=== PATIENT | female | born 1960 | race Caucasian/White ===

== ENCOUNTER → 2017-05-15 | Outpatient (CLI) | payer OTHER ==
--- NOTE | 2017-05-15 11:12 | US ---
EXAMINATION TYPE: US venous doppler duplex LE LT DATE OF EXAM: 05/15/2017 9:55 AM COMPARISON: NONE CLINICAL HISTORY: R22.42 swelling left lower ext. Swelling within calf per patient, all source intelligence technician did no t notice swelling, no h/o dvt SIDE PERFORMED: Left TECHNIQUE: The lower extremity deep venous system is examined utilizing real time linear array sonog obdulio with graded compression, doppler sonography and color-flow sonography. VESSELS IMAGED: External Iliac Vein (EIV) Common Femoral Vein Deep Femoral Vein Greater Saphenous Vein * Femoral Vein Popliteal Vein Small Saphenous Vein * Proximal Calf Veins (* superficial vessels) Left Leg: Appears negative for DVT tech impression to office at 9:55 IMPRESSION: 1. No deep venous thrombosis by ultrasound findings.
== END ==
LOC: RADUSWWP 09:35
PROVIDERS: ATTEND Family Medicine
DX: R22.42 Localized swelling, mass and lump, left lower limb (principal)

== ENCOUNTER 2017-06-25 06:54 | Inpatient (IN) | payer OTHER ==
[2017-06-25] MEDS ORDERED: methylPREDNISolone SOD SUCCI 125 MG/2 ML VIAL IV STA (07:21)
[2017-06-25] MEDS ORDERED: IPRATROPIUM-ALBUTEROL 3 ML NEB INHALATION STA (07:21)
--- NOTE | 2017-06-25 07:24 | ED ---
General Adult HPI - General Chief complaint: Shortness of Breath Stated complaint: SOB Time Seen by Provider: 06/25/17 07:18 Source: patient, family, RN notes reviewed Mode of arrival: ambulatory Limitations: no limitations - History of Present Illness Initial comments: Patient is a pleasant 57-year-old female presenting to the emergency department with shortness of breath. Symptoms started a couple of days ago. Patient does have cough with clear sputum. No fevers. No chest pain. Patient has a history of similar symptoms previously associated with COPD. - Related Data Home Medications Medication Instructions Recorded Confirmed Albuterol Sulfate [Proair Hfa] 2 puff INHALATION RT-Q6H PRN 08/20/15 06/25/17 Aspirin 81 mg PO HS 08/20/15 06/25/17 Atorvastatin [Lipitor] 10 mg PO HS 08/20/15 06/25/17 Hydrochlorothiazide [Hydrodiuril] 25 mg PO HS 08/20/15 06/25/17 Ibuprofen [Motrin] 800 mg PO Q8HR PRN 08/20/15 06/25/17 Ramipril 20 mg PO HS 08/20/15 06/25/17 traMADol HCl [Ultram] 50 mg PO Q4H PRN 08/20/15 06/25/17 Ascorbic Acid [Vitamin C] 1,000 mg PO HS 11/11/15 06/25/17 Multivitamins, Thera [Multivitamin 1 tab PO HS 11/11/15 06/25/17 (formulary)] Calcium Carbonate/Vitamin D3 1 tab PO HS 06/25/17 06/25/17 [Calcium 500-Vit D3 200 Tablet] Allergies Allergy/AdvReac Type Severity Reaction Status Date / Time adhesive tape Allergy Rash/Hives Verified 06/25/17 08:10 Sulfa (Sulfonamide Allergy Swelling Verified 06/25/17 08:10 Antibiotics) codeine AdvReac Nausea & Verified 06/25/17 08:10 Vomiting Review of Systems ROS Statement: Those systems with pertinent positive or pertinent negative responses have been documented in the HPI. ROS Other: All systems not noted in ROS Statement are negative. Constitutional: Denies: fever, chills Eyes: Denies: eye pain ENT: Denies: ear pain, throat pain Respiratory: Reports: cough, dyspnea Cardiovascular: Denies: chest pain Endocrine: Reports: fatigue Gastrointestinal: Denies: abdominal pain Genitourinary: Denies: dysuria Musculoskeletal: Denies: back pain Skin: Denies: rash Neurological: Denies: weakness Past Medical History Past Medical History: Asthma, Cancer, COPD, Hyperlipidemia, Hypertension Additional Past Medical History / Comment(s): cervical cancer, Severe kyphoscoliosis of the thoracic spine and she has not had any surgical intervention History of Any Multi-Drug Resistant Organisms: None Reported Past Surgical History: Hysterectomy, Tonsillectomy Additional Past Surgical History / Comment(s): Benign skin tumor, hemangioma, off side head, exploratory laparotomy Past Anesthesia/Blood Transfusion Reactions: Postoperative Nausea & Vomiting ( PONV) Past Psychological History: No Psychological Hx Reported Smoking Status: Current every day smoker Past Alcohol Use History: None Reported Past Drug Use History: None Reported - Past Family History Mother Family Medical History: Diabetes Mellitus Father Family Medical History: Myocardial Infarction (MO) General Exam Limitations: no limitations General appearance: alert Head exam: Present: atraumatic Eye exam: Present: normal appearance, PERRL ENT exam: Present: normal oropharynx Neck exam: Present: normal inspection Respiratory exam: Present: wheezes, decreased breath sounds Cardiovascular Exam: Present: regular rate, normal rhythm GI/Abdominal exam: Present: soft. Absent: tenderness Extremities exam: Present: normal inspection. Absent: pedal edema, calf tenderness Neurological exam: Present: alert Psychiatric exam: Present: normal affect, normal mood Skin exam: Present: normal color Course Vital Signs 06/25/17 06/25/17 06/25/17 06:57 07:35 07:42 Temperature 98.4 F Pulse Rate 105 H 86 Respiratory 22 Rate Blood Pressure 142/98 O2 Sat by Pulse 88 L 94 L Oximetry 06/25/17 07:52 Temperature Pulse Rate 88 Respiratory Rate Blood Pressure O2 Sat by Pulse Oximetry EKG Findings - EKG Comments: EKG Findings:: Normal sinus rhythm 96. Normal intervals. Normal axis. Normal QRS. No acute ST change. Medical Decision Making - Medical Decision Making Patient reexamined and is somewhat improved following breathing treatment. Lung sounds with increased air exchange however continued wheezing. Patient does not yet feel quite comfortable with discharge home. Patient updated on results and plan. Case discussed in detail with Dr. mehta, who will admit for Dr. hernandez. - Lab Data Result diagrams: 06/25/17 07:36 06/25/17 07:36 Lab Results 06/25/17 06/25/17 06/25/17 Range/Units 07:36 07:36 07:36 WBC 8.0 (3.8-10.6) k/uL RBC 4.42 (3.80-5.40) m/uL Hgb 14.0 (11.4-16.0) gm/dL Hct 42.6 (34.0-46.0) % MCV 96.3 (80.0-100.0) fL MCH 31.7 (25.0-35.0) pg MCHC 33.0 (31.0-37.0) g/dL RDW 12.2 (11.5-15.5) % Plt Count 198 (150-450) k/uL Neutrophils % 73 % Lymphocytes % 15 % Monocytes % 4 % Eosinophils % 6 % Basophils % 1 % Neutrophils # 5.8 (1.3-7.7) k/uL Lymphocytes # 1.2 (1.0-4.8) k/uL Monocytes # 0.3 (0-1.0) k/uL Eosinophils # 0.5 (0-0.7) k/uL Basophils # 0.1 (0-0.2) k/uL PT (9.0-12.0) sec INR (<1.2) APTT (22.0-30.0) sec Sodium 142 (137-145) mmol/L Potassium 4.2 (3.5-5.1) mmol/L Chloride 101 (98-107) mmol/L Carbon Dioxide 30 (22-30) mmol/L Anion Gap 11 mmol/L BUN 11 (7-17) mg/dL Creatinine 0.61 (0.52-1.04) mg/dL Est GFR (MDRD) Af Amer >60 (>60 ml/min/1.73 sqM) Est GFR (MDRD) Non-Af >60 (>60 ml/min/1.73 sqM) Glucose 130 H (74-99) mg/dL Calcium 9.7 (8.4-10.2) mg/dL Total Bilirubin 0.8 (0.2-1.3) mg/dL AST 33 (14-36) U/L ALT 44 (9-52) U/L Alkaline Phosphatase 103 (38-126) U/L Total Creatine Kinase 133 (30-135) U/L CK-MB (CK-2) 4.1 H* (0.0-2.4) ng/mL CK-MB (CK-2) Rel Index 3.1 Troponin I <0.012 (0.000-0.034) ng/mL Total Protein 7.9 (6.3-8.2) g/dL Albumin 5.0 (3.5-5.0) g/dL 06/25/17 Range/Units 07:36 WBC (3.8-10.6) k/uL RBC (3.80-5.40) m/uL Hgb (11.4-16.0) gm/dL Hct (34.0-46.0) % MCV (80.0-100.0) fL MCH (25.0-35.0) pg MCHC (31.0-37.0) g/dL RDW (11.5-15.5) % Plt Count (150-450) k/uL Neutrophils % % Lymphocytes % % Monocytes % % Eosinophils % % Basophils % % Neutrophils # (1.3-7.7) k/uL Lymphocytes # (1.0-4.8) k/uL Monocytes # (0-1.0) k/uL Eosinophils # (0-0.7) k/uL Basophils # (0-0.2) k/uL PT 10.6 (9.0-12.0) sec INR 1.0 (<1.2) APTT 23.8 (22.0-30.0) sec Sodium (137-145) mmol/L Potassium (3.5-5.1) mmol/L Chloride (98-107) mmol/L Carbon Dioxide (22-30) mmol/L Anion Gap mmol/L BUN (7-17) mg/dL Creatinine (0.52-1.04) mg/dL Est GFR (MDRD) Af Amer (>60 ml/min/1.73 sqM) Est GFR (MDRD) Non-Af (>60 ml/min/1.73 sqM) Glucose (74-99) mg/dL Calcium (8.4-10.2) mg/dL Total Bilirubin (0.2-1.3) mg/dL AST (14-36) U/L ALT (9-52) U/L Alkaline Phosphatase (38-126) U/L Total Creatine Kinase (30-135) U/L CK-MB (CK-2) (0.0-2.4) ng/mL CK-MB (CK-2) Rel Index Troponin I (0.000-0.034) ng/mL Total Protein (6.3-8.2) g/dL Albumin (3.5-5.0) g/dL - Radiology Data Radiology results: image reviewed (Chest x-ray shows no acute process. Chronic chest wall deformity/severe scoliosis.) Disposition Clinical Impression: Acute exacerbation of chronic obstructive airways disease Disposition: ADMITTED IP TO THIS HOSP Referrals: Fermin Hernandez MD [Primary Care Provider] - 1-2 days Decision Time: 08:43
[2017-06-25 07:48] LABS: Basophils # (A) 0.1 k/uL (0-0.2); Basophils % (A) 1 %; CH 31.9; CHCM 33.3; Eosinophils # (A) 0.5 k/uL (0-0.7); Eosinophils % (A) 6 %; HCT 42.6 % (34.0-46.0); HDW 2.27; Luc % (Auto) 1; Lymphocytes # (A) 1.2 k/uL (1.0-4.8); Lymphocytes % (A) 15 %; MCH 31.7 pg (25.0-35.0); MCV 96.3 fL (80.0-100.0); Mean Platelet Volume 8.9; Monocytes # (A) 0.3 k/uL (0-1.0); Monocytes % (A) 4 %; Neutrophils # (A) 5.8 k/uL (1.3-7.7); Neutrophils % (A) 73 %; RBC 4.42 m/uL (3.80-5.40); RDW 12.2 % (11.5-15.5); WBC (Perox) 7.81
[2017-06-25 07:53] LABS: Partial Thromboplastin Time 23.8 sec (22.0-30.0)
[2017-06-25 07:57] LABS: ALT 44 U/L (9-52); AST 33 U/L (14-36); Alkaline Phosphatase 103 U/L (38-126); Anion Gap 11 mmol/L; Blood Urea Nitrogen 11 mg/dL (7-17); Calcium 9.7 mg/dL (8.4-10.2); Carbon Dioxide 30 mmol/L (22-30); Chloride 101 mmol/L (98-107); Glucose 130 mg/dL (74-99); Non-African American GFR(MDRD) >60 (>60 ml/min/1.73 sqM); Potassium 4.2 mmol/L (3.5-5.1); Sodium 142 mmol/L (137-145); Total Bilirubin 0.8 mg/dL (0.2-1.3); Total Protein 7.9 g/dL (6.3-8.2)
[2017-06-25 08:00] LABS: Prothrombin Time 10.6 sec (9.0-12.0)
[2017-06-25 08:08] LABS: Creatine Kinase 133 U/L (30-135)
[2017-06-25 08:20] LABS: Troponin I <0.012 ng/mL (0.000-0.034)
[2017-06-25 08:23] LABS: Creatine Kinase MB 4.1 ng/mL (0.0-2.4)
--- NOTE | 2017-06-25 08:26 | XR ---
EXAMINATION TYPE: XR chest 2V DATE OF EXAM: 06/25/2017 COMPARISON: 11/11/2015 HISTORY: COPD and asthma. Shortness of breath. TECHNIQUE: Frontal and lateral views of the chest are obtained. FINDINGS: Chronic chest wall deformity, severe scoliosis, and mediastinal rotation unchanged from th e prior. No new focal consolidation, pleural effusion or pneumothorax. Redemonstration of multilevel compression deformities and diffuse osseous demineralization. Flattening of the diaphragms on the lat eral image is compatible with the known history of underlying COPD. IMPRESSION: No acute cardiopulmonary process, unchanged in comparison to the prior exam.
[2017-06-25] MEDS ORDERED: IPRATROPIUM-ALBUTEROL 3 ML NEB INHALATION PRN (08:44)
[2017-06-25] MEDS ORDERED: traMADol 50 MG TAB PO PRN (10:30)
[2017-06-25] MEDS ORDERED: IPRATROPIUM-ALBUTEROL 3 ML NEB INHALATION SCH (12:00)
[2017-06-25] MEDS ORDERED: methylPREDNISolone SOD SUCCI 125 MG/2 ML VIAL IV SCH (12:00)
[2017-06-25 12:43] LABS: Glucose,Whole Blood 135 mg/dL (75-99)
[2017-06-25] MEDS: INSULIN LISPRO (humaLOG) 300 UNIT/3 ML VIAL SQ SCH ×3 (12:47→20:54)
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
[2017-06-25] MEDS: methylPREDNISolone SOD SUCCI 40 MG/ML 1 ML VIAL IV SCH ×2 (16:26→23:48)
[2017-06-25] MEDS: IPRATROPIUM-ALBUTEROL 3 ML NEB INHALATION SCH ×2 (17:15→19:56)
[2017-06-25] MEDS: BUDESONIDE 1 MG/2 ML NEBU INHALATION SCH ×2 (17:15→20:04)
[2017-06-25 18:16] LABS: Glucose,Whole Blood 166 mg/dL (75-99)
[2017-06-25] MEDS ORDERED: NICOTINE POLACRILEX 2 MG GUM BUCCAL PRN (19:02)
[2017-06-25] MEDS: NICOTINE 21MG/24HR PATCH TRANSDERM SCH (20:47)
[2017-06-25 20:48] LABS: Glucose,Whole Blood 146 mg/dL (75-99)
[2017-06-25] MEDS: CIPROFLOXACIN HCL 500 MG TAB PO SCH (20:48)
[2017-06-25] MEDS ORDERED: HYDROCHLOROTHIAZIDE 25 MG TAB PO SCH (21:00)
[2017-06-25] MEDS ORDERED: CALCIUM CARB-VIT D 500MG-200UN 1 EACH TAB PO SCH (21:00)
[2017-06-25] MEDS ORDERED: LISINOPRIL 20 MG TAB PO SCH (21:00)
[2017-06-25] MEDS ORDERED: ASPIRIN 81 MG PO SCH (21:00)
[2017-06-25] MEDS ORDERED: MULTIVITAMINS, THERA 1 EACH TAB PO SCH (21:00)
[2017-06-25] MEDS ORDERED: ATORVASTATIN 10 MG TAB PO SCH (21:00)
--- NOTE | 2017-06-25 21:39 | HP ---
HISTORY AND PHYSICAL DATE OF ADMISSION: 06/25/17. PRESENTING COMPLAINT: Short of breath and wheezing. HISTORY OF PRESENTING COMPLAINT: Pleasant 57 -year-old patient of Dr. Hernandez. Chronic stable medical conditions include hyperlipidemia, hypertension, osteoarthritis, and kyphoscoliosis. The patient is long-standing smoker. The patient presents with worsening short of breath, cough, thick yellow sputum. He denies any obvious fevers. Appetite is maintained. Did feel a bit better after getting nebulized bronchodilators, admitted for the same. Denies any obvious fever. REVIEW OF SYSTEMS: Constitutional tired. HEENT: None. RESPIRATORY: As above. Cardiovascular: None. Gastrointestinal: None. Genitourinary none. Musculoskeletal arthritic pain especially in the hands and knees. Dermatological, hematologic, lymphatics none. Psychiatry none. Neurological none. PAST HISTORY: COPD, hyperlipidemia, hypertension, osteoarthritis, kyphoscoliosis, cervical cancer with hysterectomy, arthritis of the hands and knees. PAST SURGICAL HISTORY: Hysterectomy, tonsillectomy, hemangioma removed from the side of the head, exploratory laparotomy with right salpingectomy, lymph node removed from the groin and hysterectomy for cervical cancer. SOCIAL HISTORY: The patient lives with a brother. Smoked a pack a day for 45 years. Alcohol occasionally. Denies use of any recreational drugs. FAMILY HISTORY: Mother of cerebral aneurysm at age of 29. HOME MEDICATIONS: Ultram 50 mg p.o. q.4 p.r.n. Motrin 800 mg q.8h p.r.n., calcium with vitamin D 1 tablet p.o. q.h.s., ProAir 2 puffs q.6h p.r.n. multivitamin 1 tab p.o. q.h.s., hydrochlorothiazide 25 mg q.h.s., Lipitor 10 mg p.o. q.h.s., aspirin 81 mg p.o. q.h.s. vitamin C 1000 mg p.o. q.h.s. ALLERGIES: ADHESIVE TAPE, SULFUR, CODEINE. PHYSICAL EXAMINATION: Vital signs on presentation: Temperature 98.4, pulse 105, respiratory rate 22, blood pressure 142/98, pulse ox 88% on room air, general appearance average built, sitting up, tired appearing. EYES: Pupils are equal. Conjunctivae normal. HEENT: Oral cavity normal. Neck JVD not raised. Mass not palpable. Respiratory effort increased. LUNGS: Diminished breath sounds, prolonged expiration and wheezing. Cardiovascular first and second sounds normal. No edema. ABDOMEN: Soft, nontender. Liver and spleen not palpable. Lymphatics: No lymph node palpable in the neck and axilla. Psychiatry: Alert and oriented times three. Mood and affect is slightly anxious appearing. Neurological pupils equal. Cranial nerves grossly intact. Power and sensation grossly intact. INVESTIGATIONS: White count 8.0, hemoglobin 14, potassium 4.2. Troponin negative. EKG poor baseline tracing. Chest x-ray shows severe scoliosis. No obvious infiltrate. ASSESSMENT: 1. Acute chronic obstructive pulmonary disease exacerbation from acute tracheobronchitis in a smoker. 2. Chronic nicotine dependence, patient active cigarette smoker. 3. Acute hypoxic respiratory failure present on admission from chronic obstructive pulmonary disease. 4. Hyperlipidemia. 5. Essential hypertension. 6. Primary osteoarthritis of the knees and the hands. 7. Chronic kyphoscoliosis. PLAN: Patient is started on nebulized bronchodilators, inhaled steroids, IV Solu-Medrol, oral antibiotic to be added. Care was discussed with the patient. Counseled against smoking. Given nicotine patch including nebulized bronchodilators and steroids. Copy to Dr. Hernandez. [id number] / ANAN: [id number] /
[2017-06-26 07:04] LABS: Glucose,Whole Blood 135 mg/dL (75-99)
[2017-06-26] MEDS: IPRATROPIUM-ALBUTEROL 3 ML NEB INHALATION SCH ×2 (07:10→10:54)
[2017-06-26] MEDS: BUDESONIDE 1 MG/2 ML NEBU INHALATION SCH (07:10)
[2017-06-26 07:15] VITALS: BP 104/62; RESP 20; TEMP 97
[2017-06-26] MEDS: methylPREDNISolone SOD SUCCI 40 MG/ML 1 ML VIAL IV SCH (07:34)
[2017-06-26] MEDS: CIPROFLOXACIN HCL 500 MG TAB PO SCH (07:34)
[2017-06-26] MEDS: NICOTINE 21MG/24HR PATCH TRANSDERM SCH (07:34)
[2017-06-26] MEDS: INSULIN LISPRO (humaLOG) 300 UNIT/3 ML VIAL SQ SCH ×2 (07:34→11:46)
[2017-06-26] MEDS ORDERED: ENOXAPARIN 40 MG/0.4 ML SYRINGE SQ SCH (09:00)
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
[2017-06-26 10:57] VITALS: PULSE 84
[2017-06-26 11:26] LABS: Glucose,Whole Blood 138 mg/dL (75-99)
--- NOTE | 2017-06-26 15:28 | DS ---
DISCHARGE SUMMARY DATE OF ADMISSION: 06/25/17. DATE OF DISCHARGE: 06/26/17. FINAL DIAGNOSES: 1. Acute chronic obstructive pulmonary disease exacerbation from acute tracheobronchitis in a smoker. 2. Chronic nicotine dependence patient active cigarette smoker. 3. Acute hypoxic respiratory failure present on admission from chronic obstructive pulmonary disease. 4. Hyperlipidemia. 5. Essential hypertension. 6. Primary osteoarthritis of the knees and hands. 7. Chronic kyphoscoliosis. HOSPITAL COURSE: This is a smoker presented with COPD exacerbation, tracheobronchitis. Doing much better by the time of discharge. EXAMINATION: Lungs improved air entry. CONSULTATION: Dr. Damon from Pulmonary. DISCHARGE MEDICATIONS: 1. ProAir 2 puffs q.6h p.r.n. 2. Aspirin 81 mg q.h.s. 3. Lipitor 10 mg q.h.s. 4. Hydrochlorothiazide 25 mg q.h.s. 5. Motrin 800 mg p.o. q.8h p.r.n. 6. Ramipril 20 mg q.h.s. 7. Ultram 50 mg p.o. q.4 p.r.n. 8. Vitamin C 1000 mg p.o. q.h.s. 9. Multivitamin 1 tab p.o. q.h.s. 10.Calcium 500, vitamin D3 1 tab p.o. q.h.s. 11.Ceftin 250 mg p.o. b.i.d. 6 tablets. 12.Atrovent 2 puffs q.i.d. 13.Habitrol nicotine patch. 14.Nicorette gum q.4h p.r.n. 15.Prednisone taper. Follow up with Dr. Hernandez on July 10, 2017, follow with Dr. Larsen on July 04, 2017. Discussion and discharge planning more than 35 minutes. MMODL / IJN: [id number] /
== END 2017-06-26 13:15 | disposition home or self-care (01) | DRG 190 ==
LOC: EC 06:54 → 4MS4W 08:44
PROVIDERS: ADMIT Hospitalist; ATTEND Hospitalist
DX: J44.0 Chronic obstructive pulmonary disease with (acute) lower respiratory infection (principal); J96.01 Acute respiratory failure with hypoxia; M41.9 Scoliosis, unspecified; F17.210 Nicotine dependence, cigarettes, uncomplicated; J20.9 Acute bronchitis, unspecified; J44.1 Chronic obstructive pulmonary disease with (acute) exacerbation; E78.5 Hyperlipidemia, unspecified; I10 Essential (primary) hypertension; M19.041 Primary osteoarthritis, right hand; M19.042 Primary osteoarthritis, left hand; M17.0 Bilateral primary osteoarthritis of knee; Z79.899 Other long term (current) drug therapy; Z79.82 Long term (current) use of aspirin; Z90.710 Acquired absence of both cervix and uterus; Z85.41 Personal history of malignant neoplasm of cervix uteri; Z90.79 Acquired absence of other genital organ(s)
CPT/HCPCS: 36415; 71020; 80053; 82550; 82553; 84484; 85025; 85610; 85730; 87040; 93005; 94640; 94760; 96374; 99285

== ENCOUNTER → 2017-10-01 | Outpatient (CLI) | payer OTHER ==
--- NOTE | 2017-10-02 11:39 | MM ---
Reason for exam: screening (asymptomatic). Last mammogram was performed 1 year and 11 months ago. History: Patient has history of endometrial cancer at age 34. Family history of breast cancer in paternal grandmother. Physical Findings: A clinical breast exam by your physician is recommended on an annual basis and results should be correlated with mammographic findings. MG 3D Screening Mammo W/Cad Bilateral CC and MLO view(s) were taken. Prior study comparison: November 05, 2015, bilateral MG screening mammo w CAD. October 07, 2014, bilateral MG screening mammo w CAD. There are scattered fibroglandular densities. There is no discrete abnormality. No significant changes when compared with prior studies. ASSESSMENT: Negative, BI-RAD 1 RECOMMENDATION: Routine screening mammogram of both breasts in 1 year.
== END | disposition home or self-care (01) ==
LOC: RADMAMWWP 16:51
PROVIDERS: ATTEND Family Medicine
DX: Z12.31 Encounter for screening mammogram for malignant neoplasm of breast (principal)
CPT/HCPCS: 77063; 77067

== ENCOUNTER → 2017-11-21 | Outpatient (CLI) | payer OTHER ==
--- NOTE | 2017-11-21 13:28 | XR ---
EXAMINATION TYPE: XR shoulder complete RT DATE OF EXAM: 11/21/2017 COMPARISON: NONE HISTORY: Pain TECHNIQUE: Three views are submitted. FINDINGS: The osseous structures are intact. There is no acute fracture or dislocation. There is diffuse osteo penia. Chronic right-sided rib deformities are seen with a scoliotic curvature. Clavicular deformity suggests previous trauma. No definite acute fracture. IMPRESSION: 1. Chronic rib cage deformities with no definite acute fracture or dislocation.
== END | disposition home or self-care (01) ==
LOC: RADXRMAIN 12:43
PROVIDERS: ATTEND Emergency Medicine
DX: M95.4 Acquired deformity of chest and rib (principal)

== ENCOUNTER 2018-01-14 00:07 | Emergency (ER) | payer OTHER ==
[2018-01-14] MEDS ORDERED: FAMOTIDINE 20 MG/2 ML VIAL IV STA (00:25)
[2018-01-14] MEDS ORDERED: EPINEPHrine 1 MG/ML 1 ML AMP IM STA (00:25)
[2018-01-14] MEDS ORDERED: methylPREDNISolone SOD SUCCI 125 MG/2 ML VIAL IV STA (00:25)
--- NOTE | 2018-01-14 00:42 | ED ---
General Adult HPI - General Chief complaint: Allergic Reaction Stated complaint: allergic reaction Time Seen by Provider: 01/14/18 00:30 Source: patient, family, RN notes reviewed Mode of arrival: ambulatory Limitations: no limitations - History of Present Illness Initial comments: Chief complaint history of present illness a 77-year-old female comes emergency room because of a large reaction. Patient does not know what she took. She is taking Keflex for an infection but she did not 4 days. Was never had a reaction to before. Patient does have ALLERGIES to sulfa medications. Patient took 2 Benadryl prior to coming emergency room. She presents with hives swelling redness complaint shortness of breath. - Related Data Home Medications Medication Instructions Recorded Confirmed Albuterol Sulfate [Proair Hfa] 2 puff INHALATION RT-Q6H PRN 08/20/15 01/14/18 Aspirin 81 mg PO HS 08/20/15 01/14/18 Atorvastatin [Lipitor] 10 mg PO HS 08/20/15 01/14/18 Hydrochlorothiazide [Hydrodiuril] 25 mg PO HS 08/20/15 01/14/18 Ibuprofen [Motrin] 800 mg PO Q8HR PRN 08/20/15 01/14/18 Ramipril 20 mg PO HS 08/20/15 01/14/18 traMADol HCl [Ultram] 50 mg PO Q4H PRN 08/20/15 01/14/18 Ascorbic Acid [Vitamin C] 1,000 mg PO HS 11/11/15 01/14/18 Multivitamins, Thera [Multivitamin 1 tab PO HS 11/11/15 01/14/18 (formulary)] Calcium Carbonate/Vitamin D3 1 tab PO HS 06/25/17 01/14/18 [Calcium 500-Vit D3 200 Tablet] Previous Rx's Medication Instructions Recorded Cefuroxime [Ceftin] 250 mg PO BID #6 tablet 06/26/17 Ipratropium Angie [Atrovent Hfa] 2 puff INHALATION QID #1 inhaler 06/26/17 Nicotine 21Mg/24Hr Patch [Habitrol] 1 patch TRANSDERM DAILY #14 patch 06/26/17 Nicotine Polacrilex [Nicorette] 2 mg BUCCAL Q4HR PRN #30 gum 06/26/17 predniSONE 10 mg PO DAILY #30 tab 06/26/17 EPINEPHrine [Epipen 2-Pilo] 0.3 mg IM ONCE PRN #1 auto.injct 01/14/18 predniSONE 20 mg PO DAILY #3 tab 01/14/18 Allergies Allergy/AdvReac Type Severity Reaction Status Date / Time adhesive tape Allergy Rash/Hives Verified 01/14/18 00:13 Sulfa (Sulfonamide Allergy Swelling Verified 01/14/18 00:13 Antibiotics) codeine AdvReac Nausea & Verified 01/14/18 00:13 Vomiting Review of Systems ROS Statement: Those systems with pertinent positive or pertinent negative responses have been documented in the HPI. Review of systems. Patient complains not feeling well having hives swelling around the eyes some shortness of breath no significant wheezing at this time no diarrhea. No pain. All systems are reviewed. Past medical problems significant for ALLERGIC reactions to adhesive tape and sulfa medications as well as codeine. Past medical problems significant for asthma, cervical cancer, COPD, hyperlipidemia, hypertension, osteoarthritis, bronchitis. Surgeries hysterectomy, tonsillectomy, hemangioma room removed. ALLERGIES to a tape sulfa medications and codeine. Patient's daily smoker strongly encouraged to stop. Occasional alcohol use. Denies drug use ROS Other: All systems not noted in ROS Statement are negative. Past Medical History Past Medical History: Asthma, Cancer, COPD, Hyperlipidemia, Hypertension, Osteoarthritis (OA) Additional Past Medical History / Comment(s): Bronchitis, cervical cancer with hysterectomy, kyphoscoliosis of the spine, arthritis bilateral hands and knees. History of Any Multi-Drug Resistant Organisms: None Reported Past Surgical History: Hysterectomy, Tonsillectomy Additional Past Surgical History / Comment(s): Hemangioma removed from side head , exploratory laparotomy with R salpingectomy, lymph nodes removed from groin with hysterectomy (cervical cancer). Past Anesthesia/Blood Transfusion Reactions: Postoperative Nausea & Vomiting ( PONV) Additional Past Anesthesia/Blood Transfusion Reaction / Comment(s): I wake up "rowdy." Past Psychological History: No Psychological Hx Reported Smoking Status: Current every day smoker - Past Family History Mother Family Medical History: Vascular Disorder Additional Family Medical History / Comment(s): Mother of a cerebral aneurysm at the age of 29 yrs. Father Family Medical History: CVA/TIA Additional Family Medical History / Comment(s): Father of a CVA-pt unable to recall at what age. General Exam - General Exam Comments Initial Comments: General: The patient is awake and alert, presents emergency room acute ALLERGIC reaction to unknown substance. Initial vital signs temperature afebrile, pulse 120 respiratory rate 20 pulse ox 93% room air blood pressure 130/68 Eye: Pupils are equal, round and reactive to light, extra-ocular movements are intact ; there is normal conjunctiva bilaterally. No signs of icterus. Ears, nose, mouth and throat: There are moist mucous membranes and no oral lesions. redness around the eyes, hives face arms and legs. Neck: The neck is supple, there is no tenderness , no stridor. Cardiovascular: tachycardic heart rate, 120.. No murmur, rub or gallop is appreciated. Respiratory: Lungs are clear to auscultation, respirations are non-labored, breath sounds are equal. No wheezes, stridor, rales, or rhonchi.sensation of shortness of breath, mildly anxious. Gastrointestinal: Soft, non-distended, non-tender abdomen without masses or organomegaly noted. There is no rebound or guarding present. No CVA tenderness. Bowel sounds are unremarkable. Back: There is no tenderness to palpation in the midline. There is no obvious deformity. No rashes noted. Musculoskeletal: Normal ROM, no tenderness, There is no pedal edema. There is no calf tenderness or swelling. Sensation intact. Pulses equal bilaterally 2+. Neurological: no neuro deficits Skin: hives Limitations: no limitations Course Vital Signs 01/14/18 00:11 Pulse Rate 120 H Respiratory 20 Rate Blood Pressure 130/68 O2 Sat by Pulse 93 L Oximetry Medical Decision Making - Medical Decision Making medical decision making; this is a 57-year-old female brought in by her daughter because of an ALLERGIC reaction to some unknown substance. The patient is treated emergency room with IM epi, IV Pepcid, by mouth Benadryl which she had taken a home, IV prednisone. Patient responded well to his medications. She will be observed. On discharge to be advised take prednisone 20 mg daily for 3 days, Benadryl 50 mg twice a day for 3 days, prednisone 20 mg per day for 3 days.and a prescription for an EpiPen. Disposition Clinical Impression: Allergic reaction Disposition: HOME SELF-CARE Instructions: Anaphylaxis (ED) Prescriptions: EPINEPHrine [Epipen 2-Pilo] 0.3 mg IM ONCE PRN #1 auto.injct PRN Reason: Allergic Reaction predniSONE 20 mg PO DAILY #3 tab Is patient prescribed a controlled substance at d/c from ED?: No Referrals: Fermin Hernandez MD [Primary Care Provider] - 1-2 days
[2018-01-14 00:53] VITALS: RESP 18
[2018-01-14 01:23] VITALS: BP 126/58; PULSE 89; TEMP 98
== END 2018-01-14 01:32 | disposition home or self-care (01) ==
LOC: EC 00:07
DX: T78.40XA Allergy, unspecified, initial encounter (principal); J44.9 Chronic obstructive pulmonary disease, unspecified; E78.5 Hyperlipidemia, unspecified; I10 Essential (primary) hypertension; Z85.41 Personal history of malignant neoplasm of cervix uteri; F17.200 Nicotine dependence, unspecified, uncomplicated; Z90.710 Acquired absence of both cervix and uterus; Z79.82 Long term (current) use of aspirin; Z79.899 Other long term (current) drug therapy; Z88.2 Allergy status to sulfonamides; Z88.5 Allergy status to narcotic agent; Z91.048 Other nonmedicinal substance allergy status
CPT/HCPCS: 99283; 96374; 96375; 96372; J0171; J2930

== ENCOUNTER 2018-09-14 15:18 | Emergency (ER) | payer OTHER ==
[2018-09-15 04:46] LABS: INR 0.9 (<1.2); Partial Thromboplastin Time 20.8 sec (22.0-30.0); Prothrombin Time 9.9 sec (9.0-12.0)
[2018-09-15 04:58] LABS: D-Dimer 2.33 mg/L FEU (<0.60)
[2018-09-15 05:19] LABS: Basophils # (A) 0.1 k/uL (0-0.2); Basophils % (A) 1 %; Eosinophils # (A) 0.1 k/uL (0-0.7); Eosinophils % (A) 1 %; HCT 43.2 % (34.0-46.0); Lymphocytes # (A) 1.6 k/uL (1.0-4.8); Lymphocytes % (A) 24 %; MCH 32.1 pg (25.0-35.0); MCHC 32.3 g/dL (31.0-37.0); MCV 99.1 fL (80.0-100.0); Mean Platelet Volume 7.5; Monocytes # (A) 0.4 k/uL (0-1.0); Monocytes % (A) 5 %; Neutrophils # (A) 4.5 k/uL (1.3-7.7); Neutrophils % (A) 66 %; Platelet Count 159 k/uL (150-450); RBC 4.36 m/uL (3.80-5.40); RDW 12.7 % (11.5-15.5); WBC 6.8 k/uL (3.8-10.6)
[2018-09-15 12:48] LABS: ALT 39 U/L (9-52); AST 32 U/L (14-36); Albumin 4.7 g/dL (3.5-5.0); Alkaline Phosphatase 72 U/L (38-126); Anion Gap 8 mmol/L; Blood Urea Nitrogen 13 mg/dL (7-17); Calcium 9.8 mg/dL (8.4-10.2); Carbon Dioxide 25 mmol/L (22-30); Chloride 104 mmol/L (98-107); Glucose 144 mg/dL (74-99); Potassium 3.9 mmol/L (3.5-5.1); Sodium 137 mmol/L (137-145); Total Bilirubin 0.9 mg/dL (0.2-1.3); Total Protein 7.1 g/dL (6.3-8.2)
[2018-09-15 12:52] LABS: Creatine Kinase 77 U/L (30-135); Creatine Kinase MB 1.6 ng/mL (0.0-2.4); Troponin I <0.012 ng/mL (0.000-0.034)
== END 2018-09-14 18:38 | disposition left against medical advice (07) ==
LOC: EC 15:18
DX: R07.9 Chest pain, unspecified (principal); Z87.891 Personal history of nicotine dependence; Z88.2 Allergy status to sulfonamides; Z88.5 Allergy status to narcotic agent
CPT/HCPCS: 36415; 80053; 82550; 82553; 83735; 84484; 85025; 85379; 85610; 85730; 99285

== ENCOUNTER → 2018-10-31 | Outpatient (CLI) | payer OTHER ==
--- NOTE | 2018-11-01 11:11 | MM ---
Reason for exam: screening (asymptomatic). Last mammogram was performed 1 year and 1 month ago. History: Patient has history of endometrial cancer at age 34. Family history of breast cancer in paternal grandmother. Physical Findings: A clinical breast exam by your physician is recommended on an annual basis and results should be correlated with mammographic findings. MG 3D Screening Mammo W/Cad Bilateral CC and MLO view(s) were taken. Prior study comparison: October 01, 2017, bilateral MG 3d screening mammo w/cad. November 05, 2015, bilateral MG screening mammo w CAD. There are scattered fibroglandular densities. No suspicious abnormality. No significant changes when compared with prior studies. ASSESSMENT: Negative, BI-RAD 1 RECOMMENDATION: Routine screening mammogram of both breasts in 1 year.
== END | disposition home or self-care (01) ==
LOC: RADMAMWWP 15:22
PROVIDERS: ATTEND Family Medicine
DX: Z12.31 Encounter for screening mammogram for malignant neoplasm of breast (principal)
CPT/HCPCS: 77063; 77067

== ENCOUNTER 2019-02-26 11:55 | Emergency (ER) | payer OTHER ==
[2019-02-26 11:59] VITALS: TEMP 98.7
--- NOTE | 2019-02-26 12:52 | ED ---
General Adult HPI - General Chief complaint: Arrhythmia/Palpitations Stated complaint: abnormal ekg Time Seen by Provider: 02/26/19 12:00 Source: patient, RN notes reviewed Mode of arrival: ambulatory Limitations: no limitations - History of Present Illness Initial comments: This is a 58-year-old female who presents emergency department with past medical history significant for hypertension. Patient states over the last few days her blood pressures been going up and down. Patient states when his height occasionally she has a headache and went as low sometimes she feels a little lightheaded. Patient states she has not compared her pressure cuff to the doctor's office. Patient denies any chest pain difficulty breathing or shortness of breath per patient denies any diaphoretic episodes. Patient denies any nausea. Patient denies abdominal pain patient's nausea vomiting diarrhea. Patient denies any lightheadedness now but has a mild headache. Patient denies any back pain. Patient denies any numbness or weakness. Patient denies any leg pain or leg swelling or calf tenderness. Patient states she went to an urgent care and they sent her here for further monitoring of her blood pressure. - Related Data Home Medications Medication Instructions Recorded Confirmed Albuterol Sulfate [Proair Hfa] 2 puff INHALATION RT-Q6H PRN 08/20/15 02/26/19 Aspirin 81 mg PO HS 08/20/15 02/26/19 Atorvastatin [Lipitor] 10 mg PO HS 08/20/15 02/26/19 Hydrochlorothiazide [Hydrodiuril] 25 mg PO HS 08/20/15 02/26/19 Ibuprofen [Motrin] 800 mg PO Q8HR PRN 08/20/15 02/26/19 Ramipril 20 mg PO HS 08/20/15 02/26/19 traMADol HCl [Ultram] 50 mg PO Q4H PRN 08/20/15 02/26/19 Ascorbic Acid [Vitamin C] 1,000 mg PO HS 11/11/15 02/26/19 Multivitamins, Thera [Multivitamin 1 tab PO HS 11/11/15 02/26/19 (formulary)] Fluticasone/Vilanterol [Breo 1 puff INHALATION RT-HS 02/26/19 02/26/19 Ellipta 200-25 Mcg INH] Previous Rx's Medication Instructions Recorded EPINEPHrine [Epipen 2-Pilo] 0.3 mg IM ONCE PRN #1 auto.injct 01/14/18 Allergies Allergy/AdvReac Type Severity Reaction Status Date / Time adhesive tape Allergy Rash/Hives Verified 02/26/19 12:13 Sulfa (Sulfonamide Allergy Swelling Verified 02/26/19 12:13 Antibiotics) codeine AdvReac Nausea & Verified 02/26/19 12:13 Vomiting Review of Systems ROS Statement: Those systems with pertinent positive or pertinent negative responses have been documented in the HPI. ROS Other: All systems not noted in ROS Statement are negative. Past Medical History Past Medical History: Asthma, Cancer, COPD, Hyperlipidemia, Hypertension, Osteoarthritis (OA) Additional Past Medical History / Comment(s): Bronchitis, cervical cancer with hysterectomy, kyphoscoliosis of the spine, arthritis bilateral hands and knees. History of Any Multi-Drug Resistant Organisms: None Reported Past Surgical History: Hysterectomy, Tonsillectomy Additional Past Surgical History / Comment(s): Hemangioma removed from side head, exploratory laparotomy with R salpingectomy, lymph nodes removed from groin with hysterectomy (cervical cancer). Past Anesthesia/Blood Transfusion Reactions: Postoperative Nausea & Vomiting (PONV) Additional Past Anesthesia/Blood Transfusion Reaction / Comment(s): I wake up "rowdy." Past Psychological History: No Psychological Hx Reported Smoking Status: Current every day smoker - Past Family History Mother Family Medical History: Vascular Disorder Additional Family Medical History / Comment(s): Mother of a cerebral aneurysm at the age of 29 yrs. Father Family Medical History: CVA/TIA Additional Family Medical History / Comment(s): Father of a CVA-pt unable to recall at what age. General Exam - General Exam Comments Initial Comments: GENERAL: Patient is well-developed and well-nourished. Patient is nontoxic and well- hydrated and is in no acute distress. ENT: Neck is soft and supple. No significant lymphadenopathy is noted. Oropharynx is clear. Moist mucous membranes. Neck has full range of motion without eliciting any pain. EYES: The sclera were anicteric and conjunctiva were pink and moist. Extraocular movements were intact and pupils were equal round and reactive to light. Eyelids were unremarkable. PULMONARY: Unlabored respirations. Good breath sounds bilaterally. No audible rales rhonchi or wheezing was noted. CARDIOVASCULAR: Patient is a regular rate and rhythm. No murmurs are heard ABDOMEN: Soft and nontender with normal bowel sounds. SKIN: Skin is clear with no lesions or rashes and otherwise unremarkable. NEUROLOGIC: Patient is alert and oriented x3. Cranial nerves II through XII are grossly intact. Motor and sensory are also intact. Normal speech, volume and content. Symmetrical smile. MUSCULOSKELETAL: Normal extremities with adequate strength and full range of motion. No lower extremity swelling or edema. No calf tenderness. LYMPHATICS: No significant lymphadenopathy is noted PSYCHIATRIC: Normal psychiatric evaluation. Limitations: no limitations Course Vital Signs 02/26/19 02/26/19 02/26/19 11:57 12:40 13:08 Temperature 98.7 F Pulse Rate 109 H 93 76 Respiratory 16 20 18 Rate Blood Pressure 158/91 131/107 144/76 O2 Sat by Pulse 95 97 Oximetry 02/26/19 02/26/19 02/26/19 13:10 13:15 13:25 Temperature Pulse Rate 76 73 78 Respiratory 18 18 19 Rate Blood Pressure 141/97 139/71 154/80 O2 Sat by Pulse 97 98 99 Oximetry 02/26/19 02/26/19 02/26/19 13:30 13:35 13:40 Temperature Pulse Rate 74 73 74 Respiratory 19 18 18 Rate Blood Pressure 139/71 138/81 138/86 O2 Sat by Pulse 99 98 98 Oximetry 02/26/19 02/26/19 02/26/19 13:45 13:50 13:55 Temperature Pulse Rate 74 80 73 Respiratory 18 19 19 Rate Blood Pressure 139/77 138/80 137/74 O2 Sat by Pulse 97 98 97 Oximetry 02/26/19 02/26/19 02/26/19 14:00 14:05 14:10 Temperature Pulse Rate 73 88 73 Respiratory 18 18 17 Rate Blood Pressure 139/74 131/80 136/77 O2 Sat by Pulse 96 97 98 Oximetry 02/26/19 02/26/19 02/26/19 14:12 14:15 14:20 Temperature Pulse Rate 74 75 73 Respiratory 17 18 18 Rate Blood Pressure 123/83 129/83 142/83 O2 Sat by Pulse 97 98 97 Oximetry 02/26/19 02/26/19 02/26/19 14:25 14:30 14:35 Temperature Pulse Rate 74 81 81 Respiratory 19 18 18 Rate Blood Pressure 130/74 129/70 129/77 O2 Sat by Pulse 97 97 97 Oximetry 02/26/19 02/26/19 02/26/19 14:40 14:45 14:50 Temperature Pulse Rate 78 76 80 Respiratory 19 18 17 Rate Blood Pressure 131/85 143/81 142/80 O2 Sat by Pulse 97 97 97 Oximetry 02/26/19 14:55 Temperature Pulse Rate 76 Respiratory 18 Rate Blood Pressure 140/77 O2 Sat by Pulse 97 Oximetry Medical Decision Making - Medical Decision Making EKG shows normal sinus rhythm at 93 bpm ND interval is 122 QRS is 84 QT interval 352 QTC is 437. Patient's EKG shows ST segment depression in precordial leads V3 through V6 as well as leads 2 and aVF. Patient's EKG was compared to an old EKG and these ST segment depressions were there before. Patient had many blood pressures in the emergency department they were all reasonable. Patient remained asymptomatic so I discharge the patient. The primary medical care doctor and she'll be taking her blood pressure 4 times a day and speaking with her physician. Patient was instructed to return if there are any symptoms chest pain headache blurred vision or any other new symptoms. Patient states she will be getting a new blood pressure cuff. - Lab Data Result diagrams: 02/26/19 13:00 02/26/19 13:00 Lab Results 02/26/19 02/26/19 02/26/19 Range/Units 13:00 13:00 13:00 WBC 6.4 (3.8-10.6) k/uL RBC 4.62 (3.80-5.40) m/uL Hgb 14.3 (11.4-16.0) gm/dL Hct 42.9 (34.0-46.0) % MCV 92.8 (80.0-100.0) fL MCH 31.0 (25.0-35.0) pg MCHC 33.4 (31.0-37.0) g/dL RDW 13.6 (11.5-15.5) % Plt Count 197 (150-450) k/uL Neutrophils % 67 % Lymphocytes % 26 % Monocytes % 3 % Eosinophils % 1 % Basophils % 1 % Neutrophils # 4.3 (1.3-7.7) k/uL Lymphocytes # 1.7 (1.0-4.8) k/uL Monocytes # 0.2 (0-1.0) k/uL Eosinophils # 0.1 (0-0.7) k/uL Basophils # 0.1 (0-0.2) k/uL PT 9.6 (9.0-12.0) sec INR 0.9 (<1.2) APTT 24.0 (22.0-30.0) sec Sodium 138 (137-145) mmol/L Potassium 3.8 (3.5-5.1) mmol/L Chloride 99 (98-107) mmol/L Carbon Dioxide 29 (22-30) mmol/L Anion Gap 10 mmol/L BUN 13 (7-17) mg/dL Creatinine 0.62 (0.52-1.04) mg/dL Est GFR (CKD-EPI)AfAm >90 (>60 ml/min/1.73 sqM) Est GFR (CKD-EPI)NonAf >90 (>60 ml/min/1.73 sqM) Glucose 106 H (74-99) mg/dL Calcium 10.1 (8.4-10.2) mg/dL Magnesium 1.9 (1.6-2.3) mg/dL Total Bilirubin 1.1 (0.2-1.3) mg/dL AST 28 (14-36) U/L ALT 28 (9-52) U/L Alkaline Phosphatase 101 (38-126) U/L Troponin I (0.000-0.034) ng/mL Total Protein 7.8 (6.3-8.2) g/dL Albumin 5.1 H (3.5-5.0) g/dL 02/26/19 Range/Units 13:00 WBC (3.8-10.6) k/uL RBC (3.80-5.40) m/uL Hgb (11.4-16.0) gm/dL Hct (34.0-46.0) % MCV (80.0-100.0) fL MCH (25.0-35.0) pg MCHC (31.0-37.0) g/dL RDW (11.5-15.5) % Plt Count (150-450) k/uL Neutrophils % % Lymphocytes % % Monocytes % % Eosinophils % % Basophils % % Neutrophils # (1.3-7.7) k/uL Lymphocytes # (1.0-4.8) k/uL Monocytes # (0-1.0) k/uL Eosinophils # (0-0.7) k/uL Basophils # (0-0.2) k/uL PT (9.0-12.0) sec INR (<1.2) APTT (22.0-30.0) sec Sodium (137-145) mmol/L Potassium (3.5-5.1) mmol/L Chloride (98-107) mmol/L Carbon Dioxide (22-30) mmol/L Anion Gap mmol/L BUN (7-17) mg/dL Creatinine (0.52-1.04) mg/dL Est GFR (CKD-EPI)AfAm (>60 ml/min/1.73 sqM) Est GFR (CKD-EPI)NonAf (>60 ml/min/1.73 sqM) Glucose (74-99) mg/dL Calcium (8.4-10.2) mg/dL Magnesium (1.6-2.3) mg/dL Total Bilirubin (0.2-1.3) mg/dL AST (14-36) U/L ALT (9-52) U/L Alkaline Phosphatase (38-126) U/L Troponin I <0.012 (0.000-0.034) ng/mL Total Protein (6.3-8.2) g/dL Albumin (3.5-5.0) g/dL Disposition Clinical Impression: Hypertension Disposition: HOME SELF-CARE Condition: Good Instructions (If sedation given, give patient instructions): Hypertension (ED) Is patient prescribed a controlled substance at d/c from ED?: No Referrals: Fermin Hernandez MD [Primary Care Provider] - 1-2 days Time of Disposition: 15:38
[2019-02-26 13:13] LABS: Basophils # (A) 0.1 k/uL (0-0.2); Basophils % (A) 1 %; Eosinophils # (A) 0.1 k/uL (0-0.7); Eosinophils % (A) 1 %; HCT 42.9 % (34.0-46.0); HGB 14.3 gm/dL (11.4-16.0); Lymphocytes # (A) 1.7 k/uL (1.0-4.8); Lymphocytes % (A) 26 %; MCHC 33.4 g/dL (31.0-37.0); MCV 92.8 fL (80.0-100.0); Mean Platelet Volume 8.3; Monocytes # (A) 0.2 k/uL (0-1.0); Monocytes % (A) 3 %; Neutrophils # (A) 4.3 k/uL (1.3-7.7); Neutrophils % (A) 67 %; Platelet Count 197 k/uL (150-450); RBC 4.62 m/uL (3.80-5.40); RDW 13.6 % (11.5-15.5); WBC 6.4 k/uL (3.8-10.6)
--- NOTE | 2019-02-26 13:21 | XR ---
EXAMINATION TYPE: XR chest 2V DATE OF EXAM: 02/26/2019 COMPARISON: 09/14/2018 TECHNIQUE: PA and lateral views submitted. HISTORY: Chest Pain FINDINGS: The lungs are clear and there is no pneumothorax, pleural effusion, or focal pneumonia. Scoliosis w ith degenerative change of the spine. Diffuse osteopenia. No overt failure. IMPRESSION: 1. No acute process.
[2019-02-26 13:27] LABS: ALT 28 U/L (9-52); AST 28 U/L (14-36); African American GFR (CKD) >90 (>60 ml/min/1.73 sqM); Albumin 5.1 g/dL (3.5-5.0); Alkaline Phosphatase 101 U/L (38-126); Anion Gap 10 mmol/L; Blood Urea Nitrogen 13 mg/dL (7-17); Calcium 10.1 mg/dL (8.4-10.2); Carbon Dioxide 29 mmol/L (22-30); Chloride 99 mmol/L (98-107); Glucose 106 mg/dL (74-99); Magnesium 1.9 mg/dL (1.6-2.3); Potassium 3.8 mmol/L (3.5-5.1); Sodium 138 mmol/L (137-145); Total Bilirubin 1.1 mg/dL (0.2-1.3); Total Protein 7.8 g/dL (6.3-8.2)
[2019-02-26 13:29] LABS: INR 0.9 (<1.2); Prothrombin Time 9.6 sec (9.0-12.0)
[2019-02-26 15:40] VITALS: BP 119/75; PULSE 81; RESP 16
== END 2019-02-26 15:51 | disposition home or self-care (01) ==
LOC: EC 11:55
DX: I10 Essential (primary) hypertension (principal); R42 Dizziness and giddiness; R51 Headache; J44.9 Chronic obstructive pulmonary disease, unspecified; E78.5 Hyperlipidemia, unspecified; F17.200 Nicotine dependence, unspecified, uncomplicated; Z85.41 Personal history of malignant neoplasm of cervix uteri; Z79.82 Long term (current) use of aspirin; Z79.51 Long term (current) use of inhaled steroids; Z79.899 Other long term (current) drug therapy; Z88.2 Allergy status to sulfonamides; Z88.5 Allergy status to narcotic agent; Z91.048 Other nonmedicinal substance allergy status
CPT/HCPCS: 36415; 71046; 80053; 83735; 84484; 85025; 85610; 85730; 93005; 99285

== ENCOUNTER 2019-05-18 07:18 | Observation (INO) | payer OTHER ==
[2019-05-18] MEDS ORDERED: methylPREDNISolone SOD SUCCI 125 MG/2 ML VIAL IV STA (07:35)
[2019-05-18] MEDS ORDERED: IPRATROPIUM-ALBUTEROL 3 ML NEB INHALATION STA (07:35)
--- NOTE | 2019-05-18 07:38 | ED ---
General Adult HPI - General Chief complaint: Shortness of Breath Stated complaint: ryan Time Seen by Provider: 05/18/19 07:21 Source: patient, family, RN notes reviewed Mode of arrival: ambulatory Limitations: no limitations - History of Present Illness Initial comments: Patient is a pleasant 59-year-old female presenting to the emergency department with difficulty breathing. Onset of symptoms was a week ago. Patient does have associated cough that is been dry. No fevers. Symptoms are similar to previous COPD. Symptoms have been progressive over the past week. Patient just took a breathing treatment with only minimal improvement. - Related Data Home Medications Medication Instructions Recorded Confirmed Aspirin 81 mg PO HS 08/20/15 05/18/19 Atorvastatin [Lipitor] 10 mg PO HS 08/20/15 05/18/19 Hydrochlorothiazide [Hydrodiuril] 25 mg PO HS 08/20/15 05/18/19 Ibuprofen [Motrin] 800 mg PO Q8HR PRN 08/20/15 05/18/19 Ramipril 20 mg PO HS 08/20/15 05/18/19 Ascorbic Acid [Vitamin C] 1,000 mg PO HS 11/11/15 05/18/19 Multivitamins, Thera [Multivitamin 1 tab PO HS 11/11/15 05/18/19 (formulary)] Fluticasone/Vilanterol [Breo 1 puff INHALATION RT-HS 02/26/19 05/18/19 Ellipta 200-25 Mcg INH] Albuterol Inhaler [Ventolin Hfa 1 - 2 puff INHALATION RT-Q6H PRN 05/18/19 05/18/19 Inhaler] Previous Rx's Medication Instructions Recorded EPINEPHrine [Epipen 2-Pilo] 0.3 mg IM ONCE PRN #1 auto.injct 01/14/18 Allergies Allergy/AdvReac Type Severity Reaction Status Date / Time adhesive tape Allergy Rash/Hives Verified 05/18/19 08:02 Sulfa (Sulfonamide Allergy Swelling Verified 05/18/19 08:02 Antibiotics) codeine AdvReac Nausea & Verified 05/18/19 08:02 Vomiting Review of Systems ROS Statement: Those systems with pertinent positive or pertinent negative responses have been documented in the HPI. ROS Other: All systems not noted in ROS Statement are negative. Constitutional: Denies: fever Eyes: Denies: eye pain ENT: Denies: ear pain Respiratory: Reports: cough, dyspnea Cardiovascular: Denies: chest pain Endocrine: Denies: fatigue Gastrointestinal: Denies: abdominal pain Genitourinary: Denies: urgency Musculoskeletal: Denies: back pain Skin: Denies: rash Neurological: Denies: weakness Past Medical History Past Medical History: Asthma, Cancer, COPD, Hyperlipidemia, Hypertension, Osteoarthritis (OA) Additional Past Medical History / Comment(s): Bronchitis, cervical cancer with hysterectomy, kyphoscoliosis of the spine, arthritis bilateral hands and knees. History of Any Multi-Drug Resistant Organisms: None Reported Past Surgical History: Hysterectomy, Tonsillectomy Additional Past Surgical History / Comment(s): Hemangioma removed from side head, exploratory laparotomy with R salpingectomy, lymph nodes removed from groin with hysterectomy (cervical cancer). Past Anesthesia/Blood Transfusion Reactions: Postoperative Nausea & Vomiting (PONV) Additional Past Anesthesia/Blood Transfusion Reaction / Comment(s): I wake up "rowdy." Past Psychological History: No Psychological Hx Reported Smoking Status: Current some day smoker Past Alcohol Use History: None Reported Past Drug Use History: None Reported - Past Family History Mother Family Medical History: Vascular Disorder Additional Family Medical History / Comment(s): Mother of a cerebral aneurysm at the age of 29 yrs. Father Family Medical History: CVA/TIA Additional Family Medical History / Comment(s): Father of a CVA-pt unable to recall at what age. General Exam Limitations: no limitations General appearance: alert, in no apparent distress Head exam: Present: normocephalic Eye exam: Present: normal appearance, PERRL ENT exam: Present: normal oropharynx Neck exam: Present: normal inspection Respiratory exam: Present: decreased breath sounds. Absent: chest wall tenderness Cardiovascular Exam: Present: regular rate, normal rhythm GI/Abdominal exam: Present: soft. Absent: tenderness Extremities exam: Present: normal inspection. Absent: pedal edema, calf tenderness Neurological exam: Present: alert Psychiatric exam: Present: normal affect, normal mood Skin exam: Present: normal color Course Vital Signs 05/18/19 05/18/19 05/18/19 07:25 08:00 08:13 Temperature 97.9 F Pulse Rate 83 83 84 Respiratory 18 Rate Blood Pressure 112/58 O2 Sat by Pulse 96 Oximetry Medical Decision Making - Medical Decision Making patient reevaluated and somewhat improved. There is increased air exchange however now there is developing some wheezing. Patient and family updated. Case discussed in detail with Dr. Wilks, who will admit covering for Dr. Stubbs. - Lab Data Result diagrams: 05/18/19 08:15 05/18/19 08:15 Lab Results 05/18/19 05/18/19 Range/Units 08:15 08:15 WBC 8.5 (3.8-10.6) k/uL RBC 4.42 (3.80-5.40) m/uL Hgb 14.2 (11.4-16.0) gm/dL Hct 40.9 (34.0-46.0) % MCV 92.6 (80.0-100.0) fL MCH 32.0 (25.0-35.0) pg MCHC 34.6 (31.0-37.0) g/dL RDW 12.3 (11.5-15.5) % Plt Count 188 (150-450) k/uL Neutrophils % 66 % Lymphocytes % 19 % Monocytes % 5 % Eosinophils % 7 % Basophils % 1 % Neutrophils # 5.6 (1.3-7.7) k/uL Lymphocytes # 1.6 (1.0-4.8) k/uL Monocytes # 0.4 (0-1.0) k/uL Eosinophils # 0.6 (0-0.7) k/uL Basophils # 0.1 (0-0.2) k/uL Sodium 138 (137-145) mmol/L Potassium 4.5 (3.5-5.1) mmol/L Chloride 105 (98-107) mmol/L Carbon Dioxide 22 (22-30) mmol/L Anion Gap 11 mmol/L BUN 16 (7-17) mg/dL Creatinine 0.59 (0.52-1.04) mg/dL Est GFR (CKD-EPI)AfAm >90 (>60 ml/min/1.73 sqM) Est GFR (CKD-EPI)NonAf >90 (>60 ml/min/1.73 sqM) Glucose 102 H (74-99) mg/dL Calcium 9.0 (8.4-10.2) mg/dL Total Bilirubin 0.8 (0.2-1.3) mg/dL AST 28 (14-36) U/L ALT 35 (9-52) U/L Alkaline Phosphatase 74 (38-126) U/L Total Protein 6.8 (6.3-8.2) g/dL Albumin 4.2 (3.5-5.0) g/dL - Radiology Data Radiology results: image reviewed (Chest x-ray shows no pneumonia. There is severe scoliosis.) Disposition Clinical Impression: Acute exacerbation of chronic obstructive airways disease Disposition: ADMITTED IP TO THIS HOSP Is patient prescribed a controlled substance at d/c from ED?: No Referrals: Fermin Hernandez MD [Primary Care Provider] - 1-2 days Decision Time: 09:36
[2019-05-18 08:48] LABS: Basophils # (A) 0.1 k/uL (0-0.2); Basophils % (A) 1 %; Eosinophils # (A) 0.6 k/uL (0-0.7); Eosinophils % (A) 7 %; HCT 40.9 % (34.0-46.0); HGB 14.2 gm/dL (11.4-16.0); Lymphocytes # (A) 1.6 k/uL (1.0-4.8); Lymphocytes % (A) 19 %; MCHC 34.6 g/dL (31.0-37.0); MCV 92.6 fL (80.0-100.0); Mean Platelet Volume 7.9; Monocytes # (A) 0.4 k/uL (0-1.0); Monocytes % (A) 5 %; Neutrophils # (A) 5.6 k/uL (1.3-7.7); Neutrophils % (A) 66 %; Platelet Count 188 k/uL (150-450); RBC 4.42 m/uL (3.80-5.40); RDW 12.3 % (11.5-15.5); WBC 8.5 k/uL (3.8-10.6)
--- NOTE | 2019-05-18 08:49 | XR ---
EXAMINATION TYPE: XR chest 2V DATE OF EXAM: 05/18/2019 HISTORY: difficulty breathing. REFERENCE: Previous study dated 02/26/2019. FINDINGS: There is a severe S-shaped scoliosis convex to the right thoracic region and to the left in the lumbar region. The lungs appear clear. Pleural space are clear. Heart size upper limits of navin l. IMPRESSION: NO ACUTE INTRATHORACIC ABNORMALITY.
[2019-05-18 09:16] LABS: ALT 35 U/L (9-52); AST 28 U/L (14-36); African American GFR (CKD) >90 (>60 ml/min/1.73 sqM); Albumin 4.2 g/dL (3.5-5.0); Alkaline Phosphatase 74 U/L (38-126); Anion Gap 11 mmol/L; Blood Urea Nitrogen 16 mg/dL (7-17); Carbon Dioxide 22 mmol/L (22-30); Chloride 105 mmol/L (98-107); Glucose 102 mg/dL (74-99); Potassium 4.5 mmol/L (3.5-5.1); Sodium 138 mmol/L (137-145); Total Bilirubin 0.8 mg/dL (0.2-1.3); Total Protein 6.8 g/dL (6.3-8.2)
[2019-05-18] MEDS ORDERED: IPRATROPIUM-ALBUTEROL 3 ML NEB INHALATION PRN (09:36)
[2019-05-18] MEDS ORDERED: IBUPROFEN 800 MG TAB PO PRN (10:49)
[2019-05-18] MEDS: IPRATROPIUM-ALBUTEROL 3 ML NEB INHALATION SCH ×3 (11:29→21:06)
[2019-05-18] MEDS: methylPREDNISolone SOD SUCCI 125 MG/2 ML VIAL IV SCH ×2 (13:36→21:11)
[2019-05-18] MEDS: AZITHROMYCIN 500 MG in SODIUM CHLORIDE 0.9% 250 ML IVPB SCH (13:43)
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
[2019-05-18] MEDS ORDERED: ATORVASTATIN 10 MG TAB PO SCH (21:00)
[2019-05-18] MEDS ORDERED: MULTIVITAMINS, THERA 1 EACH TAB PO SCH (21:00)
[2019-05-18] MEDS ORDERED: ASCORBIC ACID 500 MG TAB PO SCH (21:00)
[2019-05-18] MEDS ORDERED: LISINOPRIL 20 MG TAB PO SCH (21:00)
[2019-05-18] MEDS ORDERED: ASPIRIN 81 MG PO SCH (21:00)
[2019-05-18] MEDS ORDERED: HYDROCHLOROTHIAZIDE 25 MG TAB PO SCH (21:00)
[2019-05-18] MEDS: SYMBICORT 160-4.5 MCG INHALER INHALATION SCH (21:06)
--- NOTE | 2019-05-18 23:09 | P.HPIM ---
History of Present Illness H&P Date: 05/18/19 Chief Complaint: Short of breath History of presenting complaint: This is a pleasant 59-year-old patient of Dr. Hernandez. 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 Larsen. Chronic stable medical conditions include hypertension, hyperlipidemia, osteoarthritis, kyphoscoliosis. Patient long- standing smoker. For 2 weeks patient's sinuses have been bothering of started to drain. Patient progressively started having more cough short of breath and wheezing. No fever no chills. Decreased appetite and rundown. Started to Clear sputum. Presented to the ER. With COPD exacerbation. Wheezing shortness breath cough. Admitted for the same. Started on bronchodilators steroids. Review of systems: GEN.: Tired EYES: None HEENT: None NECK: None RESPIRATORY: As above] CARDIOVASCULAR: None GASTROINTESTINAL: None GENITOURINARY: None MUSCULOSKELETAL: Joint pains LYMPHATICS: None HEMATOLOGICAL: None PSYCHIATRY: None NEUROLOGICAL: None Social history: This is a brother. Smoking a pack a day for over 47 years, has been recently to cut back on smoking. alcohol occasionally, works at [employer]. Physical examination: VITAL SIGNS: 97.9, 83, 18, 11 2/58, 96% room air GENERAL: BMI 27.5, sitting up, slightly short of breath. EYES: Pupils equal. Conjunctiva normal. HEENT: External appearance of nose and ears normal, oral cavity grossly normal. NECK: JVD not raised; masses not palpable. HEART: First and second heart sounds are normal; no edema. LUNGS: Respiratory rate increased, decreased breath sounds prolonged expression wheezing. ABDOMEN: Soft, nontender, liver spleen not palpable, no masses palpable. PSYCH: Alert and oriented x3; mood and affect normal. NEUROLOGICAL: Cranial nerves grossly intact; no facial asymmetry, power and sensation grossly intact. LYMPHATICS: No lymph nodes palpable in the axilla and neck Investigations: White count 8.5 hemoglobin 14.2 platelets 188 potassium 4.5 creatinine 0.59 Chest x-ray film personally reviewed by me-no obvious infiltrates, shows kyphoscoliosis Assessment: -Acute COPD exacerbation in a current smoker -Chronic nicotine dependence patient cigarette smoker -Essential hypertension -Hyperlipidemia -Primary osteoarthritis -Kyphoscoliosis Plan: Patient started on nebulized bronchodilators, IV steroids, inhaled steroids. Home medications resumed. Care was discussed with the patient. Lovenox for DVT prophylaxis. Skylar Larsen was consulted. Smoke cessation counseling: This was done with the patient. Nicotine patch is being given. More than 3 minutes was spent for this Past Medical History Past Medical History: Cancer, COPD, Hyperlipidemia, Hypertension, Osteoarthritis (OA) Additional Past Medical History / Comment(s): Bronchitis, cervical cancer with hysterectomy, kyphoscoliosis of the spine, arthritis bilateral hands and knees. History of Any Multi-Drug Resistant Organisms: None Reported Past Surgical History: Hysterectomy, Tonsillectomy Additional Past Surgical History / Comment(s): Hemangioma removed from side head, exploratory laparotomy with R salpingectomy, lymph nodes removed from groin with hysterectomy (cervical cancer). Past Anesthesia/Blood Transfusion Reactions: Postoperative Nausea & Vomiting (PONV) Additional Past Anesthesia/Blood Transfusion Reaction / Comment(s): I wake up "rowdy." Past Psychological History: No Psychological Hx Reported Smoking Status: Current some day smoker Past Alcohol Use History: None Reported Past Drug Use History: None Reported - Past Family History Mother Family Medical History: Vascular Disorder Additional Family Medical History / Comment(s): Mother of a cerebral aneurysm at the age of 29 yrs. Father Family Medical History: CVA/TIA Additional Family Medical History / Comment(s): Father of a CVA-pt unable to recall at what age. Medications and Allergies Home Medications Medication Instructions Recorded Confirmed Type Aspirin 81 mg PO HS 08/20/15 05/18/19 History Atorvastatin [Lipitor] 10 mg PO HS 08/20/15 05/18/19 History Hydrochlorothiazide [Hydrodiuril] 25 mg PO HS 08/20/15 05/18/19 History Ibuprofen [Motrin] 800 mg PO Q8HR PRN 08/20/15 05/18/19 History Ramipril 20 mg PO HS 08/20/15 05/18/19 History Ascorbic Acid [Vitamin C] 1,000 mg PO HS 11/11/15 05/18/19 History Multivitamins, Thera [Multivitamin 1 tab PO HS 11/11/15 05/18/19 History (formulary)] EPINEPHrine [Epipen 2-Pilo] 0.3 mg IM ONCE PRN #1 auto.injct 01/14/18 05/18/19 Rx Fluticasone/Vilanterol [Breo 1 puff INHALATION RT-HS 02/26/19 05/18/19 History Ellipta 200-25 Mcg INH] Albuterol Inhaler [Ventolin Hfa 1 - 2 puff INHALATION RT-Q6H PRN 05/18/19 05/18/19 History Inhaler] Allergies Allergy/AdvReac Type Severity Reaction Status Date / Time adhesive tape Allergy Rash/Hives Verified 05/18/19 08:02 Sulfa (Sulfonamide Allergy Swelling Verified 05/18/19 08:02 Antibiotics) codeine AdvReac Nausea & Verified 05/18/19 08:02 Vomiting Physical Exam Vitals: Vital Signs Temp Pulse Pulse Resp BP BP Pulse Ox 05/18/19 21:24 98.5 F 78 16 103/67 93 L 05/18/19 21:18 98 05/18/19 21:09 97 05/18/19 21:07 98 05/18/19 18:23 90 20 132/89 96 05/18/19 15:21 90 05/18/19 15:09 92 05/18/19 13:33 98.5 F 89 18 129/83 95 05/18/19 11:38 96 05/18/19 11:31 88 05/18/19 08:13 84 05/18/19 08:00 83 05/18/19 07:25 97.9 F 83 18 112/58 96 Intake and Output 05/18/19 05/18/19 05/19/19 14:59 22:59 06:59 Intake Total 200 Balance 200 Intake: Oral 200 Other: Weight 72.575 kg Results CBC & Chem 7: 05/18/19 08:15 05/18/19 08:15 Labs: Abnormal Lab Results - Last 24 Hours (Table) 05/18/19 Range/Units 08:15 Glucose 102 H (74-99) mg/dL Thrombosis Risk Factor Assmnt - Choose All That Apply Any of the Below Risk Factors Present?: Yes Each Factor Represents 1 point: Abnormal pulmonary function (COPD), Obesity (BMI >25) Other Risk Factors: Yes Each Risk Factor Represents 2 Points: Age 61-74 years Other congenital or acquired thrombophilia - If yes, enter type in comment: No Thrombosis Risk Factor Assessment Total Risk Factor Score: 4 Thrombosis Risk Factor Assessment Level: Moderate Risk
[2019-05-19] MEDS: methylPREDNISolone SOD SUCCI 40 MG/ML 1 ML VIAL IV SCH ×2 (00:43→07:38)
[2019-05-19 05:47] VITALS: BP 100/65; RESP 18; TEMP 97.7
[2019-05-19] MEDS: SYMBICORT 160-4.5 MCG INHALER INHALATION SCH (07:04)
[2019-05-19] MEDS: IPRATROPIUM-ALBUTEROL 3 ML NEB INHALATION SCH ×2 (07:04→11:03)
[2019-05-19 07:11] VITALS: PULSE 88
[2019-05-19] MEDS: AZITHROMYCIN 500 MG in SODIUM CHLORIDE 0.9% 250 ML IVPB SCH (07:38)
[2019-05-19] MEDS ORDERED: BUDESONIDE 1 MG/2 ML NEBU INHALATION SCH (08:00)
[2019-05-19] MEDS ORDERED: ENOXAPARIN 40 MG/0.4 ML SYRINGE SQ SCH (09:00)
[2019-05-19] MEDS ORDERED: NICOTINE 14MG/24HR PATCH TRANSDERM SCH (09:00)
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
--- NOTE | 2019-05-19 23:16 | P.DS ---
Providers Date of admission: 05/18/19 09:47 Expected date of discharge: 05/19/19 Attending physician: Geoff Wilks Consults: 05/18/19 09:36 Consult Physician Routine Consulting Provider: Evert Larsen Consult Reason/Comments: copd Do you want consulting provider notified?: Yes Primary care physician: Ace Hernandez [facility] Course: Chief Complaint: Short of breath Hospital course: This is a pleasant 59-year-old patient of Dr. Hernandez. 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 Larsen. Chronic stable medical conditions include hypertension, hyperlipidemia, osteoarthritis, kyphoscoliosis. Patient long- standing smoker. For 2 weeks patient's sinuses have been bothering of started to drain. Patient progressively started having more cough short of breath and wheezing. No fever no chills. Decreased appetite and rundown. Started to Clear sputum. Presented to the ER. With COPD exacerbation. Wheezing shortness breath cough. Admitted for the same. Started on bronchodilators steroids. admitted with COPD exacerbation. Responded well to bronchodilators steroids. Doing much better without discharge. Today-in much better. Again reminded about not to smoke. Discharge plan was discussed. Consultation: Dr. Larsen at all from pulmonary Physical examination: VITAL SIGNS: 97.7, 76, 18, 100/65 93% room air GENERAL: BMI 27.5, sitting up comfortable. EYES: Pupils equal. Conjunctiva normal. HEENT: External appearance of nose and ears normal, oral cavity grossly normal. NECK: JVD not raised; masses not palpable. HEART: First and second heart sounds are normal; no edema. LUNGS: Respiratory rate normal, decreased breath sounds prolonged , improved. ABDOMEN: Soft, nontender, liver spleen not palpable, no masses palpable. PSYCH: Alert and oriented x3; mood and affect normal. Investigations: White count 8.5 hemoglobin 14.2 platelets 188 potassium 4.5 creatinine 0.59 Chest x-ray film personally reviewed by me-no obvious infiltrates, shows kyphoscoliosis discharge diagnosis: -Acute COPD exacerbation in a current smoker -Chronic nicotine dependence patient cigarette smoker -Essential hypertension -Hyperlipidemia -Primary osteoarthritis -Kyphoscoliosis disposition: Home Patient Condition at Discharge: Stable Plan - Discharge Summary New Discharge Prescriptions: New Ipratropium-Albuterol Nebulize [Duoneb 0.5 mg-3 mg/3 ml Soln] 3 ml INHALATION TID #90 ampul.neb Nicotine 14Mg/24Hr Patch [Habitrol] 1 patch TRANSDERM DAILY #14 patch Azithromycin [Zithromax] 250 mg PO DAILY 3 Days #3 tab Continue Ibuprofen [Motrin] 800 mg PO Q8HR PRN PRN Reason: Pain Ramipril 20 mg PO HS Hydrochlorothiazide [Hydrodiuril] 25 mg PO HS Atorvastatin [Lipitor] 10 mg PO HS Aspirin 81 mg PO HS Ascorbic Acid [Vitamin C] 1,000 mg PO HS Multivitamins, Thera [Multivitamin (formulary)] 1 tab PO HS EPINEPHrine [Epipen 2-Pilo] 0.3 mg IM ONCE PRN #1 auto.injct PRN Reason: Allergic Reaction Fluticasone/Vilanterol [Breo Ellipta 200-25 Mcg INH] 1 puff INHALATION RT-HS Albuterol Inhaler [Ventolin Hfa Inhaler] 1 - 2 puff INHALATION RT-Q6H PRN PRN Reason: Shortness Of Breath Discharge Medication List Aspirin 81 mg PO HS 08/20/15 [History] Atorvastatin [Lipitor] 10 mg PO HS 08/20/15 [History] Hydrochlorothiazide [Hydrodiuril] 25 mg PO HS 08/20/15 [History] Ibuprofen [Motrin] 800 mg PO Q8HR PRN 08/20/15 [History] Ramipril 20 mg PO HS 08/20/15 [History] Ascorbic Acid [Vitamin C] 1,000 mg PO HS 11/11/15 [History] Multivitamins, Thera [Multivitamin (formulary)] 1 tab PO HS 11/11/15 [History] EPINEPHrine [Epipen 2-Pilo] 0.3 mg IM ONCE PRN #1 auto.injct 01/14/18 [Rx] Fluticasone/Vilanterol [Breo Ellipta 200-25 Mcg INH] 1 puff INHALATION RT-HS 02/26/19 [History] Albuterol Inhaler [Ventolin Hfa Inhaler] 1 - 2 puff INHALATION RT-Q6H PRN 05/18/19 [History] Azithromycin [Zithromax] 250 mg PO DAILY 3 Days #3 tab 05/19/19 [Rx] Ipratropium-Albuterol Nebulize [Duoneb 0.5 mg-3 mg/3 ml Soln] 3 ml INHALATION TID #90 ampul.neb 05/19/19 [Rx] Nicotine 14Mg/24Hr Patch [Habitrol] 1 patch TRANSDERM DAILY #14 patch 05/19/19 [Rx] Follow up Appointment(s)/Referral(s): Fermin Hernandez MD [Primary Care Provider] - 3 Days (office will call her) vEert Larsen MD [STAFF PHYSICIAN] - 10 Days Patient Instructions/Handouts: COPD (Chronic Obstructive Pulmonary Disease) (DC) Activity/Diet/Wound Care/Special Instructions: nebuliser for copd j 44.9 activity as tolerated regular diet as tolerated Discharge/Stand Alone Forms: Work/School Release / Restrict Discharge Disposition: HOME SELF-CARE
== END 2019-05-19 13:57 | disposition home or self-care (01) ==
LOC: EC 07:18 → 3NMEDONC 09:47 → 4MS4W 15:08
PROVIDERS: ADMIT Hospitalist; ATTEND Hospitalist
DX: J44.1 Chronic obstructive pulmonary disease with (acute) exacerbation (principal); J96.01 Acute respiratory failure with hypoxia; I10 Essential (primary) hypertension; M19.041 Primary osteoarthritis, right hand; M19.042 Primary osteoarthritis, left hand; E78.5 Hyperlipidemia, unspecified; M41.9 Scoliosis, unspecified; M17.0 Bilateral primary osteoarthritis of knee; E66.9 Obesity, unspecified; Z68.27 Body mass index [BMI] 27.0-27.9, adult; F17.210 Nicotine dependence, cigarettes, uncomplicated; Z79.51 Long term (current) use of inhaled steroids; Z79.899 Other long term (current) drug therapy; Z79.82 Long term (current) use of aspirin; Z88.2 Allergy status to sulfonamides; Z88.5 Allergy status to narcotic agent; Z91.048 Other nonmedicinal substance allergy status; Z90.710 Acquired absence of both cervix and uterus; Z85.41 Personal history of malignant neoplasm of cervix uteri; Z87.09 Personal history of other diseases of the respiratory system; Z86.19 Personal history of other infectious and parasitic diseases; Z90.79 Acquired absence of other genital organ(s); Z82.49 Family history of ischemic heart disease and other diseases of the circulatory system; Z82.3 Family history of stroke
CPT/HCPCS: 96376 ×2; 96366 ×2; 96365; 96375; 99285; 36415; 94640 ×4; 80053; 85025; 71046; G0378 ×2; J2920; J2930; J0456 ×2

== ENCOUNTER 2019-05-21 23:04 | Inpatient (IN) | payer OTHER ==
[2019-05-21] MEDS ORDERED: LORazepam 2 MG/ML INJ IV STA (23:24)
[2019-05-21] MEDS ORDERED: methylPREDNISolone SOD SUCCI 125 MG/2 ML VIAL IV STA (23:24)
[2019-05-21] MEDS ORDERED: SODIUM CHLORIDE 0.9% 1,000 ML IV STA ×2 (23:24)
[2019-05-21] MEDS ORDERED: ALBUTEROL NEBULIZED 2.5 MG/3 ML INHALATION STA (23:24)
[2019-05-21] MEDS ORDERED: IPRATROPIUM 0.5 MG/2.5 ML NEBU INHALATION STA (23:24)
--- NOTE | 2019-05-21 23:24 | ED ---
SOB HPI - General Chief Complaint: Shortness of Breath Stated Complaint: ANGELA Time Seen by Provider: 05/21/19 23:12 Source: patient, RN notes reviewed, old records reviewed Mode of arrival: ambulatory Limitations: no limitations - History of Present Illness Initial Comments: This is a 59-year-old female the ER for severe sudden onset shortness of breath. Shortness breath is been getting worse since yesterday but became severe tonight. Patient is increased cough and congestion has severe pain when she does cough. Otherwise no chest pain no back pain no pain in her casts, no history of blood clots or significant heart disease. Patient states she was just admitted to the hospital on Sunday discharged on Sunday and at that time was feeling mildly improved. Patient at this time cannot seem to catch her breath. She is not on home oxygen MD Complaint: shortness of breath, cough, pain with inspiration, anxiety -: hour(s) Severity: severe Severity scale (1-10): 8 Consistency: constant Improves With: oxygen, rest, bronchodilators, upright position, medication Worsens With: exertion, movement Known History Of: COPD, asthma Context: recent URI Associated Symptoms: pain with inspiration, cough, sputum production Treatments Prior to Arrival: none - Related Data Home Medications Medication Instructions Recorded Confirmed Aspirin 81 mg PO HS 08/20/15 05/21/19 Atorvastatin [Lipitor] 10 mg PO HS 08/20/15 05/21/19 Hydrochlorothiazide [Hydrodiuril] 25 mg PO HS 08/20/15 05/21/19 Ibuprofen [Motrin] 800 mg PO Q8HR PRN 08/20/15 05/21/19 Ramipril 20 mg PO HS 08/20/15 05/21/19 Ascorbic Acid [Vitamin C] 1,000 mg PO HS 11/11/15 05/21/19 Multivitamins, Thera [Multivitamin 1 tab PO HS 11/11/15 05/21/19 (formulary)] Fluticasone/Vilanterol [Breo 1 puff INHALATION RT-HS 02/26/19 05/21/19 Ellipta 200-25 Mcg INH] Albuterol Inhaler [Ventolin Hfa 1 - 2 puff INHALATION RT-Q6H PRN 05/18/19 05/21/19 Inhaler] Ipratropium-Albuterol Nebulize 3 ml INHALATION RT-QID 05/21/19 05/21/19 [Duoneb 0.5 mg-3 mg/3 ml Soln] Previous Rx's Medication Instructions Recorded Azithromycin [Zithromax] 250 mg PO DAILY 3 Days #3 tab 05/19/19 Allergies Allergy/AdvReac Type Severity Reaction Status Date / Time adhesive tape Allergy Rash/Hives Verified 05/21/19 23:15 Sulfa (Sulfonamide Allergy Swelling Verified 05/21/19 23:15 Antibiotics) codeine AdvReac Nausea & Verified 05/21/19 23:15 Vomiting Review of Systems ROS Statement: Those systems with pertinent positive or pertinent negative responses have been documented in the HPI. ROS Other: All systems not noted in ROS Statement are negative. Past Medical History Past Medical History: Cancer, COPD, Hyperlipidemia, Hypertension, Osteoarthritis (OA) Additional Past Medical History / Comment(s): Bronchitis, cervical cancer with hysterectomy, kyphoscoliosis of the spine, arthritis bilateral hands and knees. History of Any Multi-Drug Resistant Organisms: None Reported Past Surgical History: Hysterectomy, Tonsillectomy Additional Past Surgical History / Comment(s): Hemangioma removed from side head, exploratory laparotomy with R salpingectomy, lymph nodes removed from groi n with hysterectomy (cervical cancer). Past Anesthesia/Blood Transfusion Reactions: Postoperative Nausea & Vomiting (PONV) Additional Past Anesthesia/Blood Transfusion Reaction / Comment(s): I wake up "rowdy." Past Psychological History: No Psychological Hx Reported Smoking Status: Current some day smoker Past Alcohol Use History: None Reported Past Drug Use History: None Reported - Past Family History Mother Family Medical History: Vascular Disorder Additional Family Medical History / Comment(s): Mother of a cerebral aneurysm at the age of 29 yrs. Father Family Medical History: CVA/TIA Additional Family Medical History / Comment(s): Father of a CVA-pt unable to recall at what age. General Exam Limitations: no limitations General appearance: alert, anxious, in distress Head exam: Present: atraumatic, normocephalic, normal inspection Eye exam: Present: normal appearance, EOMI. Absent: scleral icterus, conjunctival injection, periorbital swelling ENT exam: Present: normal exam, mucous membranes dry Neck exam: Present: normal inspection. Absent: tenderness, meningismus, lymphadenopathy Respiratory exam: Present: respiratory distress, wheezes, accessory muscle use, decreased breath sounds, prolonged expiratory. Absent: rales, rhonchi, stridor Cardiovascular Exam: Present: regular rate, normal rhythm, normal heart sounds. Absent: systolic murmur, diastolic murmur, rubs, gallop, clicks GI/Abdominal exam: Present: soft, normal bowel sounds. Absent: distended, tenderness, guarding, rebound, rigid Extremities exam: Present: normal inspection, full ROM, normal capillary refill. Absent: tenderness, pedal edema, joint swelling, calf tenderness Back exam: Present: normal inspection Neurological exam: Present: alert, oriented X3, CN II-XII intact Psychiatric exam: Present: normal affect, normal mood Skin exam: Present: warm, dry, intact, normal color. Absent: rash Course Vital Signs 05/21/19 23:05 Temperature 98.0 F Pulse Rate 88 Respiratory 18 Rate Blood Pressure 155/85 O2 Sat by Pulse 96 Oximetry - Reevaluation(s) Reevaluation #1: 05/21/19 23:22 spoke w patient, medical records are reviewed, and hospitalization and discharge on Sunday is reviewed Reevaluation #2: 05/21/19 23:59 Significant improvement with breathing treatments here in the ER - Consultations Consultation #1: With Dr. Wilks regarding admission, he is agreeable Medical Decision Making - Medical Decision Making 59 female the ER with acute on chronic COPD exacerbation failure of outpatient treatment recent hospital admission and discharge with significant increasing shortness of breath since discharge. Patient be admitted for reevaluation and treatment - Lab Data Result diagrams: 05/21/19 23:32 Lab Results 05/21/19 Range/Units 23:32 WBC 11.0 H (3.8-10.6) k/uL RBC 4.41 (3.80-5.40) m/uL Hgb 14.0 (11.4-16.0) gm/dL Hct 40.7 (34.0-46.0) % MCV 92.1 (80.0-100.0) fL MCH 31.8 (25.0-35.0) pg MCHC 34.5 (31.0-37.0) g/dL RDW 12.3 (11.5-15.5) % Plt Count 233 (150-450) k/uL Neutrophils % 57 % Lymphocytes % 29 % Monocytes % 4 % Eosinophils % 8 % Basophils % 1 % Neutrophils # 6.3 (1.3-7.7) k/uL Lymphocytes # 3.2 (1.0-4.8) k/uL Monocytes # 0.5 (0-1.0) k/uL Eosinophils # 0.9 H (0-0.7) k/uL Basophils # 0.1 (0-0.2) k/uL - EKG Data -: EKG Interpreted by Me (EKG shows sinus rhythm rate of 89, KS 112, QRS 70, QTc 428) - Radiology Data Radiology results: report reviewed (Chest x-rays negative for acute disease), image reviewed Disposition Clinical Impression: Acute exacerbation of chronic obstructive airways disease, Failure of outpatient treatment Disposition: ADMITTED IP TO THIS HOSP Condition: Fair Is patient prescribed a controlled substance at d/c from ED?: No Referrals: Fermin Hernandez MD [Primary Care Provider] - 1-2 days
[2019-05-21] MEDS ORDERED: ALBUTEROL NEBULIZED 2.5 MG/3 ML INHALATION PRN (23:47)
--- NOTE | 2019-05-21 23:53 | XR ---
EXAMINATION TYPE: XR chest 1V portable DATE OF EXAM: 05/21/2019 COMPARISON: 05/18/2019 HISTORY: Cough TECHNIQUE: Single frontal view of the chest is obtained. FINDINGS: There is no heart failure nor confluent pneumonic infiltrate. There is moderately severe t horacic dextroscoliosis. There is no sign of pleural effusion. Heart size is normal. IMPRESSION: No active cardiopulmonary disease. No change.
[2019-05-21 23:58] LABS: Basophils # (A) 0.1 k/uL (0-0.2); Basophils % (A) 1 %; Eosinophils # (A) 0.9 k/uL (0-0.7); Eosinophils % (A) 8 %; HCT 40.7 % (34.0-46.0); Lymphocytes # (A) 3.2 k/uL (1.0-4.8); Lymphocytes % (A) 29 %; MCH 31.8 pg (25.0-35.0); MCHC 34.5 g/dL (31.0-37.0); MCV 92.1 fL (80.0-100.0); Mean Platelet Volume 7.1; Monocytes # (A) 0.5 k/uL (0-1.0); Monocytes % (A) 4 %; Neutrophils # (A) 6.3 k/uL (1.3-7.7); Neutrophils % (A) 57 %; Platelet Count 233 k/uL (150-450); RBC 4.41 m/uL (3.80-5.40); RDW 12.3 % (11.5-15.5)
[2019-05-22 00:07] LABS: ALT 34 U/L (9-52); AST 24 U/L (14-36); African American GFR (CKD) >90 (>60 ml/min/1.73 sqM); Albumin 4.3 g/dL (3.5-5.0); Alkaline Phosphatase 85 U/L (38-126); Anion Gap 8 mmol/L; Blood Urea Nitrogen 15 mg/dL (7-17); Calcium 9.4 mg/dL (8.4-10.2); Carbon Dioxide 29 mmol/L (22-30); Chloride 101 mmol/L (98-107); Glucose 132 mg/dL (74-99); Magnesium 2.3 mg/dL (1.6-2.3); Non-African American GFR(CKD) >90 (>60 ml/min/1.73 sqM); Potassium 4.1 mmol/L (3.5-5.1); Sodium 138 mmol/L (137-145); Total Bilirubin 0.6 mg/dL (0.2-1.3); Total Protein 6.8 g/dL (6.3-8.2)
[2019-05-22] MEDS: methylPREDNISolone SOD SUCCI 125 MG/2 ML VIAL IV SCH ×4 (00:07→18:22)
[2019-05-22 00:19] LABS: D-Dimer 0.27 mg/L FEU (<0.60); INR 0.9 (<1.2); Partial Thromboplastin Time 22.8 sec (22.0-30.0); Prothrombin Time 9.6 sec (9.0-12.0)
[2019-05-22 02:22] VITALS: BMI 28.3
[2019-05-22] MEDS: SODIUM CHLORIDE 0.9% 1,000 ML IV SCH (03:36)
[2019-05-22] MEDS: IPRATROPIUM-ALBUTEROL 3 ML NEB INHALATION SCH ×4 (09:20→19:18)
[2019-05-22] MEDS: AZITHROMYCIN 500 MG TAB PO SCH (09:53)
--- NOTE | 2019-05-22 11:01 | P.CNPUL ---
History of Present Illness Consult date: 05/22/19 Requesting physician: Geoff Wilks Reason for consult: dyspnea, COPD Chief complaint: Shortness of breath, cough, congestion History of present illness: This is a very pleasant 59-year-old female patient who follows with Dr. Hernandez as her primary care physician. She has a history of hypertension, hyperlipidemia, osteoarthritis, cervical cancer with previous hysterectomy, kyphoscoliosis. She also has chronic and ongoing tobacco dependence and chronic obstructive pulmonary disease. She was last seen in our office in December 2017. Her FEV1 value is 59% of predicted. She has not been oxygen dependent nor steroid dependent. She was recently discharged from here on 05/19/2019 following a COPD exacerbation. She states she had been back to her baseline at that time. She did well for just 2 days and then yesterday developed increasing shortness of breath, cough and congestion. She was discharged home on a NicoDerm patch azithromycin and DuoNeb inhalations. No prednisone taper. He presented here to the emergency room for the same. No fever, chills or night sweats. No nausea, vomiting or diarrhea. She is currently maintaining O2 saturations in the low 90s on room air. She's afebrile. Hemodynamically stable. White count 11.0. Hemoglobin 14.0. Sodium 138. Potassium 4.1. Creatinine 0.67. Troponin negative times one. ProBNP 152. She is currently on IV Solu-Medrol, DuoNeb inhalations, and azithromycin. Chest x-ray revealed no acute pulmonary process. Review of Systems REVIEW OF SYSTEMS: CONSTITUTIONAL: Denies any recent significant weight loss or weight gain. EYES: Denies change in vision. EARS, NOSE, MOUTH, THROAT: Denies headaches, denies sore throat. CARDIOVASCULAR: Denies chest pain, palpitations or syncopal episodes. RESPIRATORY: Positive for shortness of breath, cough, congestion no hemoptysis. GASTROINTESTINAL: Denies change in appetite, denies abdominal pain GENITOURINARY: Denies hematuria, denies infections. MUSKULOSKELETAL: Denies pain, denies swelling. INTEGUMENTARY: Denies rash, denies eczema. NEUROLOGICAL: Denies recent memory loss, no recent seizure activity. PSYCHIATRIC: Denies anxiety, denies depression. HEMATOLOGIC/LYMPHATIC: Denies anemia, denies enlarged lymph nodes. Past Medical History Past Medical History: Cancer, COPD, Hyperlipidemia, Hypertension, Osteoarthritis (OA) Additional Past Medical History / Comment(s): Bronchitis, cervical cancer with hysterectomy, kyphoscoliosis of the spine, arthritis bilateral hands and knees. History of Any Multi-Drug Resistant Organisms: None Reported Past Surgical History: Hysterectomy, Tonsillectomy Additional Past Surgical History / Comment(s): Hemangioma removed from side head, exploratory laparotomy with R salpingectomy, lymph nodes removed from groin with hysterectomy (cervical cancer). Past Anesthesia/Blood Transfusion Reactions: Postoperative Nausea & Vomiting (PONV) Additional Past Anesthesia/Blood Transfusion Reaction / Comment(s): I wake up "rowdy." Past Psychological History: No Psychological Hx Reported Additional Psychological History / Comment(s): Pt has a brother living with her. She is independent. She works for [employer]. She has a nebulizer. Smoking Status: Current some day smoker Past Alcohol Use History: None Reported Additional Past Alcohol Use History / Comment(s): pt stopped smoking couple days before admission on 05/18, has not had cigarette since Past Drug Use History: None Reported - Past Family History Mother Family Medical History: Vascular Disorder Additional Family Medical History / Comment(s): Mother of a cerebral aneurysm at the age of 29 yrs. Father Family Medical History: CVA/TIA Additional Family Medical History / Comment(s): Father of a CVA-pt unable to recall at what age. Medications and Allergies Home Medications Medication Instructions Recorded Confirmed Type Aspirin 81 mg PO HS 08/20/15 05/22/19 History Atorvastatin [Lipitor] 10 mg PO HS 08/20/15 05/22/19 History Hydrochlorothiazide [Hydrodiuril] 25 mg PO HS 08/20/15 05/22/19 History Ibuprofen [Motrin] 800 mg PO Q8HR PRN 08/20/15 05/22/19 History Ramipril 20 mg PO HS 08/20/15 05/22/19 History Ascorbic Acid [Vitamin C] 1,000 mg PO HS 11/11/15 05/22/19 History Multivitamins, Thera [Multivitamin 1 tab PO HS 11/11/15 05/22/19 History (formulary)] Fluticasone/Vilanterol [Breo 1 puff INHALATION RT-HS 02/26/19 05/22/19 History Ellipta 200-25 Mcg INH] Albuterol Inhaler [Ventolin Hfa 1 - 2 puff INHALATION RT-Q6H PRN 05/18/19 05/22/19 History Inhaler] Azithromycin [Zithromax] 250 mg PO DAILY 3 Days #3 tab 05/19/19 05/22/19 Rx Ipratropium-Albuterol Nebulize 3 ml INHALATION RT-QID 05/21/19 05/22/19 History [Duoneb 0.5 mg-3 mg/3 ml Soln] Allergies Allergy/AdvReac Type Severity Reaction Status Date / Time adhesive tape Allergy Rash/Hives Verified 05/22/19 02:23 Sulfa (Sulfonamide Allergy Swelling Verified 05/22/19 02:23 Antibiotics) codeine AdvReac Nausea & Verified 05/22/19 02:23 Vomiting Physical Exam Vitals: Vital Signs Temp Pulse Pulse Resp BP BP Pulse Ox 05/22/19 09:31 88 05/22/19 09:21 88 05/22/19 08:23 98.5 F 91 24 145/80 93 L 05/22/19 08:20 150/89 05/22/19 08:00 24 05/22/19 02:08 97.8 F 86 20 137/80 92 L 05/22/19 00:53 84 05/22/19 00:52 97.8 F 86 20 133/78 96 05/22/19 00:21 70 05/22/19 00:08 78 20 118/81 98 05/22/19 00:05 80 05/21/19 23:05 98.0 F 88 18 155/85 96 Intake and Output 05/21/19 05/22/19 05/22/19 22:59 06:59 14:59 Output Total 500 Balance -500 Output: Urine 500 Other: Voiding Method Toilet # Voids 1 Weight 74.8 kg GENERAL EXAM: Alert, pleasant 59-year-old female patient, comfortable in no apparent distress. On room air. HEAD: Normocephalic. EYES: Normal reaction of pupils, equal size. NOSE: Clear with pink turbinates. THROAT: No erythema or exudates. NECK: No masses, no JVD. CHEST: No chest wall deformity. LUNGS: Equal air entry with bilateral end expiratory wheeze, few scattered rhonchi, diminished. CVS: S1 and S2 normal with no audible murmur, regular rhythm. ABDOMEN: No hepatosplenomegaly, normal bowel sounds, no guarding or rigidity. SPINE: Kyphoscoliosis. SKIN: No rashes CENTRAL NERVOUS SYSTEM: No focal deficits, tone is normal in all 4 extremities. EXTREMITIES: There is no peripheral edema. No clubbing, no cyanosis. Peripheral pulses are intact. Results - Laboratory Findings CBC and BMP: 05/21/19 23:32 05/21/19 23:32 PT/INR, D-dimer PT 9.6 sec (9.0-12.0) 05/21/19 23:32 INR 0.9 (<1.2) 05/21/19 23:32 D-Dimer 0.27 mg/L FEU (<0.60) 05/21/19 23:32 Abnormal lab findings: Abnormal Labs 05/21/19 05/21/19 23:32 23:32 WBC 11.0 H Eosinophils # 0.9 H Glucose 132 H - Diagnostic Findings Chest x-ray: image reviewed (No acute pulmonary process.) Assessment and Plan Assessment: Impression: #1 Acute exacerbation of chronic obstructive pulmonary disease. #2 Chronic and ongoing tobacco dependence. #3 Recent admission for COPD exacerbation. #4 Hypertension. #5 Hyperlipidemia. #6 Osteoarthritis. #7 Kyphoscoliosis. Plan: The patient was seen and evaluated by Dr. Damon. Chest x-ray and labs reviewed. We'll continue with her treatment for her COPD exacerbation. Continue DuoNeb inhalations, IV Solu-Medrol. He had Pulmicort and Perforomist inhalations. Continue azithromycin. She is again educated regarding the importance of complete smoking cessation. NicoDerm patch will be added. Upon discharge she should be on a prednisone burst and taper. Follow-up in our office within 1 week's time. We will continue to follow and make further recommendations based on her clinical status. I, the cosigning physician, performed a history & physical examination of the patient. Lungs sounds with bilateral end expiratory wheeze, few scattered rhonchi, diminished. Maintaining good O2 saturations in the 90s on room air. I discussed the assessment and plan of care with my nurse practitioner, Jamee Godinez. I attest to the above consultation as dictated by her. Time with Patient: Greater than 30
[2019-05-22] MEDS ORDERED: IPRATROPIUM-ALBUTEROL 3 ML NEB INHALATION PRN (11:05)
--- NOTE | 2019-05-22 17:22 | P.HPIM ---
History of Present Illness H&P Date: 05/22/19 Chief Complaint: Short of breath History of presenting complaint: This is a pleasant 59-year-old patient of Dr. Hernandez. Also follows with test operator Dr. Larsen. Chronic stable medical conditions include hypertension, hyperlipidemia, osteoarthritis, kyphoscoliosis. Patient was just in the hospital from May 18 through May 19. Was then seen by Dr. Arce from pulmonary. Was then admitted with COPD exacerbation. Was doing well in the hospital and went home. Unable was cutting the grass. And soon after that patient started having more and more short of breath and wheezing Patient long-standing smoker. For 2 weeks patient's sinuses have been bothering of started to drain. Patient progressively started having more cough short of breath and wheezing. No fever no chills. No cough. Patient started on steroids, bronchodilators and admitted for the same. Review of systems: GEN.: Tired EYES: None HEENT: None NECK: None RESPIRATORY: As above] CARDIOVASCULAR: None GASTROINTESTINAL: None GENITOURINARY: None MUSCULOSKELETAL: Joint pains LYMPHATICS: None HEMATOLOGICAL: None PSYCHIATRY: None NEUROLOGICAL: None Social history: Lives with brother. Smoking a pack a day for over 47 years, has been off the clinical contact. alcohol occasionally, works at [employer]. Physical examination: VITAL SIGNS: 98, 88, 18, 155/85, 96% room air-upon presentation GENERAL: BMI 29.2, sitting at the edge of the bed, short of breath EYES: Pupils equal. Conjunctiva normal. HEENT: External appearance of nose and ears normal, oral cavity grossly normal. NECK: JVD not raised; masses not palpable. HEART: First and second heart sounds are normal; no edema. LUNGS: Respiratory rate increased, decreased breath sounds prolonged expression wheezing. ABDOMEN: Soft, nontender, liver spleen not palpable, no masses palpable. PSYCH: Alert and oriented x3; mood and affect anxious. NEUROLOGICAL: Cranial nerves grossly intact; no facial asymmetry, power and sensation grossly intact. LYMPHATICS: No lymph nodes palpable in the axilla and neck Investigations: White count 11 hemoglobin 14 potassium 4.1 creatinine 0.67 EKG tracing personally reviewed by me-sinus rhythm, poor R-wave progression Chest x-ray film personally reviewed by me-no infiltrates, shows scoliosis Assessment: -Acute COPD exacerbation in a current smoker, precipitated by lawn being cut, likely from pollens -Chronic nicotine dependence patient is a cigarette smoker -Essential hypertension -Hyperlipidemia -Primary osteoarthritis -Kyphoscoliosis Plan: Patient started on nebulized bronchodilators, IV steroids, inhaled steroids. Home medications resumed. Care was discussed with the patient. Lovenox for DVT prophylaxis. Pulmonary is consulted. Past Medical History Past Medical History: Cancer, COPD, Hyperlipidemia, Hypertension, Osteoarthritis (OA) Additional Past Medical History / Comment(s): Bronchitis, cervical cancer with hysterectomy, kyphoscoliosis of the spine, arthritis bilateral hands and knees. History of Any Multi-Drug Resistant Organisms: None Reported Past Surgical History: Hysterectomy, Tonsillectomy Additional Past Surgical History / Comment(s): Hemangioma removed from side head, exploratory laparotomy with R salpingectomy, lymph nodes removed from groin with hysterectomy (cervical cancer). Past Anesthesia/Blood Transfusion Reactions: Postoperative Nausea & Vomiting (PONV) Additional Past Anesthesia/Blood Transfusion Reaction / Comment(s): I wake up "rowdy." Past Psychological History: No Psychological Hx Reported Additional Psychological History / Comment(s): Pt has a brother living with her. She is independent. She works for [employer]. She has a nebulizer. Smoking Status: Current some day smoker Past Alcohol Use History: None Reported Additional Past Alcohol Use History / Comment(s): pt stopped smoking couple days before admission on 05/18, has not had cigarette since Past Drug Use History: None Reported - Past Family History Mother Family Medical History: Vascular Disorder Additional Family Medical History / Comment(s): Mother of a cerebral aneurysm at the age of 29 yrs. Father Family Medical History: CVA/TIA Additional Family Medical History / Comment(s): Father of a CVA-pt unable to recall at what age. Medications and Allergies Home Medications Medication Instructions Recorded Confirmed Type Aspirin 81 mg PO HS 08/20/15 05/22/19 History Atorvastatin [Lipitor] 10 mg PO HS 08/20/15 05/22/19 History Hydrochlorothiazide [Hydrodiuril] 25 mg PO HS 08/20/15 05/22/19 History Ibuprofen [Motrin] 800 mg PO Q8HR PRN 08/20/15 05/22/19 History Ramipril 20 mg PO HS 08/20/15 05/22/19 History Ascorbic Acid [Vitamin C] 1,000 mg PO HS 11/11/15 05/22/19 History Multivitamins, Thera [Multivitamin 1 tab PO HS 11/11/15 05/22/19 History (formulary)] Fluticasone/Vilanterol [Breo 1 puff INHALATION RT-HS 02/26/19 05/22/19 History Ellipta 200-25 Mcg INH] Albuterol Inhaler [Ventolin Hfa 1 - 2 puff INHALATION RT-Q6H PRN 05/18/19 05/22/19 History Inhaler] Azithromycin [Zithromax] 250 mg PO DAILY 3 Days #3 tab 05/19/19 05/22/19 Rx Ipratropium-Albuterol Nebulize 3 ml INHALATION RT-QID 05/21/19 05/22/19 History [Duoneb 0.5 mg-3 mg/3 ml Soln] Allergies Allergy/AdvReac Type Severity Reaction Status Date / Time adhesive tape Allergy Rash/Hives Verified 05/22/19 02:23 Sulfa (Sulfonamide Allergy Swelling Verified 05/22/19 02:23 Antibiotics) codeine AdvReac Nausea & Verified 05/22/19 02:23 Vomiting Physical Exam Vitals: Vital Signs Temp Pulse Pulse Resp BP BP Pulse Ox 05/22/19 09:31 88 05/22/19 09:21 88 05/22/19 08:23 98.5 F 91 24 145/80 93 L 05/22/19 08:20 150/89 05/22/19 08:00 24 05/22/19 02:08 97.8 F 86 20 137/80 92 L 05/22/19 00:53 84 05/22/19 00:52 97.8 F 86 20 133/78 96 05/22/19 00:21 70 05/22/19 00:08 78 20 118/81 98 05/22/19 00:05 80 05/21/19 23:05 98.0 F 88 18 155/85 96 Intake and Output 05/21/19 05/22/19 05/22/19 22:59 06:59 14:59 Output Total 500 Balance -500 Output: Urine 500 Other: Voiding Method Toilet # Voids 1 Weight 74.8 kg Results CBC & Chem 7: 05/21/19 23:32 05/21/19 23:32 Labs: Abnormal Lab Results - Last 24 Hours (Table) 05/21/19 05/21/19 Range/Units 23:32 23:32 WBC 11.0 H (3.8-10.6) k/uL Eosinophils # 0.9 H (0-0.7) k/uL Glucose 132 H (74-99) mg/dL Thrombosis Risk Factor Assmnt - Choose All That Apply Each Factor Represents 1 point: Abnormal pulmonary function (COPD), Obesity (BMI >25) Each Risk Factor Represents 2 Points: Age 61-74 years Thrombosis Risk Factor Assessment Total Risk Factor Score: 4 Thrombosis Risk Factor Assessment Level: Moderate Risk
[2019-05-22] MEDS ORDERED: IPRATROPIUM-ALBUTEROL 3 ML NEB INHALATION SCH (19:00)
[2019-05-22] MEDS: BUDESONIDE 1 MG/2 ML NEBU INHALATION SCH (19:01)
[2019-05-22] MEDS: FORMOTEROL FUMARATE 20 MCG/2 ML NEBU INHALATION SCH (19:01)
[2019-05-22] MEDS: ACETAMINOPHEN TAB 325 MG TAB PO PRN (19:14)
[2019-05-22] MEDS ORDERED: HYDROCHLOROTHIAZIDE 25 MG TAB PO SCH (21:00)
[2019-05-22] MEDS ORDERED: ASPIRIN 81 MG PO SCH (21:00)
[2019-05-22] MEDS ORDERED: ATORVASTATIN 10 MG TAB PO SCH (21:00)
[2019-05-22] MEDS ORDERED: LISINOPRIL 20 MG TAB PO SCH (21:00)
[2019-05-23] MEDS: IPRATROPIUM-ALBUTEROL 3 ML NEB INHALATION SCH ×4 (00:31→12:17)
[2019-05-23] MEDS: methylPREDNISolone SOD SUCCI 125 MG/2 ML VIAL IV SCH ×3 (00:32→11:39)
[2019-05-23] MEDS: SODIUM CHLORIDE 0.9% 1,000 ML IV SCH (07:50)
[2019-05-23 08:45] VITALS: BP 116/77; RESP 16; TEMP 98
[2019-05-23] MEDS: BUDESONIDE 1 MG/2 ML NEBU INHALATION SCH (08:45)
[2019-05-23] MEDS: FORMOTEROL FUMARATE 20 MCG/2 ML NEBU INHALATION SCH (08:45)
[2019-05-23] MEDS: AZITHROMYCIN 500 MG TAB PO SCH (08:58)
[2019-05-23] MEDS ORDERED: AZITHROMYCIN 250 MG TAB PO SCH (09:00)
[2019-05-23] MEDS: ACETAMINOPHEN TAB 325 MG TAB PO PRN (09:01)
[2019-05-23 09:08] VITALS: PULSE 82
--- NOTE | 2019-05-23 10:33 | P.PN ---
Subjective Progress Note Date: 05/23/19 Principal diagnosis: Acute exacerbation of chronic obstructive pulmonary disease. This is a very pleasant 59-year-old female patient who follows with Dr. Hernandez as her primary care physician. She has a history of hypertension, hyperlipidemia, osteoarthritis, cervical cancer with previous hysterectomy, kyphoscoliosis. She also has chronic and ongoing tobacco dependence and chronic obstructive pulmonary disease. She was last seen in our office in December 2017. Her FEV1 value is 59% of predicted. She has not been oxygen dependent nor steroid dependent. She was recently discharged from here on 05/19/2019 following a COPD exacerbation. She states she had been back to her baseline at that time. She did well for just 2 days and then yesterday developed increasing shortness of breath, cough and congestion. She was discharged home on a NicoDerm patch azithromycin and DuoNeb inhalations. No prednisone taper. He presented here to the emergency room for the same. No fever, chills or night sweats. No nausea, vomiting or diarrhea. She is currently maintaining O2 sat urations in the low 90s on room air. She's afebrile. Hemodynamically stable. White count 11.0. Hemoglobin 14.0. Sodium 138. Potassium 4.1. Creatinine 0.67. Troponin negative times one. ProBNP 152. She is currently on IV Solu- Medrol, DuoNeb inhalations, and azithromycin. Chest x-ray revealed no acute pulmonary process. The patient is seen today 05/23/2019 in follow-up on the regular medical floor. She is awake and alert in no acute distress. She is sitting up at the bedside. Maintaining good O2 saturations in the 90s on room air. She is feeling back to her baseline. Afebrile. Hemodynamically stable. She's been maintained on DuoNeb inhalations, Pulmicort and Perforomist inhalations, IV Solu-Medrol, empiric antibiotics in the form of azithromycin. Objective - Vital Signs Vital signs: Vital Signs Temp 98.0 F 05/23/19 08:04 Pulse 82 05/23/19 09:08 Resp 16 05/23/19 08:04 BP 116/77 05/23/19 08:04 Pulse Ox 93 L 05/23/19 08:04 Intake & Output 05/22/19 05/23/19 05/23/19 18:59 06:59 18:59 Intake Total 600 Output Total 1 Balance 599 Intake: Oral 600 Output: Emesis 1 Other: Voiding Method Toilet # Voids 2 1 1 - Exam GENERAL EXAM: Alert, pleasant 59-year-old female patient, comfortable in no ap parent distress. On room air. HEAD: Normocephalic. EYES: Normal reaction of pupils, equal size. NOSE: Clear with pink turbinates. THROAT: No erythema or exudates. NECK: No masses, no JVD. CHEST: No chest wall deformity. LUNGS: Equal air entry clear, diminished. CVS: S1 and S2 normal with no audible murmur, regular rhythm. ABDOMEN: No hepatosplenomegaly, normal bowel sounds, no guarding or rigidity. SPINE: Kyphoscoliosis. SKIN: No rashes CENTRAL NERVOUS SYSTEM: No focal deficits, tone is normal in all 4 extremities. EXTREMITIES: There is no peripheral edema. No clubbing, no cyanosis. Periphe ral pulses are intact. - Labs CBC & Chem 7: 05/21/19 23:32 05/21/19 23:32 Assessment and Plan Assessment: Impression: #1 Acute exacerbation of chronic obstructive pulmonary disease. #2 Chronic and ongoing tobacco dependence. #3 Recent admission for COPD exacerbation. #4 Hypertension. #5 Hyperlipidemia. #6 Osteoarthritis. #7 Kyphoscoliosis. Plan: The patient was seen and evaluated by Dr. Damon. She is cleared for discharge from the pulmonary standpoint. She'll complete a prednisone taper starting at 40 mg daily for 4 days. Complete course of antibiotics. Continue her home Breo, albuterol HFA and DuoNeb inhalations. She is again educated regarding the importance of complete smoking cessation. She has NicoDerm patches at home. Follow-up in our office with Dr. Larsen in 1-2 weeks' time. She is encouraged to call sooner with any recurrence of symptoms or other questions or concerns. I, the cosigning physician, performed a history & physical examination of the patient. Lungs sounds clear,, diminished. Maintaining good O2 saturations in the 90s on room air. I discussed the assessment and plan of care with my nurse practitioner, Jamee Godinez. I attest to the above note as dictated by her.
[2019-05-23] MEDS ORDERED: predniSONE 20 MG TAB PO STA (11:58)
--- NOTE | 2019-05-24 22:11 | P.DS ---
Providers Date of admission: 05/21/19 23:47 Expected date of discharge: 05/23/19 Attending physician: Geoff Wilks Consults: 05/21/19 23:47 Consult Physician Routine Consulting Provider: Evert Larsen Consult Reason/Comments: known Do you want consulting provider notified?: Yes Primary care physician: Ace Cardenasprem [facility] Hospital Course: Chief Complaint: Short of breath Hospital course: This is a pleasant 59-year-old patient of Dr. Hernandez. Also follows with hvac service manager Dr. Larsen. Chronic stable medical conditions include hypertension, hyperlipidemia, osteoarthritis, kyphoscoliosis. Patient was just in the hospital from May 18 through May 19. Was then seen by Dr. Arce from pulmonary. Was then admitted with COPD exacerbation. Was doing well in the hospital and went home. Neighbor was cutting the grass. And soon after that patient started having more and more short of breath and wheezing Patient long-standing smoker. For 2 weeks patient's sinuses have been bothering of started to drain. Patient progressively started having more cough short of breath and wheezing. No fever no chills. No cough. Patient started on steroids, bronchodilators and admitted for the same. Admitted with COPD exacerbation. Responded well to bronchodilator steroids and oral antibiotics. Doing much better without discharge. Patient advised to stay away from smoking. Consultation: Dr. Damon from pulmonary Physical examination: VITAL SIGNS: 98 on 91, 16, 11 6, 93% on room air GENERAL: Sitting up, feeling better EYES: Pupils equal. Conjunctiva normal. HEENT: External appearance of nose and ears normal, oral cavity grossly normal. NECK: JVD not raised; masses not palpable. HEART: First and second heart sounds are normal; no edema. LUNGS: Respiratory rate increased, decreased breath sounds ABDOMEN: Soft, nontender, liver spleen not palpable, no masses palpable. PSYCH: Alert and oriented x3; mood and affect anxious. Investigations: White count 11 hemoglobin 14 potassium 4.1 creatinine 0.67 EKG tracing personally reviewed by me-sinus rhythm, poor R-wave progression Chest x-ray film personally reviewed by me-no infiltrates, shows scoliosis Discharge diagnosis: -Acute COPD exacerbation in a current smoker, precipitated by lawn being cut, likely from pollens -Chronic nicotine dependence patient is a cigarette smoker -Essential hypertension -Hyperlipidemia -Primary osteoarthritis -Kyphoscoliosis Disposition: Home Patient Condition at Discharge: Stable Plan - Discharge Summary Discharge Rx Participant: Yes New Discharge Prescriptions: New predniSONE 10 mg PO DAILY #30 tab Azithromycin [Zithromax] 500 mg PO DAILY #3 tab Continue Ibuprofen [Motrin] 800 mg PO Q8HR PRN PRN Reason: Pain Ramipril 20 mg PO HS Hydrochlorothiazide [Hydrodiuril] 25 mg PO HS Atorvastatin [Lipitor] 10 mg PO HS Aspirin 81 mg PO HS Ascorbic Acid [Vitamin C] 1,000 mg PO HS Multivitamins, Thera [Multivitamin (formulary)] 1 tab PO HS Fluticasone/Vilanterol [Breo Ellipta 200-25 Mcg INH] 1 puff INHALATION RT-HS Albuterol Inhaler [Ventolin Hfa Inhaler] 1 - 2 puff INHALATION RT-Q6H PRN PRN Reason: Shortness Of Breath Ipratropium-Albuterol Nebulize [Duoneb 0.5 mg-3 mg/3 ml Soln] 3 ml INHALATION RT-QID Discontinued Azithromycin [Zithromax] 250 mg PO DAILY 3 Days #3 tab Discharge Medication List Aspirin 81 mg PO HS 08/20/15 [History] Atorvastatin [Lipitor] 10 mg PO HS 08/20/15 [History] Hydrochlorothiazide [Hydrodiuril] 25 mg PO HS 08/20/15 [History] Ibuprofen [Motrin] 800 mg PO Q8HR PRN 08/20/15 [History] Ramipril 20 mg PO HS 08/20/15 [History] Ascorbic Acid [Vitamin C] 1,000 mg PO HS 11/11/15 [History] Multivitamins, Thera [Multivitamin (formulary)] 1 tab PO HS 11/11/15 [History] Fluticasone/Vilanterol [Breo Ellipta 200-25 Mcg INH] 1 puff INHALATION RT-HS 02/26/19 [History] Albuterol Inhaler [Ventolin Hfa Inhaler] 1 - 2 puff INHALATION RT-Q6H PRN 05/18/19 [History] Ipratropium-Albuterol Nebulize [Duoneb 0.5 mg-3 mg/3 ml Soln] 3 ml INHALATION RT-QID 05/21/19 [History] Azithromycin [Zithromax] 500 mg PO DAILY #3 tab 05/23/19 [Rx] predniSONE 10 mg PO DAILY #30 tab 05/23/19 [Rx] Follow up Appointment(s)/Referral(s): Fermin Hernandez MD [Primary Care Provider] - 05/27/19 3:20 pm Garry Krishnamurthy DO [Doctor of Osteopathic Medicine] - 1 Week Activity/Diet/Wound Care/Special Instructions: Continue diet as tolerated. fluids are always encouraged. Continue treatments and home medications. continue smoking cessation. Continue prednisone taper starting tomorrow and finish the course of antibiotics (next dose is tomorrow). Follow up with physicians as directed appointments have been made for you. Call with any questions comments concerns worsening returning symptoms, fever 101.1 or higher, not tolerating diet or fluids, shortness of breath not relieved with treatments, pain not controlled by prescribed medications. Discharge Disposition: HOME SELF-CARE
== END 2019-05-23 14:12 | disposition home or self-care (01) | DRG 192 ==
LOC: EC 23:04 → 6PED 23:47 → UNDOADMIN 23:47 → 3NMEDONC 23:47
PROVIDERS: ADMIT Hospitalist; ATTEND Hospitalist
DX: J44.1 Chronic obstructive pulmonary disease with (acute) exacerbation (principal); M19.041 Primary osteoarthritis, right hand; M19.042 Primary osteoarthritis, left hand; M17.0 Bilateral primary osteoarthritis of knee; E78.5 Hyperlipidemia, unspecified; F17.210 Nicotine dependence, cigarettes, uncomplicated; I10 Essential (primary) hypertension; M41.9 Scoliosis, unspecified; Z79.82 Long term (current) use of aspirin; Z79.899 Other long term (current) drug therapy; Z82.3 Family history of stroke; Z85.41 Personal history of malignant neoplasm of cervix uteri; Z90.710 Acquired absence of both cervix and uterus; Z88.5 Allergy status to narcotic agent; Z88.2 Allergy status to sulfonamides
CPT/HCPCS: 36415; 71045; 80053; 83735; 83880; 84484; 85025; 85379; 85610; 85730; 93005; 94640; 94644; 94760; 96374; 96375; 99285

== ENCOUNTER 2019-06-17 10:33 | Inpatient (IN) | payer OTHER ==
[2019-06-17] MEDS ORDERED: methylPREDNISolone SOD SUCCI 125 MG/2 ML VIAL IV STA (10:50)
[2019-06-17] MEDS ORDERED: IPRATROPIUM-ALBUTEROL 3 ML NEB INHALATION STA ×3 (10:50→13:55)
[2019-06-17] MEDS ORDERED: SODIUM CHLORIDE 0.9% 1,000 ML IV STA (10:50)
--- NOTE | 2019-06-17 11:00 | ED ---
SOB HPI - General Chief Complaint: Shortness of Breath Stated Complaint: ryan Time Seen by Provider: 06/17/19 10:43 Source: patient, RN notes reviewed Mode of arrival: wheelchair Limitations: no limitations - History of Present Illness Initial Comments: This is a 59-year-old female history of emphysema who states she had the onset this morning of shortness of breath is gotten progressively worse and refractory to her home medication. She states she's had no fevers chills nausea vomiting sweats she has had a dry cough. No chest pain no peripheral edema she states she had a similar presentation about a month ago. MD Complaint: shortness of breath, cough - Related Data Home Medications Medication Instructions Recorded Confirmed Aspirin 81 mg PO HS 08/20/15 06/17/19 Atorvastatin [Lipitor] 10 mg PO HS 08/20/15 06/17/19 Hydrochlorothiazide [Hydrodiuril] 25 mg PO HS 08/20/15 06/17/19 Ibuprofen [Motrin] 800 mg PO Q8HR PRN 08/20/15 06/17/19 Ramipril 20 mg PO HS 08/20/15 06/17/19 Ascorbic Acid [Vitamin C] 1,000 mg PO HS 11/11/15 06/17/19 Multivitamins, Thera [Multivitamin 1 tab PO HS 11/11/15 06/17/19 (formulary)] Fluticasone/Vilanterol [Breo 1 puff INHALATION RT-HS 02/26/19 06/17/19 Ellipta 200-25 Mcg INH] Albuterol Inhaler [Ventolin Hfa 1 - 2 puff INHALATION RT-Q6H PRN 05/18/19 06/17/19 Inhaler] Ipratropium-Albuterol Nebulize 3 ml INHALATION RT-QID 05/21/19 06/17/19 [Duoneb 0.5 mg-3 mg/3 ml Soln] Allergies Allergy/AdvReac Type Severity Reaction Status Date / Time adhesive tape Allergy Rash/Hives Verified 06/17/19 11:49 Sulfa (Sulfonamide Allergy Swelling Verified 06/17/19 11:49 Antibiotics) codeine AdvReac Nausea & Verified 06/17/19 11:49 Vomiting Review of Systems ROS Statement: Those systems with pertinent positive or pertinent negative responses have been documented in the HPI. ROS Other: All systems not noted in ROS Statement are negative. Past Medical History Past Medical History: Cancer, COPD, Hyperlipidemia, Hypertension, Osteoarthritis (OA) Additional Past Medical History / Comment(s): Bronchitis, cervical cancer with hysterectomy, kyphoscoliosis of the spine, arthritis bilateral hands and knees. History of Any Multi-Drug Resistant Organisms: None Reported Past Surgical History: Hysterectomy, Tonsillectomy Additional Past Surgical History / Comment(s): Hemangioma removed from side head, exploratory laparotomy with R salpingectomy, lymph nodes removed from groin with hysterectomy (cervical cancer). Past Anesthesia/Blood Transfusion Reactions: Postoperative Nausea & Vomiting (PONV) Additional Past Anesthesia/Blood Transfusion Reaction / Comment(s): I wake up "rowdy." Past Psychological History: No Psychological Hx Reported Smoking Status: Current some day smoker Past Alcohol Use History: None Reported Past Drug Use History: None Reported - Past Family History Mother Family Medical History: Vascular Disorder Additional Family Medical History / Comment(s): Mother of a cerebral aneurysm at the age of 29 yrs. Father Family Medical History: CVA/TIA Additional Family Medical History / Comment(s): Father of a CVA-pt unable to recall at what age. General Exam - General Exam Comments Initial Comments: This is a well-developed sec appearing female who is awake alert oriented 3 Limitations: no limitations General appearance: alert, in distress Head exam: Present: atraumatic, normocephalic, normal inspection Eye exam: Present: normal appearance, PERRL, EOMI. Absent: scleral icterus, conjunctival injection, periorbital swelling ENT exam: Present: normal exam, mucous membranes moist Neck exam: Present: normal inspection. Absent: tenderness, meningismus, lymphadenopathy Respiratory exam: Present: wheezes, accessory muscle use, decreased breath sounds. Absent: respiratory distress, rales, rhonchi, stridor Cardiovascular Exam: Present: regular rate, normal rhythm, normal heart sounds. Absent: systolic murmur, diastolic murmur, rubs, gallop, clicks GI/Abdominal exam: Present: soft, normal bowel sounds. Absent: distended, tenderness, guarding, rebound, rigid Extremities exam: Present: normal inspection, full ROM, normal capillary refill. Absent: tenderness, pedal edema, joint swelling, calf tenderness Back exam: Present: normal inspection Neurological exam: Present: alert, oriented X3, CN II-XII intact Psychiatric exam: Present: normal affect, normal mood Skin exam: Present: warm, dry, intact, normal color. Absent: rash Course Vital Signs 06/17/19 06/17/19 06/17/19 10:39 11:18 11:28 Temperature 97.7 F Pulse Rate 100 89 96 Respiratory 24 18 18 Rate Blood Pressure 142/84 O2 Sat by Pulse 88 L Oximetry 06/17/19 06/17/19 06/17/19 11:41 13:10 13:23 Temperature Pulse Rate 92 106 H Respiratory 20 18 18 Rate Blood Pressure O2 Sat by Pulse Oximetry - Reevaluation(s) Reevaluation #1: 06/17/19 13:54 Repeat evaluation after initial treatment reveals some minimal improvement. Medical Decision Making - Medical Decision Making I did discuss findings with the patient she repeat examination still demonstrates diminished breathing sounds with diffuse wheezing. She will be admitted case discussed with Dr. Odonnell. - Lab Data Result diagrams: 06/17/19 11:35 06/17/19 11:35 Lab Results 06/17/19 06/17/19 06/17/19 Range/Units 11:35 11:35 11:35 WBC 7.3 (3.8-10.6) k/uL RBC 4.27 (3.80-5.40) m/uL Hgb 14.1 (11.4-16.0) gm/dL Hct 40.1 (34.0-46.0) % MCV 94.1 (80.0-100.0) fL MCH 33.0 (25.0-35.0) pg MCHC 35.0 (31.0-37.0) g/dL RDW 12.4 (11.5-15.5) % Plt Count 239 (150-450) k/uL Neutrophils % 71 % Lymphocytes % 17 % Monocytes % 4 % Eosinophils % 5 % Basophils % 1 % Neutrophils # 5.2 (1.3-7.7) k/uL Lymphocytes # 1.2 (1.0-4.8) k/uL Monocytes # 0.3 (0-1.0) k/uL Eosinophils # 0.4 (0-0.7) k/uL Basophils # 0.1 (0-0.2) k/uL PT (9.0-12.0) sec INR (<1.2) APTT (22.0-30.0) sec Sodium 137 (137-145) mmol/L Potassium 4.2 (3.5-5.1) mmol/L Chloride 98 (98-107) mmol/L Carbon Dioxide 28 (22-30) mmol/L Anion Gap 11 mmol/L BUN 11 (7-17) mg/dL Creatinine 0.62 (0.52-1.04) mg/dL Est GFR (CKD-EPI)AfAm >90 (>60 ml/min/1.73 sqM) Est GFR (CKD-EPI)NonAf >90 (>60 ml/min/1.73 sqM) Glucose 110 H (74-99) mg/dL Calcium 9.6 (8.4-10.2) mg/dL Magnesium 1.9 (1.6-2.3) mg/dL Total Bilirubin 0.8 (0.2-1.3) mg/dL AST 29 (14-36) U/L ALT 35 (9-52) U/L Alkaline Phosphatase 106 (38-126) U/L Creatine Kinase 123 (30-135) U/L Troponin I (0.000-0.034) ng/mL NT-Pro-B Natriuret Pep 72 pg/mL Total Protein 7.4 (6.3-8.2) g/dL Albumin 4.8 (3.5-5.0) g/dL 06/17/19 06/17/19 Range/Units 11:35 11:35 WBC (3.8-10.6) k/uL RBC (3.80-5.40) m/uL Hgb (11.4-16.0) gm/dL Hct (34.0-46.0) % MCV (80.0-100.0) fL MCH (25.0-35.0) pg MCHC (31.0-37.0) g/dL RDW (11.5-15.5) % Plt Count (150-450) k/uL Neutrophils % % Lymphocytes % % Monocytes % % Eosinophils % % Basophils % % Neutrophils # (1.3-7.7) k/uL Lymphocytes # (1.0-4.8) k/uL Monocytes # (0-1.0) k/uL Eosinophils # (0-0.7) k/uL Basophils # (0-0.2) k/uL PT 9.6 (9.0-12.0) sec INR 0.9 (<1.2) APTT 24.5 (22.0-30.0) sec Sodium (137-145) mmol/L Potassium (3.5-5.1) mmol/L Chloride (98-107) mmol/L Carbon Dioxide (22-30) mmol/L Anion Gap mmol/L BUN (7-17) mg/dL Creatinine (0.52-1.04) mg/dL Est GFR (CKD-EPI)AfAm (>60 ml/min/1.73 sqM) Est GFR (CKD-EPI)NonAf (>60 ml/min/1.73 sqM) Glucose (74-99) mg/dL Calcium (8.4-10.2) mg/dL Magnesium (1.6-2.3) mg/dL Total Bilirubin (0.2-1.3) mg/dL AST (14-36) U/L ALT (9-52) U/L Alkaline Phosphatase (38-126) U/L Creatine Kinase (30-135) U/L Troponin I <0.012 (0.000-0.034) ng/mL NT-Pro-B Natriuret Pep pg/mL Total Protein (6.3-8.2) g/dL Albumin (3.5-5.0) g/dL - EKG Data -: EKG Interpreted by [facility] EKG shows normal: sinus rhythm (Sinus rhythm 99 heart rate MN interval 118 QRS duration 70 QT since QTC 346/444 nonspecific inferior T-wave configuration) - Radiology Data Radiology results: report reviewed (Did review the imaging and report no e vidence of acute pathology.), image reviewed Critical Care Time Critical Care Time: Yes Critical Care Time: 31 minutes of critical care time which was initial presentation with history physical labs x-rays also reevaluation the patient to responsive therapy discuss with the admitting physician admission orders and documentation the above. Disposition Clinical Impression: Acute exacerbation of chronic obstructive pulmonary disease, Acute respiratory distress syndrome in adult, Hypoxemia, Failure of outpatient treatment Disposition[facility] Condition: Fair Referrals: Fermin Hernandez MD [Primary Care Provider] - 1-2 days
[2019-06-17 12:12] LABS: Basophils # (A) 0.1 k/uL (0-0.2); Basophils % (A) 1 %; Eosinophils # (A) 0.4 k/uL (0-0.7); Eosinophils % (A) 5 %; HCT 40.1 % (34.0-46.0); HGB 14.1 gm/dL (11.4-16.0); Lymphocytes # (A) 1.2 k/uL (1.0-4.8); Lymphocytes % (A) 17 %; MCV 94.1 fL (80.0-100.0); Mean Platelet Volume 7.4; Monocytes # (A) 0.3 k/uL (0-1.0); Monocytes % (A) 4 %; Neutrophils # (A) 5.2 k/uL (1.3-7.7); Neutrophils % (A) 71 %; Platelet Count 239 k/uL (150-450); RBC 4.27 m/uL (3.80-5.40); RDW 12.4 % (11.5-15.5); WBC 7.3 k/uL (3.8-10.6)
[2019-06-17 12:23] LABS: ALT 35 U/L (9-52); AST 29 U/L (14-36); African American GFR (CKD) >90 (>60 ml/min/1.73 sqM); Albumin 4.8 g/dL (3.5-5.0); Alkaline Phosphatase 106 U/L (38-126); Anion Gap 11 mmol/L; Blood Urea Nitrogen 11 mg/dL (7-17); Calcium 9.6 mg/dL (8.4-10.2); Carbon Dioxide 28 mmol/L (22-30); Chloride 98 mmol/L (98-107); Creatine Kinase 123 U/L (30-135); Glucose 110 mg/dL (74-99); INR 0.9 (<1.2); Magnesium 1.9 mg/dL (1.6-2.3); Partial Thromboplastin Time 24.5 sec (22.0-30.0); Potassium 4.2 mmol/L (3.5-5.1); Prothrombin Time 9.6 sec (9.0-12.0); Sodium 137 mmol/L (137-145); Total Bilirubin 0.8 mg/dL (0.2-1.3); Total Protein 7.4 g/dL (6.3-8.2)
--- NOTE | 2019-06-17 12:32 | XR ---
EXAMINATION TYPE: XR chest 2V DATE OF EXAM: 06/17/2019 COMPARISON: NONE TECHNIQUE: PA and lateral views submitted. HISTORY: difficulty breathing FINDINGS: There is no heart failure nor confluent pneumonic infiltrate. There is moderately severe thoracic dex troscoliosis. There is no sign of pleural effusion. Heart size is normal. IMPRESSION: 1. No acute process.
[2019-06-17] MEDS ORDERED: IBUPROFEN 800 MG TAB PO PRN (13:59)
[2019-06-17] MEDS: SODIUM CHLORIDE 0.9% 1,000 ML IV SCH (15:42)
[2019-06-17] MEDS: IPRATROPIUM-ALBUTEROL 3 ML NEB INHALATION SCH ×3 (16:38→20:17)
[2019-06-17] MEDS: methylPREDNISolone SOD SUCCI 125 MG/2 ML VIAL IV SCH ×2 (17:48→23:19)
[2019-06-17 19:44] VITALS: BMI 28.7
[2019-06-17] MEDS: HYDROCHLOROTHIAZIDE 25 MG TAB PO SCH (21:40)
[2019-06-17] MEDS: MULTIVITAMINS, THERA 1 EACH TAB PO SCH (21:40)
[2019-06-17] MEDS: ATORVASTATIN 10 MG TAB PO SCH (21:40)
[2019-06-17] MEDS: ASPIRIN 81 MG PO SCH (21:40)
[2019-06-17] MEDS: LISINOPRIL 20 MG TAB PO SCH (21:40)
[2019-06-17] MEDS: ASCORBIC ACID 500 MG TAB PO SCH (21:40)
[2019-06-17] MEDS: BENZONATATE 100 MG CAP PO PRN (22:21)
[2019-06-17] MEDS ORDERED: ALPRAZolam 0.25 MG TAB PO PRN (23:25)
[2019-06-17] MEDS ORDERED: TEMAZEPAM 15 MG CAP PO PRN (23:25)
[2019-06-17] MEDS ORDERED: ACETAMINOPHEN TAB 500 MG TAB PO PRN (23:25)
--- NOTE | 2019-06-18 00:01 | HP ---
HISTORY AND PHYSICAL DATE OF SERVICE: 06/17/2019 CHIEF COMPLAINT: Shortness of breath. HISTORY OF PRESENT ILLNESS: This 59-year-old woman with a past medical history of multiple medical problems, including history of asthma, COPD, history of hypertension, hyperlipidemia, history of DJD, history of bronchitis, cervical cancer, lymphadenopathy, scoliosis, being followed by Dr. Hernandez in the outpatient setting, is complaining of shortness of breath and cough for the past several days. Because of increased symptoms, the patient came to [facility] and was admitted for further evaluation and treatment. The shortness of breath was refractory to the home medications. The patient did not have any fever or rigors or chills. The chest x-ray done in the ER showed no acute process. The labs showed normal CBC and BMP also. There is no history of any fever, rigor or chills. No history of headache, loss of consciousness, seizures. PAST MEDICAL HISTORY: 1. History of asthma. 2. COPD. 3. History of hypertension. 4. Hyperlipidemia. 5. History of DJD. 6. History of bronchitis. 7. Cervical cancer. HOME MEDICATIONS: 1. Ramipril 20 mg at bedtime. 2. Multivitamins 1 p.o. daily. 3. DuoNeb q.i.d. 4. Motrin 800 mg q.8 p.r.n. 5. HydroDIURIL 25 mg at bedtime. 6. Breo Ellipta 1 puff at bedtime. 7. Lipitor 10 mg at bedtime. 8. Aspirin 81 mg daily. 9. Vitamin C 1000 mg at bedtime. 10.Ventolin HFA 1-2 puffs q.6 p.r.n. ALLERGIES: 1. ADHESIVE TAPE. 2. SULFA. 3. CODEINE. FAMILY HISTORY: History of vascular disorder. Mother of cerebral aneurysm at the age of 29. SOCIAL HISTORY: Previous history of smoking. No current smoking or alcohol. REVIEW OF SYSTEMS: ENT: No diminished hearing. No diminished vision. CARDIOVASCULAR SYSTEM: As mentioned earlier. RESPIRATORY SYSTEM: As mentioned earlier. GI: No nausea, vomiting. : No dysuria or retention. NERVOUS SYSTEM: No numbness, weakness. ALLERGY/IMMUNOLOGY: As mentioned earlier. HEMATOLOGY/ONCOLOGY: No history of anemia. ENDOCRINE: No history of diabetes, hypothyroidism. CONSTITUTIONAL: As mentioned earlier. DERMATOLOGY: Negative. RHEUMATOLOGY: Negative. PSYCHIATRY: As mentioned earlier. PHYSICAL EXAMINATION: Patient alert and oriented x3. Pulse 104, blood pressure 129/75, respiration 18, temperature 98.3, pulse ox 93% on room air. HEENT: Conjunctivae normal. Oral mucosa moist. NECK: No jugular venous distention. No carotid bruit. No lymph node enlargement. CARDIOVASCULAR SYSTEM: S1, S2 muffled. No S3. No S4. RESPIRATORY SYSTEM: Breath sounds diminished at the bases. Bilateral scattered rhonchi and crackles. Expiratory wheezing is present. The efforts of breathing are markedly increased. Significant kyphoscoliosis also present. ABDOMEN: Soft, non-tender. No mass palpable. LEGS: No edema. No swelling. NERVOUS SYSTEM: Higher functions as mentioned earlier. Moves all 4 limbs. No focal motor or sensory deficit. LYMPHATICS: No lymph node palpable in neck, axillae or groin. SKIN: No ulcer, rash, bleeding. JOINTS: No active deforming arthropathy. LABS: CBC within normal limits. CMP within normal limits. ASSESSMENT: 1. Chronic obstructive pulmonary disease, bronchial asthma, acute exacerbation, with acute purulent tracheobronchitis. 2. History of hypertension. 3. Hyperlipidemia. 4. History of degenerative joint disease. 5. History of cervical cancer with hysterectomy. 6. History of kyphoscoliosis. 7. History of degenerative joint disease. 8. History of hysterectomy. 9. History of hemangioma. 10.History of exploratory laparotomy with salpingectomy. 11.Remote history of nicotine dependence. RECOMMENDATIONS AND DISCUSSION: In this 59-year-old woman who presented with multiple medical issues, at this time I recommend continuing the current medications. Continue with symptomatic treatment. Otherwise, I would recommend intensive bronchodilators, IV steroids, empiric antibiotics. Pulmonary consultation with Dr. Krishnamurthy. Resume the home medications. Influenza testing. Overall prognosis guarded because of multiple complex medical issues. Further recommendations to follow. A copy of this dictation is being forwarded to Dr. Hernandez, who is the primary physician. MMODL / IJN: [id number] /
[2019-06-18] MEDS: IPRATROPIUM-ALBUTEROL 3 ML NEB INHALATION SCH ×6 (00:07→21:05)
[2019-06-18] MEDS: methylPREDNISolone SOD SUCCI 125 MG/2 ML VIAL IV SCH ×4 (05:55→23:37)
[2019-06-18 08:48] LABS: Basophils % (A) 0 %; Eosinophils # (A) 0.1 k/uL (0-0.7); Eosinophils % (A) 1 %; HCT 39.8 % (34.0-46.0); HGB 13.3 gm/dL (11.4-16.0); Lymphocytes # (A) 0.6 k/uL (1.0-4.8); Lymphocytes % (A) 5 %; MCH 31.9 pg (25.0-35.0); MCHC 33.5 g/dL (31.0-37.0); MCV 95.2 fL (80.0-100.0); Mean Platelet Volume 7.6; Monocytes # (A) 0.2 k/uL (0-1.0); Monocytes % (A) 2 %; Neutrophils # (A) 11.1 k/uL (1.3-7.7); Neutrophils % (A) 92 %; Platelet Count 256 k/uL (150-450); RBC 4.18 m/uL (3.80-5.40); RDW 12.5 % (11.5-15.5)
[2019-06-18 09:00] LABS: African American GFR (CKD) >90 (>60 ml/min/1.73 sqM); Anion Gap 9 mmol/L; Blood Urea Nitrogen 15 mg/dL (7-17); Calcium 9.5 mg/dL (8.4-10.2); Carbon Dioxide 29 mmol/L (22-30); Chloride 98 mmol/L (98-107); Glucose 179 mg/dL (74-99); Potassium 4.4 mmol/L (3.5-5.1); Sodium 136 mmol/L (137-145)
[2019-06-18] MEDS: SYMBICORT 160-4.5 MCG INHALER INHALATION SCH ×2 (09:09→21:08)
[2019-06-18] MEDS: HEPARIN SODIUM,PORCINE 5,000 UNIT/ML 1 ML VIAL SQ SCH ×2 (09:35→21:37)
[2019-06-18] MEDS: SODIUM CHLORIDE 0.9% 1,000 ML IV SCH (12:56)
--- NOTE | 2019-06-18 14:54 | CONS ---
CONSULTATION PULMONARY/CRITICAL CARE CONSULTATION: DATE OF CONSULTATION: 06/18/2019 This is a 59-year-old female who was admitted earlier this month with a COPD exacerbation. She presents to the emergency room on June 17 with a couple days worth of increasing shortness of breath. He has established history of stage II/stage III COPD with an FEV1 that is 59% of predicted. This was on a pulmonary function test done quite some time ago. She apparently saw Dr. Larsen, her oyster culturist last in the office. She at that time was doing relatively well. Since then, she has gotten progressively worse. Her complaints include shortness of breath, chest tightness, wheezing, cough and occasional phlegm production. No fever, chills. No chest pain or chest discomfort. The phlegm production is minimal. She denies any nausea, vomiting or diarrhea. No genitourinary complaints. She is not coughing up any blood. She states she quit smoking 2 weeks ago. HOME MEDICATIONS: Reviewed. She is on baby aspirin, Lipitor HydroDIURIL, ibuprofen, ramipril, ascorbic acid/vitamin-C, multivitamins, Breo, albuterol and duo nebs at home. ALLERGIES: Include ADHESIVE TAPE, SULFA ANTIBIOTICS and CODEINE. MEDICAL HISTORY: Positive for COPD, hyperlipidemia, hypertension, DJD, cervical cancer, and multiple episodes of COPD exacerbation and bronchitis. The most recent of which was earlier this month. She also has a severe dextroscoliosis with dextro-kyphoscoliosis of the spine. SURGICAL HISTORY: Includes hysterectomy, tonsillectomy. She has also had a previous exploratory laparotomy with right salpingectomy and lymph nodes removed from the groin with hysterectomy for her cervical cancer. She also had a hemangioma removed. SOCIAL HISTORY: Positive for tobacco use, quite significantly up until a couple weeks back. She denies any alcohol use. She denies any illicit drug use. FAMILY HISTORY: Positive for mother who is from cerebral aneurysm and a father who has a history of CVA/TIA. Both parents are . REVIEW OF SYSTEMS: CONSTITUTIONAL: Negative. NEUROLOGIC: Negative. HEENT: Negative. CARDIOVASCULAR: Negative. PULMONARY: Shortness of breath, chest tightness, wheezing, cough, chest congestion and minimal phlegm production. GI: Negative. : Negative. RHEUMATOLOGIC: Negative. IMMUNOLOGIC: Negative. ENDOCRINOLOGIC: Negative. DERMATOLOGIC: Negative. Current vital signs are reviewed, they include a temperature of 98, heart rate 88, respiratory rate 16, blood pressure 124/69 mean 87 and saturations of 92% on room air. She appears in no acute distress. There is no audible wheezing, use of accessory muscles or conversational dyspnea. In fact, she looks rather good. HEENT: Examination is grossly unremarkable. Mucous membranes are moist. No supplemental oxygen. NECK: Supple. Full range of motion. No adenopathy, thyromegaly or neck vein distention. CARDIOVASCULAR: Examination reveals regular rhythm and rate. Heart rate 88. S1, S2 normal. No S3, S4, or murmur. LUNGS: Reveal a few scattered expiratory wheezes and rhonchi. Slight prolongation on forced maneuver. Adventitious lung sounds are more prominent on forced maneuver. No crackles. Breath sounds are equal bilaterally but diminished throughout. ABDOMEN: Soft. Bowel sounds are heard. EXTREMITIES: Intact. No cyanosis, clubbing, or edema. SKIN: Without rash. NEUROLOGIC: Examination is brief but nonfocal. LABS: Reviewed. White count 12, hemoglobin 13.3, hematocrit 39.8, platelet count 256,000. Sodium 136, potassium 4.4, chloride 98, CO2 is 29 anion gap is 9. BUN and creatinine were 15 and 0.64. Influenza studies were negative. Troponin was negative. N terminal proBNP was normal. Chest x-ray shows no acute infiltrate. She does have changes of COPD. She does have severe dextroscoliosis. Medications are reviewed. She is currently on Tessalon Perles, Symbicort, Rocephin, DuoNeb, Solu-Medrol. ASSESSMENT: 1. Chronic obstructive pulmonary disease exacerbation complicated by mild purulent tracheobronchitis, without alistair pneumonia. 2. History of ongoing tobacco use, up until recently. 3. Recent admission to the hospital in early May for similar episodes. 4. History of hyperlipidemia. 5. History of cervical cancer, status post hysterectomy. 6. History of hypertension. 7. Degenerative joint disease. 8. Severe kyphoscoliosis. PLAN: The patient's medications are appropriate. Will stop the Rocephin. Will put her on oral antibiotics. Discharge hopefully in the next day or so. No additional recommendations are made. Prognosis is guarded. We counseled her about the importance of continued nonsmoking. MMODL / IJN: [id number] /
--- NOTE | 2019-06-18 18:40 | PN ---
PROGRESS NOTE DATE OF SERVICE: 06/18/2019 This 59-year-old woman who was admitted with COPD, acute exacerbation, is being closely monitored. Patient is complaining of some wheezing. No chest pain. No palpitations. Dr. Krishnamurthy is following the patient closely. PHYSICAL EXAMINATION: Alert and oriented x3. Pulse is 94. Blood pressure is 105/57, respiration 20, temperature 98.2, pulse ox 94% on room air. HEENT: Conjunctivae normal. NECK: No jugular venous distention. CARDIOVASCULAR SYSTEM: S1, S2 muffled. RESPIRATORY SYSTEM: Breath sounds diminished at the bases. No rhonchi. No crackles. ABDOMEN: Soft, non-tender. No mass palpable. LEGS: No edema. No swelling. NERVOUS SYSTEM: No focal deficit. LABS: WBC 12, hemoglobin 13.3, sodium 136. Influenza negative. ASSESSMENT: 1. Chronic obstructive pulmonary disease, acute exacerbation, and acute bronchial asthma, acute exacerbation, with acute purulent tracheobronchitis. 2. History of hypertension. 3. Hyperlipidemia. 4. Increased white count. 5. History of degenerative joint disease. 6. History of cervical cancer with hysterectomy. 7. History of kyphoscoliosis. 8. History of degenerative joint disease. 9. History of hysterectomy. 10.History of hemangioma. 11.History of exploratory laparotomy with salpingectomy. 12.Remote history of nicotine dependence. RECOMMENDATIONS AND DISCUSSION: I recommend to continue current medications, continue with the monitoring, symptomatic treatment. Otherwise at this time I would recommend continuing with the bronchodilators. Continue with the IV steroids. Closely follow with Pulmonary. Guarded prognosis. Further recommendations to follow. Please see orders for further details. MMODL / IJN: [id number] /
[2019-06-18] MEDS: BENZONATATE 100 MG CAP PO PRN (19:18)
[2019-06-18] MEDS: HYDROCHLOROTHIAZIDE 25 MG TAB PO SCH (21:39)
[2019-06-18] MEDS: ASCORBIC ACID 500 MG TAB PO SCH (21:39)
[2019-06-18] MEDS: MULTIVITAMINS, THERA 1 EACH TAB PO SCH (21:39)
[2019-06-18] MEDS: ASPIRIN 81 MG PO SCH (21:39)
[2019-06-18] MEDS: ATORVASTATIN 10 MG TAB PO SCH (21:39)
[2019-06-18] MEDS: LISINOPRIL 20 MG TAB PO SCH (21:39)
[2019-06-18] MEDS: AMOXIC-POT CLAV 875-125MG 1 EACH TAB PO SCH (21:42)
[2019-06-19] MEDS: IPRATROPIUM-ALBUTEROL 3 ML NEB INHALATION SCH ×4 (01:19→11:45)
[2019-06-19] MEDS: BENZONATATE 100 MG CAP PO PRN (05:19)
[2019-06-19] MEDS: methylPREDNISolone SOD SUCCI 125 MG/2 ML VIAL IV SCH (05:19)
[2019-06-19] MEDS: SYMBICORT 160-4.5 MCG INHALER INHALATION SCH (07:54)
[2019-06-19] MEDS: AMOXIC-POT CLAV 875-125MG 1 EACH TAB PO SCH (09:20)
[2019-06-19] MEDS: HEPARIN SODIUM,PORCINE 5,000 UNIT/ML 1 ML VIAL SQ SCH (09:20)
--- NOTE | 2019-06-19 11:19 | CDI ---
Documentation Clarification Form Date: 06/19/2019 11:06:51 AM From: Carmencita MagañaDianeHAWK newton, CCDS Admit Date: 06/17/2019 1:57:00 PM Patient Name: Raffaele Puentes Visit Number: [id number] Discharge Date: ATTENTION: The Clinical Documentation Specialists (CDI) and [facility] Coding Staff appreciate your assistance in clarifying documentation. Please respond to the clarification below the line at the bottom and electronically sign. The CDI & [facility] Coding staff will review the response and follow-up if needed. Please note: Queries are made part of the Legal Health Record. If you have any questions, please contact the author of this message via ITS. Dr. Rajinder Odonnell: Per the attending History & Physical & the 06/18 progress note: "Chronic obstructive pulmonary disease, acute exacerbation, and acute bronchial asthma, acute exacerbation, with acute purulent tracheobronchitis." History/risk factors: COPD, Asthma, Hypertension, Hyperlipidemia, DJD, Cervical cancer status post hysterectomy, Kyphoscoliosis, history of hemangioma & former smoker. Clinical Indicators: Presented with SOB & cough, failed outpatient treatment with home meds. Radiology: CXR: negative Vital Signs: T 97.7, P 100, R 24 (sob), BP 142/84^, PO 88 RA Treatment: INH Albuterol, IV Solumedrol, IV Rocephin, Heparin sq, po Amoxicillin, O2 2Lnc Pulmonary consulted: asthma not documented. "COPD exacerbation complicated by mild purulent tracheobronchitis, without alistair pneumonia." In your professional opinion, can you please further specify the following, if known? Severity o Mild intermittent o Mild persistent o Moderate persistent o Severe persistent o Other, please specify ____ o Unable to determine Form or Type o Cough variant o Childhood o Exercise induced bronchospasm o Extrinsic allergic o Idiosyncratic o Intrinsic nonallergic o Late-onset o Mixed o Other, please specify____ o Unable to determine (Last Revision: November 2017) Mild intermittent o Intrinsic nonallergic MTDD
--- NOTE | 2019-06-19 11:44 | P.PN ---
Subjective Progress Note Date: 06/19/19 Principal diagnosis: Acute exacerbation of COPD On 06/19/2019 patient seen in follow-up on medical surgical floor. She is awake and alert, oriented 3, she is improving, breathing easier, less wheezy and dyspneic, she is on room air, her pulse ox is 98%, afebrile, no fever or chills, today's labs have been reviewed, white blood cell count is 12.0, hemoglobin is 13.3, BMP is unremarkable, influenza screen was negative. Chest x-ray showed no acute process, responded well to inpatient treatment, no acute events overnight, from pulmonary perspective she stable for discharge home today with outpatient follow-up Objective - Vital Signs Vital signs: Vital Signs Temp 98.6 F 06/19/19 05:00 Pulse 88 06/19/19 08:07 Resp 16 06/19/19 08:00 BP 106/66 06/19/19 05:00 Pulse Ox 98 06/19/19 05:00 Intake & Output 06/18/19 06/19/19 06/19/19 18:59 06:59 18:59 Intake Total 1410 Balance 1410 Intake: Oral 1410 Other: Voiding Method Toilet Toilet # Voids 1 2 - Exam GENERAL EXAM: Alert, pleasant, 59-year-old white female, on room air, with a pulse ox of 98% comfortable in no apparent distress. HEAD: Normocephalic/atraumatic. EYES: Normal reaction of pupils, equal size. Conjunctiva pink, sclera white. NOSE: Clear with pink turbinates. THROAT: No erythema or exudates. NECK: No masses, no JVD, no thyroid enlargement, no adenopathy. CHEST: No chest wall deformity. Patient has LUNGS: Equal air entry with diminished breath sounds, no rhonchi, no crackles, no wheezes CVS: Regular rate and rhythm, normal S1 and S2, no gallops, no murmurs, no rubs ABDOMEN: Soft, nontender. No hepatosplenomegaly, normal bowel sounds, no guarding or rigidity. EXTREMITIES: No clubbing, no edema, no cyanosis, 2+ pulses and upper and lower extremities. MUSCULOSKELETAL: Muscle strength and tone normal. SPINE: Dextroscoliosis of the spine noted SKIN: No rashes CENTRAL NERVOUS SYSTEM: Alert and oriented -3. No focal deficits, tone is normal in all 4 extremities. PSYCHIATRIC: Alert and oriented -3. Appropriate affect. Intact judgment and insight. - Labs CBC & Chem 7: 06/18/19 08:19 06/18/19 08:19 Assessment and Plan Plan: Assessment: #1. Acute exacerbation of chronic obstructive pulmonary disease, acute but mild purulent tracheobronchitis #2. Nicotine dependence, currently in remission for last 3 weeks #3. Recent hospitalization in early May for COPD exacerbation #4. History of hyperlipidemia #5. History of cervical cancer, status post hysterectomy #6. History of hypertension #7. Degenerative joint disease #8. Severe kyphoscoliosis Plan: Patient is doing well, continues to improve, no worsening dyspnea, she is on room air, maintaining stable oxygen saturations, no significant wheezing, coughing or congestion, she responded well to inpatient treatment, from pulmonary perspective she stable for discharge home today on oral course of antibiotics, prednisone taper, and she can resume her Breo Ellipta, and DuoNeb I performed a history & physical examination of the patient and discussed their management with my nurse practitioner, Carley Tyler. I reviewed the nurse practitioner's note and agree with the documented findings and plan of care. Lung sounds are positive for diminished breath sounds. The findings and the impression was discussed with the patient. I attest to the documentation by the nurse practitioner. Time with Patient: Less than 30
[2019-06-19 11:54] VITALS: BP 98/59; RESP 17; TEMP 98.2
[2019-06-19 11:58] VITALS: PULSE 84
--- NOTE | 2019-06-19 22:56 | P.DS ---
Providers Date of admission: 06/17/19 13:57 Expected date of discharge: 06/19/19 Attending physician: Geoff Wilks Consults: 06/17/19 14:21 Consult Physician Routine Consulting Provider: Evert Larsen Consult Reason/Comments: Emphysema exacerbation Do you want consulting provider notified?: Yes [facility]: Chief Complaint: Short of breath Hospital course: This is a pleasant 59-year-old patient of Dr. Hernandez. Also follows with pararescue craftsman Dr. Larsen. Chronic stable medical conditions include hypertension, hyperlipidemia, osteoarthritis, kyphoscoliosis. Patient was in the hospital from May 18 through May 19.admitted with COPD exacerbation. Was treated in the hospital from May 21 through May 24 it again with COPD exacerbation. This time she presented with increasing shortness of breath and wheezing cough that is dry. No fever no chills. Treatedbronchodilators steroids and antibiotic. Chest x-ray was unremarkable Today-much better. Breathing much improved. Occasional cough. Tolerating a diet. Continue go home. Consultation: Dr. Mattson from pulmonary Physical examination: VITAL SIGNS: 98.2, 73, 17, 98/59, 95% room air GENERAL: Sitting up, looking comfortable EYES: Pupils equal. Conjunctiva normal. HEENT: External appearance of nose and ears normal, oral cavity grossly normal. NECK: JVD not raised; masses not palpable. HEART: First and second heart sounds are normal; no edema. LUNGS: Respiratory rate normal, decreased breath sounds ABDOMEN: Soft, nontender, liver spleen not palpable, no masses palpable. PSYCH: Alert and oriented x3; mood and affect anxious. Investigations: White count 12 with a 2.3 potassium 4.4 crit 0.64 Checks x-ray reported no infiltrate Discharge diagnosis: -Acute COPD exacerbation with acute tracheobronchitis -Chronic nicotine dependence patient is a cigarette smoker -Essential hypertension -Hyperlipidemia -Primary osteoarthritis -Kyphoscoliosis Disposition: Home Patient Condition at Discharge: Stable Plan - Discharge Summary Discharge Rx Participant: No New Discharge Prescriptions: New Amoxic-Pot Clav 875-125Mg [Augmentin 875-125] 1 each PO Q12HR #6 tab predniSONE 0 mg PO DIRECTED #10 tab Continue Ibuprofen [Motrin] 800 mg PO Q8HR PRN PRN Reason: Pain Ramipril 20 mg PO HS Hydrochlorothiazide [Hydrodiuril] 25 mg PO HS Atorvastatin [Lipitor] 10 mg PO HS Aspirin 81 mg PO HS Ascorbic Acid [Vitamin C] 1,000 mg PO HS Multivitamins, Thera [Multivitamin (formulary)] 1 tab PO HS Fluticasone/Vilanterol [Breo Ellipta 200-25 Mcg INH] 1 puff INHALATION RT-HS Albuterol Inhaler [Ventolin Hfa Inhaler] 1 - 2 puff INHALATION RT-Q6H PRN PRN Reason: Shortness Of Breath Ipratropium-Albuterol Nebulize [Duoneb 0.5 mg-3 mg/3 ml Soln] 3 ml INHALATION RT-QID Discharge Medication List Aspirin 81 mg PO HS 08/20/15 [History] Atorvastatin [Lipitor] 10 mg PO HS 08/20/15 [History] Hydrochlorothiazide [Hydrodiuril] 25 mg PO HS 08/20/15 [History] Ibuprofen [Motrin] 800 mg PO Q8HR PRN 08/20/15 [History] Ramipril 20 mg PO HS 08/20/15 [History] Ascorbic Acid [Vitamin C] 1,000 mg PO HS 11/11/15 [History] Multivitamins, Thera [Multivitamin (formulary)] 1 tab PO HS 11/11/15 [History] Fluticasone/Vilanterol [Breo Ellipta 200-25 Mcg INH] 1 puff INHALATION RT-HS 02/26/19 [History] Albuterol Inhaler [Ventolin Hfa Inhaler] 1 - 2 puff INHALATION RT-Q6H PRN 05/18/19 [History] Ipratropium-Albuterol Nebulize [Duoneb 0.5 mg-3 mg/3 ml Soln] 3 ml INHALATION RT-QID 05/21/19 [History] Amoxic-Pot Clav 875-125Mg [Augmentin 875-125] 1 each PO Q12HR #6 tab 06/19/19 [Rx] predniSONE 0 mg PO DIRECTED #10 tab 06/19/19 [Rx] Follow up Appointment(s)/Referral(s): Fermin Hernandez MD [Primary Care Provider] - 07/03/19 1:40 pm Discharge/Stand Alone Forms: Work/School Release / Restrict Discharge Disposition: HOME SELF-CARE
== END 2019-06-19 12:48 | disposition home or self-care (01) | DRG 190 ==
LOC: EC 10:33 → 3NMEDONC 13:57
PROVIDERS: ADMIT Hospitalist; ATTEND Hospitalist
DX: J43.9 Emphysema, unspecified (principal); J80 Acute respiratory distress syndrome; J45.21 Mild intermittent asthma with (acute) exacerbation; J20.9 Acute bronchitis, unspecified; F17.210 Nicotine dependence, cigarettes, uncomplicated; E78.5 Hyperlipidemia, unspecified; I10 Essential (primary) hypertension; M19.041 Primary osteoarthritis, right hand; M19.042 Primary osteoarthritis, left hand; M17.0 Bilateral primary osteoarthritis of knee; M41.9 Scoliosis, unspecified; Z79.82 Long term (current) use of aspirin; Z79.899 Other long term (current) drug therapy; Z82.3 Family history of stroke; Z82.49 Family history of ischemic heart disease and other diseases of the circulatory system; Z85.41 Personal history of malignant neoplasm of cervix uteri; Z90.710 Acquired absence of both cervix and uterus; Z88.2 Allergy status to sulfonamides
CPT/HCPCS: 36415; 71046; 80048; 80053; 82550; 83735; 83880; 84484; 85025; 85610; 85730; 87502; 93005; 94640; 94760; 96361; 96374; 96376; 99291

== ENCOUNTER 2019-07-15 08:35 | Inpatient (IN) | payer OTHER ==
[2019-07-15] MEDS ORDERED: ALBUTEROL NEBULIZED 2.5 MG/3 ML INHALATION STA (09:03)
[2019-07-15] MEDS ORDERED: methylPREDNISolone SOD SUCCI 125 MG/2 ML VIAL IV STA (09:03)
[2019-07-15] MEDS ORDERED: IPRATROPIUM 0.5 MG/2.5 ML NEBU INHALATION STA (09:03)
--- NOTE | 2019-07-15 09:14 | ED ---
General Adult HPI - General Chief complaint: Shortness of Breath Stated complaint: SOB, dizzy Time Seen by Provider: 07/15/19 08:40 Source: patient, RN notes reviewed, old records reviewed Mode of arrival: wheelchair - History of Present Illness Initial comments: This is a 59-year-old female who has a past medical history significant for COPD per patient states she continues smoking. Patient states a few days ago started having difficulty breathing and now the symptoms are worse. Patient states she takes her breathing treatments it does seem to help however any exertion makes it worse per patient denies any chest pain or palpitations. Patient denies any fever chills per patient states she does have a cough but it's typical for her nothing new. Patient denies abdominal pain patient denies nausea vomiting diarrhea per patient denies any swelling to the legs or calf tenderness per patient denies any lightheadedness or dizziness. - Related Data Home Medications Medication Instructions Recorded Confirmed Aspirin 81 mg PO HS 08/20/15 06/17/19 Atorvastatin [Lipitor] 10 mg PO HS 08/20/15 06/17/19 Hydrochlorothiazide [Hydrodiuril] 25 mg PO HS 08/20/15 06/17/19 Ibuprofen [Motrin] 800 mg PO Q8HR PRN 08/20/15 06/17/19 Ramipril 20 mg PO HS 08/20/15 06/17/19 Ascorbic Acid [Vitamin C] 1,000 mg PO HS 11/11/15 06/17/19 Multivitamins, Thera [Multivitamin 1 tab PO HS 11/11/15 06/17/19 (formulary)] Fluticasone/Vilanterol [Breo 1 puff INHALATION RT-HS 02/26/19 06/17/19 Ellipta 200-25 Mcg INH] Albuterol Inhaler [Ventolin Hfa 1 - 2 puff INHALATION RT-Q6H PRN 05/18/19 06/17/19 Inhaler] Ipratropium-Albuterol Nebulize 3 ml INHALATION RT-QID 05/21/19 06/17/19 [Duoneb 0.5 mg-3 mg/3 ml Soln] Previous Rx's Medication Instructions Recorded Amoxic-Pot Clav 875-125Mg 1 each PO Q12HR #6 tab 06/19/19 [Augmentin 875-125] predniSONE 0 mg PO DIRECTED #10 tab 10/31/19 Allergies Allergy/AdvReac Type Severity Reaction Status Date / Time adhesive tape Allergy Rash/Hives Verified 06/17/19 11:49 Sulfa (Sulfonamide Allergy Swelling Verified 06/17/19 11:49 Antibiotics) codeine AdvReac Nausea & Verified 06/17/19 11:49 Vomiting Review of Systems ROS Statement: Those systems with pertinent positive or pertinent negative responses have been documented in the HPI. ROS Other: All systems not noted in ROS Statement are negative. Past Medical History Past Medical History: Asthma, Cancer, COPD, Hyperlipidemia, Hypertension, Osteoarthritis (OA) Additional Past Medical History / Comment(s): Bronchitis, cervical cancer with hysterectomy, kyphoscoliosis of the spine, arthritis bilateral hands and knees. History of Any Multi-Drug Resistant Organisms: None Reported Past Surgical History: Hysterectomy, Tonsillectomy Additional Past Surgical History / Comment(s): Hemangioma removed from side head, exploratory laparotomy with R salpingectomy, lymph nodes removed from groin with hysterectomy (cervical cancer). Past Anesthesia/Blood Transfusion Reactions: Postoperative Nausea & Vomiting (PONV) Additional Past Anesthesia/Blood Transfusion Reaction / Comment(s): I wake up "rowdy." Past Psychological History: No Psychological Hx Reported Additional Psychological History / Comment(s): Pt has a brother living with her. She is independent. She works for the [employer]. She has a nebulizer. Smoking Status: Former smoker Past Alcohol Use History: None Reported Additional Past Alcohol Use History / Comment(s): Patient states she quit smoking roughly two weeks ago from admission on 06/17. Past Drug Use History: None Reported - Past Family History Mother Family Medical History: Vascular Disorder Additional Family Medical History / Comment(s): Mother of a cerebral aneurysm at the age of 29 yrs. Father Family Medical History: CVA/TIA Additional Family Medical History / Comment(s): Father of a CVA-pt unable to recall at what age. General Exam - General Exam Comments Initial Comments: GENERAL: Patient is well-developed and well-nourished. Patient is nontoxic and well- hydrated and is in mild distress. ENT: Neck is soft and supple. No significant lymphadenopathy is noted. Oropharynx is clear. Moist mucous membranes. Neck has full range of motion without eliciting any pain. EYES: The sclera were anicteric and conjunctiva were pink and moist. Extraocular movements were intact and pupils were equal round and reactive to light. Eyelids were unremarkable. PULMONARY: Unlabored respirations. Good breath sounds bilaterally. She has expiratory wheezing CARDIOVASCULAR: There is a regular rate and rhythm without any murmurs gallops or rubs. ABDOMEN: Soft and nontender with normal bowel sounds. No palpable organomegaly was noted. There is no palpable pulsatile mass. SKIN: Skin is clear with no lesions or rashes and otherwise unremarkable. NEUROLOGIC: Patient is alert and oriented x3. Cranial nerves II through XII are grossly intact. Motor and sensory are also intact. Normal speech, volume and content. Symmetrical smile. MUSCULOSKELETAL: Normal extremities with adequate strength and full range of motion. No lower extremity swelling or edema. No calf tenderness. LYMPHATICS: No significant lymphadenopathy is noted PSYCHIATRIC: Normal psychiatric evaluation. Course Vital Signs 07/15/19 07/15/19 07/15/19 08:38 09:15 09:17 Temperature 97.6 F 98.5 F Pulse Rate 113 H 102 H Respiratory 24 Rate Blood Pressure 158/76 O2 Sat by Pulse 90 L Oximetry 07/15/19 07/15/19 09:33 09:45 Temperature Pulse Rate 91 Respiratory 20 Rate Blood Pressure O2 Sat by Pulse Oximetry Medical Decision Making - Medical Decision Making EKG shows normal sinus rhythm at 100 bpm MD interval is on an 18 QRS is 80 QT interval 344 QTC is 443. Patient's EKG shows no ST segment elevation or depression or T wave abnormalities are noted. Chest x-ray showed no acute normalities. Patient received multiple breathing treatments as well as steroids but continued difficulty breathing. Patient states she got up to move around a little bit and definitely her shortness of breath was worsened with movement I spoke with Dr. Odonnell he agreed to admit the patient admitted the patient wrote admitting orders. - Lab Data Result diagrams: 07/15/19 09:15 07/15/19 09:15 Lab Results 07/15/19 07/15/19 07/15/19 Range/Units 09:15 09:15 09:15 WBC 5.7 (3.8-10.6) k/uL RBC 4.23 (3.80-5.40) m/uL Hgb 13.8 (11.4-16.0) gm/dL Hct 39.9 (34.0-46.0) % MCV 94.4 (80.0-100.0) fL MCH 32.5 (25.0-35.0) pg MCHC 34.5 (31.0-37.0) g/dL RDW 12.9 (11.5-15.5) % Plt Count 242 (150-450) k/uL Neutrophils % 67 % Lymphocytes % 16 % Monocytes % 4 % Eosinophils % 7 % Basophils % 3 % Neutrophils # 3.8 (1.3-7.7) k/uL Lymphocytes # 0.9 L (1.0-4.8) k/uL Monocytes # 0.3 (0-1.0) k/uL Eosinophils # 0.4 (0-0.7) k/uL Basophils # 0.2 (0-0.2) k/uL PT 9.4 (9.0-12.0) sec INR 0.8 (<1.2) APTT 23.0 (22.0-30.0) sec Sodium 137 (137-145) mmol/L Potassium 4.9 (3.5-5.1) mmol/L Chloride 99 (98-107) mmol/L Carbon Dioxide 27 (22-30) mmol/L Anion Gap 11 mmol/L BUN 13 (7-17) mg/dL Creatinine 0.59 (0.52-1.04) mg/dL Est GFR (CKD-EPI)AfAm >90 (>60 ml/min/1.73 sqM) Est GFR (CKD-EPI)NonAf >90 (>60 ml/min/1.73 sqM) Glucose 118 H (74-99) mg/dL Calcium 10.1 (8.4-10.2) mg/dL Total Bilirubin 1.1 (0.2-1.3) mg/dL AST 47 H (14-36) U/L ALT 37 (9-52) U/L Alkaline Phosphatase 98 (38-126) U/L Total Protein 7.8 (6.3-8.2) g/dL Albumin 4.9 (3.5-5.0) g/dL Disposition Clinical Impression: COPD with acute exacerbation Disposition: ADMITTED IP TO THIS [facility] Referrals: Fermin Hernandez MD [Primary Care Provider] - 1-2 days Time of Disposition: 10:31
[2019-07-15 09:44] LABS: Basophils # (A) 0.2 k/uL (0-0.2); Basophils % (A) 3 %; Eosinophils # (A) 0.4 k/uL (0-0.7); Eosinophils % (A) 7 %; HCT 39.9 % (34.0-46.0); HGB 13.8 gm/dL (11.4-16.0); Lymphocytes # (A) 0.9 k/uL (1.0-4.8); Lymphocytes % (A) 16 %; MCH 32.5 pg (25.0-35.0); MCHC 34.5 g/dL (31.0-37.0); MCV 94.4 fL (80.0-100.0); Mean Platelet Volume 7.7; Monocytes # (A) 0.3 k/uL (0-1.0); Monocytes % (A) 4 %; Neutrophils # (A) 3.8 k/uL (1.3-7.7); Neutrophils % (A) 67 %; Platelet Count 242 k/uL (150-450); RBC 4.23 m/uL (3.80-5.40); RDW 12.9 % (11.5-15.5); WBC 5.7 k/uL (3.8-10.6)
[2019-07-15 09:52] LABS: INR 0.8 (<1.2); Prothrombin Time 9.4 sec (9.0-12.0)
--- NOTE | 2019-07-15 10:03 | XR ---
EXAMINATION TYPE: XR chest 2V DATE OF EXAM: 07/15/2019 COMPARISON: 06/17/2019 HISTORY: Shortness of breath TECHNIQUE: Frontal and lateral views of the chest are obtained. FINDINGS: Scattered senescent parenchymal changes noted. Hyperinflation compatible with COPD. No evidence for infiltrate. No evidence for atelectasis. Heart size is stable. Mediastinal structures are stable and grossly unremarkable. No evidence for hilar prominence. Degenerative changes dorsal spine. Severe scoliotic curvature of the thoracic spine. IMPRESSION: 1. No evidence for acute pulmonary disease.
[2019-07-15 10:10] LABS: ALT 37 U/L (9-52); AST 47 U/L (14-36); African American GFR (CKD) >90 (>60 ml/min/1.73 sqM); Albumin 4.9 g/dL (3.5-5.0); Alkaline Phosphatase 98 U/L (38-126); Anion Gap 11 mmol/L; Blood Urea Nitrogen 13 mg/dL (7-17); Calcium 10.1 mg/dL (8.4-10.2); Carbon Dioxide 27 mmol/L (22-30); Chloride 99 mmol/L (98-107); Glucose 118 mg/dL (74-99); Non-African American GFR(CKD) >90 (>60 ml/min/1.73 sqM); Sodium 137 mmol/L (137-145); Total Bilirubin 1.1 mg/dL (0.2-1.3); Total Protein 7.8 g/dL (6.3-8.2)
[2019-07-15 10:24] LABS: Potassium 4.9 mmol/L (3.5-5.1)
[2019-07-15] MEDS ORDERED: IBUPROFEN 800 MG TAB PO PRN (11:53)
[2019-07-15] MEDS ORDERED: methylPREDNISolone SOD SUCCI 125 MG/2 ML VIAL IV SCH (12:00)
--- NOTE | 2019-07-15 13:31 | P.HPIM ---
History of Present Illness 59-year-old female came in with the comments of shortness of breath quite a bit wheezing and admission but presently much better is off oxygen at this time doesn't use any onset at home chest x-ray did not show pneumonia patient denied any fever chills patient is complaining of cough with whitish production symptoms has been going on for last 3-4 days. Patient was also complaining of lightheadedness and dizziness. Patient will be continued on systemic steroids inhalational treatments and monitor her overnight possibility of discharge tomorrow no evidence of pneumonia Review of Systems REVIEW OF SYSTEMS: CONSTITUTIONAL: No fever, no malaise, no fatigue. HEENT: No recent visual problems or hearing problems. Denied any sore throat. CARDIOVASCULAR: No chest pain, orthopnea, PND, no palpitations, no syncope. PULMONARY: As mentioned in HPI GASTROINTESTINAL: No diarrhea, no nausea, no vomiting, no abdominal pain. NEUROLOGICAL: No headaches, no weakness, no numbness. HEMATOLOGICAL: Denies any bleeding or petechiae. GENITOURINARY: Denies any burning micturition, frequency, or urgency. MUSCULOSKELETAL/RHEUMATOLOGICAL: Denies any joint pain, swelling, or any muscle pain. ENDOCRINE: Denies any polyuria or polydipsia. The rest of the 14-point review of systems is negative. Past Medical History Past Medical History: Asthma, Cancer, COPD, Hyperlipidemia, Hypertension, Osteoarthritis (OA) Additional Past Medical History / Comment(s): Bronchitis, cervical cancer with hysterectomy, kyphoscoliosis of the spine, arthritis bilateral hands and knees. History of Any Multi-Drug Resistant Organisms: None Reported Past Surgical History: Hysterectomy, Tonsillectomy Additional Past Surgical History / Comment(s): Hemangioma removed from side head, exploratory laparotomy with R salpingectomy, lymph nodes removed from groin with hysterectomy (cervical cancer). Past Anesthesia/Blood Transfusion Reactions: Postoperative Nausea & Vomiting (PONV) Additional Past Anesthesia/Blood Transfusion Reaction / Comment(s): I wake up "rowdy." Past Psychological History: No Psychological Hx Reported Additional Psychological History / Comment(s): Pt has a brother living with her. She is independent. She works for the [employer]. She has a nebulizer. Smoking Status: Former smoker Past Alcohol Use History: None Reported Additional Past Alcohol Use History / Comment(s): Patient states she quit smoking roughly two weeks ago from admission on 06/17. Past Drug Use History: None Reported - Past Family History Mother Family Medical History: Vascular Disorder Additional Family Medical History / Comment(s): Mother of a cerebral aneurysm at the age of 29 yrs. Father Family Medical History: CVA/TIA Additional Family Medical History / Comment(s): Father of a CVA-pt unable to recall at what age. Medications and Allergies Home Medications Medication Instructions Recorded Confirmed Type Aspirin 81 mg PO HS 08/20/15 07/15/19 History Atorvastatin [Lipitor] 10 mg PO HS 08/20/15 07/15/19 History Hydrochlorothiazide [Hydrodiuril] 25 mg PO HS 08/20/15 07/15/19 History Ibuprofen [Motrin] 800 mg PO Q8HR PRN 08/20/15 07/15/19 History Ramipril 20 mg PO HS 08/20/15 07/15/19 History Ascorbic Acid [Vitamin C] 1,000 mg PO HS 11/11/15 07/15/19 History Fluticasone/Vilanterol [Breo 1 puff INHALATION RT-HS 02/26/19 07/15/19 History Ellipta 200-25 Mcg INH] Ipratropium-Albuterol Nebulize 3 ml INHALATION RT-QID 05/21/19 07/15/19 History [Duoneb 0.5 mg-3 mg/3 ml Soln] Albuterol Sulfate [Proair Hfa] 1 - 2 puff INHALATION RT-Q6H PRN 07/15/19 07/15/19 History Montelukast [Singulair] 10 mg PO HS 07/15/19 07/15/19 History Multivit-Min/FA/Lycopen/Lutein 1 tab PO HS 07/15/19 07/15/19 History [Centrum Silver Tablet] amLODIPine BESYLATE 5 mg PO HS 07/15/19 07/15/19 History Allergies Allergy/AdvReac Type Severity Reaction Status Date / Time adhesive tape Allergy Rash/Hives Verified 07/15/19 10:47 Sulfa (Sulfonamide Allergy Swelling Verified 07/15/19 10:47 Antibiotics) codeine AdvReac Nausea & Verified 07/15/19 10:47 Vomiting Physical Exam Vitals: Vital Signs Temp Pulse Resp BP Pulse Ox 07/15/19 12:30 96 20 107/77 07/15/19 12:00 92 20 07/15/19 11:30 90 20 07/15/19 11:00 86 16 107/73 07/15/19 10:30 98 18 07/15/19 10:00 102 H 18 124/70 07/15/19 09:45 91 07/15/19 09:33 20 07/15/19 09:30 89 20 07/15/19 09:17 98.5 F 07/15/19 09:15 102 H 07/15/19 09:00 107/73 07/15/19 08:51 89 L 07/15/19 08:38 97.6 F 113 H 24 158/76 90 L Intake and Output 07/14/19 07/15/19 07/15/19 22:59 06:59 14:59 Other: Weight 74.5 kg PHYSICAL EXAMINATION: GENERAL: The patient is alert and oriented x3, not in any acute distress. Well developed, well nourished. HEENT: Pupils are round and equally reacting to light. EOMI. No scleral icterus. No conjunctival pallor. Normocephalic, atraumatic. No pharyngeal erythema. No thyromegaly. CARDIOVASCULAR: S1 and S2 present. No murmurs, rubs, or gallops. PULMONARY: Minimal expiratory wheezing was appreciated fairly good air entry bilateral lung quiles ABDOMEN: Soft, nontender, nondistended, normoactive bowel sounds. No palpable organomegaly. MUSCULOSKELETAL: No joint swelling or deformity. EXTREMITIES: No cyanosis, clubbing, or pedal edema. NEUROLOGICAL: Gross neurological examination did not reveal any focal deficits. SKIN: No rashes. Results CBC & Chem 7: 07/15/19 09:15 07/15/19 09:15 Labs: Abnormal Lab Results - Last 24 Hours (Table) 07/15/19 07/15/19 Range/Units 09:15 09:15 Lymphocytes # 0.9 L (1.0-4.8) k/uL Glucose 118 H (74-99) mg/dL AST 47 H (14-36) U/L Assessment and Plan Plan: COPD exacerbation: Patient will be continued on systemic steroids inhalational treatments. Patient did quit smoking recently month of May -lightheadedness probably due to be due to hypotension patient is on multiple antidepressant medication patient blood pressures on normal, patient will be started on IV fluids and hold off on amlodipine and cut down SHANNAN inhibitor dose -Hypertension: Management as mentioned above -hyperlipidemia DVT prophylaxis early ambulation
[2019-07-15] MEDS: SODIUM CHLORIDE 0.9% 1,000 ML IV SCH (13:36)
[2019-07-15] MEDS: IPRATROPIUM-ALBUTEROL 3 ML NEB INHALATION PRN ×2 (15:21→21:32)
[2019-07-15] MEDS: methylPREDNISolone SOD SUCCI 40 MG/ML 1 ML VIAL IV SCH (20:48)
[2019-07-15] MEDS: ATORVASTATIN 10 MG TAB PO SCH (20:48)
[2019-07-15] MEDS: LISINOPRIL 20 MG TAB PO SCH (20:48)
[2019-07-15] MEDS: HYDROCHLOROTHIAZIDE 25 MG TAB PO SCH (20:48)
[2019-07-15] MEDS: ASPIRIN 81 MG PO SCH (20:48)
[2019-07-15] MEDS ORDERED: amLODIPine 5 MG TAB PO SCH (21:00)
[2019-07-15] MEDS ORDERED: LISINOPRIL 20 MG TAB PO SCH (21:00)
[2019-07-15] MEDS: SYMBICORT 160-4.5 MCG INHALER INHALATION SCH (21:32)
[2019-07-15] MEDS: MONTELUKAST 10 MG TAB PO SCH (22:02)
[2019-07-16] MEDS: SODIUM CHLORIDE 0.9% 1,000 ML IV SCH ×3 (06:07→21:59)
[2019-07-16] MEDS: methylPREDNISolone SOD SUCCI 40 MG/ML 1 ML VIAL IV SCH ×2 (07:58→21:59)
[2019-07-16] MEDS: SYMBICORT 160-4.5 MCG INHALER INHALATION SCH ×2 (08:37→19:47)
[2019-07-16] MEDS: IPRATROPIUM-ALBUTEROL 3 ML NEB INHALATION PRN ×4 (08:37→19:47)
[2019-07-16 09:23] LABS: African American GFR (CKD) >90 (>60 ml/min/1.73 sqM); Anion Gap 8 mmol/L; Blood Urea Nitrogen 13 mg/dL (7-17); Calcium 9.4 mg/dL (8.4-10.2); Carbon Dioxide 30 mmol/L (22-30); Chloride 100 mmol/L (98-107); Glucose 118 mg/dL (74-99); Non-African American GFR(CKD) >90 (>60 ml/min/1.73 sqM); Potassium 4.4 mmol/L (3.5-5.1); Sodium 138 mmol/L (137-145)
[2019-07-16 09:27] LABS: HCT 38.8 % (34.0-46.0); MCH 31.9 pg (25.0-35.0); MCHC 33.5 g/dL (31.0-37.0); MCV 95.1 fL (80.0-100.0); Mean Platelet Volume 10.8; Platelet Count 205 k/uL (150-450); RBC 4.08 m/uL (3.80-5.40); RDW 12.7 % (11.5-15.5); WBC 8.7 k/uL (3.8-10.6)
[2019-07-16] MEDS: ASPIRIN 81 MG PO SCH (21:59)
[2019-07-16] MEDS: ATORVASTATIN 10 MG TAB PO SCH (21:59)
[2019-07-16] MEDS: MONTELUKAST 10 MG TAB PO SCH (21:59)
[2019-07-16] MEDS: LISINOPRIL 20 MG TAB PO SCH (22:00)
[2019-07-16] MEDS: HYDROCHLOROTHIAZIDE 25 MG TAB PO SCH (22:00)
--- NOTE | 2019-07-16 23:23 | P.PN ---
Progress Note - Text Progress Note Date: 07/16/19 Chief Complaint: Short of breath Interval history: This is a pleasant 59-year-old patient of Dr. Hernandez. Also follows with screening unit registered nurse Dr. Larsen. Chronic stable medical conditions include hypertension, hyperlipidemia, osteoarthritis, kyphoscoliosis. Presented with-shortness of breath, wheezing cough without any sputum really. No fever no chills. Tired dizzy rundown. Today-sitting up and edge of the bed. Did tolerate some breakfast. Lives with less tired. Some cough is present. Decreased wheezing. No fever or chills Review of systems: Was done for constitutional, cardiovascular, GI, pulmonary. relevant finding as above Active Medications Albuterol/Ipratropium (Duoneb 0.5 Mg-3 Mg/3 Ml Soln) 3 ml INHALATION RT-Q4H PRN PRN Reason: Shortness Of Breath Or Wheezing Last Admin: 07/16/19 19:47 Dose: 3 ml Documented by: Aspirin (Aspirin) 81 mg PO [facility] Last Admin: 07/16/19 21:59 Dose: 81 mg Documented by: Atorvastatin Calcium (Lipitor) 10 mg PO [facility] Last Admin: 07/16/19 21:59 Dose: 10 mg Documented by: Budesonide/Formoterol Fumarate (Symbicort 160-4.5 Mcg Inhaler) 2 puff INHALATION RT-BID [facility] Last Admin: 07/16/19 19:47 Dose: 2 puff Documented by: Hydrochlorothiazide (Hydrodiuril) 25 mg PO [facility] Last Admin: 07/16/19 22:00 Dose: Not Given Documented by: Sodium Chloride (Saline 0.9%) 1,000 mls @ 100 mls/hr IV .Q10H [facility] Last Admin: 07/16/19 21:59 Dose: 100 mls/hr Documented by: Ibuprofen (Motrin) 800 mg PO Q8HR PRN PRN Reason: Pain Lisinopril (Zestril) 40 mg PO [facility] Last Admin: 07/16/19 22:00 Dose: Not Given Documented by: Methylprednisolone Sodium Succinate (Solu-Medrol) 40 mg IV BID [facility] Last Admin: 07/16/19 21:59 Dose: 40 mg Documented by: Montelukast Sodium (Singulair) 10 mg PO [facility] Last Admin: 07/16/19 21:59 Dose: Not Given Documented by: Physical examination: VITAL SIGNS: 97.3, 93, 18, 11 3/55, 92% room air GENERAL: Sitting up, at the edge of the bed, a bit tired EYES: Pupils equal. Conjunctiva normal. HEENT: External appearance of nose and ears normal, oral cavity grossly normal. NECK: JVD not raised; masses not palpable. HEART: First and second heart sounds are normal; no edema. LUNGS: Respiratory rate increased, decreased breath sounds ABDOMEN: Soft, nontender, liver spleen not palpable, no masses palpable. PSYCH: Alert and oriented x3; mood and affect anxious. Investigations: White count 8.7 potassium 4.4 creatinine 0.57 Assessment: -Acute COPD exacerbation with acute tracheobronchitis -Chronic nicotine dependence patient is a cigarette smoker -Essential hypertension -Hyperlipidemia -Primary osteoarthritis -Kyphoscoliosis Plan: Patient treated with bronchodilators, IV Solu-Medrol, IV fluids. Hopefully can be discharged from an extra 4 hours.
[2019-07-16] MEDS: IPRATROPIUM-ALBUTEROL 3 ML NEB INHALATION SCH (23:40)
[2019-07-17] MEDS: ENOXAPARIN 40 MG/0.4 ML SYRINGE SQ SCH ×2 (00:10→09:15)
[2019-07-17] MEDS: SODIUM CHLORIDE 0.9% 1,000 ML IV SCH (05:59)
[2019-07-17] MEDS: IPRATROPIUM-ALBUTEROL 3 ML NEB INHALATION SCH ×2 (07:18→10:41)
[2019-07-17] MEDS: SYMBICORT 160-4.5 MCG INHALER INHALATION SCH (07:18)
[2019-07-17] MEDS: methylPREDNISolone SOD SUCCI 40 MG/ML 1 ML VIAL IV SCH (09:14)
[2019-07-17] MEDS ORDERED: predniSONE 20 MG TAB PO SCH (12:00)
[2019-07-17 12:38] VITALS: BP 135/77; PULSE 89; RESP 17; TEMP 98
--- NOTE | 2019-07-17 22:55 | P.DS ---
Providers Date of admission: 07/15/19 10:31 Expected date of discharge: 07/17/19 Attending physician: Geoff Wilks Primary care physician: Ace Hernandez [facility] Course: Chief Complaint: Short of breath Hospital course: This is a pleasant 59-year-old patient of Dr. Hernandez. Also follows with speech therapy assistant Dr. Larsen. Chronic stable medical conditions include hypertension, hyperlipidemia, osteoarthritis, kyphoscoliosis. Presented with-shortness of breath, wheezing cough without any sputum really. No fever no chills. Tired dizzy rundown. Admitted with COPD exacerbation and dehydration. Responded well to nebulized bronchodilators, steroids and IV fluids. We will put the time of discharge. Also felt to have viral bronchitis. Doing well before discharge. Care was discussed with the patient.. Physical examination: VITAL SIGNS: 98, 89, 17, 134/77, 93% room air GENERAL: Sitting up, at the edge of the bed, comfortable EYES: Pupils equal. Conjunctiva normal. HEENT: External appearance of nose and ears normal, oral cavity grossly normal. NECK: JVD not raised; masses not palpable. HEART: First and second heart sounds are normal; no edema. LUNGS: Respiratory rate normal, improved air entry ABDOMEN: Soft, nontender, liver spleen not palpable, no masses palpable. PSYCH: Alert and oriented x3; mood and affect anxious. Investigations: White count 8.7 potassium 4.4 creatinine 0.57 Assessment: -Acute COPD exacerbation with acute tracheobronchitis -Chronic nicotine dependence patient is a cigarette smoker, up to 2 weeks ago -Essential hypertension -Hyperlipidemia -Primary osteoarthritis -Kyphoscoliosis Disposition: Home Patient Condition at Discharge: Stable Plan - Discharge Summary Discharge Rx Participant: No New Discharge Prescriptions: New predniSONE 10 mg PO DAILY #30 tab Continue Ibuprofen [Motrin] 800 mg PO Q8HR PRN PRN Reason: Pain Ramipril 20 mg PO HS Atorvastatin [Lipitor] 10 mg PO HS Aspirin 81 mg PO HS Ascorbic Acid [Vitamin C] 1,000 mg PO HS Fluticasone/Vilanterol [Breo Ellipta 200-25 Mcg INH] 1 puff INHALATION RT-HS Ipratropium-Albuterol Nebulize [Duoneb 0.5 mg-3 mg/3 ml Soln] 3 ml INHALATION RT-QID Multivit-Min/FA/Lycopen/Lutein [Centrum Silver Tablet] 1 tab PO HS Montelukast [Singulair] 10 mg PO HS Albuterol Sulfate [Proair Hfa] 1 - 2 puff INHALATION RT-Q6H PRN PRN Reason: Shortness Of Breath Discontinued Hydrochlorothiazide [Hydrodiuril] 25 mg PO HS amLODIPine BESYLATE 5 mg PO HS Discharge Medication List Aspirin 81 mg PO HS 08/20/15 [History] Atorvastatin [Lipitor] 10 mg PO HS 08/20/15 [History] Ibuprofen [Motrin] 800 mg PO Q8HR PRN 08/20/15 [History] Ramipril 20 mg PO HS 08/20/15 [History] Ascorbic Acid [Vitamin C] 1,000 mg PO HS 11/11/15 [History] Fluticasone/Vilanterol [Breo Ellipta 200-25 Mcg INH] 1 puff INHALATION RT-HS 02/26/19 [History] Ipratropium-Albuterol Nebulize [Duoneb 0.5 mg-3 mg/3 ml Soln] 3 ml INHALATION RT-QID 05/21/19 [History] Albuterol Sulfate [Proair Hfa] 1 - 2 puff INHALATION RT-Q6H PRN 07/15/19 [History] Montelukast [Singulair] 10 mg PO HS 07/15/19 [History] Multivit-Min/FA/Lycopen/Lutein [Centrum Silver Tablet] 1 tab PO HS 07/15/19 [History] predniSONE 10 mg PO DAILY #30 tab 07/17/19 [Rx] Follow up Appointment(s)/Referral(s): Fermin Hernandez MD [Primary Care Provider] - 1-2 days (Patient to call Dr. Hernandez's office Sunday morning to schedule follow up appointment. The office is closed at time of discharge. ) Patient Instructions/Handouts: Prednisone (By mouth), COPD (Chronic Obstructive Pulmonary Disease) (DC) Discharge Disposition: HOME SELF-CARE
== END 2019-07-17 14:10 | disposition home or self-care (01) | DRG 192 ==
LOC: EC 08:35 → 3NMEDONC 10:31
PROVIDERS: ADMIT Hospitalist; ATTEND Hospitalist
DX: J44.0 Chronic obstructive pulmonary disease with (acute) lower respiratory infection (principal); J44.1 Chronic obstructive pulmonary disease with (acute) exacerbation; I10 Essential (primary) hypertension; E78.5 Hyperlipidemia, unspecified; E86.0 Dehydration; F17.210 Nicotine dependence, cigarettes, uncomplicated; J20.9 Acute bronchitis, unspecified; M19.041 Primary osteoarthritis, right hand; M19.042 Primary osteoarthritis, left hand; M41.9 Scoliosis, unspecified; Z85.41 Personal history of malignant neoplasm of cervix uteri; Z79.82 Long term (current) use of aspirin; Z79.899 Other long term (current) drug therapy; Z88.5 Allergy status to narcotic agent; Z88.2 Allergy status to sulfonamides; Z91.048 Other nonmedicinal substance allergy status; Z90.89 Acquired absence of other organs; Z90.710 Acquired absence of both cervix and uterus; Z98.890 Other specified postprocedural states; Z82.3 Family history of stroke
CPT/HCPCS: 36415; 71046; 80048; 80053; 84484; 85025; 85027; 85610; 85730; 93005; 94640; 96374; 99285

== ENCOUNTER 2019-07-22 14:55 | Emergency (ER) | payer OTHER ==
[2019-07-22 15:00] VITALS: RESP 20; TEMP 97.8
[2019-07-22] MEDS ORDERED: KETOROLAC 30 MG/ML 1 ML VIAL IM STA (15:46)
--- NOTE | 2019-07-22 16:15 | ED ---
Neck Injury/Pain HPI - General Chief Complaint: Neck Pain/Injury Stated Complaint: Neck Pain, Dizzy Time Seen by Provider: 07/22/19 15:24 Mode of arrival: ambulatory Limitations: no limitations - History of Present Illness Initial Comments: Patient is a 59-year-old female presenting to the emergency Department with complaints of neck pain 3 days. Patient denies any injuries or trauma. Patient has severe scoliosis and she is used to having some neck and back pain. She states she does not see anybody any more for her scoliosis. Patient states this pain feels a little more normal. Patient states she normally takes Motrin and tramadol however she is out of her tramadol. She denies any fever, chills, numbness and tingling into her upper extremities. Patient admits also having a headache. Patient states it is intermittent in nature. Patient does get headaches in time to time. Patient denies any blurry vision, chest pain, abdominal pain. Patient has no other complaints at this time. Upon arrival to the ER, patient is slightly tachycardia at 113, BP is 176/101, O2 is 90% on room air. Patient does have COPD. - Related Data Home Medications Medication Instructions Recorded Confirmed Aspirin 81 mg PO HS 08/20/15 07/15/19 Atorvastatin [Lipitor] 10 mg PO HS 08/20/15 07/15/19 Ibuprofen [Motrin] 800 mg PO Q8HR PRN 08/20/15 07/15/19 Ramipril 20 mg PO HS 08/20/15 07/15/19 Ascorbic Acid [Vitamin C] 1,000 mg PO HS 11/11/15 07/15/19 Fluticasone/Vilanterol [Breo 1 puff INHALATION RT-HS 02/26/19 07/15/19 Ellipta 200-25 Mcg INH] Ipratropium-Albuterol Nebulize 3 ml INHALATION RT-QID 05/21/19 07/15/19 [Duoneb 0.5 mg-3 mg/3 ml Soln] Albuterol Sulfate [Proair Hfa] 1 - 2 puff INHALATION RT-Q6H PRN 07/15/19 07/15/19 Montelukast [Singulair] 10 mg PO HS 07/15/19 07/15/19 Multivit-Min/FA/Lycopen/Lutein 1 tab PO HS 07/15/19 07/15/19 [Centrum Silver Tablet] Previous Rx's Medication Instructions Recorded predniSONE 10 mg PO DAILY #30 tab 07/17/19 Ondansetron Odt [Zofran Odt] 4 mg PO Q8HR PRN #10 tab 07/22/19 Allergies Allergy/AdvReac Type Severity Reaction Status Date / Time adhesive tape Allergy Rash/Hives Verified 07/22/19 15:00 Sulfa (Sulfonamide Allergy Swelling Verified 07/22/19 15:00 Antibiotics) codeine AdvReac Nausea & Verified 07/22/19 15:00 Vomiting Review of Systems ROS Statement: Those systems with pertinent positive or pertinent negative responses have been documented in the HPI. ROS Other: All systems not noted in ROS Statement are negative. Past Medical History Past Medical History: Asthma, Cancer, COPD, Hyperlipidemia, Hypertension, Osteoarthritis (OA) Additional Past Medical History / Comment(s): Bronchitis, cervical cancer with hysterectomy, kyphoscoliosis of the spine, arthritis bilateral hands and knees. History of Any Multi-Drug Resistant Organisms: None Reported Past Surgical History: Hysterectomy, Tonsillectomy Additional Past Surgical History / Comment(s): Hemangioma removed from side head, exploratory laparotomy with R salpingectomy, lymph nodes removed from groin with hysterectomy (cervical cancer). Past Anesthesia/Blood Transfusion Reactions: Postoperative Nausea & Vomiting (PONV) Additional Past Anesthesia/Blood Transfusion Reaction / Comment(s): I wake up "rowdy." Past Psychological History: No Psychological Hx Reported Smoking Status: Current some day smoker - Past Family History Mother Family Medical History: Vascular Disorder Additional Family Medical History / Comment(s): Mother of a cerebral aneurysm at the age of 29 yrs. Father Family Medical History: CVA/TIA Additional Family Medical History / Comment(s): Father of a CVA-pt unable to recall at what age. General Exam - General Exam Comments Initial Comments: GENERAL: Well-appearing, well-nourished and in no acute distress, but appears uncomfortable. HEAD: Atraumatic, normocephalic. EYES: Pupils equal round and reactive to light, extraocular movements intact, sclera anicteric, conjunctiva are normal. ENT: TMs normal, nares patent, oropharynx clear without exudates. Moist mucous membranes. NECK: Mild pain with palpation of the base of the cervical spine, Normal range of motion, supple without lymphadenopathy or JVD. LUNGS: Breath sounds clear to auscultation bilaterally and equal. No wheezes rales or rhonchi. HEART: Regular rate and rhythm without murmurs, rubs or gallops. ABDOMEN: Soft, nontender, normoactive bowel sounds. No guarding, no rebound. No masses appreciated. Severe scoliosis of the spine. : Deferred EXTREMITIES: Normal range of motion, no pitting or edema. No clubbing or cyanosis. NEUROLOGICAL: Cranial nerves II through XII grossly intact. Normal speech, normal gait. PSYCH: Normal mood, normal affect. SKIN: Warm, Dry, normal turgor, no rashes or lesions noted. Limitations: no limitations Course Vital Signs 07/22/19 14:57 Temperature 97.8 F Pulse Rate 113 H Respiratory 20 Rate Blood Pressure 176/101 O2 Sat by Pulse 90 L Oximetry Medical Decision Making - Medical Decision Making Patient is a 59-year-old female presenting with neck pain 3 days. Patient has severe scoliosis. Patient denies any injuries or trauma. There are no red flag symptoms. Patient is refusing a CT of her neck secondary to her not being able to lay flat because of scoliosis and COPD. Patient is also refusing blood work. X-rays are taken of her neck and showed no acute fractures dislocations. Patient is currently on steroids for her COPD. I discussed with patient that she is to follow-up with her PCP. Patient was given Toradol today. Patient was also given a starter pack of tramadol as well as Zofran. Patient is in agreement with this plan of care. Patient is stable for discharge at this time. Return parameters were discussed with the patient she verbalized understanding. Case discussed with Dr. Rodriguez. Disposition Clinical Impression: Neck pain, Headache Disposition: HOME SELF-CARE Condition: Stable Instructions (If sedation given, give patient instructions): Neck Pain (ED) Additional Instructions: Please return to the Emergency Department if symptoms worsen or any other concerns. Follow-up with your PCP in 1 to 3 days as discussed. Prescriptions: Ondansetron Odt [Zofran Odt] 4 mg PO Q8HR PRN #10 tab PRN Reason: Nausea Is patient prescribed a controlled substance at d/c from ED?: No Referrals: Fermin Hernandez MD [Primary Care Provider] - 1-2 days
--- NOTE | 2019-07-22 16:32 | XR ---
EXAMINATION TYPE: XR cervical spine comp DATE OF EXAM: 07/22/2019 COMPARISON: 05/17/2015 HISTORY: 59-year-old female with pain and dizziness TECHNIQUE: 7 views FINDINGS: No predental space widening or prevertebral soft tissue swelling. Alignment is maintained. Accentuate d upper thoracic kyphosis. Odontoid view shows no gross abnormality. Suboptimal obliquity for assessm ent of the left-sided neuroforamen. Facet and uncovertebral joint arthropathy mid to lower cervical spine. Patient's shoulders prominently projected over the C6 and lower vertebral bodies. IMPRESSION: No prevertebral soft tissue swelling or malalignment. Moderate spondylotic change mid to lower cervic al spine.
[2019-07-22] MEDS ORDERED: traMADol 50 MG STARTER PACK 3 TAB BTL PO STA (16:53)
[2019-07-22 17:50] VITALS: BP 147/84; PULSE 86
== END 2019-07-22 17:48 | disposition home or self-care (01) ==
LOC: EC 14:55
DX: R51 Headache (principal); M54.2 Cervicalgia; M41.84 Other forms of scoliosis, thoracic region; J44.9 Chronic obstructive pulmonary disease, unspecified; I10 Essential (primary) hypertension; E78.5 Hyperlipidemia, unspecified; F17.200 Nicotine dependence, unspecified, uncomplicated; Z88.2 Allergy status to sulfonamides; Z88.5 Allergy status to narcotic agent; Z91.048 Other nonmedicinal substance allergy status; Z79.899 Other long term (current) drug therapy; Z79.82 Long term (current) use of aspirin; Z79.51 Long term (current) use of inhaled steroids; Z85.41 Personal history of malignant neoplasm of cervix uteri; Z90.710 Acquired absence of both cervix and uterus
CPT/HCPCS: 72050; 96372; 99284

== ENCOUNTER 2019-07-30 08:25 | Emergency (ER) | payer OTHER ==
[2019-07-30 08:35] VITALS: PULSE 92; TEMP 97.9
[2019-07-30] MEDS ORDERED: ASPIRIN 81 MG PO STA (08:53)
--- NOTE | 2019-07-30 09:21 | ED ---
Chest Pain HPI - General Chief Complaint: Chest Pain Stated Complaint: chest pain Source: patient Mode of arrival: ambulatory Limitations: no limitations - History of Present Illness Initial Comments: The patient is a 59-year-old female past medical history of COPD who presents emergency room with reported chest pain. She states that it started last night and has been intermittent. It is described as left-sided chest pain without radiation. She also is began having right arm numbness which extends from her mid humerus down to her fingers. Denies any unilateral weakness. She did take an aspirin last night. When she awoke this morning she had the chest pain and it was constant. Denies any associated shortness of breath, nausea or vomiting. No diaphoresis. The patient denies having a cardiac history. No history of arrhythmias or coronary disease. Reports that it is been a significant amount of time since she has had stress testing. She was scheduled in the outpatient setting by her primary care physician to have a stress echo however this was unable to be completed because of insurance purposes. She denies ripping or tearing sensation to her back. No numbness or tingling into her lower extremities. Denies any difficulties examination. No headaches or visual changes. No fevers or chills. Denies history of any drug use. Patient was recently hospitalized for COPD exacerbation. There are no other alleviating, precipitating or modifying factors - Related Data Home Medications Medication Instructions Recorded Confirmed Aspirin 81 mg PO HS 08/20/15 07/30/19 Atorvastatin [Lipitor] 10 mg PO HS 08/20/15 07/30/19 Ibuprofen [Motrin] 800 mg PO Q8HR PRN 08/20/15 07/30/19 Ramipril 20 mg PO HS 08/20/15 07/30/19 Ascorbic Acid [Vitamin C] 1,000 mg PO HS 11/11/15 07/30/19 Fluticasone/Vilanterol [Breo 1 puff INHALATION RT-HS 02/26/19 07/30/19 Ellipta 200-25 Mcg INH] Ipratropium-Albuterol Nebulize 3 ml INHALATION RT-QID 05/21/19 07/30/19 [Duoneb 0.5 mg-3 mg/3 ml Soln] Albuterol Sulfate [Proair Hfa] 1 - 2 puff INHALATION RT-Q6H PRN 07/15/19 07/30/19 Montelukast [Singulair] 10 mg PO HS 07/15/19 07/30/19 Multivit-Min/FA/Lycopen/Lutein 1 tab PO HS 07/15/19 07/30/19 [Centrum Silver Tablet] predniSONE See Taper PO DAILY 07/30/19 07/30/19 Allergies Allergy/AdvReac Type Severity Reaction Status Date / Time adhesive tape Allergy Rash/Hives Verified 07/30/19 10:04 Sulfa (Sulfonamide Allergy Swelling Verified 07/30/19 10:04 Antibiotics) codeine AdvReac Nausea & Verified 07/30/19 10:04 Vomiting Review of Systems ROS Statement: Those systems with pertinent positive or pertinent negative responses have been documented in the HPI. ROS Other: All systems not noted in ROS Statement are negative. EKG Findings - EKG Comments: EKG Findings:: EKG demonstrates a normal sinus rhythm with a ventricular rate of 82. OK interval 116. QRS is 98. QTC 422.there appears to be peaked T waves in lead V2. No acute ST segment elevations. EKG is compared to previous EKG from July 15 and appears similar. Past Medical History Past Medical History: Asthma, Cancer, COPD, Hyperlipidemia, Hypertension, Osteoarthritis (OA) Additional Past Medical History / Comment(s): Bronchitis, cervical cancer with hysterectomy, kyphoscoliosis of the spine, arthritis bilateral hands and knees. History of Any Multi-Drug Resistant Organisms: None Reported Past Surgical History: Hysterectomy, Tonsillectomy Additional Past Surgical History / Comment(s): Hemangioma removed from side head, exploratory laparotomy with R salpingectomy, lymph nodes removed from groin with hysterectomy (cervical cancer). Past Anesthesia/Blood Transfusion Reactions: Postoperative Nausea & Vomiting (PONV) Additional Past Anesthesia/Blood Transfusion Reaction / Comment(s): I wake up "rowdy." Past Psychological History: No Psychological Hx Reported Smoking Status: Current some day smoker Past Alcohol Use History: None Reported Past Drug Use History: None Reported - Past Family History Mother Family Medical History: Vascular Disorder Additional Family Medical History / Comment(s): Mother of a cerebral aneurysm at the age of 29 yrs. Father Family Medical History: CVA/TIA Additional Family Medical History / Comment(s): Father of a CVA-pt unable to recall at what age. General Exam Limitations: no limitations Course Vital Signs 12/07/0807/30/19 07/30/19 08:31 09:29 10:00 Temperature 97.9 F Pulse Rate 92 Respiratory 18 20 20 Rate Blood Pressure 149/82 117/71 131/79 O2 Sat by Pulse 96 Oximetry 07/30/19 12:59 Temperature Pulse Rate Respiratory Rate Blood Pressure 122/81 O2 Sat by Pulse Oximetry Chest Pain MDM - MDM Upon arrival the patient was placed into room 1. A 12-lead EKG was performed on the patient which was compared to her previous EKG and appears the same. I did provide the patient with 481 mg chewable aspirins. I did recommend treatment with nitro however the patient refused. I recommended laboratory studies. CBC is. D-dimer is 0.4. Coags are normal. CMP shows a sodium of 133. Chloride 96. Troponin is less than 0.012. We did obtain IV access however it was a 22-gauge. We did need a 20-gauge access because of the need to perform a CT of the chest. The patient was originally refusing second IV access. After discussion with the patient she then approves of access however we do have to have the MAIL CARRIER TECHNICIAN come down and start her second IV. The patient does go for CT of her chest which demonstrates no signs of dissection or aneurysm. I discussed results with the patient. Recommend hospital admission for chest pain rule out however the patient refused. She then informs me that her pain has been present since her previous hospitalization no acute finding out what's going on with her pain. I did inform her that she needed a cardiology evaluation. The patient is aware of the risks of leaving the hospital to include permanent distally and deafening continues to request to leave. I did draw a second troponin on the patient which was negative. I did give her cardiology follow-up. I did recommend that she return to the emergency room for any new or worsening symptoms or should if she does agree to hospital admission. The patient was discharged home in stable condition Disposition Clinical Impression: Chest pain Disposition: HOME SELF-CARE Condition: Serious Instructions (If sedation given, give patient instructions): Chest Pain (ED) Additional Instructions: I strongly recommended hospital admission. Return to the emergency room for any new or worsening symptoms. You need a full cardiac workup for your chest pain Is patient prescribed a controlled substance at d/c from ED?: No Referrals: Fermin Hernandez MD [Primary Care Provider] - 1-2 days Time of Disposition: 12:32
[2019-07-30 09:30] VITALS: RESP 20
[2019-07-30 09:32] LABS: Basophils % (A) 0 %; Eosinophils # (A) 0.1 k/uL (0-0.7); Eosinophils % (A) 1 %; HCT 41.9 % (34.0-46.0); HGB 14.4 gm/dL (11.4-16.0); Lymphocytes # (A) 1.4 k/uL (1.0-4.8); Lymphocytes % (A) 15 %; MCH 32.3 pg (25.0-35.0); MCHC 34.2 g/dL (31.0-37.0); MCV 94.4 fL (80.0-100.0); Monocytes # (A) 0.3 k/uL (0-1.0); Monocytes % (A) 3 %; Neutrophils # (A) 7.6 k/uL (1.3-7.7); Neutrophils % (A) 80 %; Platelet Count 261 k/uL (150-450); RBC 4.44 m/uL (3.80-5.40); RDW 12.6 % (11.5-15.5); WBC 9.5 k/uL (3.8-10.6)
[2019-07-30 09:37] LABS: ALT 41 U/L (9-52); AST 38 U/L (14-36); African American GFR (CKD) >90 (>60 ml/min/1.73 sqM); Albumin 4.6 g/dL (3.5-5.0); Alkaline Phosphatase 58 U/L (38-126); Anion Gap 7 mmol/L; Blood Urea Nitrogen 18 mg/dL (7-17); Calcium 9.7 mg/dL (8.4-10.2); Carbon Dioxide 30 mmol/L (22-30); Chloride 96 mmol/L (98-107); Glucose 108 mg/dL (74-99); Magnesium 2.1 mg/dL (1.6-2.3); Non-African American GFR(CKD) >90 (>60 ml/min/1.73 sqM); Sodium 133 mmol/L (137-145); Total Bilirubin 1.3 mg/dL (0.2-1.3); Total Protein 7.4 g/dL (6.3-8.2)
[2019-07-30 09:38] LABS: Potassium 4.9 mmol/L (3.5-5.1)
[2019-07-30 09:45] LABS: D-Dimer 0.4 mg/L FEU (<0.60); INR 0.8 (<1.2); Prothrombin Time 9.4 sec (9.0-12.0)
[2019-07-30 09:54] LABS: Partial Thromboplastin Time 18.3 sec (22.0-30.0)
--- NOTE | 2019-07-30 11:59 | CT ---
EXAMINATION TYPE: CT angio chest DATE OF EXAM: 07/30/2019 COMPARISON: None HISTORY: Pain CT DLP: 768.4 mGycm CONTRAST: CTA thoracic aorta with 3-D reconstruction is performed and without and with IV Contrast, patient inj ected with 100 ml mL of Isovue 370. Contrast CTA of the thoracic aorta was performed from the lung apex through the upper abdomen. 3D re construction imaging obtained at a separate workstation. CT Chest: THORACIC AORTA: No evidence for thoracic aortic aneurysm. Mild atheromatous changes seen. There is n o evidence for dissection or periaortic collection. LUNGS: The lungs are clear and free of infiltrate or atelectasis. No pulmonary nodule or mass is det ected. No pleural effusion or CT evidence of interstitial lung disease. MEDIASTINUM: No evidence for mediastinal hematoma. The heart is not enlarged. No evidence for med iastinal mass or adenopathy. HILAR STRUCTURES: No evidence for mass. No hilar adenopathy is appreciated. OTHER: Severe thoracolumbar scoliosis. IMPRESSION- No evidence for aneurysm or dissection.
[2019-07-30 13:01] VITALS: BP 122/81
== END 2019-07-30 13:09 | disposition home or self-care (01) ==
LOC: EC 08:25
DX: R07.9 Chest pain, unspecified (principal); J44.9 Chronic obstructive pulmonary disease, unspecified; E78.5 Hyperlipidemia, unspecified; I10 Essential (primary) hypertension; F17.200 Nicotine dependence, unspecified, uncomplicated; Z79.51 Long term (current) use of inhaled steroids; Z79.52 Long term (current) use of systemic steroids; Z79.82 Long term (current) use of aspirin; Z88.2 Allergy status to sulfonamides; Z88.5 Allergy status to narcotic agent; Z91.048 Other nonmedicinal substance allergy status; Z79.899 Other long term (current) drug therapy; Z53.20 Procedure and treatment not carried out because of patient's decision for unspecified reasons; Z90.710 Acquired absence of both cervix and uterus; Z85.41 Personal history of malignant neoplasm of cervix uteri
CPT/HCPCS: 36415; 93005; 85379; 83880; 80053; 83735; 84484; 85025; 85610; 85730; 71275; 99285; Q9967

== ENCOUNTER 2020-02-22 02:02 | Observation (INO) | payer OTHER ==
[2020-02-22] MEDS ORDERED: ASPIRIN 81 MG PO STA (02:20)
[2020-02-22 03:02] LABS: Basophils # (A) 0.1 k/uL (0-0.2); Basophils % (A) 1 %; Eosinophils # (A) 0.3 k/uL (0-0.7); Eosinophils % (A) 4 %; HCT 42.4 % (34.0-46.0); HGB 13.9 gm/dL (11.4-16.0); Lymphocytes # (A) 2.8 k/uL (1.0-4.8); Lymphocytes % (A) 34 %; MCH 30.8 pg (25.0-35.0); MCHC 32.7 g/dL (31.0-37.0); MCV 94.2 fL (80.0-100.0); Mean Platelet Volume 9.7; Monocytes # (A) 0.4 k/uL (0-1.0); Monocytes % (A) 5 %; Neutrophils # (A) 4.4 k/uL (1.3-7.7); Neutrophils % (A) 54 %; Platelet Count 152 k/uL (150-450); RDW 12.5 % (11.5-15.5); WBC 8.2 k/uL (3.8-10.6)
[2020-02-22 03:07] LABS: ALT 19 U/L (4-34); AST 29 U/L (14-36); African American GFR (CKD) >90 (>60 ml/min/1.73 sqM); Albumin 4.7 g/dL (3.5-5.0); Alkaline Phosphatase 83 U/L (38-126); Anion Gap 9 mmol/L; Blood Urea Nitrogen 13 mg/dL (7-17); Calcium 9.6 mg/dL (8.4-10.2); Carbon Dioxide 24 mmol/L (22-30); Chloride 103 mmol/L (98-107); Glucose 115 mg/dL (74-99); Non-African American GFR(CKD) >90 (>60 ml/min/1.73 sqM); Potassium 4.1 mmol/L (3.5-5.1); Sodium 136 mmol/L (137-145); Total Bilirubin 0.6 mg/dL (0.2-1.3); Total Protein 7.1 g/dL (6.3-8.2)
[2020-02-22 03:09] LABS: INR 0.9 (<1.2); Partial Thromboplastin Time 23.1 sec (22.0-30.0); Prothrombin Time 9.6 sec (9.0-12.0)
--- NOTE | 2020-02-22 03:15 | XR ---
EXAMINATION TYPE: XR chest 2V DATE OF EXAM: 02/22/2020 COMPARISON: 07/15/2019 HISTORY: Short of breath TECHNIQUE: FINDINGS: There is no heart failure nor confluent pneumonic infiltrate. There is upper thoracic levos coliosis and lower thoracic moderate dextroscoliosis. Costophrenic angles are clear. Heart size is no rmal. Bony thorax is intact. IMPRESSION: Scoliotic deformity. No active cardiopulmonary disease. Normal heart. No change.
[2020-02-22] MEDS ORDERED: NITROGLYCERIN SL TABS 0.4 MG TAB SUBLINGUAL PRN (03:57)
--- NOTE | 2020-02-22 03:57 | ED ---
Chest Pain HPI - General Chief Complaint: Chest Pain Stated Complaint: Chest Pain Time Seen by Provider: 02/22/20 02:20 Source: patient Mode of arrival: ambulatory Limitations: no limitations - History of Present Illness Initial Comments: Raffaele is a 59-year-old female with history of hypertension, hyperlipidemia, cigarette smoking who presents to the ER today for evaluation of intermittent chest pain over the past 3 days. Patient reports chest pain occurs without provocation, it occurs at rest and with activity. When it occurs with activity it's associated with lightheadedness no shortness of breath. No recent illness or fevers. Patient has no known cardiac history. Tonight the pain was occurring at rest and kept her from sleeping which prompted her come to the ER for further evaluation. She denies any recent illness or sick contacts. - Related Data Home Medications Medication Instructions Recorded Confirmed Aspirin 81 mg PO HS 08/20/15 07/30/19 Atorvastatin [Lipitor] 10 mg PO HS 08/20/15 07/30/19 Ibuprofen [Motrin] 800 mg PO Q8HR PRN 08/20/15 07/30/19 Ramipril 20 mg PO HS 08/20/15 07/30/19 Ascorbic Acid [Vitamin C] 1,000 mg PO HS 11/11/15 07/30/19 Fluticasone/Vilanterol [Breo 1 puff INHALATION RT-HS 02/26/19 07/30/19 Ellipta 200-25 Mcg INH] Ipratropium-Albuterol Nebulize 3 ml INHALATION RT-QID 05/21/19 07/30/19 [Duoneb 0.5 mg-3 mg/3 ml Soln] Albuterol Sulfate [Proair Hfa] 1 - 2 puff INHALATION RT-Q6H PRN 07/15/19 07/30/19 Montelukast [Singulair] 10 mg PO HS 07/15/19 07/30/19 Multivit-Min/FA/Lycopen/Lutein 1 tab PO HS 07/15/19 07/30/19 [Centrum Silver Tablet] predniSONE See Taper PO DAILY 07/30/19 07/30/19 Allergies Allergy/AdvReac Type Severity Reaction Status Date / Time adhesive tape Allergy Rash/Hives Verified 02/22/20 02:13 Sulfa (Sulfonamide Allergy Swelling Verified 02/22/20 02:13 Antibiotics) codeine AdvReac Nausea & Verified 02/22/20 02:13 Vomiting Review of Systems ROS Statement: Those systems with pertinent positive or pertinent negative responses have been documented in the HPI. ROS Other: All systems not noted in ROS Statement are negative. EKG Findings - EKG Comments: EKG Findings:: EKG was obtained due to complaint of chest pain, EKG was obtained at 2:32 AM, rate is 85 rhythm is sinus there is normal axis, there are normal intervals, MO 140, QRS 72, QTc is 456 there are no acute ST elevations or depressions there is no evidence of acute ischemia or infarction. Some artifact is noted in the lateral leads. Past Medical History Past Medical History: Asthma, Cancer, COPD, Hyperlipidemia, Hypertension, Osteoarthritis (OA) Additional Past Medical History / Comment(s): Bronchitis, cervical cancer with hysterectomy, kyphoscoliosis of the spine, arthritis bilateral hands and knees. History of Any Multi-Drug Resistant Organisms: None Reported Past Surgical History: Hysterectomy, Tonsillectomy Additional Past Surgical History / Comment(s): Hemangioma removed from side head, exploratory laparotomy with R salpingectomy, lymph nodes removed from groin with hysterectomy (cervical cancer). Past Anesthesia/Blood Transfusion Reactions: Postoperative Nausea & Vomiting (PONV) Additional Past Anesthesia/Blood Transfusion Reaction / Comment(s): I wake up "rowdy." Past Psychological History: No Psychological Hx Reported Smoking Status: Current some day smoker Past Alcohol Use History: None Reported Past Drug Use History: None Reported - Past Family History Mother Family Medical History: Vascular Disorder Additional Family Medical History / Comment(s): Mother of a cerebral aneurysm at the age of 29 yrs. Father Family Medical History: CVA/TIA Additional Family Medical History / Comment(s): Father of a CVA-pt unable to recall at what age. General Exam - General Exam Comments Initial Comments: Physical Exam GENERAL: Patient is well-developed and well-nourished. Patient is nontoxic and well- hydrated and is in no distress. HENT: Normocephalic, Atraumatic. EYES: PERRL, EOMI PULMONARY: Unlabored respirations. No audible rales rhonchi or wheezing was noted. CARDIOVASCULAR: There is a regular rate and rhythm without any murmurs gallops or rubs. ABDOMEN: Soft and nontender with normal bowel sounds. SKIN: Skin is clear with no lesions or rashes and otherwise unremarkable. : Deferred NEUROLOGIC: Patient is alert and oriented x3. Moving all extremities spontaneously MUSCULOSKELETAL: Normal extremities with adequate strength and full range of motion. No lower extremity swelling or edema. No calf tenderness. PSYCHIATRIC: Normal psychiatric evaluation. Limitations: no limitations Course Vital Signs 02/22/20 02/22/20 02:10 02:55 Temperature 98.4 F Pulse Rate 90 Pulse Rate [ 89 Galley Cook ] Respiratory 18 Rate Blood Pressure 169/76 O2 Sat by Pulse 98 Oximetry Chest Pain MDM - [facility] Patient was seen and evaluated, history is obtained from patient 59 year old female with multiple risk factors for coronary artery disease no previous cardiac workup or history presenting with chest pain that is occurring at rest and with exertion, pain associated with lightheadedness Cardiac workup was initiated EKG is nonischemic Troponins not elevated Given the patient's history and risk factors we will place the patient in observ ation for further evaluation by cardiology Disposition Clinical Impression: Chest pain Disposition: ADMITTED IP TO THIS HOSP Condition: Stable Referrals: Fermin Hernandez MD [Primary Care Provider] - 1-2 days
--- NOTE | 2020-02-22 11:57 | P.CRDCN ---
History of Present Illness Consult date: 02/22/20 History of present illness: This 59-year-old female with history of hypertension and hypercholesteremia, and also cigarette smoking is admitted to the hospital with complaints of left-sided chest discomfort. The pain is nonexertional. It is sharp and dull in nature. Present in the left precordial area. No definite aggravating or relieving factors. No previous history of heart problems. Family history of ischemic or disease. Her father had a heart attack. So far EKGs and cardiac enzymes are negative. She is being scheduled for an echocardiogram and also stress correlation study tomorrow. Further recommend she'll depend upon the findings on the low tests Review of Systems As per the chart Past Medical History Past Medical History: Asthma, Cancer, COPD, Hyperlipidemia, Hypertension, O steoarthritis (OA) Additional Past Medical History / Comment(s): Bronchitis, cervical cancer with hysterectomy, kyphoscoliosis of the spine, arthritis bilateral hands and knees. History of Any Multi-Drug Resistant Organisms: None Reported Past Surgical History: Hysterectomy, Tonsillectomy Additional Past Surgical History / Comment(s): Hemangioma removed from side head, exploratory laparotomy with R salpingectomy, lymph nodes removed from groin with hysterectomy (cervical cancer). Past Anesthesia/Blood Transfusion Reactions: Postoperative Nausea & Vomiting (PONV) Additional Past Anesthesia/Blood Transfusion Reaction / Comment(s): I wake up "rowdy." Past Psychological History: No Psychological Hx Reported Additional Psychological History / Comment(s): Pt has a brother living with her. She is independent. She works for the [employer]. She has a nebulizer. Smoking Status: Current some day smoker Past Alcohol Use History: None Reported Past Drug Use History: None Reported - Past Family History Mother Family Medical History: Vascular Disorder Additional Family Medical History / Comment(s): Mother of a cerebral aneurysm at the age of 29 yrs. Father Family Medical History: CVA/TIA Additional Family Medical History / Comment(s): Father of a CVA-pt unable to recall at what age. Medications and Allergies Home Medications Medication Instructions Recorded Confirmed Type Aspirin 81 mg PO HS 08/20/15 02/22/20 History Atorvastatin [Lipitor] 10 mg PO HS 08/20/15 02/22/20 History Ramipril 20 mg PO HS 08/20/15 02/22/20 History Montelukast [Singulair] 10 mg PO HS 07/15/19 02/22/20 History Fluticasone/Umeclidin/Vilanter 1 puff INHALATION RT-HS 02/22/20 02/22/20 History [Trelekostas Ellipta 100-62.5-25] Furosemide [Lasix] 20 mg PO HS 02/22/20 02/22/20 History Ipratropium [place] [Atrovent Hfa] 2 puff INHALATION RT-QID PRN 02/22/20 02/22/20 History amLODIPine [Norvasc] 5 mg PO HS 02/22/20 02/22/20 History Allergies Allergy/AdvReac Type Severity Reaction Status Date / Time adhesive tape Allergy Rash/Hives Verified 02/22/20 08:29 Sulfa (Sulfonamide Allergy Swelling Verified 02/22/20 08:29 Antibiotics) codeine AdvReac Nausea & Verified 02/22/20 08:29 Vomiting Physical Exam Vitals: Vital Signs Temp Pulse Pulse Resp BP BP Pulse Ox 02/22/20 08:25 97.7 F 74 16 107/72 98 02/22/20 05:32 98.0 F 70 18 122/69 100 02/22/20 05:18 100 02/22/20 04:30 62 13 124/72 96 02/22/20 04:00 64 13 136/69 96 02/22/20 02:55 89 02/22/20 02:10 98.4 F 90 18 169/76 98 Intake and Output 02/21/20 02/22/20 02/22/20 22:59 06:59 14:59 Other: # Voids 1 Weight 75.296 kg GENERAL EXAM: Patient is alert and oriented and doesn't appear to be in any acute distress HEENT: Normocephalic. Normal reaction of pupils, equal size, normal range of extraocular motion. No erythema or exudates in the throat. NECK: No masses, no nuchal rigidity. CHEST: No chest wall deformity. LUNGS: Equal air entry with no crackles or wheeze. HEART: S1 and S2 normal with no audible mumurs or gallops. Regular rhythm, femorals equal on both sides.. ABDOMEN: No hepatosplenomegaly, normal bowel sounds, no guarding or rigidity. SKIN: No rashes CENTRAL NERVOUS SYSTEM: No focal deficits. EXTREMITIES: No cyanosis, clubbing or edema. Results 02/22/20 02:52 02/22/20 02:52 Cardiac Enzymes 02/22/20 02/22/20 02/22/20 Range/Units 02:52 02:52 05:26 AST 29 (14-36) U/L Troponin I <0.012 <0.012 (0.000-0.034) ng/mL 02/22/20 Range/Units 08:22 AST (14-36) U/L Troponin I <0.012 (0.000-0.034) ng/mL Coagulation 02/22/20 Range/Units 02:52 PT 9.6 (9.0-12.0) sec APTT 23.1 (22.0-30.0) sec CBC 02/22/20 Range/Units 02:52 WBC 8.2 (3.8-10.6) k/uL RBC 4.50 (3.80-5.40) m/uL Hgb 13.9 (11.4-16.0) gm/dL Hct 42.4 (34.0-46.0) % Plt Count 152 (150-450) k/uL Comprehensive Metabolic Panel 02/22/20 Range/Units 02:52 Sodium 136 L (137-145) mmol/L Potassium 4.1 (3.5-5.1) mmol/L Chloride 103 (98-107) mmol/L Carbon Dioxide 24 (22-30) mmol/L BUN 13 (7-17) mg/dL Creatinine 0.61 (0.52-1.04) mg/dL Glucose 115 H (74-99) mg/dL Calcium 9.6 (8.4-10.2) mg/dL AST 29 (14-36) U/L ALT 19 (4-34) U/L Alkaline Phosphatase 83 (38-126) U/L Total Protein 7.1 (6.3-8.2) g/dL Albumin 4.7 (3.5-5.0) g/dL Current Medications Generic Name Dose Route Start Last Admin Trade Name Freq PRN Reason Stop Dose Admin Amlodipine Besylate 5 mg 02/22/20 21:00 Norvasc PO HS [facility] Aspirin 325 mg 02/23/20 09:00 Aspirin PO DAILY [facility] Atorvastatin Calcium 10 mg 02/22/20 21:00 Lipitor PO HS ANNY Budesonide/Formoterol Fumarate 2 puff 02/22/20 20:00 Symbicort 80-4.5 Mcg Inhaler INHALATION RT-BID ANNY Furosemide 20 mg 02/22/20 21:00 Lasix PO HS ANNY Ipratropium [place] 0.5 mg 02/22/20 12:00 Atrovent Nebulized INHALATION RT-QID ANNY Lisinopril 80 mg 02/22/20 21:00 Zestril PO HS ANNY Montelukast Sodium 10 mg 02/22/20 21:00 Singulair PO HS ANNY Nitroglycerin 0.4 mg 02/22/20 03:57 Nitrostat SUBLINGUAL Q5M PRN Chest Pain Intake and Output 02/21/20 02/22/20 02/22/20 22:59 06:59 14:59 Other: # Voids 1 Weight 75.296 kg 02/22/20 02:52 02/22/20 02:52 EKG Interpretations (text) Sinus rhythm Assessment and Plan (1) Essential hypertension Current Visit: Yes Status: Acute Code(s): I10 - ESSENTIAL (PRIMARY) HYPERTENSION SNOMED Code(s): 55024291 (2) Chest pain Current Visit: Yes Status: Acute Code(s): R07.9 - CHEST PAIN, UNSPECIFIED SNOMED Code(s): 32783290 (3) Hypercholesterolemia Current Visit: Yes Status: Acute Code(s): E78.00 - PURE HYPERCHOLESTEROLEMIA, UNSPECIFIED SNOMED Code(s): 45900482 Plan: Patient is being evaluated by echocardiogram and stress correlation study. Further recommend she'll depend upon the findings on the low test
--- NOTE | 2020-02-22 15:57 | P.HPIM ---
History of Present Illness H&P Date: 02/22/20 Chief Complaint: Chest pain History of presenting complaint: This is a pleasant 59-year-old patient of Dr. Hernandez. Also follows with semiconductor wafers tester Dr. Larsen. Chronic stable medical conditions include hypertension, hyperlipidemia, osteoarthritis, kyphoscoliosis, COPD. Continues to smoke. Patient presents 3 days of left precordial chest pain. Present off and on. Present at rest. On one occasion the pain did radiate to the neck. Denies any associated dizziness lightheadedness perspiration or tightness. No excessive shortness of breath from baseline. Admitted with unstable angina. Had a stress test several years ago. Cardiology was consulted. Currently no chest pain. Review of systems: GEN.: None EYES: None HEENT: None NECK: None RESPIRATORY: Baseline occasional short of breath CARDIOVASCULAR: As above GASTROINTESTINAL: None GENITOURINARY: None MUSCULOSKELETAL: Joint pains LYMPHATICS: None HEMATOLOGICAL: None PSYCHIATRY: None NEUROLOGICAL: None Past medical history to include: Hypertension, hyperlipidemia, osteoarthritis, kyphoscoliosis, COPD, cervical cancer with hysterectomy, Social history: Smoking a pack a day for many years. 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 No alcohol Physical examination: VITAL SIGNS: 97.7, 74, 16, 107 was 72, 98% room air GENERAL: BMI 29.4, laying in bed slightly anxious. EYES: Pupils equal. Conjunctiva normal. HEENT: External appearance of nose and ears normal, oral cavity grossly normal. NECK: JVD not raised; masses not palpable. HEART: First and second heart sounds are normal; no edema. LUNGS: Respiratory rate increased, decreased breath sounds. ABDOMEN: Soft, nontender, liver spleen not palpable, no masses palpable. PSYCH: Alert and oriented x3; mood and affect normal. MUSCULOSKELETAL: Evidence of OA especially in the hands NEUROLOGICAL: Cranial nerves grossly intact; no facial asymmetry, power and sensation grossly intact. LYMPHATICS: No lymph nodes palpable in the axilla and neck INVESTIGATIONS, reviewed in the clinical context: White count 8.2 hemoglobin 13.9 potassium 4.1 creatinine 0.61 Troponin I 3 negative EKG tracing personally reviewed by me-normal sinus rhythm Chest x-ray film personally reviewed by me-kyphoscoliosis, lung quiles possibly some chronic scarring Assessment: -Possible unstable angina in a patient with cardiac risk factors including hypertension, hyperlipidemia, smoking negative EKG negative troponin. -COPD in a current smoker -Chronic nicotine dependence patient is a cigarette smoker, up to 2 weeks ago -Essential hypertension -Hyperlipidemia -Primary osteoarthritis -Kyphoscoliosis Plan: Patient will need a stress test. Cardiology is consulted. Home medications resumed. Start on aspirin. Nicotine patch. Patient currently chest pain-free. Past Medical History Past Medical History: Asthma, Cancer, COPD, Hyperlipidemia, Hypertension, Osteoarthritis (OA) Additional Past Medical History / Comment(s): Bronchitis, cervical cancer with hysterectomy, kyphoscoliosis of the spine, arthritis bilateral hands and knees. History of Any Multi-Drug Resistant Organisms: None Reported Past Surgical History: Hysterectomy, Tonsillectomy Additional Past Surgical History / Comment(s): Hemangioma removed from side head, exploratory laparotomy with R salpingectomy, lymph nodes removed from groin with hysterectomy (cervical cancer). Past Anesthesia/Blood Transfusion Reactions: Postoperative Nausea & Vomiting (PONV) Additional Past Anesthesia/Blood Transfusion Reaction / Comment(s): I wake up "rowdy." Past Psychological History: No Psychological Hx Reported Additional Psychological History / Comment(s): Pt has a brother living with her. She is independent. She works for [employer]. She has a nebulizer. Smoking Status: Current some day smoker Past Alcohol Use History: None Reported Past Drug Use History: None Reported - Past Family History Mother Family Medical History: Vascular Disorder Additional Family Medical History / Comment(s): Mother of a cerebral aneurysm at the age of 29 yrs. Father Family Medical History: CVA/TIA Additional Family Medical History / Comment(s): Father of a CVA-pt unable to recall at what age. Medications and Allergies Home Medications Medication Instructions Recorded Confirmed Type Aspirin 81 mg PO HS 08/20/15 02/22/20 History Atorvastatin [Lipitor] 10 mg PO HS 08/20/15 02/22/20 History Ramipril 20 mg PO 08/20/15 02/22/20 History Montelukast [Singulair] 10 mg PO 07/15/19 02/22/20 History Fluticasone/Umeclidin/Vilanter 1 puff INHALATION RT-HS 02/22/20 02/22/20 History [Trelegy Ellipta 100-62.5-25] Furosemide [Lasix] 20 mg PO 02/22/20 02/22/20 History Ipratropium [place] [Atrovent Hfa] 2 puff INHALATION RT-QID PRN 02/22/20 02/22/20 History amLODIPine [Norvasc] 5 mg PO HS 02/22/20 02/22/20 History Allergies Allergy/AdvReac Type Severity Reaction Status Date / Time adhesive tape Allergy Rash/Hives Verified 02/22/20 08:29 Sulfa (Sulfonamide Allergy Swelling Verified 02/22/20 08:29 Antibiotics) codeine AdvReac Nausea & Verified 02/22/20 08:29 Vomiting Physical Exam Vitals: Vital Signs Temp Pulse Pulse Resp BP BP Pulse Ox 02/22/20 08:25 97.7 F 74 16 107/72 98 02/22/20 05:32 98.0 F 70 18 122/69 100 02/22/20 05:18 100 02/22/20 04:30 62 13 124/72 96 02/22/20 04:00 64 13 136/69 96 02/22/20 02:55 89 02/22/20 02:10 98.4 F 90 18 169/76 98 Intake and Output 02/21/20 02/22/20 02/22/20 22:59 06:59 14:59 Other: # Voids 1 Weight 75.296 kg Results CBC & Chem 7: 02/22/20 02:52 02/22/20 02:52 Labs: Abnormal Lab Results - Last 24 Hours (Table) 02/22/20 Range/Units 02:52 Sodium 136 L (137-145) mmol/L Glucose 115 H (74-99) mg/dL Thrombosis Risk Factor Assmnt - Choose All That Apply Any of the Below Risk Factors Present?: Yes Each Factor Represents 1 point: Abnormal pulmonary function (COPD), Obesity (BMI >25) Each Risk Factor Represents 2 Points: Age 61-74 years Thrombosis Risk Factor Assessment Total Risk Factor Score: 4 Thrombosis Risk Factor Assessment Level: Moderate Risk
[2020-02-22] MEDS: IPRATROPIUM 0.5 MG/2.5 ML NEBU INHALATION SCH ×3 (16:22→21:06)
[2020-02-22] MEDS: ENOXAPARIN 40 MG/0.4 ML SYRINGE SQ SCH (17:37)
[2020-02-22] MEDS: NICOTINE 21MG/24HR PATCH TRANSDERM SCH (17:38)
[2020-02-22] MEDS ORDERED: FUROSEMIDE 20 MG TAB PO SCH (21:00)
[2020-02-22] MEDS ORDERED: ATORVASTATIN 10 MG TAB PO SCH (21:00)
[2020-02-22] MEDS ORDERED: MONTELUKAST 10 MG TAB PO SCH (21:00)
[2020-02-22] MEDS ORDERED: LISINOPRIL 20 MG TAB PO SCH (21:00)
[2020-02-22] MEDS ORDERED: amLODIPine 5 MG TAB PO SCH (21:00)
[2020-02-22] MEDS: SYMBICORT 80-4.5 MCG INHALER INHALATION SCH (21:06)
[2020-02-23 07:27] LABS: Cholesterol 146 mg/dL (<200); HDL Cholesterol 45 mg/dL (40-60); LDL Cholesterol,Calculated 83 mg/dL (0-99); Triglycerides 90 mg/dL (<150)
[2020-02-23] MEDS: SYMBICORT 80-4.5 MCG INHALER INHALATION SCH ×2 (08:34→08:35)
[2020-02-23] MEDS: IPRATROPIUM 0.5 MG/2.5 ML NEBU INHALATION SCH ×3 (08:35→11:57)
[2020-02-23] MEDS ORDERED: ASPIRIN 325 MG TAB PO SCH (09:00)
[2020-02-23] MEDS: ENOXAPARIN 40 MG/0.4 ML SYRINGE SQ SCH (10:17)
[2020-02-23] MEDS: NICOTINE 21MG/24HR PATCH TRANSDERM SCH (10:17)
[2020-02-23 11:12] VITALS: TEMP 97.9
[2020-02-23 13:47] VITALS: PULSE 88; RESP 18
[2020-02-23 13:48] VITALS: BP 126/59
--- NOTE | 2020-02-23 14:04 | ECHOS ---
STRESS ECHOCARDIOGRAM LUMASON: Vial INDICATIONS: MEDICATIONS: BASELINE HEART RATE: 78 BASELINE BLOOD PRESSURE: 124/84 MAXIMUM HEART RATE: 145 MAXIMUM BLOOD PRESSURE: 194/94 85% MPHR: 135 100% MPHR: 159 METS: 4.6 MAXIMUM STAGE REACHED: 1 TOTAL EXERCISE TIME: 3:00 CLINICAL INFORMATION: Baseline rhythm is sinus mechanism, rate 78, normal axis, intervals, nonspecific ST-T wave changes. Baseline blood pressure 129/84 mmHg. Patient exercised on [place] protocol for 3 minutes reaching peak rate of 145 beats per minute which is equal to 91% maximum predicted heart rate. Peak blood pressure 195/94 mmHg. Stress test was terminated due to fatigue. There was no chest pain. Electrocardiograph monitoring revealed no evidence of diagnostic ischemic ST deviation. FINDINGS: Baseline echocardiogram revealed normal wall motion. At peak exercise, there was normal wall motion and augmentation with no hypokinesis or dyskinesis. CONCLUSION: 1. Poor exercise tolerance with nondiagnostic electrocardiograph stress testing secondary to baseline EKG abnormality. 2. Normal stress echocardiogram with no evidence of stress-induced ischemia. MMODL / IJN: [id number] /
--- NOTE | 2020-02-24 23:29 | P.DS ---
Providers Date of admission: 02/22/20 04:01 Expected date of discharge: 02/23/20 Attending physician: Geoff Wilks Consults: 02/22/20 03:57 Consult Physician Urgent Consulting Provider: [facility] Consult Reason/Comments: chest pain, lightheadedness, risk factors but no known cardiac hx Do you want consulting provider notified?: Yes, Notify in am Primary care physician: Ace Cardenasprem [facility] Course: Chief Complaint: Chest pain History of presenting complaint: This is a pleasant 59-year-old patient of Dr. Hernandez. Also follows with psychological operations specialist Dr. Larsen. Chronic stable medical conditions include hypertension, hyperlipidemia, osteoarthritis, kyphoscoliosis, COPD. Continues to smoke. Patient presents 3 days of left precordial chest pain. Present off and on. Present at rest. On one occasion the pain did radiate to the neck. Denies any associated dizziness lightheadedness perspiration or tightness. No excessive shortness of breath from baseline. Admitted with unstable angina. Had a stress test several years ago. Cardiology was consulted. Stress echocardiogram care to be negative. Auscultation: Dr. King from cardiology Physical examination: VITAL SIGNS: 97.9, 88, 18, 126/59, 99% room air GENERAL: BMI 29.4, sitting up, comfortable EYES: Pupils equal. Conjunctiva normal. HEENT: External appearance of nose and ears normal, oral cavity grossly normal. NECK: JVD not raised; masses not palpable. HEART: First and second heart sounds are normal; no edema. LUNGS: Respiratory rate increased, decreased breath sounds. ABDOMEN: Soft, nontender, liver spleen not palpable, no masses palpable. PSYCH: Alert and oriented x3; mood and affect normal. MUSCULOSKELETAL: Evidence of OA especially in the hands INVESTIGATIONS, reviewed in the clinical context: White count 8.2 hemoglobin 13.9 potassium 4.1 creatinine 0.61 Troponin I 3 negative EKG tracing personally reviewed by me-normal sinus rhythm Chest x-ray film personally reviewed by me-kyphoscoliosis, lung quiles possibly some chronic scarring Stress echocardiogram negative Assessment: -Possible unstable angina in a patient with cardiac risk factors including hypertension, hyperlipidemia, smoking-stress test negative. -COPD in a current smoker -Chronic nicotine dependence patient is a cigarette smoker, up to 2 weeks ago -Essential hypertension -Hyperlipidemia -Primary osteoarthritis -Kyphoscoliosis Disposition: Home Patient Condition at Discharge: Stable Plan - Discharge Summary New Discharge Prescriptions: New Nicotine 21Mg/24Hr Patch [Habitrol] 1 patch TRANSDERM DAILY #14 patch Continue Ramipril 20 mg PO HS Atorvastatin [Lipitor] 10 mg PO HS Aspirin 81 mg PO HS Montelukast [Singulair] 10 mg PO HS Ipratropium [place] [Atrovent Hfa] 2 puff INHALATION RT-QID PRN PRN Reason: Shortness Of Breath amLODIPine [Norvasc] 5 mg PO HS Furosemide [Lasix] 20 mg PO HS Fluticasone/Umeclidin/Vilanter [Trelegy Ellipta 100-62.5-25] 1 puff INHALATION RT-HS Discharge Medication List Aspirin 81 mg PO HS 08/20/15 [History] Atorvastatin [Lipitor] 10 mg PO HS 08/20/15 [History] Ramipril 20 mg PO HS 08/20/15 [History] Montelukast [Singulair] 10 mg PO HS 07/15/19 [History] Fluticasone/Umeclidin/Vilanter [Trelegy Ellipta 100-62.5-25] 1 puff INHALATION RT-HS 02/22/20 [History] Furosemide [Lasix] 20 mg PO HS 02/22/20 [History] Ipratropium [place] [Atrovent Hfa] 2 puff INHALATION RT-QID PRN 02/22/20 [History] amLODIPine [Norvasc] 5 mg PO HS 02/22/20 [History] Nicotine 21Mg/24Hr Patch [Habitrol] 1 patch TRANSDERM DAILY #14 patch 02/23/20 [Rx] Follow up Appointment(s)/Referral(s): cardiology, [Other] - 2 Weeks (patient states she will talk to primary and set up appointment herself if needed. ) Fermin Hernandez MD [Primary Care Provider] - 03/01/20 3:40 pm (Hospital follow up ) Discharge Disposition: HOME SELF-CARE
--- NOTE | 2020-02-25 16:00 | ECHOF ---
Referral Reason:chest pain MEASUREMENTS -------- HEIGHT: 160.0 cm WEIGHT: 74.8 kg BP: RVIDd: 3.3 cm (< 3.3) IVSd: 1.1 cm (0.6 - 1.1) LVIDd: 3.2 cm (3.9 - 5.3) LVPWd: 1.0 cm (0.6 - 1.1) IVSs: 1.3 cm LVIDs: 2.4 cm LVPWs: 1.5 cm LA Diam: 3.4 cm (2.7 - 3.8) LAESV Index (A-L): 25.46 ml/m Ao Diam: 2.8 cm (2.0 - 3.7) AV Cusp: 1.6 cm (1.5 - 2.6) MV EXCURSION: 12.690 mm (> 18.000) MV EF SLOPE: 68 mm/s (70 - 150) EPSS: 0.6 cm MV E Nakul: 1.01 m/s MV DecT: 196 ms MV A Nakul: 0.98 m/s MV E/A Ratio: 1.03 RAP: 5.00 mmHg RVSP: 35.45 mmHg FINDINGS -------- Sinus rhythm. This was a technically adequate study. LV size, wall thickness and systolic function are normal, with an EF greater than 55%. There is mil d concentric left ventricular hypertrophy. The right ventricle is normal in size. Normal LA size by volume 22+/-6 ml/m2. The right atrial size is normal. There is mild aortic valve sclerosis. There is no evidence of aortic regurgitation. The mitral valve is normal. Mild mitral regurgitation is present. Mild tricuspid regurgitation present. There is mild pulmonary hypertension. The right ventricular systolic pressure, as measured by Doppler, is 35.45mmHg. There is no pulmonic regurgitation present. The aortic root size is normal. There is no pericardial effusion. CONCLUSIONS -------- 1. LV size, wall thickness and systolic function are normal, with an EF greater than 55%. 2. There is mild concentric left ventricular hypertrophy. 3. Normal LA size by volume 22+/-6 ml/m2. 4. There is mild aortic valve sclerosis. 5. Mild mitral regurgitation is present. 6. Mild tricuspid regurgitation present. 7. There is mild pulmonary hypertension. 8. There is no pericardial effusion. FL[employer] MACHINE CLERK: Madison Romero RDCS
== END 2020-02-23 15:09 | disposition home or self-care (01) ==
LOC: EC 02:02 → 3SCARD 04:01
PROVIDERS: ADMIT Hospitalist; ATTEND Hospitalist
DX: R07.89 Other chest pain (principal); Z11.59 Encounter for screening for other viral diseases; E78.00 Pure hypercholesterolemia, unspecified; E78.5 Hyperlipidemia, unspecified; F17.210 Nicotine dependence, cigarettes, uncomplicated; I10 Essential (primary) hypertension; J44.9 Chronic obstructive pulmonary disease, unspecified; M19.041 Primary osteoarthritis, right hand; M19.042 Primary osteoarthritis, left hand; M41.9 Scoliosis, unspecified; Z79.82 Long term (current) use of aspirin; Z79.899 Other long term (current) drug therapy; Z82.3 Family history of stroke; Z82.49 Family history of ischemic heart disease and other diseases of the circulatory system; Z85.41 Personal history of malignant neoplasm of cervix uteri; Z90.710 Acquired absence of both cervix and uterus; Z79.1 Long term (current) use of non-steroidal anti-inflammatories (NSAID); Z88.2 Allergy status to sulfonamides; Z88.8 Allergy status to other drugs, medicaments and biological substances
CPT/HCPCS: 99285; 36415; 94640; 93005; 93306; 93351; 83880; 80061; 80053; 83735; 84484; 85025; 85610; 85730; 71046; G0378 ×2; U0003

== ENCOUNTER 2020-07-13 01:46 | Inpatient (IN) | payer OTHER ==
[2020-07-13] MEDS ORDERED: methylPREDNISolone SOD SUCCI 125 MG/2 ML VIAL IV STA (02:02)
[2020-07-13] MEDS ORDERED: IPRATROPIUM-ALBUTEROL 3 ML NEB INHALATION STA ×2 (02:03→03:34)
[2020-07-13 02:54] LABS: Basophils # (A) 0.1 k/uL (0-0.2); Basophils % (A) 1 %; Eosinophils # (A) 0.6 k/uL (0-0.7); Eosinophils % (A) 6 %; HCT 41.9 % (34.0-46.0); HGB 14.1 gm/dL (11.4-16.0); Lymphocytes # (A) 1.4 k/uL (1.0-4.8); Lymphocytes % (A) 14 %; MCH 31.8 pg (25.0-35.0); MCHC 33.7 g/dL (31.0-37.0); MCV 94.4 fL (80.0-100.0); Mean Platelet Volume 8.1; Monocytes # (A) 0.5 k/uL (0-1.0); Monocytes % (A) 5 %; Neutrophils # (A) 7.4 k/uL (1.3-7.7); Neutrophils % (A) 72 %; Platelet Count 173 k/uL (150-450); RBC 4.44 m/uL (3.80-5.40); RDW 12.3 % (11.5-15.5); WBC 10.2 k/uL (3.8-10.6)
[2020-07-13 03:04] LABS: ALT 40 U/L (4-34); AST 30 U/L (14-36); African American GFR (CKD) >90 (>60 ml/min/1.73 sqM); Albumin 4.5 g/dL (3.5-5.0); Alkaline Phosphatase 95 U/L (38-126); Anion Gap 6 mmol/L; Blood Urea Nitrogen 18 mg/dL (7-17); Calcium 9.3 mg/dL (8.4-10.2); Carbon Dioxide 27 mmol/L (22-30); Chloride 101 mmol/L (98-107); Glucose 127 mg/dL (74-99); INR 0.9 (<1.2); Non-African American GFR(CKD) 79 (>60 ml/min/1.73 sqM); Partial Thromboplastin Time 22.9 sec (22.0-30.0); Potassium 4.1 mmol/L (3.5-5.1); Prothrombin Time 9.4 sec (9.0-12.0); Sodium 134 mmol/L (137-145); Total Bilirubin 0.7 mg/dL (0.2-1.3); Total Protein 7.1 g/dL (6.3-8.2)
--- NOTE | 2020-07-13 03:11 | ED ---
SOB HPI - General Chief Complaint: Shortness of Breath Stated Complaint: ANGELA Time Seen by Provider: 07/13/20 01:59 Source: patient, family Mode of arrival: wheelchair Limitations: no limitations - Related Data Home Medications Medication Instructions Recorded Confirmed Aspirin 81 mg PO HS 08/20/15 02/22/20 Atorvastatin [Lipitor] 10 mg PO HS 08/20/15 02/22/20 Ramipril 20 mg PO HS 08/20/15 02/22/20 Montelukast [Singulair] 10 mg PO HS 07/15/19 02/22/20 Fluticasone/Umeclidin/Vilanter 1 puff INHALATION RT-HS 02/22/20 02/22/20 [Trelegy Ellipta 100-62.5-25] Furosemide [Lasix] 20 mg PO HS 02/22/20 02/22/20 Ipratropium [place] [Atrovent Hfa] 2 puff INHALATION RT-QID PRN 02/22/20 02/22/20 amLODIPine [Norvasc] 5 mg PO HS 02/22/20 02/22/20 Previous Rx's Medication Instructions Recorded Nicotine 21Mg/24Hr Patch [Habitrol] 1 patch TRANSDERM DAILY #14 patch 02/23/20 Allergies Allergy/AdvReac Type Severity Reaction Status Date / Time adhesive tape Allergy Rash/Hives Verified 07/13/20 01:55 Sulfa (Sulfonamide Allergy Swelling Verified 07/13/20 01:55 Antibiotics) codeine AdvReac Nausea & Verified 07/13/20 01:55 Vomiting Review of Systems ROS Statement: Those systems with pertinent positive or pertinent negative responses have been documented in the HPI. ROS Other: All systems not noted in ROS Statement are negative. Past Medical History Past Medical History: Asthma, Cancer, COPD, Hyperlipidemia, Hypertension, Osteoarthritis (OA) Additional Past Medical History / Comment(s): Bronchitis, cervical cancer with hysterectomy, kyphoscoliosis of the spine, arthritis bilateral hands and knees. History of Any Multi-Drug Resistant Organisms: None Reported Past Surgical History: Hysterectomy, Tonsillectomy Additional Past Surgical History / Comment(s): Hemangioma removed from side head, exploratory laparotomy with R salpingectomy, lymph nodes removed from groin with hysterectomy (cervical cancer). Past Anesthesia/Blood Transfusion Reactions: Postoperative Nausea & Vomiting (PONV) Additional Past Anesthesia/Blood Transfusion Reaction / Comment(s): I wake up "rowdy." Past Psychological History: No Psychological Hx Reported Smoking Status: Current some day smoker Past Alcohol Use History: None Reported Past Drug Use History: None Reported - Past Family History Mother Family Medical History: Vascular Disorder Additional Family Medical History / Comment(s): Mother of a cerebral aneurysm at the age of 29 yrs. Father Family Medical History: CVA/TIA Additional Family Medical History / Comment(s): Father of a CVA-pt unable to recall at what age. General Exam Limitations: no limitations Course Vital Signs 07/13/20 01:50 Temperature 97.7 F Pulse Rate 113 H Respiratory 36 H Rate Blood Pressure 163/75 O2 Sat by Pulse 88 L Oximetry Medical Decision Making - Lab Data Result diagrams: 07/13/20 02:44 07/13/20 02:44 Lab Results 07/13/20 07/13/20 07/13/20 Range/Units 02:44 02:44 02:44 WBC 10.2 (3.8-10.6) k/uL RBC 4.44 (3.80-5.40) m/uL Hgb 14.1 (11.4-16.0) gm/dL Hct 41.9 (34.0-46.0) % MCV 94.4 (80.0-100.0) fL MCH 31.8 (25.0-35.0) pg MCHC 33.7 (31.0-37.0) g/dL RDW 12.3 (11.5-15.5) % Plt Count 173 (150-450) k/uL MPV 8.1 Neutrophils % 72 % Lymphocytes % 14 % Monocytes % 5 % Eosinophils % 6 % Basophils % 1 % Neutrophils # 7.4 (1.3-7.7) k/uL Lymphocytes # 1.4 (1.0-4.8) k/uL Monocytes # 0.5 (0-1.0) k/uL Eosinophils # 0.6 (0-0.7) k/uL Basophils # 0.1 (0-0.2) k/uL PT 9.4 (9.0-12.0) sec INR 0.9 (<1.2) APTT 22.9 (22.0-30.0) sec Sodium 134 L (137-145) mmol/L Potassium 4.1 (3.5-5.1) mmol/L Chloride 101 (98-107) mmol/L Carbon Dioxide 27 (22-30) mmol/L Anion Gap 6 mmol/L BUN 18 H (7-17) mg/dL Creatinine 0.81 (0.52-1.04) mg/dL Est GFR (CKD-EPI)AfAm >90 (>60 ml/min/1.73 sqM) Est GFR (CKD-EPI)NonAf 79 (>60 ml/min/1.73 sqM) Glucose 127 H (74-99) mg/dL Plasma Lactic Acid Yusuf (0.7-2.0) mmol/L Calcium 9.3 (8.4-10.2) mg/dL Total Bilirubin 0.7 (0.2-1.3) mg/dL AST 30 (14-36) U/L ALT 40 H (4-34) U/L Alkaline Phosphatase 95 (38-126) U/L Total Protein 7.1 (6.3-8.2) g/dL Albumin 4.5 (3.5-5.0) g/dL 07/13/20 Range/Units 02:44 WBC (3.8-10.6) k/uL RBC (3.80-5.40) m/uL Hgb (11.4-16.0) gm/dL Hct (34.0-46.0) % MCV (80.0-100.0) fL MCH (25.0-35.0) pg MCHC (31.0-37.0) g/dL RDW (11.5-15.5) % Plt Count (150-450) k/uL MPV Neutrophils % % Lymphocytes % % Monocytes % % Eosinophils % % Basophils % % Neutrophils # (1.3-7.7) k/uL Lymphocytes # (1.0-4.8) k/uL Monocytes # (0-1.0) k/uL Eosinophils # (0-0.7) k/uL Basophils # (0-0.2) k/uL PT (9.0-12.0) sec INR (<1.2) APTT (22.0-30.0) sec Sodium (137-145) mmol/L Potassium (3.5-5.1) mmol/L Chloride (98-107) mmol/L Carbon Dioxide (22-30) mmol/L Anion Gap mmol/L BUN (7-17) mg/dL Creatinine (0.52-1.04) mg/dL Est GFR (CKD-EPI)AfAm (>60 ml/min/1.73 sqM) Est GFR (CKD-EPI)NonAf (>60 ml/min/1.73 sqM) Glucose (74-99) mg/dL Plasma Lactic Acid Yusuf 1.1 (0.7-2.0) mmol/L Calcium (8.4-10.2) mg/dL Total Bilirubin (0.2-1.3) mg/dL AST (14-36) U/L ALT (4-34) U/L Alkaline Phosphatase (38-126) U/L Total Protein (6.3-8.2) g/dL Albumin (3.5-5.0) g/dL Disposition Referrals: Fermin Hernandez MD [Primary Care Provider] - 1-2 days
--- NOTE | 2020-07-13 03:21 | ED ---
General Adult HPI - General Source: patient, family, RN notes reviewed, old records reviewed Mode of arrival: wheelchair Limitations: no limitations <Yasir Vallejo - Last Filed: 07/13/20 03:21> <Fermin Douglas - Last Filed: 07/13/20 03:59> - General Chief complaint: Shortness of Breath Stated complaint: ANGELA Time Seen by Provider: 07/13/20 01:59 - History of Present Illness Initial comments: 60-year-old female patient history of COPD, asthma to ED with COPD exacerbation. Patient reports that her breathing has been significantly worse. She is having COPD exacerbation. Patient did have a shot of antibiotics and steroids this morning at urgent care. Reports that she has been taking treatments at home with minimal improvement. Denies any fevers or any acute chest pain. She reports that she has mild aching of her right ribs where she fractured them years ago and that always a car when she has COPD exacerbation. Systemic: Pt denies fatigue, fever/chills, rash. Pt denies weakness, night sweats, weight loss. Neuro: Pt denies headache, visual disturbances, syncope or pre-syncope. HEENT: Pt denies ocular discharge or irritation, otalgia, rhinorrhea, pharyngitis or notable lymphadenopathy. Cardiopulmonary: Pt denies chest pain, heart palpitations, dyspnea on exertion. Abdominal/GI: Pt denies abdominal pain, n/v/d. : Pt denies dysuria, burning w/ urination, frequency/urgency. Denies new onset urinary or bowel incontinence. MSK: Pt denies myalgia, loss of strength or function in extremities. Neuro: Pt denies new onset weakness, paresthesias. (Yasir Vallejo) - Related Data Home Medications Medication Instructions Recorded Confirmed Aspirin 81 mg PO HS 08/20/15 02/22/20 Atorvastatin [Lipitor] 10 mg PO HS 08/20/15 02/22/20 Ramipril 20 mg PO HS 08/20/15 02/22/20 Montelukast [Singulair] 10 mg PO HS 07/15/19 02/22/20 Fluticasone/Umeclidin/Vilanter 1 puff INHALATION RT-HS 02/22/20 02/22/20 [Trelegy Ellipta 100-62.5-25] Furosemide [Lasix] 20 mg PO HS 02/22/20 02/22/20 Ipratropium [place] [Atrovent Hfa] 2 puff INHALATION RT-QID PRN 02/22/20 02/22/20 amLODIPine [Norvasc] 5 mg PO HS 02/22/20 02/22/20 Previous Rx's Medication Instructions Recorded Nicotine 21Mg/24Hr Patch [Habitrol] 1 patch TRANSDERM DAILY #14 patch 02/23/20 Allergies Allergy/AdvReac Type Severity Reaction Status Date / Time adhesive tape Allergy Rash/Hives Verified 07/13/20 01:55 Sulfa (Sulfonamide Allergy Swelling Verified 07/13/20 01:55 Antibiotics) codeine AdvReac Nausea & Verified 07/13/20 01:55 Vomiting Review of Systems ROS Other: All systems not noted in ROS Statement are negative. <Yasir Vallejo - Last Filed: 07/13/20 03:21> ROS Other: All systems not noted in ROS Statement are negative. <Fermin Douglas - Last Filed: 07/13/20 03:59> ROS Statement: Those systems with pertinent positive or pertinent negative responses have been documented in the HPI. Past Medical History Past Medical History: Asthma, Cancer, COPD, Hyperlipidemia, Hypertension, Osteoarthritis (OA) Additional Past Medical History / Comment(s): Bronchitis, cervical cancer with hysterectomy, kyphoscoliosis of the spine, arthritis bilateral hands and knees. History of Any Multi-Drug Resistant Organisms: None Reported Past Surgical History: Hysterectomy, Tonsillectomy Additional Past Surgical History / Comment(s): Hemangioma removed from side head, exploratory laparotomy with R salpingectomy, lymph nodes removed from groin with hysterectomy (cervical cancer). Past Anesthesia/Blood Transfusion Reactions: Postoperative Nausea & Vomiting (PONV) Additional Past Anesthesia/Blood Transfusion Reaction / Comment(s): I wake up " rowdy." Past Psychological History: No Psychological Hx Reported Smoking Status: Current some day smoker Past Alcohol Use History: None Reported Past Drug Use History: None Reported - Past Family History Mother Family Medical History: Vascular Disorder Additional Family Medical History / Comment(s): Mother of a cerebral aneurysm at the age of 29 yrs. Father Family Medical History: CVA/TIA Additional Family Medical History / Comment(s): Father of a CVA-pt unable to recall at what age. <Yasir Vallejo - Last Filed: 07/13/20 03:21> General Exam Limitations: no limitations <Yasir Vallejo - Last Filed: 07/13/20 03:21> General appearance: alert, in no apparent distress, anxious, in distress Head exam: Present: atraumatic, normocephalic, normal inspection Eye exam: Present: normal appearance, PERRL, EOMI. Absent: scleral icterus, conjunctival injection, periorbital swelling ENT exam: Present: normal exam, mucous membranes moist Neck exam: Present: normal inspection. Absent: tenderness, meningismus, lymphadenopathy Respiratory exam: Present: respiratory distress, wheezes, accessory muscle use, decreased breath sounds, prolonged expiratory. Absent: rales, rhonchi, stridor Cardiovascular Exam: Present: normal rhythm, tachycardia, normal heart sounds. Absent: systolic murmur, diastolic murmur, rubs, gallop, clicks GI/Abdominal exam: Present: soft, normal bowel sounds. Absent: distended, tenderness, guarding, rebound, rigid Extremities exam: Present: normal inspection, full ROM, normal capillary refill. Absent: tenderness, pedal edema, joint swelling, calf tenderness Back exam: Present: normal inspection Neurological exam: Present: alert, oriented X3, CN II-XII intact Psychiatric exam: Present: normal affect, normal mood Skin exam: Present: warm, dry, intact, normal color. Absent: rash <DianasameeraFermin Vish - Last Filed: 07/13/20 03:59> - General Exam Comments Initial Comments: Constitutional: NAD, AOX3, Pt has pleasant affect. HEENT: NC/AT, trachea midline, neck supple, no lymphadenopathy. Posterior pharynx non erythematous, without exudates. External ears appear normal, without discharge. Mucous membranes moist. Eyes PERRLA, EOM intact. There is no scleral icterus. No pallor noted. Cardiopulmonary: RRR, no murmurs, rubs or gallops, no JVD noted. Wheezing anterior posterior lung quiles. No peripheral edema. Abdominal exam: Abdomen soft and non-distended. Abdomen non-tender to palpation in all 4 quadrants. Bowel sounds active in LLQ. No hepatosplenomegaly. No ecchymosis Neuro: CN II-XII grossly intact. No nuchal rigidity. No raccon eyes, no mckeon sign, no hemotympanum. No cervical spinal tenderness. MSK: No posterior calf tenderness bilaterally, homans sign negative bilaterally. Posterior tibialis and radial pulse +2 bilaterally. Sensation intact in upper and lower extremities. Full active ROM in upper and lower extremities, 5/5 stregnth. (Yasir Vallejo) Course <Fermin Douglas - Last Filed: 07/13/20 03:59> Vital Signs 07/13/20 07/13/20 07/13/20 01:50 03:18 03:30 Temperature 97.7 F Pulse Rate 113 H 105 H 105 H Respiratory 36 H Rate Blood Pressure 163/75 O2 Sat by Pulse 88 L Oximetry 07/13/20 03:52 Temperature Pulse Rate 99 Respiratory Rate Blood Pressure O2 Sat by Pulse Oximetry - Reevaluation(s) Reevaluation #1: 07/13/20 03:58 Medical record is reviewed (Fermin Douglas) Reevaluation #2: 07/13/20 03:58 No real improvement in breathing after's first breathing treatment (Fermin Douglas) Medical Decision Making - Lab Data Result diagrams: 07/13/20 02:44 07/13/20 02:44 - EKG Data -: EKG Interpreted by Me (and Dr. Douglas ) <Yasir Vallejo - Last Filed: 07/13/20 03:21> - Lab Data Result diagrams: 07/13/20 02:44 07/13/20 02:44 - Radiology Data Radiology results: report reviewed (Chest x-rays negative for acute disease), image reviewed <Fermin Douglas - Last Filed: 07/13/20 03:59> - Medical Decision Making 60 female DF for evaluation, patient is severe shortness of breath will admit for continued breathing treatments, monitoring of oxygen levels (Fermin Douglas) - Lab Data Lab Results 07/13/20 07/13/20 07/13/20 Range/Units 02:44 02:44 02:44 WBC 10.2 (3.8-10.6) k/uL RBC 4.44 (3.80-5.40) m/uL Hgb 14.1 (11.4-16.0) gm/dL Hct 41.9 (34.0-46.0) % MCV 94.4 (80.0-100.0) fL MCH 31.8 (25.0-35.0) pg MCHC 33.7 (31.0-37.0) g/dL RDW 12.3 (11.5-15.5) % Plt Count 173 (150-450) k/uL MPV 8.1 Neutrophils % 72 % Lymphocytes % 14 % Monocytes % 5 % Eosinophils % 6 % Basophils % 1 % Neutrophils # 7.4 (1.3-7.7) k/uL Lymphocytes # 1.4 (1.0-4.8) k/uL Monocytes # 0.5 (0-1.0) k/uL Eosinophils # 0.6 (0-0.7) k/uL Basophils # 0.1 (0-0.2) k/uL PT 9.4 (9.0-12.0) sec INR 0.9 (<1.2) APTT 22.9 (22.0-30.0) sec Sodium 134 L (137-145) mmol/L Potassium 4.1 (3.5-5.1) mmol/L Chloride 101 (98-107) mmol/L Carbon Dioxide 27 (22-30) mmol/L Anion Gap 6 mmol/L BUN 18 H (7-17) mg/dL Creatinine 0.81 (0.52-1.04) mg/dL Est GFR (CKD-EPI)AfAm >90 (>60 ml/min/1.73 sqM) Est GFR (CKD-EPI)NonAf 79 (>60 ml/min/1.73 sqM) Glucose 127 H (74-99) mg/dL Plasma Lactic Acid Yusuf (0.7-2.0) mmol/L Calcium 9.3 (8.4-10.2) mg/dL Total Bilirubin 0.7 (0.2-1.3) mg/dL AST 30 (14-36) U/L ALT 40 H (4-34) U/L Alkaline Phosphatase 95 (38-126) U/L Troponin I (0.000-0.034) ng/mL Total Protein 7.1 (6.3-8.2) g/dL Albumin 4.5 (3.5-5.0) g/dL 07/13/20 07/13/20 Range/Units 02:44 02:44 WBC (3.8-10.6) k/uL RBC (3.80-5.40) m/uL Hgb (11.4-16.0) gm/dL Hct (34.0-46.0) % MCV (80.0-100.0) fL MCH (25.0-35.0) pg MCHC (31.0-37.0) g/dL RDW (11.5-15.5) % Plt Count (150-450) k/uL MPV Neutrophils % % Lymphocytes % % Monocytes % % Eosinophils % % Basophils % % Neutrophils # (1.3-7.7) k/uL Lymphocytes # (1.0-4.8) k/uL Monocytes # (0-1.0) k/uL Eosinophils # (0-0.7) k/uL Basophils # (0-0.2) k/uL PT (9.0-12.0) sec INR (<1.2) APTT (22.0-30.0) sec Sodium (137-145) mmol/L Potassium (3.5-5.1) mmol/L Chloride (98-107) mmol/L Carbon Dioxide (22-30) mmol/L Anion Gap mmol/L BUN (7-17) mg/dL Creatinine (0.52-1.04) mg/dL Est GFR (CKD-EPI)AfAm (>60 ml/min/1.73 sqM) Est GFR (CKD-EPI)NonAf (>60 ml/min/1.73 sqM) Glucose (74-99) mg/dL Plasma Lactic Acid Yusuf 1.1 (0.7-2.0) mmol/L Calcium (8.4-10.2) mg/dL Total Bilirubin (0.2-1.3) mg/dL AST (14-36) U/L ALT (4-34) U/L Alkaline Phosphatase (38-126) U/L Troponin I <0.012 (0.000-0.034) ng/mL Total Protein (6.3-8.2) g/dL Albumin (3.5-5.0) g/dL - EKG Data EKG Comments: Ventricular rate 94, [place] interval 122, QRS 68, QT/QTC 344/4:30. Normal sensory rhythm, normal EKG, no concern for acute ischemia. (Yasir Vallejo) Critical Care Time Critical Care Time: Yes Total Critical Care Time: 31 <Fermin Douglas - Last Filed: 07/13/20 03:59> Disposition <Yasir Vallejo - Last Filed: 07/13/20 03:21> Is patient prescribed a controlled substance at d/c from ED?: No <Fermin Douglas - Last Filed: 07/13/20 03:59> Clinical Impression: COPD with acute exacerbation, Acute exacerbation of chronic obstructive pulmonary disease, Hypoxemia, Acute exacerbation of chronic obstructive airways disease Disposition: ADMITTED IP TO THIS HOSP Condition: Serious Referrals: Fermin Henrandez MD [Primary Care Provider] - 1-2 days
[2020-07-13] MEDS ORDERED: IPRATROPIUM-ALBUTEROL 3 ML NEB INHALATION PRN (03:34)
--- NOTE | 2020-07-13 03:34 | XR ---
EXAM: XR Chest, 1 View CLINICAL HISTORY: ITS.REASON XR Reason: difficulty breathing TECHNIQUE: Frontal view of the chest. COMPARISON: 06/24/20 FINDINGS: Mild lower lung atelectasis or developing infiltrate. No significant pleural effusion or pneumothorax. Stable cardiomediastinal silhouette. Additional findings similar to prior. IMPRESSION: Mild lower lung atelectasis or developing infiltrate.
[2020-07-13] MEDS ORDERED: ALBUTEROL NEBULIZED 2.5 MG/3 ML INHALATION STA (03:35)
[2020-07-13] MEDS ORDERED: NON FORMULARY DRUG (Fluticasone/Umeclidin/Vilanter [Trelegy Ellipta 100-62.5-25] 1 EACH Bl INHALATION SCH (08:00)
[2020-07-13] MEDS ORDERED: ALBUTEROL NEBULIZED 2.5 MG/3 ML INHALATION SCH (08:00)
[2020-07-13] MEDS ORDERED: SYMBICORT 80-4.5 MCG INHALER INHALATION SCH (09:00)
[2020-07-13] MEDS: methylPREDNISolone SOD SUCCI 125 MG/2 ML VIAL IV SCH ×3 (09:14→17:41)
[2020-07-13] MEDS: SODIUM CHLORIDE 0.9% 1,000 ML IV SCH ×3 (09:14→22:11)
[2020-07-13] MEDS: BUDESONIDE 1 MG/2 ML NEBU INHALATION SCH ×2 (11:15→19:52)
[2020-07-13] MEDS: FORMOTEROL FUMARATE 20 MCG/2 ML NEBU INHALATION SCH ×2 (11:16→19:52)
[2020-07-13] MEDS: IPRATROPIUM-ALBUTEROL 3 ML NEB INHALATION SCH ×5 (11:16→23:43)
[2020-07-13] MEDS: IPRATROPIUM 0.5 MG/2.5 ML NEBU INHALATION SCH ×3 (11:16→19:52)
[2020-07-13] MEDS: ENOXAPARIN 40 MG/0.4 ML SYRINGE SQ SCH ×2 (12:00→13:29)
--- NOTE | 2020-07-13 19:05 | P.CNPUL ---
History of Present Illness Consult date: 07/13/20 Reason for consult: dyspnea, cough Chief complaint: Acute exacerbation of COPD History of present illness: 60-year-old white female patient with known history of chronic obstructive pulmonary disease, nicotine dependence, hyperlipidemia, severe kyphoscoliosis, degenerative joint disease, history of cervical cancer, hypertension, follows with Dr. Larsen in the pulmonary clinic for her history of COPD came in to the emergency department on 07/13/2020 for evaluation of worsening dyspnea, cough, which is nonproductive. She denied any fever or chills, denied any chest pain, she reports a sensation as if she has several stuck in her chest and she is not able to bring it up. Patient was seen at an urgent care clinic, and she was given a prescription for antibiotics and steroids however she did not pick them up. Her breathing continued to get worse and she presented to the emergency department at 3:00 in the morning for evaluation and treatment. Chest x-ray was obtained showing mild lower lung atelectasis or developing infiltrate. Vital signs have been stable, she has been afebrile, she sat 93% on 2 L, appears to be comfortable, denies any hemoptysis, denies any pleuritic chest pain, she was tested for COVID 19 and influenza A and B and was found to be negative. Lab work showed a CBC within normal limits, coagulation profile was within normal limits, electrolytes and renal profile were unremarkable, plasma lactic acid was 1.1, troponin was negative at less than 0.012, she was started on IV steroids, nebulized bronchodilators, she is already feeling better Review of Systems All systems: negative Constitutional: Denies chills, Denies fever Eyes: denies blurred vision, denies pain Ears, nose, mouth and throat: Denies headache, Denies sore throat Cardiovascular: Denies chest pain, Denies shortness of breath Respiratory: Reports cough, Reports dyspnea Gastrointestinal: Denies abdominal pain, Denies diarrhea, Denies nausea, Denies vomiting Genitourinary: Denies dysuria, Denies hematuria Musculoskeletal: Denies myalgias Integumentary: Denies pruritus, Denies rash Neurological: Denies numbness, Denies weakness Psychiatric: Denies anxiety, Denies depression Endocrine: Denies fatigue, Denies weight change Past Medical History Past Medical History: Asthma, Cancer, Chest Pain / Angina, COPD, Hyperlipidemia, Hypertension, Osteoarthritis (OA) Additional Past Medical History / Comment(s): Bronchitis, cervical cancer with hysterectomy, kyphoscoliosis of the spine, arthritis all over but worse in R knees. History of Any Multi-Drug Resistant Organisms: None Reported Past Surgical History: Hysterectomy, Tonsillectomy Additional Past Surgical History / Comment(s): Hemangioma removed from side head, exploratory laparotomy with R salpingectomy, lymph nodes removed from groin with hysterectomy (cervical cancer). Past Anesthesia/Blood Transfusion Reactions: Postoperative Nausea & Vomiting (PONV) Additional Past Anesthesia/Blood Transfusion Reaction / Comment(s): I wake up "rowdy." Smoking Status: Current some day smoker - Past Family History Mother Family Medical History: Vascular Disorder Additional Family Medical History / Comment(s): Mother of a cerebral aneurysm at the age of 29 yrs. Father Family Medical History: Coronary Artery Disease (CAD), CVA/TIA Additional Family Medical History / Comment(s): Father of a CVA-pt unable to recall at what age. Medications and Allergies Home Medications Medication Instructions Recorded Confirmed Type Aspirin 81 mg PO HS 08/20/15 07/13/20 History Atorvastatin [Lipitor] 10 mg PO HS 08/20/15 07/13/20 History Ramipril 10 mg PO HS 08/20/15 07/13/20 History Montelukast [Singulair] 10 mg PO HS 07/15/19 07/13/20 History Fluticasone/Umeclidin/Vilanter 1 puff INHALATION RT-DAILY 02/22/20 07/13/20 History [Trelegy Ellipta 100-62.5-25] Ipratropium [place] [Atrovent Hfa] 2 puff INHALATION RT-QID PRN 02/22/20 07/13/20 History amLODIPine [Norvasc] 5 mg PO HS 02/22/20 07/13/20 History hydroCHLOROthiazide [Hydrodiuril] 25 mg PO DAILY 07/13/20 07/13/20 History Allergies Allergy/AdvReac Type Severity Reaction Status Date / Time adhesive tape Allergy Rash/Hives Verified 07/13/20 07:08 Sulfa (Sulfonamide Allergy Swelling Verified 07/13/20 07:08 Antibiotics) codeine AdvReac Nausea & Verified 07/13/20 07:08 Vomiting Physical Exam Vitals: Vital Signs Temp Pulse Pulse Resp BP BP Pulse Ox 07/13/20 15:43 91 07/13/20 15:34 88 07/13/20 12:41 98.1 F 62 18 148/70 93 L 07/13/20 11:33 92 07/13/20 11:18 96 07/13/20 08:29 96 07/13/20 08:12 92 07/13/20 06:00 84 16 100 07/13/20 05:29 98.7 F 94 18 127/71 100 07/13/20 04:03 104 H 07/13/20 04:00 95 24 98 07/13/20 03:52 99 07/13/20 03:30 105 H 07/13/20 03:18 105 H 07/13/20 02:00 30 H 07/13/20 01:50 97.7 F 113 H 36 H 163/75 88 L Intake and Output 07/13/20 07/13/20 07/13/20 06:59 14:59 22:59 Intake Total 440 Balance 440 Intake: Intake, IV Titration 200 Amount Sodium Chloride 0.9% 1, 200 000 ml @ 100 mls/hr IV . Q10H [facility] Rx#:[id number] Oral 240 Other: Voiding Method Toilet Weight 73.028 kg 73.028 kg GENERAL EXAM: Alert, pleasant, 59-year-old white female, 2 L of oxygen with a pulse ox of 93% comfortable in no apparent distress. HEAD: Normocephalic/atraumatic. EYES: Normal reaction of pupils, equal size. Conjunctiva pink, sclera white. NOSE: Clear with pink turbinates. THROAT: No erythema or exudates. NECK: No masses, no JVD, no thyroid enlargement, no adenopathy. CHEST: No chest wall deformity. Patient has LUNGS: Equal air entry with diminished breath sounds, no rhonchi, no crackles, no wheezes CVS: Regular rate and rhythm, normal S1 and S2, no gallops, no murmurs, no rubs ABDOMEN: Soft, nontender. No hepatosplenomegaly, normal bowel sounds, no guarding or rigidity. EXTREMITIES: No clubbing, no edema, no cyanosis, 2+ pulses and upper and lower extremities. MUSCULOSKELETAL: Muscle strength and tone normal. SPINE: Dextroscoliosis of the spine noted SKIN: No rashes CENTRAL NERVOUS SYSTEM: Alert and oriented -3. No focal deficits, tone is normal in all 4 extremities. PSYCHIATRIC: Alert and oriented -3. Appropriate affect. Intact judgment and insight. Results - Laboratory Findings CBC and BMP: 07/13/20 02:44 07/13/20 02:44 PT/INR, D-dimer PT 9.4 sec (9.0-12.0) 07/13/20 02:44 INR 0.9 (<1.2) 07/13/20 02:44 Abnormal lab findings: Abnormal Labs 07/13/20 02:44 Sodium 134 L BUN 18 H Glucose 127 H ALT 40 H - Diagnostic Findings Chest x-ray: report reviewed, image reviewed Assessment and Plan Plan: Assessment: #1. Acute exacerbation of chronic obstructive pulmonary disease, with no clear evidence of pneumonia, patient ruled out for COVID 19, and ruled out for influenza A and B #2. History of smoking #3. Hypertension #4. Hyperlipidemia #5. Osteoarthritis #6. Severe kyphoscoliosis #7. History of cervical cancer, status post hysterectomy #8. History of degenerative joint disease Plan: We will add doxycycline for antibiotic coverage for possibility of tracheobro nchitis, continue IV steroids, nebulized bronchodilators, no clear evidence of pneumonia on the chest x-ray, vital signs have been stable, patient has been afebrile, she ruled out for COVID 19th and influenza A and B. Appears stable, breathing comfortably, she reports improvement since admission. If she remains stable, consider discharge home in the morning I performed a history & physical examination of the patient and discussed their management with my nurse practitioner, Carley Tyler. I reviewed the nurse practitioner's note and agree with the documented findings and plan of care. Janette ng sounds are positive for diminished breath sounds The findings and the impression was discussed with the patient. I attest to the documentation by the nurse practitioner. Time with Patient: Greater than 30
[2020-07-13] MEDS: ASPIRIN 81 MG PO SCH (20:16)
[2020-07-13] MEDS: ATORVASTATIN 10 MG TAB PO SCH (20:16)
[2020-07-13] MEDS: lisinopriL 20 MG TAB PO SCH (20:16)
[2020-07-13] MEDS: amLODIPine 5 MG TAB PO SCH (20:16)
[2020-07-13] MEDS: DOXYCYCLINE 100 MG in SODIUM CHLORIDE 0.9% 100 ML IVPB SCH (20:16)
[2020-07-13] MEDS: MONTELUKAST 10 MG TAB PO SCH (20:16)
--- NOTE | 2020-07-13 20:42 | P.HPIM ---
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 Chronic stable medical conditions include hypertension, hyperlipidemia, osteoarthritis, kyphoscoliosis, Patient stopped smoking about a month ago. She presents with 4 days of progressive increasingly short of breath. Increase in wheezing. Some cough with clear sputum. Denies any fever and chills. Appetite had gone down. Patient tried a medication nebulizers at home with not much help. Decided to come in. Review of systems: GEN.: Tired EYES: None HEENT: None NECK: None RESPIRATORY: As above CARDIOVASCULAR: As above GASTROINTESTINAL: None GENITOURINARY: None MUSCULOSKELETAL: Joint pains LYMPHATICS: None HEMATOLOGICAL: None PSYCHIATRY: None NEUROLOGICAL: None Past medical history to include: Hypertension, hyperlipidemia, osteoarthritis, kyphoscoliosis, COPD, cervical cancer with hysterectomy, Social history: Smoking a pack a day for many years. Stopped a month ago. 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 No alcohol Physical examination: VITAL SIGNS: 97.7, 113, 36, 163 with 75, 88% room air-upon presentation GENERAL: BMI 29.4, sitting of age in bed, short of breath EYES: Pupils equal. Conjunctiva normal. HEENT: External appearance of nose and ears normal, oral cavity grossly normal. NECK: JVD not raised; masses not palpable. HEART: First and second heart sounds are normal; no edema. LUNGS: Respiratory rate increased, decreased breath sounds. Prolonged expiratio n ABDOMEN: Soft, nontender, liver spleen not palpable, no masses palpable. PSYCH: Alert and oriented x3; mood and affect normal. MUSCULOSKELETAL: Evidence of OA especially in the hands , kyphoscoliosis NEUROLOGICAL: Cranial nerves grossly intact; no facial asymmetry, power and sensation grossly intact. LYMPHATICS: No lymph nodes palpable in the axilla and neck INVESTIGATIONS, reviewed in the clinical context: White count 10.2 hemoglobin 14.1 platelets 173 potassium 4.1 creatinine 0.81 EKG tracing personally reviewed by me-normal sinus rhythm Chest x-ray film personally reviewed by me-hyperinflation. No obvious infiltrate, severe scoliosis Assessment: -Acute severe COPD exacerbation in a current smoker -Essential hypertension -Hyperlipidemia -Primary osteoarthritis -Kyphoscoliosis -Acute hypoxic respiratory failure from COPD exacerbation Plan: Patient started on bronchodilators, IV steroids, inhaled long-acting bronchodilators and steroids. Home medications resumed. Doxycycline. Lovenox for DVT prophylaxis. Care was discussed with the patient. Pulmonary consulted. Past Medical History Past Medical History: Asthma, Cancer, COPD, Hyperlipidemia, Hypertension, Osteoarthritis (OA) Additional Past Medical History / Comment(s): Bronchitis, cervical cancer with hysterectomy, kyphoscoliosis of the spine, arthritis bilateral hands and knees. History of Any Multi-Drug Resistant Organisms: None Reported Past Surgical History: Hysterectomy, Tonsillectomy Additional Past Surgical History / Comment(s): Hemangioma removed from side head, exploratory laparotomy with R salpingectomy, lymph nodes removed from groin with hysterectomy (cervical cancer). Past Anesthesia/Blood Transfusion Reactions: Postoperative Nausea & Vomiting (PONV) Additional Past Anesthesia/Blood Transfusion Reaction / Comment(s): I wake up "rowdy." Past Psychological History: No Psychological Hx Reported Smoking Status: Current some day smoker Past Alcohol Use History: None Reported Past Drug Use History: None Reported - Past Family History Mother Family Medical History: Vascular Disorder Additional Family Medical History / Comment(s): Mother of a cerebral aneurysm at the age of 29 yrs. Father Family Medical History: CVA/TIA Additional Family Medical History / Comment(s): Father of a CVA-pt unable to recall at what age. Medications and Allergies Home Medications Medication Instructions Recorded Confirmed Type Aspirin 81 mg PO HS 08/20/15 07/13/20 History Atorvastatin [Lipitor] 10 mg PO HS 08/20/15 07/13/20 History Ramipril 10 mg PO HS 08/20/15 07/13/20 History Montelukast [Singulair] 10 mg PO HS 07/15/19 07/13/20 History Fluticasone/Umeclidin/Vilanter 1 puff INHALATION RT-DAILY 02/22/20 07/13/20 History [[place] Ellipta 100-62.5-25] Ipratropium [place] [Atrovent Hfa] 2 puff INHALATION RT-QID PRN 02/22/20 07/13/20 History amLODIPine [Norvasc] 5 mg PO HS 02/22/20 07/13/20 History hydroCHLOROthiazide [Hydrodiuril] 25 mg PO DAILY 07/13/20 07/13/20 History Allergies Allergy/AdvReac Type Severity Reaction Status Date / Time adhesive tape Allergy Rash/Hives Verified 07/13/20 07:08 Sulfa (Sulfonamide Allergy Swelling Verified 07/13/20 07:08 Antibiotics) codeine AdvReac Nausea & Verified 07/13/20 07:08 Vomiting Physical Exam Vitals: Vital Signs Temp Pulse Resp BP Pulse Ox 07/13/20 08:29 96 07/13/20 08:12 92 07/13/20 06:00 84 16 100 07/13/20 05:29 98.7 F 94 18 127/71 100 07/13/20 04:03 104 H 07/13/20 04:00 95 24 98 07/13/20 03:52 99 07/13/20 03:30 105 H 07/13/20 03:18 105 H 07/13/20 02:00 30 H 07/13/20 01:50 97.7 F 113 H 36 H 163/75 88 L Intake and Output 07/12/20 07/13/20 07/13/20 22:59 06:59 14:59 Intake Total 240 Balance 240 Intake: Oral 240 Other: Voiding Method Toilet Weight 73.028 kg Results CBC & Chem 7: 07/13/20 02:44 07/13/20 02:44 Labs: Abnormal Lab Results - Last 24 Hours (Table) 07/13/20 Range/Units 02:44 Sodium 134 L (137-145) mmol/L BUN 18 H (7-17) mg/dL Glucose 127 H (74-99) mg/dL ALT 40 H (4-34) U/L
[2020-07-14] MEDS: methylPREDNISolone SOD SUCCI 125 MG/2 ML VIAL IV SCH ×5 (00:46→23:40)
[2020-07-14] MEDS: IPRATROPIUM-ALBUTEROL 3 ML NEB INHALATION SCH ×5 (04:27→19:43)
[2020-07-14] MEDS: FORMOTEROL FUMARATE 20 MCG/2 ML NEBU INHALATION SCH ×2 (07:25→19:43)
[2020-07-14] MEDS: BUDESONIDE 1 MG/2 ML NEBU INHALATION SCH ×2 (07:26→19:43)
[2020-07-14] MEDS: IPRATROPIUM 0.5 MG/2.5 ML NEBU INHALATION SCH ×4 (07:31→19:43)
[2020-07-14] MEDS: DOXYCYCLINE 100 MG in SODIUM CHLORIDE 0.9% 100 ML IVPB SCH ×2 (09:26→21:51)
[2020-07-14] MEDS: ENOXAPARIN 40 MG/0.4 ML SYRINGE SQ SCH (09:26)
[2020-07-14] MEDS: SODIUM CHLORIDE 0.9% 1,000 ML IV SCH ×2 (10:52→21:18)
--- NOTE | 2020-07-14 15:01 | P.PN ---
Subjective Progress Note Date: 07/14/20 Principal diagnosis: Acute exacerbation of COPD 60-year-old white female patient with known history of chronic obstructive pulmonary disease, nicotine dependence, hyperlipidemia, severe kyphoscoliosis, degenerative joint disease, history of cervical cancer, hypertension, follows with Dr. Larsen in the pulmonary clinic for her history of COPD came in to the emergency department on 07/13/2020 for evaluation of worsening dyspnea, cough, which is nonproductive. She denied any fever or chills, denied any chest pain, she reports a sensation as if she has several stuck in her chest and she is not able to bring it up. Patient was seen at an urgent care clinic, and she was gi katerina a prescription for antibiotics and steroids however she did not pick them up. Her breathing continued to get worse and she presented to the emergency department at 3:00 in the morning for evaluation and treatment. Chest x-ray was obtained showing mild lower lung atelectasis or developing infiltrate. Vital signs have been stable, she has been afebrile, she sat 93% on 2 L, appears to be comfortable, denies any hemoptysis, denies any pleuritic chest pain, she was tested for COVID 19 and influenza A and B and was found to be negative. Lab work showed a CBC within normal limits, coagulation profile was within normal limits, electrolytes and renal profile were unremarkable, plasma lactic acid was 1.1, troponin was negative at less than 0.012, she was started on IV steroids, nebulized bronchodilators, she is already feeling better On 07/14/2020 patient seen in follow-up on a general medical surgical floor. Breathing comfortably, no acute distress, room air pulse ox is 91%, she's been afebrile, lung sounds reveal dementia breath sounds over right middle and right lower lobe, clear on the left, no cough or congestion, no hemoptysis or chest pain. Overall she is improving, no acute events overnight, she continues on nebulized bronchodilators, she is on antibiotics in the form of doxycycline, remains on IV steroids. Objective - Vital Signs Vital signs: Vital Signs Temp 98.1 F 07/14/20 13:00 Pulse 90 07/14/20 13:00 Resp 17 07/14/20 13:00 BP 106/59 07/14/20 13:00 Pulse Ox 91 L 07/14/20 13:00 Intake & Output 07/13/20 07/14/20 07/14/20 18:59 06:59 18:59 Intake Total 440 100 Balance 440 100 Weight 73.028 kg Intake: Intake, IV Titration 200 100 Amount Doxycycline 100 mg In 100 Sodium Chloride 0.9% 100 ml @ 100 mls/hr IVPB Q12HR [facility] Rx#:[id number] Sodium Chloride 0.9% 1, 200 000 ml @ 100 mls/hr IV . Q10H [facility] Rx#:[id number] Oral 240 Other: Voiding Method Toilet Toilet # Voids 3 # Bowel Movements 0 - Exam GENERAL EXAM: Alert, pleasant, 59-year-old white female, 2 L of oxygen with a pulse ox of 93% comfortable in no apparent distress. HEAD: Normocephalic/atraumatic. EYES: Normal reaction of pupils, equal size. Conjunctiva pink, sclera white. NOSE: Clear with pink turbinates. THROAT: No erythema or exudates. NECK: No masses, no JVD, no thyroid enlargement, no adenopathy. CHEST: No chest wall deformity. Patient has LUNGS: Equal air entry with diminished breath sounds, no rhonchi, no crackles, no wheezes CVS: Regular rate and rhythm, normal S1 and S2, no gallops, no murmurs, no rubs ABDOMEN: Soft, nontender. No hepatosplenomegaly, normal bowel sounds, no guarding or rigidity. EXTREMITIES: No clubbing, no edema, no cyanosis, 2+ pulses and upper and lower extremities. MUSCULOSKELETAL: Muscle strength and tone normal. SPINE: Dextroscoliosis of the spine noted SKIN: No rashes CENTRAL NERVOUS SYSTEM: Alert and oriented -3. No focal deficits, tone is normal in all 4 extremities. PSYCHIATRIC: Alert and oriented -3. Appropriate affect. Intact judgment and insight. - Labs CBC & Chem 7: 07/13/20 02:44 07/13/20 02:44 Labs: Microbiology - Last 24 Hours (Table) 07/13/20 03:44 Blood Culture - Preliminary Blood No Growth after 24 hours Assessment and Plan Plan: Assessment: #1. Acute exacerbation of chronic obstructive pulmonary disease, with no clear evidence of pneumonia, patient ruled out for COVID 19, and ruled out for influenza A and B #2. History of smoking #3. Hypertension #4. Hyperlipidemia #5. Osteoarthritis #6. Severe kyphoscoliosis #7. History of cervical cancer, status post hysterectomy #8. History of degenerative joint disease Plan: Patient remains stable, no acute events overnight. She is on room air, increase activity as tolerated, patient could be switched over to oral antibiotics, and could be considered for discharge home today, no fever or chills. She can follow up with Dr. Larsen in the office in 7-10 days. Pulmonary service will sign off and follow on as-needed basis I performed a history & physical examination of the patient and discussed their management with my nurse practitioner, Carley Tyler. I reviewed the nurse practitioner's note and agree with the documented findings and plan of care. Lung sounds are positive for diminished breath sounds The findings and the impression was discussed with the patient. I attest to the documentation by the nurse practitioner. Time with Patient: Less than 30
[2020-07-14] MEDS ORDERED: ALPRAZolam 0.25 MG TAB PO PRN (15:32)
[2020-07-14] MEDS ORDERED: TEMAZEPAM 15 MG CAP PO PRN (15:32)
--- NOTE | 2020-07-14 17:03 | PN ---
PROGRESS NOTE DATE OF SERVICE: 07/14/2020 This is a 60-year-old woman who was admitted with mild lower lung atelectasis and developing infiltrate with COPD acute exacerbation is closely monitored. Patient has significant scoliosis, which is significantly impaired with the patient's improvement according to her. The most recent chest x-ray was reviewed personally by me. Dr. Damon is following the patient closely. PAST MEDICAL HISTORY: Reviewed. REVIEW OF SYSTEMS: CARDIOVASCULAR: No angina, palpitations. RESPIRATORY: As mentioned earlier. GI: As mentioned earlier. : No dysuria. NERVOUS SYSTEM: No numbness or weakness. CURRENT MEDICATIONS: Reviewed and include: 1. DuoNeb. 2. Norvasc. 3. Aspirin. 4. Lipitor. 5. Pulmicort. 6. Doxycycline. 7. Lovenox. 8. Solu-Medrol. 9. Singulair. 10.Nitrostat. PHYSICAL EXAM: Patient is alert, oriented x3. Pulse is 90, blood pressure 106/59, respiration 17, temperature 98.2, pulse ox 91% on room air. HEENT: Conjunctivae normal. NECK: No jugular venous distension. CARDIOVASCULAR SYSTEM: S1, S2, muffled. RESPIRATION: Breath sounds diminished at the bases, bilateral scattered rhonchi, no crackles. ABDOMEN: Soft, nontender. LEGS: No edema. No swelling. NERVOUS SYSTEM: No focal deficits. LABS: CBC with sodium 134. ASSESSMENT: 1. Chronic obstructive pulmonary disease exacerbation with possible acute bilateral lower lobe pneumonia. 2. Hyponatremia. 3. History of asthma, COPD. 4. History of hypertension. 5. Hyperlipidemia. 6. History of severe scoliosis. 7. Bronchitis. 8. History of cervical cancer. 9. Kyphoscoliosis. 10.History of hemangioma. 11.History of continued ongoing nicotine dependence. RECOMMENDATION: In this 60-year-old woman who presented with multiple complex medical issues. Continue with the current management. Continue with the antibiotics. Continue with IV steroids. Monitor blood sugars closely. Continue with intensive bronchodilators. Incentive spirometry. Resume the home medications. Guarded prognosis because of multiple complex medical issues. Further recommendations to follow. MMODL / IJN: [id number] /
[2020-07-14] MEDS: hydroCHLOROthiazide 25 MG TAB PO SCH (17:41)
[2020-07-14] MEDS: ATORVASTATIN 10 MG TAB PO SCH (21:18)
[2020-07-14] MEDS: MONTELUKAST 10 MG TAB PO SCH (21:18)
[2020-07-14] MEDS: lisinopriL 20 MG TAB PO SCH (21:18)
[2020-07-14] MEDS: ASPIRIN 81 MG PO SCH (21:18)
[2020-07-14] MEDS: amLODIPine 5 MG TAB PO SCH (21:18)
[2020-07-15] MEDS: IPRATROPIUM-ALBUTEROL 3 ML NEB INHALATION SCH ×5 (03:15→20:18)
[2020-07-15] MEDS: SODIUM CHLORIDE 0.9% 1,000 ML IV SCH ×2 (05:13→19:01)
[2020-07-15] MEDS: methylPREDNISolone SOD SUCCI 125 MG/2 ML VIAL IV SCH ×4 (05:16→23:45)
[2020-07-15 07:00] LABS: Basophils % (A) 0 %; Eosinophils # (A) 0.2 k/uL (0-0.7); Eosinophils % (A) 1 %; HCT 39.6 % (34.0-46.0); HGB 12.8 gm/dL (11.4-16.0); Lymphocytes # (A) 0.6 k/uL (1.0-4.8); Lymphocytes % (A) 4 %; MCH 31.3 pg (25.0-35.0); MCHC 32.4 g/dL (31.0-37.0); MCV 96.6 fL (80.0-100.0); Mean Platelet Volume 8.7; Monocytes # (A) 0.1 k/uL (0-1.0); Monocytes % (A) 1 %; Neutrophils # (A) 15.3 k/uL (1.3-7.7); Neutrophils % (A) 94 %; Platelet Count 189 k/uL (150-450); WBC 16.3 k/uL (3.8-10.6)
[2020-07-15] MEDS: PANTOPRAZOLE 40 MG TABLET PO SCH (08:21)
[2020-07-15] MEDS: ENOXAPARIN 40 MG/0.4 ML SYRINGE SQ SCH (08:21)
[2020-07-15] MEDS: DOXYCYCLINE 100 MG in SODIUM CHLORIDE 0.9% 100 ML IVPB SCH ×2 (08:21→21:49)
[2020-07-15] MEDS: hydroCHLOROthiazide 25 MG TAB PO SCH (08:21)
[2020-07-15] MEDS: FORMOTEROL FUMARATE 20 MCG/2 ML NEBU INHALATION SCH ×2 (09:10→20:18)
[2020-07-15] MEDS: IPRATROPIUM 0.5 MG/2.5 ML NEBU INHALATION SCH ×4 (09:10→20:43)
[2020-07-15] MEDS: BUDESONIDE 1 MG/2 ML NEBU INHALATION SCH ×2 (09:10→20:18)
[2020-07-15 09:38] LABS: African American GFR (CKD) 107.6 (60.0-200.0); Anion Gap 7.7 mmol/L (4.00-12.00); BUN/Creat Ratio 45.71 Ratio (12.00-20.00); Calcium 9.2 mg/dL (8.7-10.3); Carbon Dioxide 27.3 mmol/L (21.6-31.8); Non-African American GFR(CKD) 92.9 (60.0-200.0); Potassium 4.3 mmol/L (3.5-5.5)
[2020-07-15] MEDS: ASPIRIN 81 MG PO SCH (21:49)
[2020-07-15] MEDS: lisinopriL 20 MG TAB PO SCH (21:49)
[2020-07-15] MEDS: ATORVASTATIN 10 MG TAB PO SCH (21:49)
[2020-07-15] MEDS: MONTELUKAST 10 MG TAB PO SCH (21:49)
[2020-07-15] MEDS: amLODIPine 5 MG TAB PO SCH (21:49)
--- NOTE | 2020-07-16 01:51 | PN ---
PROGRESS NOTE DATE OF SERVICE: 07/15/2020 This 60-year-old woman was admitted with COPD acute exacerbation as well as possible severe acute purulent tracheobronchitis being closely monitored at this time. Dr. Damon is following the patient closely. Patient continues to be hypoxemic, lower lobe infiltrate is suspected. PAST MEDICAL HISTORY: Reviewed. REVIEW OF SYSTEMS: CARDIOVASCULAR SYSTEM: No angina. RESPIRATORY SYSTEM: As mentioned earlier. GI: As mentioned earlier. : No dysuria. NERVOUS SYSTEM: No numbness or weakness. CURRENT MEDICATIONS: Current medications are reviewed and include: DuoNeb, Xanax, aspirin, Pulmicort, doxycycline. PHYSICAL EXAMINATION: Patient is alert and oriented x3. Pulse is 88, blood pressure is 112/67, respiration 18, temperature 98.4, pulse ox 92% on 3 L. HEENT: Conjunctivae normal. NECK: No jugular venous distention. CARDIOVASCULAR: S1, S2 muffled. RESPIRATORY: Breath sounds diminished at the bases. Bilateral scattered rhonchi and crackles. ABDOMEN: Soft, nontender. No mass palpable. LEGS: No edema. No swelling. NERVOUS SYSTEM: No focal deficits. LABS: WBC 16.3, hemoglobin 12.8. Sodium 137, potassium ntd. ASSESSMENT: 1. Chronic obstructive pulmonary disease acute exacerbation with possible acute bilateral lower lobe bronchopneumonia. 2. Pneumonia with acute hypoxic respiratory failure. 3. Chronic hypoxic respiratory failure. 4. Hyponatremia. 5. History of asthma, chronic obstructive pulmonary disease. 6. Hypertension. 7. Hyperlipidemia. 8. History of severe scoliosis. 9. Bronchitis. 10.History of cervical cancer. 11.Kyphoscoliosis. 12.History of hemangioma. 13.History of continued ongoing nicotine dependence. RECOMMENDATIONS AND DISCUSSION: Continue to continue the current medications and symptomatic treatment. Otherwise at this time I recommend to continue the bronchodilators, steroids. Continue with empiric antibiotics. Closely follow with Dr. Damon. 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 Guarded prognosis. Further recommendations to follow. MMODL / IJN: [id number] / MTDD
[2020-07-16] MEDS: IPRATROPIUM-ALBUTEROL 3 ML NEB INHALATION SCH ×3 (03:07→11:50)
[2020-07-16] MEDS: SODIUM CHLORIDE 0.9% 1,000 ML IV SCH (05:51)
[2020-07-16] MEDS: methylPREDNISolone SOD SUCCI 125 MG/2 ML VIAL IV SCH ×2 (05:59→12:21)
[2020-07-16 06:57] LABS: Glucose,Whole Blood 151 mg/dL (75-99)
[2020-07-16 07:26] VITALS: BP 120/76; RESP 18; TEMP 98.3
[2020-07-16] MEDS: BUDESONIDE 1 MG/2 ML NEBU INHALATION SCH (07:29)
[2020-07-16] MEDS: IPRATROPIUM 0.5 MG/2.5 ML NEBU INHALATION SCH ×2 (07:29→11:51)
[2020-07-16] MEDS: FORMOTEROL FUMARATE 20 MCG/2 ML NEBU INHALATION SCH (07:29)
[2020-07-16 07:55] LABS: Basophils % (A) 0 %; Eosinophils % (A) 0 %; HCT 39.8 % (34.0-46.0); HGB 13.1 gm/dL (11.4-16.0); Lymphocytes # (A) 0.8 k/uL (1.0-4.8); Lymphocytes % (A) 6 %; MCH 31.7 pg (25.0-35.0); MCV 96.2 fL (80.0-100.0); Mean Platelet Volume 8.6; Monocytes # (A) 0.4 k/uL (0-1.0); Monocytes % (A) 3 %; Neutrophils # (A) 11.1 k/uL (1.3-7.7); Neutrophils % (A) 90 %; Platelet Count 198 k/uL (150-450); RBC 4.13 m/uL (3.80-5.40); RDW 12.9 % (11.5-15.5); WBC 12.4 k/uL (3.8-10.6)
[2020-07-16] MEDS: hydroCHLOROthiazide 25 MG TAB PO SCH (08:36)
[2020-07-16] MEDS: ENOXAPARIN 40 MG/0.4 ML SYRINGE SQ SCH (08:37)
[2020-07-16] MEDS: DOXYCYCLINE 100 MG in SODIUM CHLORIDE 0.9% 100 ML IVPB SCH (08:37)
[2020-07-16] MEDS: PANTOPRAZOLE 40 MG TABLET PO SCH (08:37)
[2020-07-16 10:47] LABS: African American GFR (CKD) 107.6 (60.0-200.0); Anion Gap 7.5 mmol/L (4.00-12.00); BUN/Creat Ratio 42.86 Ratio (12.00-20.00); Calcium 9.4 mg/dL (8.7-10.3); Carbon Dioxide 27.5 mmol/L (21.6-31.8); Non-African American GFR(CKD) 92.9 (60.0-200.0); Potassium 4.6 mmol/L (3.5-5.5)
[2020-07-16 11:26] LABS: Glucose,Whole Blood 119 mg/dL (75-99)
[2020-07-16 12:33] VITALS: PULSE 90
--- NOTE | 2020-07-16 13:57 | P.DS ---
Providers Date of admission: 07/13/20 03:34 Expected date of discharge: 07/16/20 Attending physician: Geoff Wilks Consults: 07/13/20 03:34 Consult Physician Routine Consulting Provider: Evert Larsen Consult Reason/Comments: copd Do you want consulting provider notified?: Yes Primary care physician: cAe [facility] Course: Final diagnosis Chronic obstructive pulmonary disease acute exacerbation with possible acute bilateral lower lobe bronchopneumonia Pneumonia with acute hypoxic respiratory failure Chronic hypoxic respiratory failure Hyponatremia History of asthma, COPD Hypertension History of severe scoliosis Hyperlipidemia Bronchitis History of cervical cancer Kyphoscoliosis next line history of hemangioma History of continued ongoing nicotine dependence Discharge disposition Patient is being discharged in a stable condition with guarded prognosis to home. Patient will follow-up with Dr. Hernandez in the outpatient setting upon discharge. Patient also instructed to follow-up with Dr. Larsen in the outpatient setting as well. Patient is to continue prednisone taper along with breathing inhalational treatments and antibiotics to complete the course. Prescriptions provided. Total time taken is greater than 35 minutes. History of present illness This is a 60-year-old female who was recently admitted with COPD acute exacerbation as well as possible severe acute purulent tracheobronchitis and was being closely monitored. Pulmonary following and recommending continuing with oral antibiotics in the form of doxycycline along with a prednisone taper upon discharge. Patient also provided prescription for continued nebulizer treatments. Patient continued to have periods of hypoxemia requiring oxygen although is currently 90-93% on room air at this time. Patient instructed to follow-up with Dr. Larsen in the outpatient setting in 1 week. Patient verbalized understanding. Currently no reports of chest pain, worsening shor tness of breath, or palpitations. Patient is afebrile. No reports of nausea or vomiting and patient is tolerating diet. Patient will be going home today. On exam vital signs are stable. Temp is 98.3F, pulse is 90, respirations are 18, blood pressure is 120/76, oxygen saturation is 91% on room air. Cardio S1, S2 are muffled. Respiratory system shows diminished breath sounds at the bases with no wheezing or rhonchi noted. Abdomen is soft and nontender. Nervous system shows no focal deficits. Please refer to medication reconciliation sheet for a list of medications. Patient Condition at Discharge: Stable Plan - Discharge Summary Discharge Rx Participant: No New Discharge Prescriptions: New Ipratropium Nebulized [Atrovent Nebulized 0.2 MG/ML] 0.5 mg INHALATION RT-QID #120 ml predniSONE 10 mg PO DIRECTED #30 tab Doxycycline [Vibramycin] 100 mg PO BID 3 Days #6 capsule Continue Ramipril 10 mg PO HS Atorvastatin [Lipitor] 10 mg PO HS Aspirin 81 mg PO HS Montelukast [Singulair] 10 mg PO HS amLODIPine [Norvasc] 5 mg PO HS Fluticasone/Umeclidin/Vilanter [Trelegy Ellipta 100-62.5-25] 1 puff INHALATION RT-DAILY hydroCHLOROthiazide [Hydrodiuril] 25 mg PO DAILY Discontinued Ipratropium [place] [Atrovent Hfa] 2 puff INHALATION RT-QID PRN PRN Reason: Shortness Of Breath Discharge Medication List Aspirin 81 mg PO HS 08/20/15 [History] Atorvastatin [Lipitor] 10 mg PO HS 08/20/15 [History] Ramipril 10 mg PO HS 08/20/15 [History] Montelukast [Singulair] 10 mg PO HS 07/15/19 [History] Fluticasone/Umeclidin/Vilanter [Trelegy Ellipta 100-62.5-25] 1 puff INHALATION RT-DAILY 02/22/20 [History] amLODIPine [Norvasc] 5 mg PO HS 02/22/20 [History] hydroCHLOROthiazide [Hydrodiuril] 25 mg PO DAILY 07/13/20 [History] Doxycycline [Vibramycin] 100 mg PO BID 3 Days #6 capsule 07/15/20 [Rx] Ipratropium Nebulized [Atrovent Nebulized 0.2 MG/ML] 0.5 mg INHALATION RT-QID #120 ml 07/15/20 [Rx] predniSONE 10 mg PO DIRECTED #30 tab 07/15/20 [Rx] Follow up Appointment(s)/Referral(s): Fermin Hernandez MD [Primary Care Provider] - [facility] Please call to schedule appointment ) Evert Larsen MD [STAFF PHYSICIAN] - 1 Week Ambulatory/Diagnostic Orders: Complete Blood Count w/diff [LAB.AMB] Location: None Selected Patient Instructions/Handouts: COPD (Chronic Obstructive Pulmonary Disease) (DC) Activity/Diet/Wound Care/Special Instructions: Diet cardiac Activity Limited follow-up follow-up with the pulmonary as advised Follow-up with primary care provider upon discharge Discharge Disposition: HOME SELF-CARE
== END 2020-07-16 13:15 | disposition home or self-care (01) | DRG 193 ==
LOC: EC 01:46 → 6NMEDSUR 03:34 → 4SSUR 07-14 18:22
PROVIDERS: ADMIT Hospitalist; ATTEND Hospitalist
DX: J18.0 Bronchopneumonia, unspecified organism (principal); J96.21 Acute and chronic respiratory failure with hypoxia; J44.0 Chronic obstructive pulmonary disease with (acute) lower respiratory infection; J44.1 Chronic obstructive pulmonary disease with (acute) exacerbation; E87.1 Hypo-osmolality and hyponatremia; J98.11 Atelectasis; Z87.891 Personal history of nicotine dependence; J20.9 Acute bronchitis, unspecified; E78.5 Hyperlipidemia, unspecified; I10 Essential (primary) hypertension; M19.041 Primary osteoarthritis, right hand; M19.042 Primary osteoarthritis, left hand; M41.9 Scoliosis, unspecified; M17.0 Bilateral primary osteoarthritis of knee; Z79.82 Long term (current) use of aspirin; Z79.899 Other long term (current) drug therapy; Z82.3 Family history of stroke; Z82.49 Family history of ischemic heart disease and other diseases of the circulatory system; Z85.41 Personal history of malignant neoplasm of cervix uteri; Z90.710 Acquired absence of both cervix and uterus; Z90.79 Acquired absence of other genital organ(s); Z88.5 Allergy status to narcotic agent; Z88.2 Allergy status to sulfonamides; Z90.89 Acquired absence of other organs
CPT/HCPCS: 36415; 71045; 80048; 80053; 83605; 84484; 85025; 85610; 85730; 87040; 93005; 94640; 94760; 96374; 99291

== ENCOUNTER 2021-05-01 17:45 | Inpatient (IN) | payer BC, OTHER ==
--- NOTE | 2021-05-01 18:59 | XR ---
EXAMINATION TYPE: XR chest 2V DATE OF EXAM: 05/01/2021 COMPARISON: Chest radiograph 07/13/2020 HISTORY: Shortness of breath TECHNIQUE: Frontal and lateral views of the chest are obtained. FINDINGS: Hyper inflated lungs There is no focal air space opacity, pleural effusion, or pneumothorax seen. The cardiomediastinal silhouette size is within normal limits. Severe dextroscoliotic curvatu re saturated kyphosis of the thoracic spine. IMPRESSION: No acute cardiopulmonary process.
[2021-05-01 19:00] LABS: Basophils # (A) 0.1 k/uL (0-0.2); Basophils % (A) 1 %; Eosinophils # (A) 0.2 k/uL (0-0.7); Eosinophils % (A) 2 %; HCT 46.3 % (34.0-46.0); HGB 15.9 gm/dL (11.4-16.0); Lymphocytes # (A) 4.1 k/uL (1.0-4.8); Lymphocytes % (A) 31 %; MCH 32.2 pg (25.0-35.0); MCHC 34.2 g/dL (31.0-37.0); Mean Platelet Volume 8.2; Monocytes # (A) 0.6 k/uL (0-1.0); Monocytes % (A) 5 %; Neutrophils # (A) 7.8 k/uL (1.3-7.7); Neutrophils % (A) 60 %; Platelet Count 275 k/uL (150-450); RBC 4.93 m/uL (3.80-5.40); RDW 12.1 % (11.5-15.5); WBC 13.1 k/uL (3.8-10.6)
[2021-05-01] MEDS ORDERED: IPRATROPIUM-ALBUTEROL 3 ML NEB INHALATION STA (20:32)
[2021-05-01] MEDS ORDERED: methylPREDNISolone SOD SUCCI 125 MG/2 ML VIAL IV STA (20:32)
[2021-05-01] MEDS ORDERED: ALBUTEROL NEB (CONC) 2.5 MG/0.5 ML INHALATION STA (20:32)
[2021-05-01 20:49] LABS: ALT 32 U/L (4-34); AST 43 U/L (14-36); African American GFR (CKD) >90 (>60 ml/min/1.73 sqM); Albumin 4.5 g/dL (3.5-5.0); Alkaline Phosphatase 111 U/L (38-126); Anion Gap 11 mmol/L; Blood Urea Nitrogen 18 mg/dL (7-17); Calcium 9.5 mg/dL (8.4-10.2); Carbon Dioxide 23 mmol/L (22-30); Chloride 98 mmol/L (98-107); Glucose 110 mg/dL (74-99); Non-African American GFR(CKD) >90 (>60 ml/min/1.73 sqM); Sodium 132 mmol/L (137-145)
[2021-05-01 20:50] LABS: INR 0.9 (<1.2); Partial Thromboplastin Time 22.6 sec (22.0-30.0)
[2021-05-01 20:53] LABS: Potassium 4.2 mmol/L (3.5-5.1)
[2021-05-01] MEDS ORDERED: ALBUTEROL NEBULIZED 2.5 MG/3 ML INHALATION STA (20:57)
[2021-05-01] MEDS ORDERED: TIOTROPIUM 2.5 MCG INHALER INHALATION PRN ×2 (21:38→21:45)
--- NOTE | 2021-05-01 21:38 | ED ---
General Adult HPI - General Chief complaint: Shortness of Breath Stated complaint: SOB Time Seen by Provider: 05/01/21 19:55 Source: patient Mode of arrival: wheelchair Limitations: no limitations - History of Present Illness Initial comments: 60 year-old female patient presents to the emergency department for evaluation of shortness of breath and cough increasing for the last week. States that she gets very winded and feels like she is going to pass out when she walks around or does any physical activity. States she has completed two rounds of antib iotics and is currently on steroids from her doctor. Does not feel like the medication is helping. She denies any fever or chills. Denies nausea or vomiting. Denies chest pain. States she has been doing her home breathing treatments. Has tested negative for COVID. States she generally gets these epi sodes once or twice per year. Patient denies any recent rash, abdominal pain, diarrhea, constipation, back pain, numbness, tingling, dizziness, weakness, hematuria, dysuria, urinary urgency, urinary frequency, headache, visual changes, or any other complaints. - Related Data Home Medications Medication Instructions Recorded Confirmed Aspirin 81 mg PO HS 08/20/15 05/01/21 Atorvastatin [Lipitor] 10 mg PO HS 08/20/15 05/01/21 Ramipril 20 mg PO HS 08/20/15 05/01/21 Montelukast [Singulair] 10 mg PO HS 07/15/19 05/01/21 Fluticasone/Umeclidin/Vilanter 1 puff INHALATION RT-DAILY 02/22/20 05/01/21 [Trelekostas Ellipta 100-62.5-25] amLODIPine [Norvasc] 5 mg PO HS 02/22/20 05/01/21 hydroCHLOROthiazide [Hydrodiuril] 25 mg PO HS 07/13/20 05/01/21 Doxycycline Hyclate [Vibramycin] 100 mg PO BID 05/01/21 05/01/21 Ipratropium [employer] [Atrovent Hfa] 2 puff INHALATION RT-Q4H PRN 05/01/21 05/01/21 predniSONE See Taper PO DAILY 05/01/21 05/01/21 Allergies Allergy/AdvReac Type Severity Reaction Status Date / Time adhesive tape Allergy Rash/Hives Verified 05/01/21 20:52 Sulfa (Sulfonamide Allergy Swelling Verified 05/01/21 20:52 Antibiotics) codeine AdvReac Nausea & Verified 05/01/21 20:52 Vomiting Review of Systems ROS Statement: Those systems with pertinent positive or pertinent negative responses have been documented in the HPI. ROS Other: All systems not noted in ROS Statement are negative. Past Medical History Past Medical History: Asthma, Cancer, COPD, Hyperlipidemia, Hypertension, Osteoarthritis (OA) Additional Past Medical History / Comment(s): Bronchitis, cervical cancer with hysterectomy, kyphoscoliosis of the spine, arthritis bilateral hands and knees. History of Any Multi-Drug Resistant Organisms: None Reported Past Surgical History: Hysterectomy, Tonsillectomy Additional Past Surgical History / Comment(s): Hemangioma removed from side head, exploratory laparotomy with R salpingectomy, lymph nodes removed from groin with hysterectomy (cervical cancer). Past Anesthesia/Blood Transfusion Reactions: Postoperative Nausea & Vomiting (PO NV) Additional Past Anesthesia/Blood Transfusion Reaction / Comment(s): I wake up "rowdy." Past Psychological History: No Psychological Hx Reported Smoking Status: Current some day smoker Past Alcohol Use History: None Reported Past Drug Use History: None Reported - Past Family History Mother Family Medical History: Vascular Disorder Additional Family Medical History / Comment(s): Mother of a cerebral aneurysm at the age of 29 yrs. Father Family Medical History: CVA/TIA Additional Family Medical History / Comment(s): Father of a CVA-pt unable to recall at what age. General Exam Limitations: no limitations General appearance: alert, in no apparent distress, other (This is a well- developed, well-nourished adult female patient in no acute distress. Vital signs upon presentation to 198.2F, pulse 101, respirations 20, blood pressure 136/72, pulse ox 92% on room air.) ENT exam: Present: normal exam, normal oropharynx, mucous membranes moist Respiratory exam: Present: wheezes (Coarse expiratory wheezing noted in the posterior lung quiles). Absent: respiratory distress, rales, rhonchi, stridor Cardiovascular Exam: Present: regular rate, normal rhythm, normal heart sounds. Absent: systolic murmur, diastolic murmur, rubs, gallop, clicks GI/Abdominal exam: Present: soft, normal bowel sounds. Absent: distended, tenderness, guarding, rebound, rigid Neurological exam: Present: alert, oriented X3, CN II-XII intact Psychiatric exam: Present: normal affect, normal mood Skin exam: Present: warm, dry, intact, normal color. Absent: rash Course Vital Signs 05/01/21 05/01/21 05/01/21 18:09 20:21 20:56 Temperature 98.0 F Pulse Rate 101 H 86 89 Respiratory 20 28 H Rate Blood Pressure 136/72 141/79 O2 Sat by Pulse 92 L 95 Oximetry 05/01/21 21:11 Temperature Pulse Rate 83 Respiratory Rate Blood Pressure O2 Sat by Pulse Oximetry EKG Findings - EKG Comments: EKG Findings:: EKG obtained at 1844 shows normal sinus rhythm with a ventricular rate of 86, GA interval 120, QRS duration 74, QT 364, QTC 435. No evidence of ST elevation or depression. Medical Decision Making - Medical Decision Making 60-year-old female patient percents to the emergency room today for evaluation of increased cough and shortness of breath over the last week. Does have history of COPD and has completed 2 courses of antibiotics and is currently on steroids. Has been doing breathing treatments at home. Physical examination did reveal coarse expiratory wheezing in the posterior lung quiles. Oxygen saturation was 92% on admission. Chest x-ray was negative. Labs reviewed and did reveal mildly elevated white blood cell count, likely reactive due to steroids. She'll be admitted to the hospital for continued treatments, IV steroids, and evaluation by pulmonology. Patient is agreeable this plan. Case discussed with my attending Dr. Mcelroy. - Lab Data Result diagrams: 05/01/21 18:14 05/01/21 18:14 Lab Results 05/01/21 05/01/21 05/01/21 Range/Units 18:14 18:14 18:14 WBC 13.1 H (3.8-10.6) k/uL RBC 4.93 (3.80-5.40) m/uL Hgb 15.9 (11.4-16.0) gm/dL Hct 46.3 H (34.0-46.0) % MCV 94.0 (80.0-100.0) fL MCH 32.2 (25.0-35.0) pg MCHC 34.2 (31.0-37.0) g/dL RDW 12.1 (11.5-15.5) % Plt Count 275 (150-450) k/uL MPV 8.2 Neutrophils % 60 % Lymphocytes % 31 % Monocytes % 5 % Eosinophils % 2 % Basophils % 1 % Neutrophils # 7.8 H (1.3-7.7) k/uL Lymphocytes # 4.1 (1.0-4.8) k/uL Monocytes # 0.6 (0-1.0) k/uL Eosinophils # 0.2 (0-0.7) k/uL Basophils # 0.1 (0-0.2) k/uL PT 10.0 (9.0-12.0) sec INR 0.9 (<1.2) APTT 22.6 (22.0-30.0) sec Sodium 132 L (137-145) mmol/L Potassium 4.2 (3.5-5.1) mmol/L Chloride 98 (98-107) mmol/L Carbon Dioxide 23 (22-30) mmol/L Anion Gap 11 mmol/L BUN 18 H (7-17) mg/dL Creatinine 0.62 (0.52-1.04) mg/dL Est GFR (CKD-EPI)AfAm >90 (>60 ml/min/1.73 sqM) Est GFR (CKD-EPI)NonAf >90 (>60 ml/min/1.73 sqM) Glucose 110 H (74-99) mg/dL Calcium 9.5 (8.4-10.2) mg/dL Total Bilirubin 1.0 (0.2-1.3) mg/dL AST 43 H (14-36) U/L ALT 32 (4-34) U/L Alkaline Phosphatase 111 (38-126) U/L Troponin I (0.000-0.034) ng/mL Total Protein 7.0 (6.3-8.2) g/dL Albumin 4.5 (3.5-5.0) g/dL Coronavirus (PCR) (Not Detectd) 05/01/21 05/01/21 Range/Units 18:14 20:50 WBC (3.8-10.6) k/uL RBC (3.80-5.40) m/uL Hgb (11.4-16.0) gm/dL Hct (34.0-46.0) % MCV (80.0-100.0) fL MCH (25.0-35.0) pg MCHC (31.0-37.0) g/dL RDW (11.5-15.5) % Plt Count (150-450) k/uL MPV Neutrophils % % Lymphocytes % % Monocytes % % Eosinophils % % Basophils % % Neutrophils # (1.3-7.7) k/uL Lymphocytes # (1.0-4.8) k/uL Monocytes # (0-1.0) k/uL Eosinophils # (0-0.7) k/uL Basophils # (0-0.2) k/uL PT (9.0-12.0) sec INR (<1.2) APTT (22.0-30.0) sec Sodium (137-145) mmol/L Potassium (3.5-5.1) mmol/L Chloride (98-107) mmol/L Carbon Dioxide (22-30) mmol/L Anion Gap mmol/L BUN (7-17) mg/dL Creatinine (0.52-1.04) mg/dL Est GFR (CKD-EPI)AfAm (>60 ml/min/1.73 sqM) Est GFR (CKD-EPI)NonAf (>60 ml/min/1.73 sqM) Glucose (74-99) mg/dL Calcium (8.4-10.2) mg/dL Total Bilirubin (0.2-1.3) mg/dL AST (14-36) U/L ALT (4-34) U/L Alkaline Phosphatase (38-126) U/L Troponin I <0.012 (0.000-0.034) ng/mL Total Protein (6.3-8.2) g/dL Albumin (3.5-5.0) g/dL Coronavirus (PCR) Not Detected (Not Detectd) - Radiology Data Radiology results: report reviewed, image reviewed Two-view x-ray of the chest is obtained. Report is reviewed in its entirety. Impression by Dr. Guzman shows no acute cardiopulmonary process. Disposition Clinical Impression: COPD exacerbation Disposition: ADMITTED IP TO THIS [facility] Condition: Serious Referrals: Fermin Hernandez MD [Primary Care Provider] - 1-2 days Decision to Admit Reason: Admit from EC Decision Date: 05/01/21 Decision Time: 21:38
[2021-05-01] MEDS ORDERED: NALOXONE 0.4 MG/ML 1 ML VIAL IV PRN (21:43)
[2021-05-01] MEDS ORDERED: IPRATROPIUM-ALBUTEROL 3 ML NEB INHALATION PRN (21:52)
[2021-05-02] MEDS: methylPREDNISolone SOD SUCCI 125 MG/2 ML VIAL IV SCH ×4 (00:16→17:33)
--- NOTE | 2021-05-02 01:27 | P.HPIM ---
History of Present Illness H&P Date: 05/02/21 Patient is a 61-year-old female with a PMH of COPD, hypertension, hyperlipidemia, and scoliosis who presented to the emergency room with complaints of gradually worsening shortness of breath. The patient reports that she was initially seen at her primary care physician's office for sinusitis with rhinorrhea and postnasal drip for which she was started on steroids and an oral antibiotic. She did not have any improvement in her symptoms at which time she visited an urgent care center roughly a week ago awoke and was started on a different antibiotic (doxycycline) which also did not help. She reported that she continues to have shortness of breath despite using her inhalers as prescribed. She denied chest pain, fevers, nausea, vomiting, diarrhea, abdominal pain. Laboratory evaluation in the emergency room was remarkable for WBC count 13.1, sodium 132, BUN 18, troponin less than 0.012, with coronavirus PCR negative. Chest x-ray was unremarkable with EKG showing normal sinus rhythm at [address]/T-wave changes on an as reviewed by me. Review of systems: Pertinent positives and negatives as discussed in HPI, a complete review of systems was performed and all other systems are negative. Physical examination: General: non toxic, no distress, appears at stated age, normal weight Derm: no unusual rashes/lesions no unusual ecchymoses, warm, dry Head: atraumatic, normocephalic, symmetric Eyes: EOMI, no lid lag, anicteric sclera, pupils equal round reactive to light ENT: Nose and ears atraumatic, no thrush, no pharyngeal erythema Neck: No thyromegaly, no cervical lymphadenopathy, trachea midline, supple Mouth: no lip lesion, mucus membranes moist Cardiovascular: S1S2 reg, no murmur, positive posterior tibial pulse bilateral, no edema, capillary refill less than 2 seconds Lungs: Somewhat poor air entry bilaterally, no wheezing, no rhonchi, no rales , no accessory muscle use Abdominal: soft, nontender to palpation, no guarding, no appreciable organomegaly, normal bowel sounds Ext: no gross muscle atrophy, muscle strength 5 out of 5 in all 4 extremities grossly, no contractures, Neuro: CN II-XI grossly intact, light touch intact all 4 extremities, finger to nose within normal limits, Psych: Alert, oriented, appropriate affect Assessment/plan Acute COPD exacerbation -Continue with Solu-Medrol, Symbicort -DuoNeb's [id number] and when necessary -Pulmonary consulted -Continue with the prescribed doxycycline to finish the course Leukocytosis -Likely due to steroid use Chronic conditions: Hypertension, hyperlipidemia -Continue with home meds DVT prophylaxis -Heparin subq The patient is admitted with an anticipated less than 2 midnight stay for evaluation of acute COPD exacerbation. CODE STATUS: Full Code Discussed with: Patient Anticipated discharge date: in am Anticipated discharge place: Home Past Medical History Past Medical History: Asthma, Cancer, COPD, Hyperlipidemia, Hypertension, Osteoarthritis (OA) Additional Past Medical History / Comment(s): Bronchitis, cervical cancer with hysterectomy, kyphoscoliosis of the spine, arthritis bilateral hands and knees. History of Any Multi-Drug Resistant Organisms: None Reported Past Surgical History: Hysterectomy, Tonsillectomy Additional Past Surgical History / Comment(s): Hemangioma removed from side head, exploratory laparotomy with R salpingectomy, lymph nodes removed from groin with hysterectomy (cervical cancer). Past Anesthesia/Blood Transfusion Reactions: Postoperative Nausea & Vomiting (PONV) Additional Past Anesthesia/Blood Transfusion Reaction / Comment(s): I wake up "rowdy." Past Psychological History: No Psychological Hx Reported Additional Psychological History / Comment(s): Pt has a brother living with her. She is independent. She works for the [employer]. She has a nebulizer. Smoking Status: Current every day smoker Past Alcohol Use History: None Reported Additional Past Alcohol Use History / Comment(s): Pt started smoking in 1971 and is currently a off and on smoker. Past Drug Use History: None Reported - Past Family History Mother Family Medical History: Vascular Disorder Additional Family Medical History / Comment(s): Mother of a cerebral aneurysm at the age of 29 yrs. Father Family Medical History: CVA/TIA Additional Family Medical History / Comment(s): Father of a CVA-pt unable to recall at what age. Daughter(s) Additional Family Medical History / Comment(s): Partially deaf, juvenile arthritis Medications and Allergies Home Medications Medication Instructions Recorded Confirmed Type Aspirin 81 mg PO HS 08/20/15 05/01/21 History Atorvastatin [Lipitor] 10 mg PO HS 08/20/15 05/01/21 History Ramipril 20 mg PO HS 08/20/15 05/01/21 History Montelukast [Singulair] 10 mg PO HS 07/15/19 05/01/21 History Fluticasone/Umeclidin/Vilanter 1 puff INHALATION RT-DAILY 02/22/20 05/01/21 History [Trelegy Ellipta 100-62.5-25] amLODIPine [Norvasc] 5 mg PO HS 02/22/20 05/01/21 History hydroCHLOROthiazide [Hydrodiuril] 25 mg PO HS 07/13/20 05/01/21 History Doxycycline Hyclate [Vibramycin] 100 mg PO BID 05/01/21 05/01/21 History Ipratropium [place] [Atrovent Hfa] 2 puff INHALATION RT-Q4H PRN 05/01/21 05/01/21 History predniSONE See Taper PO DAILY 05/01/21 05/01/21 History Allergies Allergy/AdvReac Type Severity Reaction Status Date / Time adhesive tape Allergy Rash/Hives Verified 05/01/21 20:52 Sulfa (Sulfonamide Allergy Swelling Verified 05/01/21 20:52 Antibiotics) codeine AdvReac Nausea & Verified 05/01/21 20:52 Vomiting Frozen burger Allergy Swelling Uncoded 05/02/21 00:50 Physical Exam Vitals: Vital Signs Temp Pulse Pulse Resp BP BP Pulse Ox 05/02/21 00:37 98 F 92 22 146/65 94 L 05/01/21 23:00 74 18 137/71 96 05/01/21 21:11 83 05/01/21 20:56 89 05/01/21 20:21 86 28 H 141/79 95 05/01/21 18:09 98.0 F 101 H 20 136/72 92 L Intake and Output 05/01/21 05/01/21 05/02/21 14:59 22:59 06:59 Other: Voiding Method Toilet # Voids 1 Weight 73.028 kg 67.9 kg Results CBC & Chem 7: 05/01/21 18:14 05/01/21 18:14 Labs: Abnormal Lab Results - Last 24 Hours (Table) 05/01/21 05/01/21 Range/Units 18:14 18:14 WBC 13.1 H (3.8-10.6) k/uL Hct 46.3 H (34.0-46.0) % Neutrophils # 7.8 H (1.3-7.7) k/uL Sodium 132 L (137-145) mmol/L BUN 18 H (7-17) mg/dL Glucose 110 H (74-99) mg/dL AST 43 H (14-36) U/L Thrombosis Risk Factor Assmnt - Choose All That Apply Any of the Below Risk Factors Present?: Yes Each Factor Represents 1 point: Abnormal pulmonary function (COPD), Obesity (BMI >25), Swollen legs (current) Other Risk Factors: Yes Each Risk Factor Represents 2 Points: Age 61-74 years Other congenital or acquired thrombophilia - If yes, enter type in comment: No Thrombosis Risk Factor Assessment Total Risk Factor Score: 5 Thrombosis Risk Factor Assessment Level: High Risk
[2021-05-02] MEDS ORDERED: amLODIPine 5 MG TAB PO STA (02:01)
[2021-05-02] MEDS ORDERED: ASPIRIN 81 MG PO STA (02:02)
[2021-05-02] MEDS ORDERED: ATORVASTATIN 10 MG TAB PO STA (02:02)
[2021-05-02] MEDS ORDERED: hydroCHLOROthiazide 25 MG TAB PO STA (02:02)
[2021-05-02] MEDS ORDERED: MONTELUKAST 10 MG TAB PO STA (02:03)
[2021-05-02 06:18] LABS: HCT 41.5 % (34.0-46.0); HGB 14.5 gm/dL (11.4-16.0); MCV 94.4 fL (80.0-100.0); Mean Platelet Volume 8.3; Platelet Count 229 k/uL (150-450)
[2021-05-02 06:40] LABS: Glucose,Whole Blood 155 mg/dL (75-99)
[2021-05-02] MEDS: TIOTROPIUM 2.5 MCG INHALER INHALATION SCH (08:37)
[2021-05-02] MEDS: ALBUTEROL HFA INHALER INHALATION SCH ×4 (08:37→20:17)
[2021-05-02] MEDS: SYMBICORT 80-4.5 MCG INHALER INHALATION SCH ×2 (08:37→20:17)
[2021-05-02] MEDS ORDERED: DOXYCYCLINE 100 MG CAP PO SCH (09:00)
[2021-05-02] MEDS: HEPARIN SODIUM,PORCINE/PF 5,000 UNIT/0.5 ML SYRINGE SQ SCH ×3 (09:05→23:46)
[2021-05-02 11:49] LABS: Glucose,Whole Blood 146 mg/dL (75-99)
[2021-05-02] MEDS ORDERED: BENZOCAINE/MENTHOL LOZENG 1 EACH LOZENGE MUCOUS MEM PRN (13:11)
[2021-05-02] MEDS: FLUTICASONE 50MCG/SPRAY NASAL 16GM EA NOSTRIL SCH (14:21)
[2021-05-02] MEDS: guaiFENesin 600 MG TABLET.ER PO SCH ×2 (14:21→20:07)
--- NOTE | 2021-05-02 14:55 | P.CNPUL ---
History of Present Illness Consult date: 05/02/21 Requesting physician: Louis Cifuentes Reason for consult: COPD Chief complaint: Shortness of breath cough and wheezing History of present illness: This is a 60-year-old female with known history of severe COPD, kyphosis of the chest, tobacco dependence syndrome, hypertension, dyslipidemia, osteoarthritis, patient was recently seen by Dr. Larsen for symptoms of sinusitis congestion, consistent with sinusitis. Patient received 2 courses of antibiotics and steroids [address] Larsen and 1 by from urgent care, however the patient did not improve, went on to develop pulmonary symptoms including cough wheezing and shortness of breath. Describes the cough is productive with yellow phlegm, but no fever no chills no hemoptysis and no chest pain. In spite of her symptoms, the patient continues to smoke. Patient came into the ER last night, chest x- ray showed no evidence of active disease. She had a bit of leukocytosis with WBC count of 13.1. And she had negative PCR for COVID-19 infection. Patient was admitted, and this consult was initiated. Review of Systems Constitutional: Denies chills, Denies fever Eyes: denies blurred vision, denies pain Ears, nose, mouth and throat: Mostly symptoms of congestion over her sinuses. Cardiovascular: Denies chest pain, Denies shortness of breath Respiratory: As noted in HPI. Gastrointestinal: Denies abdominal pain, Denies diarrhea, Denies nausea, Denies vomiting Genitourinary: Denies dysuria, Denies hematuria Musculoskeletal: Denies myalgias Integumentary: Denies pruritus, Denies rash Neurological: Denies numbness, Denies weakness Psychiatric: Denies anxiety, Denies depression Endocrine: Denies fatigue, Denies weight change Past Medical History Past Medical History: Asthma, Cancer, COPD, Hyperlipidemia, Hypertension, Osteoarthritis (OA) Additional Past Medical History / Comment(s): Bronchitis, cervical cancer with hysterectomy, kyphoscoliosis of the spine, arthritis bilateral hands and knees. History of Any Multi-Drug Resistant Organisms: None Reported Past Surgical History: Hysterectomy, Tonsillectomy Additional Past Surgical History / Comment(s): Hemangioma removed from side head, exploratory laparotomy with R salpingectomy, lymph nodes removed from groin with hysterectomy (cervical cancer). Past Anesthesia/Blood Transfusion Reactions: Postoperative Nausea & Vomiting (PONV) Additional Past Anesthesia/Blood Transfusion Reaction / Comment(s): I wake up "sharlene." Past Psychological History: No Psychological Hx Reported Additional Psychological History / Comment(s): Pt has a brother living with her. She is independent. She works for the [employer]. She has a nebulizer. Smoking Status: Current every day smoker Past Alcohol Use History: None Reported Additional Past Alcohol Use History / Comment(s): Pt started smoking in 1971 and is currently a off and on smoker. Past Drug Use History: None Reported - Past Family History Mother Family Medical History: Vascular Disorder Additional Family Medical History / Comment(s): Mother of a cerebral aneurysm at the age of 29 yrs. Father Family Medical History: CVA/TIA Additional Family Medical History / Comment(s): Father of a CVA-pt unable to recall at what age. Daughter(s) Additional Family Medical History / Comment(s): Partially deaf, juvenile arthritis Medications and Allergies Home Medications Medication Instructions Recorded Confirmed Type Aspirin 81 mg PO HS 08/20/15 05/01/21 History Atorvastatin [Lipitor] 10 mg PO HS 08/20/15 05/01/21 History Ramipril 20 mg PO HS 08/20/15 05/01/21 History Montelukast [Singulair] 10 mg PO HS 07/15/19 05/01/21 History Fluticasone/Umeclidin/Vilanter 1 puff INHALATION RT-DAILY 02/22/20 05/01/21 History [Trelegy Ellipta 100-62.5-25] amLODIPine [Norvasc] 5 mg PO HS 02/22/20 05/01/21 History hydroCHLOROthiazide [Hydrodiuril] 25 mg PO HS 07/13/20 05/01/21 History Doxycycline Hyclate [Vibramycin] 100 mg PO BID 05/01/21 05/01/21 History Ipratropium [place] [Atrovent Hfa] 2 puff INHALATION RT-Q4H PRN 05/01/2104/20 History predniSONE See Taper PO DAILY 05/01/21 05/01/21 History Allergies Allergy/AdvReac Type Severity Reaction Status Date / Time adhesive tape Allergy Rash/Hives Verified 05/01/21 20:52 Sulfa (Sulfonamide Allergy Swelling Verified 05/01/21 20:52 Antibiotics) codeine AdvReac Nausea & Verified 05/01/21 20:52 Vomiting Frozen burger Allergy Swelling Uncoded 05/02/21 00:50 Physical Exam Vitals: Vital Signs Temp Pulse Pulse Resp BP BP Pulse Ox 05/02/21 14:12 98.2 F 92 14 116/77 96 05/02/21 11:40 18 05/02/21 08:27 98.0 F 76 16 116/69 96 05/02/21 03:07 98.2 F 96 20 145/78 94 L 05/02/21 00:37 98 F 92 22 146/65 94 L 05/01/21 23:00 74 18 137/71 96 05/01/21 21:11 83 05/01/21 20:56 89 05/01/21 20:21 86 28 H 141/79 95 05/01/21 18:09 98.0 F 101 H 20 136/72 92 L Intake and Output 05/01/21 05/02/21 05/02/21 22:59 06:59 14:59 Intake Total 780 Balance 780 Intake: Oral 780 Other: Voiding Method Toilet # Voids 1 2 Weight 73.028 kg 67.9 kg GENERAL EXAM: Revealed a 58-year-old female, on room air, in no distress. HEAD: Normocephalic. EYES: Normal reaction of pupils, equal size. NOSE: Clear with pink turbinates. No tenderness over maxillary sinus. THROAT: No erythema or exudates. NECK: No masses, no JVD. CHEST: Severe kyphoscoliosis LUNGS: Symmetrical chest expansion, crackles or rhonchi and wheezes noted sol aterally more so on forced expiratory maneuver. CVS: S1 and S2 normal with no audible mumurs, regular rhythm. ABDOMEN: No hepatosplenomegaly, normal bowel sounds, no guarding or rigidity. SPINE: Severe kyphoscoliotic deformity SKIN: No rashes CENTRAL NERVOUS SYSTEM: No focal deficits, tone is normal in all 4 extremities. Results - Laboratory Findings CBC and BMP: 05/02/21 05:51 05/01/21 18:14 PT/INR, D-dimer PT 10.0 sec (9.0-12.0) 05/01/21 18:14 INR 0.9 (<1.2) 05/01/21 18:14 Abnormal lab findings: Abnormal Labs 05/01/21 05/01/2121 18:14 18:14 06:35 WBC 13.1 H Hct 46.3 H Neutrophils # 7.8 H Sodium 132 L BUN 18 H Glucose 110 H POC Glucose (mg/dL) 155 H AST 43 H 05/02/21 11:48 WBC Hct Neutrophils # Sodium BUN Glucose POC Glucose (mg/dL) 146 H AST - Diagnostic Findings Chest x-ray: image reviewed (As noted in HPI.) Assessment and Plan Assessment: Impression:#1. Acute exacerbation of chronic obstructive pulmonary disease. Associated with acute purulent tracheobronchitis, and symptoms of acute sinusitis. #2. Shortness of breath secondary to above #3. Severe kyphoscoliosis of the chest #4. Nicotine dependence, ongoing #5. Hypertension #6. Hyperlipidemia #7. Osteoarthritis Recommendation: Continue present treatment plan including bronchodilators, Continue Symbicort Continue methylprednisolone. Continue Spiriva respimat Discontinue doxycycline and was recommended Levaquin 500 mg daily. Patient already received a recent course of doxycycline and was not helpful. Consultations regarding smoking cessation. We'll continue to follow Time with Patient: Greater than 30
[2021-05-02] MEDS: LEVOFLOXACIN 500 MG TAB PO SCH (15:33)
[2021-05-02] MEDS: MONTELUKAST 10 MG TAB PO SCH (20:06)
[2021-05-02] MEDS: amLODIPine 5 MG TAB PO SCH (20:06)
[2021-05-02] MEDS: ATORVASTATIN 10 MG TAB PO SCH (20:06)
[2021-05-02] MEDS: hydroCHLOROthiazide 25 MG TAB PO SCH (20:06)
[2021-05-02] MEDS: ASPIRIN 81 MG PO SCH (20:06)
[2021-05-02] MEDS ORDERED: lisinopriL 20 MG TAB PO SCH (21:00)
--- NOTE | 2021-05-02 21:29 | P.PN ---
Progress Note - Text Progress Note Date: 05/02/21 (delayed charting seen at 1245) Patient was seen and examined by my partner after midnight. Patient seen and examined at bedside. She continues to complain of some shortness of breath, sore throat, postnasal drip, and cough. She states that the Celexa and nasal rinses have made her feel sick but have never helped. She states she does not want seen ENT for her chronic sinus issues. General: non toxic, no distress, appears at stated age Derm: warm, dry Head: atraumatic, normocephalic, symmetric Eyes: EOMI, no lid lag, anicteric sclera Mouth: no lip lesion, mucus membranes moist Cardiovascular: S1S2 reg, no murmur, positive posterior tibial pulse bilateral, Lungs: Wheezing right base, no rhonchi, no rales , no accessory muscle use, severe kyphosis Abdominal: soft, nontender to palpation, no guarding, no appreciable organomegaly Ext: no gross muscle atrophy, no edema, no contractures Neuro: CN II-XI grossly intact, no focal neuro deficits Psych: Alert, oriented, appropriate affect Continue treatment for acute exacerbation of COPD. Add Flonase and Mucinex.
[2021-05-03] MEDS: methylPREDNISolone SOD SUCCI 125 MG/2 ML VIAL IV SCH ×4 (00:23→17:11)
[2021-05-03] MEDS: FLUTICASONE 50MCG/SPRAY NASAL 16GM EA NOSTRIL SCH (08:01)
[2021-05-03] MEDS: guaiFENesin 600 MG TABLET.ER PO SCH ×2 (08:01→19:56)
[2021-05-03] MEDS: HEPARIN SODIUM,PORCINE/PF 5,000 UNIT/0.5 ML SYRINGE SQ SCH ×2 (08:01→12:03)
[2021-05-03] MEDS: TIOTROPIUM 2.5 MCG INHALER INHALATION SCH (08:55)
[2021-05-03] MEDS: ALBUTEROL HFA INHALER INHALATION SCH ×4 (08:55→19:54)
[2021-05-03] MEDS: SYMBICORT 80-4.5 MCG INHALER INHALATION SCH ×2 (08:55→19:54)
--- NOTE | 2021-05-03 12:53 | P.PN ---
Subjective Progress Note Date: 05/03/21 Patient's breathing is mildly improved. She still sounds tight in the chest. Still short of breath upon ambulation. Still with 2 L oxygen requirement. Objective - Vital Signs Vital signs: Vital Signs Temp 97.9 F 05/03/21 08:20 Pulse 80 05/03/21 08:20 Resp 18 05/03/21 08:20 BP 123/65 05/03/21 08:20 Pulse Ox 93 L 05/03/21 08:20 Intake & Output 05/02/21 05/03/21 05/03/21 18:59 06:59 18:59 Intake Total 540 Balance 540 Intake: Oral 540 Other: # Voids 2 2 - Exam Gen: awake, alert HEENT: normocephalic, atraumatic, good hearing acuity, moist mucous membranes Resp: Moderate air exchange, mid expiratory wheezing bilaterally, able to pull air into the bases of both lungs, diminished on the right compared to the left CVS: good distal perfusion x 4, GI: soft, NTTP, ND : no SPT, no CVAT, bloom catheter not present MSK: no pitting edema, no clubbing Neuro: non-focal, moving all extremities Psych: cooperative, euthymic mood - Labs CBC & Chem 7: 05/02/21 05:51 05/01/21 18:14 Assessment and Plan Assessment: Acute COPD exacerbation -Continue with Solu-Medrol, Symbicort -DuoNeb's [id number] and when necessary -Pulmonary consulted -Continue levofloxacin 500 mg daily Leukocytosis -Likely due to steroid use Chronic conditions: Hypertension, hyperlipidemia -Continue with home meds DVT prophylaxis -Heparin subq The patient is admitted with an anticipated less than 2 midnight stay for evaluation of acute COPD exacerbation. CODE STATUS: Full Code Discussed with: Patient Anticipated discharge date: in am Anticipated discharge place: Home
--- NOTE | 2021-05-03 13:05 | P.PN ---
Subjective Progress Note Date: 05/03/21 Principal diagnosis: Acute exacerbation of COPD This is a 60-year-old female with known history of severe COPD, kyphosis of the chest, tobacco dependence syndrome, hypertension, dyslipidemia, osteoarthritis, patient was recently seen by Dr. Larsen for symptoms of sinusitis congestion, consistent with sinusitis. Patient received 2 courses of antibiotics and steroids [address] Larsen and 1 by from urgent care, however the patient did not improve, went on to develop pulmonary symptoms including cough wheezing and shortness of breath. Describes the cough is productive with yellow phlegm, but no fever no chills no hemoptysis and no chest pain. In spite of her symptoms, the patient continues to smoke. Patient came into the ER last night, chest x- ray showed no evidence of active disease. She had a bit of leukocytosis with WBC count of 13.1. And she had negative PCR for COVID-19 infection. Patient was admitted, and this consult was initiated. Reevaluated today on 05/03/2021, patient is basically about the same, minimal improvement if any, definitely not any worse. Patient continues to cough and wheeze, no fever no chills no hemoptysis and no chest pain. Remains on oxygen at 2 L nasal cannula. O2 saturation is 93% and she is more often on room air Objective - Vital Signs Vital signs: Vital Signs Temp 97.9 F 05/03/21 08:20 Pulse 80 05/03/21 08:20 Resp 18 05/03/21 08:20 BP 123/65 05/03/21 08:20 Pulse Ox 93 L 05/03/21 08:20 Intake & Output 05/02/21 05/03/21 05/03/21 18:59 06:59 18:59 Intake Total 540 Balance 540 Intake: Oral 540 Other: # Voids 2 2 - Exam GENERAL EXAM: Revealed a 58-year-old female, on 2 L nasal cannula, in no distress. HEAD: Normocephalic. EYES: Normal reaction of pupils, equal size. NOSE: Clear with pink turbinates. No tenderness over maxillary sinus. THROAT: No erythema or exudates. NECK: No masses, no JVD. CHEST: Severe kyphoscoliosis LUNGS: Symmetrical chest expansion, crackles or rhonchi and wheezes noted bilaterally , not much different from yesterday. CVS: S1 and S2 normal with no audible mumurs, regular rhythm. ABDOMEN: No hepatosplenomegaly, normal bowel sounds, no guarding or rigidity. SPINE: Severe kyphoscoliotic deformity SKIN: No rashes CENTRAL NERVOUS SYSTEM: No focal deficits, tone is normal in all 4 extremities. - Labs CBC & Chem 7: 05/02/21 05:51 05/01/21 18:14 Assessment and Plan Assessment: Impression:#1. Acute exacerbation of chronic obstructive pulmonary disease. Associated with acute purulent tracheobronchitis, and symptoms of acute sinusitis. #2. Shortness of breath secondary to above #3. Severe kyphoscoliosis of the chest #4. Nicotine dependence, ongoing #5. Hypertension #6. Hyperlipidemia #7. Osteoarthritis Recommendation: Continue bronchodilators, Continue Symbicort Continue methylprednisolone. Continue Spiriva respimat Continue Levaquin Consultations regarding smoking cessation. Patient tells me that she is down to a few cigarettes per day, working hard at it. We'll continue to follow possible discharge planning in the next 2 days. Time with Patient: Less than 30
[2021-05-03] MEDS: LEVOFLOXACIN 500 MG TAB PO SCH (17:11)
[2021-05-03] MEDS: ASPIRIN 81 MG PO SCH (20:03)
[2021-05-03] MEDS: ATORVASTATIN 10 MG TAB PO SCH (20:03)
[2021-05-03] MEDS: amLODIPine 5 MG TAB PO SCH (20:03)
[2021-05-03] MEDS: hydroCHLOROthiazide 25 MG TAB PO SCH (20:03)
[2021-05-03] MEDS: MONTELUKAST 10 MG TAB PO SCH (20:03)
[2021-05-04] MEDS: methylPREDNISolone SOD SUCCI 125 MG/2 ML VIAL IV SCH ×2 (05:38→07:27)
[2021-05-04] MEDS: HEPARIN SODIUM,PORCINE/PF 5,000 UNIT/0.5 ML SYRINGE SQ SCH ×2 (07:26→08:06)
[2021-05-04] MEDS: guaiFENesin 600 MG TABLET.ER PO SCH (08:06)
[2021-05-04] MEDS: FLUTICASONE 50MCG/SPRAY NASAL 16GM EA NOSTRIL SCH (08:06)
[2021-05-04] MEDS: ALBUTEROL HFA INHALER INHALATION SCH (08:08)
[2021-05-04] MEDS: SYMBICORT 80-4.5 MCG INHALER INHALATION SCH (08:08)
[2021-05-04] MEDS: TIOTROPIUM 2.5 MCG INHALER INHALATION SCH (08:08)
[2021-05-04 08:39] VITALS: BP 122/83; PULSE 67; RESP 16; TEMP 97.8
--- NOTE | 2021-05-04 10:05 | P.DS ---
Providers Date of admission: 05/03/21 11:48 Expected date of discharge: 05/04/21 Attending physician: Louis Cifuentes MD Consults: 05/01/21 21:44 Consult Physician Routine Consulting Provider: Cinda Damon Consult Reason/Comments: COPD exacerbation Do you want consulting provider notified?: Yes Primary care physician: [facility] Course: Discharge Diagnosis: Acute exacerbation of COPD Bronchitis HTN HLD Severe Scolosis Hospital Course: Patient is a 61-year-old female history of COPD, hypertension, dyslipidemia who presented to the emergency department with complaints of worsening shortness of breath. She had failed an outpatient course of doxycycline and steroids. In the ER she underwent an extensive evaluation. She was found to have a mild leukocytosis at 13, sodium 132. Chest x-ray was unremarkable other than her severe scoliosis and EKG showed normal sinus rhythm. She was admitted and started on Levaquin and IV steroids. She was seen by pulmonary. She continued to improve. She was determined stable for discharge home. Follow-up Dr. Gorman on 05/10 as scheduled, Dr. Larsen in 2 weeks. Complete Levaquin and Steroid Taper. Patient seen and examined at bedside. Breathing is much better, no chest pain, No nuasea Vital signs reviewed and stable. General: non toxic, no distress, appears at stated age Derm: warm, dry Head: atraumatic, normocephalic, symmetric Eyes: EOMI, no lid lag, anicteric sclera Mouth: no lip lesion, mucus membranes moist Cardiovascular: S1S2 reg, no murmur, positive posterior tibial pulse bilateral, Severe scolosis Lungs: Course bs bilateral, no rhonchi, no rales , no accessory muscle use Abdominal: soft, nontender to palpation, no guarding, no appreciable organomegaly Ext: no gross muscle atrophy, no edema, no contractures Neuro: CN II-XI grossly intact, no focal neuro deficits Psych: Alert, oriented, appropriate affect A total of 33 minutes of time were spent preparing this complex discharge summary . Patient Condition at Discharge: Stable Plan - Discharge Summary Discharge Rx Participant: No New Discharge Prescriptions: New predniSONE [Deltasone] 0 mg PO DIRECTED #20 tab Levofloxacin [Levaquin] 500 mg PO Q24H #3 tab Continue Ramipril 20 mg PO HS Atorvastatin [Lipitor] 10 mg PO HS Aspirin 81 mg PO HS Montelukast [Singulair] 10 mg PO HS amLODIPine [Norvasc] 5 mg PO HS Fluticasone/Umeclidin/Vilanter [Trelegy Ellipta 100-62.5-25] 1 puff INHALATION RT-DAILY hydroCHLOROthiazide [Hydrodiuril] 25 mg PO HS Ipratropium [place] [Atrovent Hfa] 2 puff INHALATION RT-Q4H PRN PRN Reason: Shortness Of Breath Discontinued predniSONE See Taper PO DAILY Doxycycline Hyclate [Vibramycin] 100 mg PO BID Discharge Medication List Aspirin 81 mg PO HS 08/20/15 [History] Atorvastatin [Lipitor] 10 mg PO HS 08/20/15 [History] Ramipril 20 mg PO HS 08/20/15 [History] Montelukast [Singulair] 10 mg PO HS 07/15/19 [History] Fluticasone/Umeclidin/Vilanter [Trelegy Ellipta 100-62.5-25] 1 puff INHALATION RT-DAILY 02/22/20 [History] amLODIPine [Norvasc] 5 mg PO HS 02/22/20 [History] hydroCHLOROthiazide [Hydrodiuril] 25 mg PO HS 07/13/20 [History] Ipratropium [place] [Atrovent Hfa] 2 puff INHALATION RT-Q4H PRN 05/01/21 [History] Levofloxacin [Levaquin] 500 mg PO Q24H #3 tab 05/04/21 [Rx] predniSONE [Deltasone] 0 mg PO DIRECTED #20 tab 05/04/21 [Rx] Follow up Appointment(s)/Referral(s): Fermin Hernandez MD [Primary Care Provider] - 05/12/21 10:20 am Evert Larsen MD [STAFF PHYSICIAN] - 06/09/21 4:00 am Activity/Diet/Wound Care/Special Instructions: Activity: as tolerated Diet: heart healthy Special Instructions: Remain off work through 05/09 Discharge/Stand Alone Forms: Work/Release Restrictions Form Discharge Disposition: HOME SELF-CARE
--- NOTE | 2021-05-04 11:22 | P.PN ---
Subjective Progress Note Date: 05/04/21 Principal diagnosis: COPD exacerbation This is a 60-year-old female with known history of severe COPD, kyphosis of the chest, tobacco dependence syndrome, hypertension, dyslipidemia, osteoarthritis, patient was recently seen by Dr. Larsen for symptoms of sinusitis congestion, consistent with sinusitis. Patient received 2 courses of antibiotics and steroids [address] Larsen and 1 by from urgent care, however the patient did not improve, went on to develop pulmonary symptoms including cough wheezing and shortness of breath. Describes the cough is productive with yellow phlegm, but no fever no chills no hemoptysis and no chest pain. In spite of her symptoms, the patient continues to smoke. Patient came into the ER last night, chest x- ray showed no evidence of active disease. She had a bit of leukocytosis with WBC count of 13.1. And she had negative PCR for COVID-19 infection. Patient was admitted, and this consult was initiated. Reevaluated today on 05/03/2021, patient is basically about the same, minimal improvement if any, definitely not any worse. Patient continues to cough and wheeze, no fever no chills no hemoptysis and no chest pain. Remains on oxygen at 2 L nasal cannula. O2 saturation is 93% and she is more often on room air The patient is seen today 05/04/2021 in follow-up on the regular medical floor. She is currently sitting up at the bedside. Awake and alert in no acute distress. Her breathing is improved. Not quite back to her baseline. He is maintaining good O2 saturations in the mid 90s on room air. Afebrile. Hemodynamically stable. She is continued on Symbicort, Spiriva, albuterol, IV Solu-Medrol, Singulair, Mucinex. Heparin for DVT prophylaxis. Empiric antibiotics in the form of Levaquin. Objective - Vital Signs Vital signs: Vital Signs Temp 97.8 F 05/04/21 07:00 Pulse 67 05/04/21 07:00 Resp 16 05/04/21 07:00 BP 122/83 05/04/21 07:00 Pulse Ox 96 05/04/21 07:00 Intake & Output 05/03/21 05/04/21 05/04/21 18:59 06:59 18:59 Intake Total 666 500 Balance 666 500 Intake: Oral 666 500 Other: Voiding Method Toilet Toilet # Voids 2 1 - Exam GENERAL EXAM: Alert, active, pleasant 58-year-old female, on room air, comfortable in no apparent distress. HEAD: Normocephalic. EYES: Normal reaction of pupils, equal size. NOSE: Clear with pink turbinates. THROAT: No erythema or exudates. NECK: No masses, no JVD. CHEST: No chest wall deformity. LUNGS: Equal air entry with faint end expiratory wheeze, diminished. CVS: S1 and S2 normal with no audible murmur, regular rhythm. ABDOMEN: No hepatosplenomegaly, normal bowel sounds, no guarding or rigidity. SPINE: No scoliosis or deformity SKIN: No rashes CENTRAL NERVOUS SYSTEM: No focal deficits, tone is normal in all 4 extremities. EXTREMITIES: There is no peripheral edema. No clubbing, no cyanosis. Per ipheral pulses are intact. - Labs CBC & Chem 7: 05/02/21 05:51 05/01/21 18:14 Assessment and Plan Assessment: 1 Acute exacerbation of chronic obstructive pulmonary disease. Associated with acute purulent tracheobronchitis, and symptoms of acute sinusitis. 2 Shortness of breath secondary to above 3 Severe kyphoscoliosis of the chest 4 Nicotine dependence, ongoing 5 Hypertension 6 Hyperlipidemia 7 Osteoarthritis Plan: The patient was seen and evaluated She is cleared for discharge from the pulmonary standpoint Complete a prednisone taper Complete a course of antibiotics Continue her home pulmonary medications Keep her appointment with Dr. Larsen as scheduled I, the cosigning physician, performed a history & physical examination of the patient. Lungs sounds with faint end expiratory wheeze, diminished. Maintaining good O2 saturations in the 90s on room air. I discussed the assessment and plan of care with my nurse practitioner, Jamee Godinez. I attest to the above note as dictated by her.
== END 2021-05-04 11:35 | disposition home or self-care (01) | DRG 192 ==
LOC: EC 17:45 → 6NMEDSUR 21:28 → 6PED 23:24 → OBSVTOIN 05-03 11:48
PROVIDERS: ADMIT Internal Medicine; ATTEND Internal Medicine
PROC: 3E0F7SF Introduction of Other Gas into Respiratory Tract, Via Natural or Artificial Opening (ICD-10-PCS; principal; 2021-05-03)
DX: J44.1 Chronic obstructive pulmonary disease with (acute) exacerbation (principal); D72.829 Elevated white blood cell count, unspecified; T38.0X5A Adverse effect of glucocorticoids and synthetic analogues, initial encounter; R09.82 Postnasal drip; E78.5 Hyperlipidemia, unspecified; F17.210 Nicotine dependence, cigarettes, uncomplicated; I10 Essential (primary) hypertension; J32.9 Chronic sinusitis, unspecified; M19.041 Primary osteoarthritis, right hand; M19.042 Primary osteoarthritis, left hand; M41.80 Other forms of scoliosis, site unspecified; Z20.822 Contact with and (suspected) exposure to COVID-19; Z79.82 Long term (current) use of aspirin; Z79.899 Other long term (current) drug therapy; Z85.41 Personal history of malignant neoplasm of cervix uteri; Z90.710 Acquired absence of both cervix and uterus; X58.XXXA Exposure to other specified factors, initial encounter; Z91.048 Other nonmedicinal substance allergy status; Z88.2 Allergy status to sulfonamides; Z91.02 Food additives allergy status; Z88.8 Allergy status to other drugs, medicaments and biological substances; Z88.5 Allergy status to narcotic agent
CPT/HCPCS: 36415; 71046; 80053; 84484; 85025; 85027; 85610; 85730; 87635; 93005; 94640; 96374; 99285

== ENCOUNTER → 2021-12-23 | Outpatient (CLI) | payer BC ==
--- NOTE | 2021-12-26 11:44 | MM ---
Reason for exam: screening (asymptomatic). Last mammogram was performed 3 years and 2 months ago. History: Patient has history of endometrial cancer at age 34. Family history of breast cancer in paternal grandmother. Physical Findings: A clinical breast exam by your physician is recommended on an annual basis and results should be correlated with mammographic findings. MG 3D Screening Mammo W/Cad Bilateral CC, MLO, and XCCL view(s) were taken. Prior study comparison: October 31, 2018, bilateral MG 3d screening mammo w/cad. October 01, 2017, bilateral MG 3d screening mammo w/cad. There are scattered fibroglandular densities. There are benign appearing round calcifications bilaterally. There is chronic nodularity in the left breast. There is no discrete abnormality. ASSESSMENT: Benign, BI-RAD 2 RECOMMENDATION: Routine screening mammogram of both breasts in 1 year.
== END | disposition home or self-care (01) ==
LOC: RADMAMWWP 13:03
PROVIDERS: ATTEND Family Medicine
DX: Z12.31 Encounter for screening mammogram for malignant neoplasm of breast (principal); Z85.42 Personal history of malignant neoplasm of other parts of uterus; Z80.3 Family history of malignant neoplasm of breast
CPT/HCPCS: 77063; 77067

== ENCOUNTER 2022-05-28 20:54 | Emergency (ER) | payer BC ==
[2022-05-28 21:02] VITALS: TEMP 96
[2022-05-28] MEDS ORDERED: IPRATROPIUM-ALBUTEROL 3 ML NEB INHALATION STA (21:15)
[2022-05-28] MEDS ORDERED: FAMOTIDINE 20 MG/2 ML VIAL IV STA (21:15)
[2022-05-28] MEDS ORDERED: methylPREDNISolone SOD SUCCI 125 MG/2 ML VIAL IV STA (21:15)
[2022-05-28] MEDS ORDERED: SODIUM CHLORIDE 0.9% 1,000 ML IV STA ×2 (21:15)
--- NOTE | 2022-05-28 21:23 | ED ---
Allergic Reaction HPI - General Chief complaint: Allergic Reaction Stated complaint: SOB Time Seen by Provider: 05/28/22 21:00 Source: patient, RN notes reviewed Mode of arrival: ambulatory Limitations: no limitations - History of Present Illness Initial Comments: 62-year-old female history of COPD and asthma who states she started noticing some tooth pain today she took some Keflex that was given to her by her doctor about 50 minutes later she started developing itching and shortness of breath. She was given 2 Benadryl by family members. She states she does feel somewhat better but upon arrival here she was noted to be still short of breath with low blood pressure 72/42. Thus had a 90% saturation on room air. She denies any overt chest pain she does have severe kyphosis scoliosis. She's had no prior history of ALLERGIC reactions to Keflex. Does have a history of sulfa ALLERGY. MD Complaint: allergic reaction - Related Data Home Medications Medication Instructions Recorded Confirmed Aspirin 81 mg PO HS 08/20/15 11/23/21 Atorvastatin [Lipitor] 10 mg PO HS 08/20/15 11/23/21 Ramipril 20 mg PO HS 08/20/15 11/23/21 Montelukast [Singulair] 10 mg PO HS 07/15/19 11/23/21 Fluticasone/Umeclidin/Vilanter 1 puff INHALATION RT-HS 02/22/20 11/23/21 [Trelekostas Ellipta 100-62.5-25] amLODIPine [Norvasc] 5 mg PO HS 02/22/20 11/23/21 hydroCHLOROthiazide [Hydrodiuril] 25 mg PO HS 07/13/20 11/23/21 Ipratropium [place] [Atrovent Hfa] 2 puff INHALATION RT-Q4H PRN 05/01/21 11/23/21 Ibuprofen [Motrin] 800 mg PO Q8H PRN 11/23/21 11/23/21 Previous Rx's Medication Instructions Recorded clindamycin HCL [Cleocin] 300 mg PO Q8H #30 cap 05/28/22 predniSONE [Deltasone] 20 mg PO BID #10 tab 05/28/22 Allergies Allergy/AdvReac Type Severity Reaction Status Date / Time adhesive tape Allergy Rash/Hives Verified 05/28/22 21:02 cephalexin Allergy Rapid Verified 05/28/22 21:03 Heart Rate Sulfa (Sulfonamide Allergy Swelling Verified 05/28/22 21:02 Antibiotics) codeine AdvReac Nausea & Verified 05/28/22 21:02 Vomiting Frozen burger Allergy Swelling Uncoded 05/28/22 21:02 Review of Systems ROS Statement: Those systems with pertinent positive or pertinent negative responses have been documented in the HPI. ROS Other: All systems not noted in ROS Statement are negative. Past Medical History Past Medical History: Asthma, Cancer, COPD, Hyperlipidemia, Hypertension, Osteoarthritis (OA) Additional Past Medical History / Comment(s): Bronchitis, cervical cancer with hysterectomy, kyphoscoliosis of the spine, arthritis bilateral hands and knees. History of Any Multi-Drug Resistant Organisms: None Reported Past Surgical History: Hysterectomy, Tonsillectomy Additional Past Surgical History / Comment(s): Hemangioma removed from side head, exploratory laparotomy with R salpingectomy, lymph nodes removed from groin with hysterectomy (cervical cancer). Past Anesthesia/Blood Transfusion Reactions: Postoperative Nausea & Vomiting (PONV) Additional Past Anesthesia/Blood Transfusion Reaction / Comment(s): I wake up "rowdy." Past Psychological History: No Psychological Hx Reported Smoking Status: Current every day smoker Past Alcohol Use History: None Reported Past Drug Use History: None Reported - Past Family History Mother Family Medical History: Vascular Disorder Additional Family Medical History / Comment(s): Mother of a cerebral aneurysm at the age of 29 yrs. Father Family Medical History: CVA/TIA Additional Family Medical History / Comment(s): Father of a CVA-pt unable to recall at what age. Daughter(s) Additional Family Medical History / Comment(s): Partially deaf, juvenile arthritis General Exam - General Exam Comments Initial Comments: This is a well-developed well-nourished awake alert oriented 4 female Limitations: no limitations General appearance: alert, anxious Head exam: Present: atraumatic, normocephalic, normal inspection Eye exam: Present: normal appearance, PERRL, EOMI. Absent: scleral icterus, conjunctival injection, periorbital swelling ENT exam: Present: mucous membranes moist, other (Examination the right lower gumline reveals evidence of gingivitis with tenderness palpation no definitive defect in the dentition seen.) Neck exam: Present: normal inspection. Absent: tenderness, meningismus, lymphadenopathy Respiratory exam: Present: decreased breath sounds, other (Patient does demonstrate does demonstrate kyphoscoliosis). Absent: respiratory distress, wheezes, rales, rhonchi, stridor Cardiovascular Exam: Present: normal rhythm, tachycardia, normal heart sounds. Absent: systolic murmur, diastolic murmur, rubs, gallop, clicks GI/Abdominal exam: Present: soft, normal bowel sounds. Absent: distended, tenderness, guarding, rebound, rigid Extremities exam: Present: normal inspection, full ROM, normal capillary refill. Absent: tenderness, pedal edema, joint swelling, calf tenderness Back exam: Present: normal inspection Neurological exam: Present: alert, oriented X3, CN II-XII intact Psychiatric exam: Present: normal affect, anxious Skin exam: Present: warm, dry, intact, erythema (Around erythema noted to the integument.). Absent: rash Course Vital Signs 05/28/22 05/28/22 05/28/22 20:57 21:46 21:50 Temperature 96.0 F L Pulse Rate 120 H 100 104 H Respiratory 24 Rate Blood Pressure 72/42 O2 Sat by Pulse 90 L Oximetry 05/28/22 22:07 Temperature Pulse Rate 85 Respiratory 18 Rate Blood Pressure 95/51 O2 Sat by Pulse 96 Oximetry - Reevaluation(s) Reevaluation #1: 05/28/22 22:27 Patient is feeling improved her blood pressure is improved some labs are pending at this time. Medical Decision Making - Medical Decision Making I did discuss the findings with the patient family members patient does have a mildly elevated troponin. We did discuss options including admission. EKG was not initially done due to the initial presentation. Patient does not want to have an EKG done at this time and does request to be discharged to go home. He does he has medical advice. She is agreed to accept responsibility and will follow-up with her own doctor. Patient will be placed on appropriate medication for the ALLERGIC reaction as well as a antibiotic for the apparent gingivitis. There was no evidence of abscess formation at this time. - Lab Data Result diagrams: 05/28/22 21:27 05/28/22 22:53 Lab Results 05/28/22 05/28/22 05/28/22 Range/Units 21:27 22:53 22:53 WBC 8.9 (3.8-10.6) k/uL RBC 4.90 (3.80-5.40) m/uL Hgb 16.0 (11.4-16.0) gm/dL Hct 46.2 H (34.0-46.0) % MCV 94.2 (80.0-100.0) fL MCH 32.7 (25.0-35.0) pg MCHC 34.7 (31.0-37.0) g/dL RDW 12.2 (11.5-15.5) % Plt Count 176 (150-450) k/uL MPV 9.4 Neutrophils % 47 % Lymphocytes % 43 % Monocytes % 4 % Eosinophils % 3 % Basophils % 1 % Neutrophils # 4.2 (1.3-7.7) k/uL Lymphocytes # 3.8 (1.0-4.8) k/uL Monocytes # 0.3 (0-1.0) k/uL Eosinophils # 0.2 (0-0.7) k/uL Basophils # 0.1 (0-0.2) k/uL Sodium 135 L (137-145) mmol/L Potassium 3.5 (3.5-5.1) mmol/L Chloride 97 L (98-107) mmol/L Carbon Dioxide 23 (22-30) mmol/L Anion Gap 15 mmol/L BUN 16 (7-17) mg/dL Creatinine 1.10 H (0.52-1.04) mg/dL Est GFR (CKD-EPI)AfAm 61 (>60 ml/min/1.73 sqM) Est GFR (CKD-EPI)NonAf 53 (>60 ml/min/1.73 sqM) Glucose 205 H (74-99) mg/dL Calcium 8.8 (8.4-10.2) mg/dL Magnesium 2.0 (1.6-2.3) mg/dL Total Bilirubin 0.5 (0.2-1.3) mg/dL AST 51 H (14-36) U/L ALT 43 H (4-34) U/L Alkaline Phosphatase 93 (38-126) U/L Creatine Kinase 90 (30-135) U/L Troponin I 0.039 H* (0.000-0.034) ng/mL Total Protein 6.6 (6.3-8.2) g/dL Albumin 4.5 (3.5-5.0) g/dL - Radiology Data Radiology results: report reviewed (Imaging reviewed as well as report no acute processes seen.), image reviewed Disposition Clinical Impression: Allergic reaction, Gingivitis, Elevated troponin, Hypotensive episode, Dehydration Disposition: Left Against Medical Advice Condition: Stable Instructions (If sedation given, give patient instructions): General Allergic Reaction (ED), High Troponin Levels (ED), Dehydration (ED) Additional Instructions: Use Benadryl when necessary and avoid cephalosporin antibiotics in the future. Prescriptions: clindamycin HCL [Cleocin] 300 mg PO Q8H #30 cap predniSONE [Deltasone] 20 mg PO BID #10 tab Is patient prescribed a controlled substance at d/c from ED?: No Referrals: Fermin Hernandez MD [Primary Care Provider] - 1-2 days Decision Date: 05/28/22 Decision Time: 23:58
[2022-05-28 21:45] LABS: Basophils # (A) 0.1 k/uL (0-0.2); Basophils % (A) 1 %; Eosinophils # (A) 0.2 k/uL (0-0.7); Eosinophils % (A) 3 %; HCT 46.2 % (34.0-46.0); Lymphocytes # (A) 3.8 k/uL (1.0-4.8); Lymphocytes % (A) 43 %; MCH 32.7 pg (25.0-35.0); MCHC 34.7 g/dL (31.0-37.0); MCV 94.2 fL (80.0-100.0); Mean Platelet Volume 9.4; Monocytes # (A) 0.3 k/uL (0-1.0); Monocytes % (A) 4 %; Neutrophils # (A) 4.2 k/uL (1.3-7.7); Neutrophils % (A) 47 %; Platelet Count 176 k/uL (150-450); RDW 12.2 % (11.5-15.5); WBC 8.9 k/uL (3.8-10.6)
--- NOTE | 2022-05-28 21:51 | XR ---
EXAMINATION TYPE: XR chest 1V portable DATE OF EXAM: 05/28/2022 COMPARISON: 11/23/2021 HISTORY: Chest pain TECHNIQUE: FINDINGS: Heart is normal. Lungs are clear of infiltrate. No heart failure. There are no hilar masses . Costophrenic angles are clear there is thoracic dextroscoliotic moderate deformity. IMPRESSION: No active cardiopulmonary disease. No change.
[2022-05-28 22:07] VITALS: BP 95/51; PULSE 85; RESP 18
[2022-05-28 23:19] LABS: Albumin 4.5 g/dL (3.5-5.0); Calcium 8.8 mg/dL (8.4-10.2); Potassium 3.5 mmol/L (3.5-5.1); Total Bilirubin 0.5 mg/dL (0.2-1.3); Total Protein 6.6 g/dL (6.3-8.2)
== END 2022-05-29 00:42 | disposition left against medical advice (07) ==
LOC: SUPCPDRO 20:54 → EC 20:54
DX: T36.1X5A Adverse effect of cephalosporins and other beta-lactam antibiotics, initial encounter (principal); R06.02 Shortness of breath; K05.10 Chronic gingivitis, plaque induced; R77.8 Other specified abnormalities of plasma proteins; I95.9 Hypotension, unspecified; E86.0 Dehydration; J44.9 Chronic obstructive pulmonary disease, unspecified; E78.5 Hyperlipidemia, unspecified; I10 Essential (primary) hypertension; M19.90 Unspecified osteoarthritis, unspecified site; F17.200 Nicotine dependence, unspecified, uncomplicated; Z88.8 Allergy status to other drugs, medicaments and biological substances; Z88.1 Allergy status to other antibiotic agents; Z88.2 Allergy status to sulfonamides; Z88.5 Allergy status to narcotic agent; Z91.018 Allergy to other foods; Z79.82 Long term (current) use of aspirin; Z79.899 Other long term (current) drug therapy; Z53.29 Procedure and treatment not carried out because of patient's decision for other reasons
CPT/HCPCS: 36415; 94640; 80053; 82550; 83735; 84484; 85025; 71045; 99285; 96374; 96375; 96361 ×4; J2930

== ENCOUNTER 2022-06-19 12:13 | Emergency (ER) | payer BC ==
[2022-06-19 12:35] VITALS: TEMP 98.5
[2022-06-19] MEDS ORDERED: SODIUM CHLORIDE 0.9% 1,000 ML IV STA (16:13)
--- NOTE | 2022-06-19 16:21 | ED ---
General Adult HPI - General Chief complaint: Abdominal Pain Stated complaint: abd pain Time Seen by Provider: 06/19/22 15:55 Source: patient, family, RN notes reviewed Mode of arrival: ambulatory Limitations: no limitations - History of Present Illness Initial comments: Patient is a pleasant 62-year-old female presenting to the emergency department with concerns for abdominal discomfort. Onset of symptoms was yesterday. Patient did have temperature at home of 100.7. No fever today. No nausea vomiting. No constipation or diarrhea. Discomfort is right lower abdomen. No history of chronic similar symptoms previously. Patient is refusing pain medicines this time - Related Data Home Medications Medication Instructions Recorded Confirmed Aspirin 81 mg PO HS 08/20/15 11/23/21 Atorvastatin [Lipitor] 10 mg PO HS 08/20/15 11/23/21 Ramipril 20 mg PO HS 08/20/15 11/23/21 Montelukast [Singulair] 10 mg PO HS 07/15/19 11/23/21 Fluticasone/Umeclidin/Vilanter 1 puff INHALATION RT-HS 02/22/20 11/23/21 [Trelegy Ellipta 100-62.5-25] amLODIPine [Norvasc] 5 mg PO HS 02/22/20 11/23/21 hydroCHLOROthiazide [Hydrodiuril] 25 mg PO HS 07/13/20 11/23/21 Ipratropium [place] [Atrovent Hfa] 2 puff INHALATION RT-Q4H PRN 05/01/21 11/23/21 Ibuprofen [Motrin] 800 mg PO Q8H PRN 11/23/21 11/23/21 Previous Rx's Medication Instructions Recorded clindamycin HCL [Cleocin] 300 mg PO Q8H #30 cap 05/28/22 predniSONE [Deltasone] 20 mg PO BID #10 tab 05/28/22 Amoxic-Pot Clav 875-125Mg 1 tab PO BID 10 Days #20 tab 06/19/22 [Augmentin 875-125] Allergies Allergy/AdvReac Type Severity Reaction Status Date / Time adhesive tape Allergy Rash/Hives Verified 06/19/22 12:35 cephalexin Allergy Rapid Verified 06/19/22 12:35 Heart Rate Sulfa (Sulfonamide Allergy Swelling Verified 06/19/22 12:35 Antibiotics) codeine AdvReac Nausea & Verified 06/19/22 12:35 Vomiting Frozen burger Allergy Swelling Uncoded 06/19/22 12:35 Review of Systems ROS Statement: Those systems with pertinent positive or pertinent negative responses have been documented in the HPI. ROS Other: All systems not noted in ROS Statement are negative. Constitutional: Denies: fever Eyes: Denies: eye pain ENT: Denies: ear pain Respiratory: Denies: cough Cardiovascular: Denies: chest pain Endocrine: Denies: fatigue Gastrointestinal: Reports: abdominal pain. Denies: nausea, vomiting, diarrhea Genitourinary: Denies: dysuria Musculoskeletal: Denies: back pain Skin: Denies: rash Neurological: Denies: weakness Past Medical History Past Medical History: Asthma, Cancer, COPD, Hyperlipidemia, Hypertension, Osteoarthritis (OA) Additional Past Medical History / Comment(s): Bronchitis, cervical cancer with hysterectomy, kyphoscoliosis of the spine, arthritis bilateral hands and knees. History of Any Multi-Drug Resistant Organisms: None Reported Past Surgical History: Hysterectomy, Tonsillectomy Additional Past Surgical History / Comment(s): Hemangioma removed from side head, exploratory laparotomy with R salpingectomy, lymph nodes removed from groin with hysterectomy (cervical cancer). Past Anesthesia/Blood Transfusion Reactions: Postoperative Nausea & Vomiting (PONV) Additional Past Anesthesia/Blood Transfusion Reaction / Comment(s): I wake up "rowdy." Past Psychological History: No Psychological Hx Reported Smoking Status: Current every day smoker Past Alcohol Use History: None Reported Past Drug Use History: None Reported - Past Family History Mother Family Medical History: Vascular Disorder Additional Family Medical History / Comment(s): Mother of a cerebral aneurysm at the age of 29 yrs. Father Family Medical History: CVA/TIA Additional Family Medical History / Comment(s): Father of a CVA-pt unable to recall at what age. Daughter(s) Additional Family Medical History / Comment(s): Partially deaf, juvenile a rthritis General Exam Limitations: no limitations General appearance: alert, in no apparent distress Head exam: Present: normocephalic Eye exam: Present: normal appearance Neck exam: Present: normal inspection Respiratory exam: Present: normal lung sounds bilaterally Cardiovascular Exam: Present: regular rate, normal rhythm Expanded Peripheral pulses: 2+: Dorsalis Pedis (R), Dorsalis Pedis (L) GI/Abdominal exam: Present: soft, tenderness (Moderate right lower quadrant tenderness to palpation), normal bowel sounds. Absent: distended, guarding, rebound, rigid, pulsatile mass Extremities exam: Present: normal inspection Neurological exam: Present: alert Psychiatric exam: Present: normal affect, normal mood Skin exam: Present: normal color Course Vital Signs 06/19/22 12:33 Temperature 98.5 F Pulse Rate 84 Respiratory 20 Rate Blood Pressure 105/56 O2 Sat by Pulse 96 Oximetry Medical Decision Making - Medical Decision Making Patient reevaluated and feeling somewhat better. Patient updated on results. Discussion had regarding admission however patient refuses and would like to try to go home. Patient states she does have an appointment with her doctor tomorrow and she will make this. Patient is agreeable to return if symptoms worsen or return of fevers. - Lab Data Result diagrams: 06/19/22 16:04 06/19/22 16:04 Lab Results 06/19/22 06/19/22 06/19/22 Range/Units 16:04 16:04 16:41 WBC 21.9 H (3.8-10.6) k/uL RBC 4.14 (3.80-5.40) m/uL Hgb 13.5 (11.4-16.0) gm/dL Hct 38.9 (34.0-46.0) % MCV 94.1 (80.0-100.0) fL MCH 32.6 (25.0-35.0) pg MCHC 34.6 (31.0-37.0) g/dL RDW 12.7 (11.5-15.5) % Plt Count 185 (150-450) k/uL MPV 10.3 Neutrophils % 89 % Lymphocytes % 5 % Monocytes % 4 % Eosinophils % 0 % Basophils % 0 % Neutrophils # 19.5 H (1.3-7.7) k/uL Lymphocytes # 1.2 (1.0-4.8) k/uL Monocytes # 0.8 (0-1.0) k/uL Eosinophils # 0.1 (0-0.7) k/uL Basophils # 0.1 (0-0.2) k/uL PT (9.0-12.0) sec INR (<1.2) APTT (22.0-30.0) sec Sodium 130 L (137-145) mmol/L Potassium 3.6 (3.5-5.1) mmol/L Chloride 94 L (98-107) mmol/L Carbon Dioxide 23 (22-30) mmol/L Anion Gap 13 mmol/L BUN 16 (7-17) mg/dL Creatinine 0.66 (0.52-1.04) mg/dL Est GFR (CKD-EPI)AfAm >90 (>60 ml/min/1.73 sqM) Est GFR (CKD-EPI)NonAf >90 (>60 ml/min/1.73 sqM) Glucose 185 H (74-99) mg/dL Calcium 9.0 (8.4-10.2) mg/dL Total Bilirubin 1.3 (0.2-1.3) mg/dL AST 24 (14-36) U/L ALT 28 (4-34) U/L Alkaline Phosphatase 99 (38-126) U/L Total Protein 6.5 (6.3-8.2) g/dL Albumin 4.4 (3.5-5.0) g/dL Amylase 43 (30-110) U/L Lipase 44 (23-300) U/L Urine Color Yellow Urine Appearance Clear (Clear) Urine pH 5.5 (5.0-8.0) Ur Specific [place] 1.012 (1.001-1.035) Urine Protein Negative (Negative) Urine Glucose (UA) Negative (Negative) Urine Ketones 1+ H (Negative) Urine Blood Trace H (Negative) Urine Nitrite Negative (Negative) Urine Bilirubin Negative (Negative) Urine Urobilinogen <2.0 (<2.0) mg/dL Ur Leukocyte Esterase Negative (Negative) Urine RBC 2 (0-5) /hpf Urine WBC 1 (0-5) /hpf Ur Squamous Epith Cells <1 (0-4) /hpf Hyaline Casts 1 (0-2) /lpf Urine Mucus Rare H (None) /hpf 06/19/22 Range/Units 16:50 WBC (3.8-10.6) k/uL RBC (3.80-5.40) m/uL Hgb (11.4-16.0) gm/dL Hct (34.0-46.0) % MCV (80.0-100.0) fL MCH (25.0-35.0) pg MCHC (31.0-37.0) g/dL RDW (11.5-15.5) % Plt Count (150-450) k/uL MPV Neutrophils % % Lymphocytes % % Monocytes % % Eosinophils % % Basophils % % Neutrophils # (1.3-7.7) k/uL Lymphocytes # (1.0-4.8) k/uL Monocytes # (0-1.0) k/uL Eosinophils # (0-0.7) k/uL Basophils # (0-0.2) k/uL PT 10.1 (9.0-12.0) sec INR 0.9 (<1.2) APTT 24.9 (22.0-30.0) sec Sodium (137-145) mmol/L Potassium (3.5-5.1) mmol/L Chloride (98-107) mmol/L Carbon Dioxide (22-30) mmol/L Anion Gap mmol/L BUN (7-17) mg/dL Creatinine (0.52-1.04) mg/dL Est GFR (CKD-EPI)AfAm (>60 ml/min/1.73 sqM) Est GFR (CKD-EPI)NonAf (>60 ml/min/1.73 sqM) Glucose (74-99) mg/dL Calcium (8.4-10.2) mg/dL Total Bilirubin (0.2-1.3) mg/dL AST (14-36) U/L ALT (4-34) U/L Alkaline Phosphatase (38-126) U/L Total Protein (6.3-8.2) g/dL Albumin (3.5-5.0) g/dL Amylase (30-110) U/L Lipase (23-300) U/L Urine Color Urine Appearance (Clear) Urine pH (5.0-8.0) Ur Specific [place] (1.001-1.035) Urine Protein (Negative) Urine Glucose (UA) (Negative) Urine Ketones (Negative) Urine Blood (Negative) Urine Nitrite (Negative) Urine Bilirubin (Negative) Urine Urobilinogen (<2.0) mg/dL Ur Leukocyte Esterase (Negative) Urine RBC (0-5) /hpf Urine WBC (0-5) /hpf Ur Squamous Epith Cells (0-4) /hpf Hyaline Casts (0-2) /lpf Urine Mucus (None) /hpf - Radiology Data Radiology results: report reviewed (Computed tomography scan reveals normal appendix. Possible colitis) Disposition Clinical Impression: Colitis Disposition: HOME SELF-CARE Condition: Stable Instructions (If sedation given, give patient instructions): Colitis (ED) Additional Instructions: Prescription sent to pharmacy. Please do follow-up with your primary care physician tomorrow as planned. Return for increased pain, fevers, not tolerating oral intake, worsening symptoms or any other concerns. Prescriptions: Amoxic-Pot Clav 875-125Mg [Augmentin 875-125] 1 tab PO BID 10 Days #20 tab Is patient prescribed a controlled substance at d/c from ED?: No Referrals: Fermin Hernandez MD [Primary Care Provider] - 1-2 days Time of Disposition: 18:30
[2022-06-19 16:44] LABS: Basophils # (A) 0.1 k/uL (0-0.2); Basophils % (A) 0 %; Eosinophils # (A) 0.1 k/uL (0-0.7); Eosinophils % (A) 0 %; HCT 38.9 % (34.0-46.0); HGB 13.5 gm/dL (11.4-16.0); Lymphocytes # (A) 1.2 k/uL (1.0-4.8); Lymphocytes % (A) 5 %; MCH 32.6 pg (25.0-35.0); MCHC 34.6 g/dL (31.0-37.0); MCV 94.1 fL (80.0-100.0); Mean Platelet Volume 10.3; Monocytes # (A) 0.8 k/uL (0-1.0); Monocytes % (A) 4 %; Neutrophils # (A) 19.5 k/uL (1.3-7.7); Neutrophils % (A) 89 %; Platelet Count 185 k/uL (150-450); RBC 4.14 m/uL (3.80-5.40); RDW 12.7 % (11.5-15.5); WBC 21.9 k/uL (3.8-10.6)
[2022-06-19 16:54] LABS: Appearance,Urine Clear (Clear); Bilirubin,Urine Negative (Negative); Blood,Urine Trace (Negative); Color,Urine Yellow; Glucose,Urine (UA) Negative (Negative); Hyaline Casts,Urine 1 /lpf (0-2); Ketones,Urine 1+ (Negative); Leukocyte Esterase,Urine Negative (Negative); Mucus,Urine Rare /hpf; Nitrite,Urine Negative (Negative); PH, Urine 5.5 (5.0-8.0); Protein,Urine Negative (Negative); RBC,Urine 2 /hpf (0-5); Specific Gravity,Urine 1.012 (1.001-1.035); Squamous Epithelial Cell,Urine <1 /hpf (0-4); Urobilinogen,Urine <2.0 mg/dL (<2.0); WBC,Urine 1 /hpf (0-5)
[2022-06-19] MEDS ORDERED: ONDANSETRON 4 MG/2 ML VIAL IVP STA (17:00)
[2022-06-19] MEDS ORDERED: MORPHINE SULFATE 4 MG/ML SYRINGE IVP STA (17:00)
[2022-06-19 17:02] LABS: ALT 28 U/L (4-34); AST 24 U/L (14-36); African American GFR (CKD) >90 (>60 ml/min/1.73 sqM); Albumin 4.4 g/dL (3.5-5.0); Alkaline Phosphatase 99 U/L (38-126); Amylase 43 U/L (30-110); Anion Gap 13 mmol/L; Blood Urea Nitrogen 16 mg/dL (7-17); Carbon Dioxide 23 mmol/L (22-30); Chloride 94 mmol/L (98-107); Glucose 185 mg/dL (74-99); Lipase 44 U/L (23-300); Non-African American GFR(CKD) >90 (>60 ml/min/1.73 sqM); Potassium 3.6 mmol/L (3.5-5.1); Sodium 130 mmol/L (137-145); Total Bilirubin 1.3 mg/dL (0.2-1.3); Total Protein 6.5 g/dL (6.3-8.2)
[2022-06-19 17:18] LABS: INR 0.9 (<1.2); Partial Thromboplastin Time 24.9 sec (22.0-30.0); Prothrombin Time 10.1 sec (9.0-12.0)
--- NOTE | 2022-06-19 18:03 | CT ---
EXAMINATION TYPE: CT abdomen pelvis w con DATE OF EXAM: 06/19/2022 COMPARISON: None HISTORY: RLQ pain CT DLP: mGycm Automated exposure control for dose reduction was used. CONTRAST: Performed with IV Contrast, patient injected with 100 mL of Isovue 300. Images obtained from the diaphragm to the floor the pelvis with the IV contrast. The lung bases are clear of infiltrate. No pleural effusion. There is thoracolumbar dextroscoliotic d eformity and lumbar levoscoliotic deformity. Heart size is normal. No pericardial effusion. Liver spl een stomach pancreas appear intact. The bile ducts are not dilated. Gallbladder appears normal. There is no adrenal mass. Kidneys show satisfactory contrast opacification. No hydronephrosis. Ureter s are not dilated. No retroperitoneal adenopathy. Bladder distends smoothly. No inguinal hernia. No f ree fluid in the pelvis. No pelvic mass. There are sigmoid diverticula. No diverticulitis. Abdominal aorta is atheromatous. There are surgical clips in the right lower quadrant. The terminal ileum appea rs normal. Appendix is posterior and appears normal. There is no mesenteric edema. No ascites or free air. No sign of a bowel obstruction. There is some m ild wall thickening of the rectum. There is no lumbar compression fracture. The bony pelvis is intact . The hip joints are intact. IMPRESSION: Normal appendix. Atherosclerotic vascular disease. Scoliotic deformity. Mild wall thickening of the rectum that could relate to some minimal colitis. There is sigmoid divert iculosis.
[2022-06-19] MEDS ORDERED: AMOXIC-POT CLAV 500-125 MG 1 EACH TAB PO STA (18:27)
[2022-06-19 19:30] VITALS: BP 117/82; PULSE 71; RESP 18
== END 2022-06-19 19:30 | disposition home or self-care (01) ==
LOC: EC 12:13
DX: K52.9 Noninfective gastroenteritis and colitis, unspecified (principal); J44.9 Chronic obstructive pulmonary disease, unspecified; E78.5 Hyperlipidemia, unspecified; I10 Essential (primary) hypertension; F17.200 Nicotine dependence, unspecified, uncomplicated; Z88.1 Allergy status to other antibiotic agents; Z88.2 Allergy status to sulfonamides; Z88.8 Allergy status to other drugs, medicaments and biological substances; Z79.82 Long term (current) use of aspirin; Z79.899 Other long term (current) drug therapy; Z79.51 Long term (current) use of inhaled steroids
CPT/HCPCS: 36415; 80053; 82150; 83690; 85025; 85610; 85730; 81001; 74177; 99284; Q9967

== ENCOUNTER → 2023-01-03 | Outpatient (CLI) | payer BC ==
--- NOTE | 2023-01-04 19:13 | MM ---
Reason for Exam: Screening (asymptomatic). Last screening mammogram was performed 12 month(s) ago. Patient History: Menarche at age 10. First Full-Term at age 16. Hysterectomy at age 33. Postmenopausal. Endometrial cancer, age 34. Paternal grandmother had breast cancer, age 68. Risk Values: Yancy 5 year model risk: 1.2%. NCI Lifetime model risk: 4.7%. Prior Study Comparison: 10/01/2017 Bilateral Screening Mammogram, [facility]. 10/31/2018 Bilateral Screening Mammogram, [facility]. 12/23/2021 Bilateral Screening Mammogram, [facility]. Tissue Density: There are scattered fibroglandular densities. Findings: Analyzed By CAD. Chronic nodularity posterior upper outer quadrant left breast. There is no suspicious group of microcalcifications or new suspicious mass in either breast. Overall Assessment: Benign, BI-RAD 2 Management: Screening Mammogram of both breasts in 1 year. . Patient should continue monthly self-breast exams. A clinical breast exam by your physician is recommended on an annual basis. This exam should not preclude additional follow-up of suspicious palpable abnormalities. Note on Yancy scores and lifetime risk: 1. A Yancy score greater than 3% is considered moderate risk. If this is the case, consider specialist referral to assess eligibility for a risk reducing agent. 2. If overall lifetime risk for the development of breast cancer is 20% or higher, the patient may qualify for future screening with alternating mammogram and breast MRI. Electronically signed and approved by: Kristian Black M.D. Radiologist
== END | disposition home or self-care (01) ==
LOC: RADMAMWWP 16:53
PROVIDERS: ATTEND Family Medicine
DX: Z12.31 Encounter for screening mammogram for malignant neoplasm of breast (principal); Z78.0 Asymptomatic menopausal state; Z80.3 Family history of malignant neoplasm of breast
CPT/HCPCS: 77063; 77067

== ENCOUNTER → 2023-01-06 | Outpatient (CLI) | payer BC ==
[2023-01-06 13:34] LABS: HCT 43.3 % (37.2-46.3); HGB 13.9 g/dL (12.0-15.0); MCH 31.7 pg (27.0-32.0); MCHC 32.1 g/dL (32.0-37.0); MCV 98.9 fL (80.0-97.0); Mean Platelet Volume 11.8 fL (9.5-12.2); NRBC Per 100 WBC 0 /100 WBCS (0.0-0.0); Platelet Count 191 X 10*3/uL (140-440); RBC 4.38 X 10*6/uL (4.10-5.20); RDW 12.9 % (11.5-14.5); WBC 8.34 X 10*3/uL (4.50-10.00)
[2023-01-06 13:36] LABS: ALT 30 U/L (8-44); AST 27 U/L (13-35); African American GFR (CKD) 106.1 (60.0-200.0); Albumin 4.6 g/dL (3.8-4.9); Alkaline Phosphatase 91 U/L (41-126); BUN/Creat Ratio 22.14 Ratio (12.00-20.00); Blood Urea Nitrogen 15.5 mg/dL (9.0-27.0); Calcium 9.6 mg/dL (8.7-10.3); Carbon Dioxide 25.9 mmol/L (20.0-27.5); Chloride 100 mmol/L (96-109); Glucose 98 mg/dL (70-110); Non-African American GFR(CKD) 91.6 (60.0-200.0); Potassium 4.3 mmol/L (3.5-5.5); Sodium 137 mmol/L (135-145); Total Protein 6.6 g/dL (6.2-8.2)
[2023-01-06 13:37] LABS: Chol/HDL Ratio 2.92 Ratio; LDL Cholesterol,Calculated 100.4 mg/dL (0.0-131.0); VLDL Calculation 15.38 mg/dL (5.00-40.00)
== END | disposition home or self-care (01) ==
LOC: LABWHC1 10:06
PROVIDERS: ATTEND Family Medicine
DX: Z00.01 Encounter for general adult medical examination with abnormal findings (principal)
CPT/HCPCS: 36415; 80053; 80061; 85027

== ENCOUNTER → 2023-12-10 | Outpatient (CLI) | payer BC ==
[2023-12-10 11:18] LABS: HCT 44.7 % (37.2-46.3); HGB 14.7 g/dL (12.0-15.0); MCH 32.1 pg (27.0-32.0); MCHC 32.9 g/dL (32.0-37.0); MCV 97.6 FL (80.0-97.0); Mean Platelet Volume 10.9 FL (9.5-12.2); NRBC Per 100 WBC 0 X 10*3/uL (0.00-0.01); Platelet Count 213 X 10*3/uL (140-440); RBC 4.58 X 10*6/uL (4.10-5.20); RDW 12.7 % (11.5-14.5)
[2023-12-10 11:29] LABS: ALT 28 U/L (8-44); AST 25 U/L (13-35); Albumin 4.6 g/dL (3.8-4.9); Alkaline Phosphatase 103 U/L (41-126); BUN/Creat Ratio 22.75 Ratio (12.00-20.00); Blood Urea Nitrogen 18.2 mg/dL (9.0-27.0); Carbon Dioxide 27.1 mmol/L (21.6-31.8); Chloride 95 mmol/L (96-109); Chol/HDL Ratio 2.96 Ratio; Globulin 2.3 g/dL (1.6-3.3); Glucose 119 mg/dL (70-110); LDL Cholesterol,Calculated 112.7 mg/dL (0.0-131.0); Potassium 4.1 mmol/L (3.5-5.5); Sodium 136 mmol/L (135-145); Total Bilirubin 0.5 mg/dL (0.3-1.2); Total Protein 6.9 g/dL (6.2-8.2); VLDL Calculation 11.06 mg/dL (5.00-40.00)
== END | disposition home or self-care (01) ==
LOC: LABWHC1 08:01
PROVIDERS: ATTEND Family Medicine
DX: Z00.01 Encounter for general adult medical examination with abnormal findings (principal)
CPT/HCPCS: 36415; 80053; 80061; 85027

== ENCOUNTER 2024-01-02 19:21 | Emergency (ER) | payer BC ==
[2024-01-02] MEDS ORDERED: IPRATROPIUM 0.5 MG/2.5 ML NEBU INHALATION STA (19:49)
--- NOTE | 2024-01-02 19:49 | ED ---
SOB HPI - General Chief Complaint: Shortness of Breath Stated Complaint: SOB Time Seen by Provider: 01/02/24 19:36 Source: patient Mode of arrival: ambulatory Limitations: no limitations - History of Present Illness Initial Comments: This patient is a 63-year-old woman with history of asthma and COPD who presents with complaint that she is feeling short of breath with her normal exertion. She states that if she walks around the house she gets short of breath. She feels okay at rest. She also is having a little bit of nonproductive cough. She states that she saw her doctor in the clinic last week and was given a course of steroids for sinus type symptoms and that as those resolved the symptoms seem to settle into her chest. She has not noted fever or chills. No real sputum production with the cough. She is not having chest pain. No change in urination or bowel movements. No leg swelling or pain. Patient states she only used the albuterol once today. MD Complaint: shortness of breath, cough -: days(s) Severity scale (1-10): 0 Consistency: constant Improves With: rest Worsens With: exertion Known History Of: COPD, asthma Associated Symptoms: cough Treatments Prior to Arrival: none - Related Data Home Oxygen Therapy: No Home Medications Medication Instructions Recorded Confirmed Aspirin 81 mg PO HS 08/20/15 11/23/21 Atorvastatin [Lipitor] 10 mg PO HS 08/20/15 11/23/21 Ramipril 20 mg PO HS 08/20/15 11/23/21 Montelukast [Singulair] 10 mg PO HS 07/15/19 11/23/21 Fluticasone/Umeclidin/Vilanter 1 puff INHALATION RT-HS 02/22/20 11/23/21 [Trelegy Ellipta 100-62.5-25] amLODIPine [Norvasc] 5 mg PO HS 02/22/20 11/23/21 hydroCHLOROthiazide [Hydrodiuril] 25 mg PO HS 07/13/20 11/23/21 Ipratropium [place] [Atrovent Hfa] 2 puff INHALATION RT-Q4H PRN 05/01/21 11/23/21 Ibuprofen [Motrin] 800 mg PO Q8H PRN 11/23/21 11/23/21 Previous Rx's Medication Instructions Recorded clindamycin HCL [Cleocin] 300 mg PO Q8H #30 cap 05/28/22 predniSONE [Deltasone] 20 mg PO BID #10 tab 05/28/22 Amoxic-Pot Clav 875-125Mg 1 tab PO BID 10 Days #20 tab 06/19/22 [Augmentin 875-125] Azithromycin [Zithromax] 0 mg PO DIRECTED #6 tab 01/02/24 predniSONE 60 mg PO DAILY #30 tab 01/02/24 Allergies Allergy/AdvReac Type Severity Reaction Status Date / Time adhesive tape Allergy Rash/Hives Verified 01/02/24 19:26 cephalexin Allergy Rapid Verified 01/02/24 19:26 Heart Rate Sulfa (Sulfonamide Allergy Swelling Verified 01/02/24 19:26 Antibiotics) codeine AdvReac Nausea & Verified 01/02/24 19:26 Vomiting perfume AdvReac Wheezing Verified 01/02/24 19:26 Frozen burger Allergy Swelling Uncoded 01/02/24 19:26 Review of Systems ROS Statement: Those systems with pertinent positive or pertinent negative responses have been documented in the HPI. ROS Other: All systems not noted in ROS Statement are negative. Constitutional: Denies: fever, chills, weakness ENT: Denies: congestion Respiratory: Reports: cough, wheezes Cardiovascular: Reports: dyspnea on exertion, orthopnea. Denies: chest pain, palpitations, edema, syncope Gastrointestinal: Denies: abdominal pain, vomiting, diarrhea Genitourinary: Denies: dysuria, hematuria Musculoskeletal: Denies: back pain Skin: Denies: rash Neurological: Denies: headache, weakness Past Medical History Past Medical History: Asthma, Cancer, COPD, Hyperlipidemia, Hypertension, Osteoarthritis (OA) Additional Past Medical History / Comment(s): Bronchitis, cervical cancer with hysterectomy, kyphoscoliosis of the spine, arthritis bilateral hands and knees. History of Any Multi-Drug Resistant Organisms: None Reported Past Surgical History: Hysterectomy, Tonsillectomy Additional Past Surgical History / Comment(s): Hemangioma removed from side head, exploratory laparotomy with R salpingectomy, lymph nodes removed from groin with hysterectomy (cervical cancer). Past Anesthesia/Blood Transfusion Reactions: Postoperative Nausea & Vomiting (PONV) Additional Past Anesthesia/Blood Transfusion Reaction / Comment(s): I wake up "rowdy." Past Psychological History: No Psychological Hx Reported Smoking Status: Current every day smoker Past Alcohol Use History: None Reported Past Drug Use History: None Reported - Past Family History Mother Family Medical History: Vascular Disorder Additional Family Medical History / Comment(s): Mother of a cerebral aneurysm at the age of 29 yrs. Father Family Medical History: CVA/TIA Additional Family Medical History / Comment(s): Father of a CVA-pt unable to recall at what age. Daughter(s) Additional Family Medical History / Comment(s): Partially deaf, juvenile arthritis General Exam Limitations: no limitations General appearance: alert, in no apparent distress Head exam: Present: atraumatic, normocephalic Eye exam: Present: normal appearance. Absent: scleral icterus, conjunctival in jection ENT exam: Present: normal oropharynx Neck exam: Present: normal inspection Respiratory exam: Present: wheezes. Absent: respiratory distress, rales, rhonchi, stridor, accessory muscle use Cardiovascular Exam: Present: regular rate, normal rhythm, normal heart sounds. Absent: systolic murmur, diastolic murmur, rubs, gallop GI/Abdominal exam: Present: soft. Absent: distended, tenderness, guarding, rebound, rigid, mass Extremities exam: Present: normal inspection, normal capillary refill. Absent: pedal edema, calf tenderness Back exam: Present: other (Severe scoliosis) Neurological exam: Present: alert Skin exam: Present: warm, dry, intact, normal color. Absent: rash Course Vital Signs 01/02/24 01/02/24 01/02/24 19:22 19:56 22:07 Temperature 98.3 F Pulse Rate 93 76 Respiratory 18 20 20 Rate Blood Pressure 138/79 133/74 O2 Sat by Pulse 94 L 94 L Oximetry Medical Decision Making - Medical Decision Making Patient had chest x-ray that I interpreted as negative for acute infiltrate, pneumothorax, congestive heart failure. There is scoliosis present Was pt. sent in by a medical professional or institution (, PA, AIR INTELLIGENCE SPECIALIST, urgent care, hospital, or care home...) When possible be specific @ -[No] Did you speak to anyone other than the patient for history (EMS, parent, family, police, friend...)? What history was obtained from this source @ -[No] Did you review nursing and triage notes (agree or disagree)? Why? @ -[I reviewed and agree with nursing and triage notes] Were old charts reviewed (outside hosp., previous admission, EMS record, old EKG, old radiological studies, urgent care reports/EKG's, care home records)? Report findings @ -[No old charts were reviewed] Differential Diagnosis (chest pain, altered mental status, abdominal pain women, abdominal pain men, vaginal bleeding, weakness, fever, dyspnea, syncope, headache, dizziness, GI bleed, back pain, seizure, CVA, palpatations, mental health, musculoskeletal)? @ -[Differential Dyspnea: Coronary syndrome, arrhythmia, tamponade, asthma, COPD, pulmonary embolism, pneumonia, pneumothorax, pulmonary effusion, anaphylaxis, diabetic ketoacidosis, flailed chest, pulmonary contusion, diaphragmatic rupture, anemia, neuromuscular, this is not meant to be an all-inclusive list. EKG interpreted by me (3pts min.). @ -[I interpreted as above] X-rays interpreted by me (1pt min.). @ -[Interpreted as above CT interpreted by me (1pt min.). @ -[None done] U/S interpreted by me (1pt. min.). @ -[None done] What testing was considered but not performed or refused? (CT, X-rays, U/S, labs)? Why? @ -[None] What meds were considered but not given or refused? Why? @ -[None] Did you discuss the management of the patient with other professionals (professionals i.e. , PA, AIR INTELLIGENCE SPECIALIST, lab, RT, psych nurse, nursing home social worker, glass blowing lathe operator, teacher, space officer, showcase maker)? Give summary @ -[No] Was smoking cessation discussed for >3mins.? @ -[No] Was critical care preformed (if so, how long)? @ -[No] Were there social determinants of health that impacted care today? How? (Homelessness, low income, unemployed, alcoholism, drug addiction, transporta tion, low edu. Level, literacy, decrease access to med. care, half-way, rehab)? @ -[No] Was there de-escalation of care discussed even if they declined (Discuss DNR or withdrawal of care, Hospice)? DNR status @ -[No] What co-morbidities impacted this encounter? (DM, HTN, Smoking, COPD, CAD, Cancer, CVA, ARF, Chemo, Hep., AIDS, mental health diagnosis, sleep apnea, morbid obesity)? @ -[Underlying COPD/asthma, hypertension and scoliosis Was patient admitted / discharged? Hospital course, mention meds given and route, prescriptions, significant lab abnormalities, going to OR and other pertinent info. @ -[Patient is a 63-year-old woman here to have evaluation of dyspnea worse than her usual baseline. The workup and physical exam suggestive of exacerbation of her COPD. The patient is feeling better with treatment here. I did discuss admission with the patient but at this point she would prefer to go home. She will return if she is worsening in any way or if there is no further improvement. Undiagnosed new problem with uncertain prognosis? @ -[No] Drug Therapy requiring intensive monitoring for toxicity (Heparin, Nitro, Insulin, Cardizem)? @ -[No] Were any procedures done? @ -[No] Diagnosis/symptom? @ -Acute exacerbation of COPD Acute, or Chronic, or Acute on Chronic? @ -[Acute on chronic Uncomplicated (without systemic symptoms) or Complicated (systemic symptoms)? @ -[default] Side effects of treatment? @ -[No] Exacerbation, Progression, or Severe Exacerbation? @ -[Yes Poses a threat to life or bodily function? How? (Chest pain, USA, DC, pneumonia, PE, COPD, DKA, ARF, appy, cholecystitis, CVA, Diverticulitis, Homicidal, Suicidal, threat to staff... and all critical care pts) @ -[No] - Lab Data Result diagrams: 01/02/24 19:38 01/02/24 19:38 Lab Results 01/02/24 01/02/24 01/02/24 Range/Units 19:38 19:38 19:38 WBC 12.4 H (3.8-10.6) k/uL RBC 4.73 (3.80-5.40) m/uL Hgb 15.2 (11.4-16.0) gm/dL Hct 45.7 (34.0-46.0) % MCV 96.6 (80.0-100.0) fL MCH 32.2 (25.0-35.0) pg MCHC 33.3 (31.0-37.0) g/dL RDW 12.3 (11.5-15.5) % Plt Count 202 (150-450) k/uL MPV 8.3 Neutrophils % 80 % Lymphocytes % 14 % Monocytes % 3 % Eosinophils % 1 % Basophils % 1 % Neutrophils # 10.0 H (1.3-7.7) k/uL Lymphocytes # 1.7 (1.0-4.8) k/uL Monocytes # 0.4 (0-1.0) k/uL Eosinophils # 0.1 (0-0.7) k/uL Basophils # 0.1 (0-0.2) k/uL PT 10.3 (10.0-12.5) sec INR 0.9 (<1.2) APTT 23.1 (22.0-30.0) sec D-Dimer 0.49 (<0.60) mg/L FEU Sodium 133 L (137-145) mmol/L Potassium 4.4 (3.5-5.1) mmol/L Chloride 98 (98-107) mmol/L Carbon Dioxide 28 (22-30) mmol/L Anion Gap 7 mmol/L BUN 12 (7-17) mg/dL Creatinine 0.61 (0.52-1.04) mg/dL Est GFR (CKD-EPI)AfAm >90 (>60 ml/min/1.73 sqM) Est GFR (CKD-EPI)NonAf >90 (>60 ml/min/1.73 sqM) Glucose 137 H (74-99) mg/dL Plasma Lactic Acid Yusuf (0.7-2.0) mmol/L Calcium 9.5 (8.4-10.2) mg/dL Magnesium 2.0 (1.6-2.3) mg/dL Total Bilirubin 1.0 (0.2-1.3) mg/dL AST 23 (14-36) U/L ALT 25 (4-34) U/L Alkaline Phosphatase 80 (38-126) U/L Troponin I (0.000-0.034) ng/mL NT-Pro-B Natriuret Pep 128 pg/mL Total Protein 7.1 (6.3-8.2) g/dL Albumin 4.6 (3.5-5.0) g/dL 01/02/24 01/02/24 Range/Units 19:38 19:38 WBC (3.8-10.6) k/uL RBC (3.80-5.40) m/uL Hgb (11.4-16.0) gm/dL Hct (34.0-46.0) % MCV (80.0-100.0) fL MCH (25.0-35.0) pg MCHC (31.0-37.0) g/dL RDW (11.5-15.5) % Plt Count (150-450) k/uL MPV Neutrophils % % Lymphocytes % % Monocytes % % Eosinophils % % Basophils % % Neutrophils # (1.3-7.7) k/uL Lymphocytes # (1.0-4.8) k/uL Monocytes # (0-1.0) k/uL Eosinophils # (0-0.7) k/uL Basophils # (0-0.2) k/uL PT (10.0-12.5) sec INR (<1.2) APTT (22.0-30.0) sec D-Dimer (<0.60) mg/L FEU Sodium (137-145) mmol/L Potassium (3.5-5.1) mmol/L Chloride (98-107) mmol/L Carbon Dioxide (22-30) mmol/L Anion Gap mmol/L BUN (7-17) mg/dL Creatinine (0.52-1.04) mg/dL Est GFR (CKD-EPI)AfAm (>60 ml/min/1.73 sqM) Est GFR (CKD-EPI)NonAf (>60 ml/min/1.73 sqM) Glucose (74-99) mg/dL Plasma Lactic Acid Yusuf 1.5 (0.7-2.0) mmol/L Calcium (8.4-10.2) mg/dL Magnesium (1.6-2.3) mg/dL Total Bilirubin (0.2-1.3) mg/dL AST (14-36) U/L ALT (4-34) U/L Alkaline Phosphatase (38-126) U/L Troponin I <0.012 (0.000-0.034) ng/mL NT-Pro-B Natriuret Pep pg/mL Total Protein (6.3-8.2) g/dL Albumin (3.5-5.0) g/dL - EKG Data -: EKG Interpreted by Ne EKG shows normal: sinus rhythm, axis (Normal), intervals (Normal), QRS complexes (Normal), ST-T waves (Normal) Rate: normal (Rate 80 bpm) Interpretation: normal EKG Disposition Clinical Impression: Acute exacerbation of chronic obstructive pulmonary disease Disposition: HOME SELF-CARE Condition: Good Instructions (If sedation given, give patient instructions): COPD (Chronic Obstructive Pulmonary Disease) (ED) Prescriptions: predniSONE 60 mg PO DAILY #30 tab Azithromycin [Zithromax] 0 mg PO DIRECTED #6 tab Is patient prescribed a controlled substance at d/c from ED?: No Referrals: Fermin Hernandez MD [Primary Care Provider] - 1-2 days Evert Larsen MD [STAFF PHYSICIAN] - 1-2 days
[2024-01-02 19:59] LABS: Basophils # (A) 0.1 k/uL (0-0.2); Basophils % (A) 1 %; Eosinophils # (A) 0.1 k/uL (0-0.7); Eosinophils % (A) 1 %; HCT 45.7 % (34.0-46.0); HGB 15.2 gm/dL (11.4-16.0); Lymphocytes # (A) 1.7 k/uL (1.0-4.8); Lymphocytes % (A) 14 %; MCH 32.2 pg (25.0-35.0); MCHC 33.3 g/dL (31.0-37.0); MCV 96.6 fL (80.0-100.0); Mean Platelet Volume 8.3; Monocytes # (A) 0.4 k/uL (0-1.0); Monocytes % (A) 3 %; Neutrophils % (A) 80 %; Platelet Count 202 k/uL (150-450); RBC 4.73 m/uL (3.80-5.40); RDW 12.3 % (11.5-15.5); WBC 12.4 k/uL (3.8-10.6)
[2024-01-02 20:03] VITALS: RESP 20; TEMP 98.3
[2024-01-02 20:12] LABS: ALT 25 U/L (4-34); AST 23 U/L (14-36); African American GFR (CKD) >90 (>60 ml/min/1.73 sqM); Albumin 4.6 g/dL (3.5-5.0); Alkaline Phosphatase 80 U/L (38-126); Anion Gap 7 mmol/L; Blood Urea Nitrogen 12 mg/dL (7-17); Calcium 9.5 mg/dL (8.4-10.2); Carbon Dioxide 28 mmol/L (22-30); Chloride 98 mmol/L (98-107); Glucose 137 mg/dL (74-99); Non-African American GFR(CKD) >90 (>60 ml/min/1.73 sqM); Potassium 4.4 mmol/L (3.5-5.1); Sodium 133 mmol/L (137-145); Total Protein 7.1 g/dL (6.3-8.2)
[2024-01-02 20:17] LABS: INR 0.9 (<1.2); Partial Thromboplastin Time 23.1 sec (22.0-30.0); Prothrombin Time 10.3 sec (10.0-12.5)
[2024-01-02] MEDS: predniSONE 20 MG TAB PO STA (20:17)
[2024-01-02] MEDS: AZITHROMYCIN 500 MG TAB PO STA (20:19)
[2024-01-02 20:20] LABS: NT-Pro-B-Type Natriuretic Pept 128 pg/mL
--- NOTE | 2024-01-02 20:32 | XR ---
EXAMINATION TYPE: XR chest 2V DATE OF EXAM: 01/02/2024 8:24 PM CLINICAL INDICATION:Female, 63 years old with history of difficulty breathing; [facility] COMPARISON: Chest radiographs from 05/28/2022 TECHNIQUE: XR chest 2V Frontal and lateral views of the chest. FINDINGS: Lungs/Pleura: There is no evidence of pleural effusion, focal consolidation, or pneumothorax. Pulmonary vascularity: Unremarkable. Heart/mediastinum: Cardiomediastinal silhouette is unremarkable. Musculoskeletal: No acute osseous pathology. Severe scoliotic curvature of the thoracic lumbar spine is identified. Deformity of the right lateral ribs significant identified and stable. IMPRESSION: 1. No acute cardiopulmonary disease/process. 2. Stable severe scoliotic curvature and rib deformities.
[2024-01-02 22:24] VITALS: BP 133/74; PULSE 76
== END 2024-01-02 22:11 | disposition home or self-care (01) ==
LOC: EC 19:21
DX: J44.1 Chronic obstructive pulmonary disease with (acute) exacerbation (principal); I10 Essential (primary) hypertension; M41.9 Scoliosis, unspecified; F17.200 Nicotine dependence, unspecified, uncomplicated; Z79.51 Long term (current) use of inhaled steroids; Z88.1 Allergy status to other antibiotic agents; Z88.2 Allergy status to sulfonamides; Z88.5 Allergy status to narcotic agent; Z91.09 Other allergy status, other than to drugs and biological substances
CPT/HCPCS: 36415; 93005; 85379; 83880; 80053; 83605; 83735; 84484; 85025; 85610; 85730; 71046; 99285; J7512

== ENCOUNTER → 2024-02-19 | Outpatient (CLI) | payer BC ==
--- NOTE | 2024-02-20 23:26 | BD ---
EXAMINATION TYPE: Axial Bone Density DATE OF EXAM: 02/19/2024 CLINICAL HISTORY: 63 years old Female. ICD-10 CODE: M89.9 DISORDER OF BONE, UNSPECIFIED Height: 60.5 in Weight: 153 lbs FRAX RISK QUESTIONS: History of Fracture in Adulthood: rt scapula, rt elbow, rt ribs, rt clavicle age 39 Secondary Osteoporosis: 3. Menopause before 45: partial hysterectomy age 33 Rheumatoid Arthritis: yes Current Tobacco Use: yes only did rt forearm due to pt cannot lay on back for very long she cannot breathe. EXAM MEASUREMENTS: Bone mineral density about the R Wrist (g/cm2): 0.537 T Score values are as follows: -----Dist. R+U: -2.4 -----Prox. R+U: -1.5 -----Radius total: -2.3 Z Score values are as follows: -----Dist. R+U: -0.9 -----Prox. R+U: -0.1 -----Radius total: -0.8 Bone mineral density baseline IMPRESSION: Osteopenia (T Score between -2.5 and -1). There is slightly increased risk of fracture and the patient may be considered for treatment. Re-Screen 2-5 years. NOTE: T-SCORE=SD OF THE YOUNG ADULT MEAN.
== END | disposition home or self-care (01) ==
LOC: RADBDWWP 15:20
PROVIDERS: ATTEND Family Medicine
DX: M85.89 Other specified disorders of bone density and structure, multiple sites (principal); Z78.0 Asymptomatic menopausal state
CPT/HCPCS: 77080

== ENCOUNTER 2024-10-20 19:28 | Emergency (ER) | payer BC ==
[2024-10-20 19:42] VITALS: BP 142/84; RESP 18; TEMP 98.2
--- NOTE | 2024-10-20 20:01 | ED ---
General Adult HPI - General Source: patient Mode of arrival: wheelchair <Thaddeus Lee - Last Filed: 10/20/24 20:01> - General Source: RN notes reviewed, old records reviewed Mode of arrival: wheelchair Limitations: no limitations - History of Present Illness -: week(s) Radiation: non-radiation Severity scale (1-10): 7 Consistency: intermittent Improves with: immobilization Worsens with: movement Associated Symptoms: cough, shortness of breath Treatments Prior to Arrival: none <Fermin Douglas - Last Filed: 10/26/24 00:32> - General Chief complaint: Shortness of Breath Stated complaint: ANGELA Time Seen by Provider: 10/20/24 20:01 - History of Present Illness Initial comments: Quick note: 64-year-old female with history of COPD presenting with chief complaint of shortness of breath. Worsening for the last 3 weeks. She has been on previous rounds of antibiotics and steroids and has been seeing her lumber driver. Admits to cough. No chest pain. Family reports that her O2 has been dropping at home particularly when she is walking or talking (Thaddeus Lee) This is a 64 female with COPD coming in for shortness of breath. Patient's big reason for coming in today was low pulse oxygenation at home, she has a home pulse ox and had oxygen in the low 90s and then with exertion 88. She comes to the emergency department and no significant shortness of breath currently while resting. Patient states she saw her lumber driver last week to week and a half ago and was started on steroids she was unable to complete the steroids as she felt she was losing weight not eating well and was not liking side effects. Patient has not had recent fevers no chest pain (Fermin Douglas) - Related Data Home Medications Medication Instructions Recorded Confirmed Aspirin 81 mg PO HS 08/20/15 10/24/24 Atorvastatin [Lipitor] 10 mg PO HS 08/20/15 10/24/24 Ramipril 20 mg PO 08/20/15 10/24/24 Fluticasone/Umeclidin/Vilanter 1 puff INHALATION RT-HS 02/22/20 10/24/24 [Trelegy Ellipta 100-62.5-25] amLODIPine [Norvasc] 5 mg PO HS 02/22/20 10/24/24 hydroCHLOROthiazide [Hydrodiuril] 25 - 50 mg PO HS 07/13/20 10/24/24 predniSONE 20 mg PO DAILY 10/24/24 10/24/24 Allergies Allergy/AdvReac Type Severity Reaction Status Date / Time adhesive tape Allergy Rash/Hives Verified 10/24/24 18:27 cephalexin Allergy Rapid Verified 10/24/24 18:27 Heart Rate Sulfa (Sulfonamide Allergy Swelling Verified 10/24/24 18:27 Antibiotics) codeine AdvReac Nausea & Verified 10/24/24 18:27 Vomiting perfume AdvReac Wheezing Verified 10/24/24 18:27 Frozen burger Allergy Swelling Uncoded 10/24/24 16:11 Review of Systems ROS Other: All systems not noted in ROS Statement are negative. <Thaddeus Lee - Last Filed: 10/20/24 20:01> ROS Other: All systems not noted in ROS Statement are negative. <Fermin Douglas - Last Filed: 10/26/24 00:32> ROS Statement: Those systems with pertinent positive or pertinent negative responses have been documented in the HPI. Past Medical History Past Medical History: Asthma, Cancer, COPD, Hyperlipidemia, Hypertension, Osteoarthritis (OA) Additional Past Medical History / Comment(s): Bronchitis, cervical cancer with hysterectomy, kyphoscoliosis of the spine, arthritis bilateral hands and knees. History of Any Multi-Drug Resistant Organisms: None Reported Past Surgical History: Hysterectomy, Tonsillectomy Additional Past Surgical History / Comment(s): Hemangioma removed from side head, exploratory laparotomy with R salpingectomy, lymph nodes removed from groin with hysterectomy (cervical cancer). Past Anesthesia/Blood Transfusion Reactions: Postoperative Nausea & Vomiting (PONV) Additional Past Anesthesia/Blood Transfusion Reaction / Comment(s): I wake up "rowdy." Past Psychological History: No Psychological Hx Reported Smoking Status: Current every day smoker Past Alcohol Use History: None Reported Past Drug Use History: None Reported - Past Family History Mother Family Medical History: Vascular Disorder Additional Family Medical History / Comment(s): Mother of a cerebral aneurysm at the age of 29 yrs. Father Family Medical History: CVA/TIA Additional Family Medical History / Comment(s): Father of a CVA-pt unable to recall at what age. Daughter(s) Additional Family Medical History / Comment(s): Partially deaf, juvenile arthritis <Thaddeus Lee - Last Filed: 10/20/24 20:01> General Exam <Thaddeus Lee - Last Filed: 10/20/24 20:01> General appearance: alert, in no apparent distress, anxious Head exam: Present: atraumatic, normocephalic, normal inspection Eye exam: Present: normal appearance, PERRL, EOMI. Absent: scleral icterus, conjunctival injection, periorbital swelling ENT exam: Present: normal exam, mucous membranes moist Neck exam: Present: normal inspection. Absent: tenderness, meningismus, lymph adenopathy Respiratory exam: Present: normal lung sounds bilaterally, wheezes. Absent: respiratory distress, rales, rhonchi, stridor Cardiovascular Exam: Present: regular rate, normal rhythm, normal heart sounds. Absent: systolic murmur, diastolic murmur, rubs, gallop, clicks GI/Abdominal exam: Present: soft, normal bowel sounds. Absent: distended, tenderness, guarding, rebound, rigid Extremities exam: Present: normal inspection, full ROM, normal capillary refill. Absent: tenderness, pedal edema, joint swelling, calf tenderness Back exam: Present: normal inspection Neurological exam: Present: alert, oriented X3, CN II-XII intact Psychiatric exam: Present: normal affect, normal mood Skin exam: Present: warm, dry, intact, normal color. Absent: rash <Fermin Douglas - Last Filed: 10/26/24 00:32> - General Exam Comments Initial Comments: Visual Physical Exam Vital signs reviewed General: Well-appearing, nontoxic, no acute distress. Head: Normocephalic, atraumatic Eyes: PERRLA, EOMI ENT: Airway patent Chest: Nonlabored breathing Skin: No visual rash, normal skin tone Neuro: Alert and oriented 3 Musculoskeletal: No gross abnormalities (Thaddeus Lee) Course <Fermin Douglas - Last Filed: 10/26/24 00:32> Vital Signs 10/20/24 10/20/24 10/20/24 19:35 22:37 23:06 Temperature 98.2 F Pulse Rate 88 87 Respiratory 18 Rate Blood Pressure 142/84 O2 Sat by Pulse 95 95 Oximetry 03/03/25 23:23 Temperature Pulse Rate 88 Respiratory 18 Rate Blood Pressure O2 Sat by Pulse 96 Oximetry - Reevaluation(s) Reevaluation #1: 10/20/24 22:50 Medical records reviewed No significant recent inpatient hospitalizations (Fermin Douglas) Reevaluation #2: 10/20/24 22:51 Patient symptoms improved here in the ER after treatment (Fermin Douglas) Reevaluation #3: 10/20/24 22:51 Patient informed of results questions answered (Fermin Douglas) Reevaluation #4: Was pt. sent in by a medical professional or institution (, [facility], [employer], urgent care, hospital, or intermediate...) When possible be specific @ -no Did you speak to anyone other than the patient for history (EMS, parent, family, police, friend...)? What history was obtained from this source @ -no Did you review nursing and triage notes (agree or disagree)? Why? @ -agree Are old charts reviewed (outside hosp., previous admission, EMS record, old EKG, old radiological studies, urgent care reports/EKG's, intermediate records)? Report findings @ -yes Differential Diagnosis (chest pain, altered mental status, abdominal pain women, abdominal pain men, vaginal bleeding, weakness, fever, dyspnea, syncope, headache, dizziness, GI bleed, back pain, seizure, CVA, palpatations, mental health, musculoskeletal)? @ -prior EKG interpreted by me (3pts min.). @ -yes X-rays interpreted by me (1pt min.). @ -yes negative for acute disease CT interpreted by me (1pt min.). @ -no U/S interpreted by me (1pt. min.). @ -no What testing was considered but not performed or refused? (CT, X-rays, U/S, labs)? Why? @ -none What meds were considered but not given or refused? Why? @ -none Did you discuss the management of the patient with other professionals (professionals i.e. KATHLEEN Frederick, [employer], lab, RT, psych nurse, social problems specialist, nuclear spectroscopist, teacher, parachute officer, case supervisor)? Give summary @ -no Was smoking cessation discussed for >3mins.? @ -no Was critical care preformed (if so, how long)? @ -no Were there social determinants of health that impacted care today? How? (Homelessness, low income, unemployed, alcoholism, drug addiction, transp ortation, low edu. Level, literacy, decrease access to med. care, fci, rehab)? @ -none Was there de-escalation of care discussed even if they declined (Discuss DNR or withdrawal of care, Hospice)? DNR status @ -no What co-morbidities impacted this encounter? (DM, HTN, Smoking, COPD, CAD, Cancer, CVA, ARF, Chemo, Hep., AIDS, mental health diagnosis, sleep apnea, morbid obesity)? @ -none Was patient admitted / discharged? Hospital course, mention meds given and route, prescriptions, significant lab abnormalities, going to OR and other pertinent info. @ - 64 female with history of COPD COPD exacerbation mildly worse patient does have a lumber driver visit tomorrow, oxygenation is normal at rest here in the emergency department. Patient given breathing treatment, steroid injection and will follow-up with primary care tomorrow Dr. Calle tomorrow. Patient had negative D-dimer normal EKG and normal chest x-ray including viral testing here in the ER Discharged Undiagnosed new problem with uncertain prognosis? @ -no Drug Therapy requiring intensive monitoring for toxicity (Heparin, Nitro, Insulin, Cardizem)? @ -no Were any procedures done? @ -no Diagnosis/symptom? @ - COPD exacerbation Acute, or Chronic, or Acute on Chronic? @ -Acute Uncomplicated (without systemic symptoms) or Complicated (systemic symptoms)? @ -Complicated Side effects of treatment? @ -no Exacerbation, Progression, or Severe Exacerbation? @ -exacerbation Poses a threat to life or bodily function? How? (Chest pain, USA, MT, pneumonia, PE, COPD, DKA, ARF, appy, cholecystitis, CVA, Diverticulitis, Homicidal, Suicidal, threat to staff... and all critical care pts) @ -yes with significant respiratory distress (Fermin Douglas) Reevaluation #5: Differential Dyspnea: Coronary syndrome, arrhythmia, tamponade, asthma, COPD, pulmonary embolism, pneumonia, pneumothorax, pulmonary effusion, anaphylaxis, diabetic ketoacidosis, flailed chest, pulmonary contusion, diaphragmatic rupture, anemia, neuromuscular, this is not meant to be an all-inclusive list. (Fermin Douglas) EKG Findings - EKG Comments: EKG Findings:: EKG is sinus 80 NH 140 QRS 97 QTc 389 - EKG Results: EKG: interpreted by ERMD <Fermin Douglas - Last Filed: 10/26/24 00:32> Medical Decision Making <Thaddeus Lee - Last Filed: 10/20/24 20:01> - Lab Data Result diagrams: 10/20/24 19:56 10/20/24 19:56 - EKG Data -: EKG Interpreted by Me - Radiology Data Radiology results: report reviewed (Chest x-ray is negative for acute disease), image reviewed <Fermin Douglas - Last Filed: 10/26/24 00:32> - Medical Decision Making I performed the quick note portion of this visit, electronically signed Thaddeus Lee PA-C (Thaddeus Lee) 64 female with history of COPD COPD exacerbation mildly worse patient does have a lumber driver visit tomorrow, oxygenation is normal at rest here in the emergency department. Patient given breathing treatment, steroid injection and will follow-up with primary care tomorrow Dr. Calle tomorrow. Patient had negative D-dimer normal EKG and normal chest x-ray including viral testing here in the ER (Fermin Douglas) - Lab Data Lab Results 10/20/24 10/20/24 10/20/24 Range/Units 19:56 19:56 19:56 WBC 7.4 (3.8-10.6) k/uL RBC 5.00 (3.80-5.40) m/uL Hgb 15.2 (11.4-16.0) gm/dL Hct 46.5 H (34.0-46.0) % MCV 93.0 (80.0-100.0) fL MCH 30.4 (25.0-35.0) pg MCHC 32.7 (31.0-37.0) g/dL RDW 11.9 (11.5-15.5) % Plt Count 173 (150-450) k/uL MPV 9.4 Neutrophils % 58 % Lymphocytes % 29 % Monocytes % 8 % Eosinophils % 1 % Basophils % 1 % Neutrophils # 4.3 (1.3-7.7) k/uL Lymphocytes # 2.2 (1.0-4.8) k/uL Monocytes # 0.6 (0-1.0) k/uL Eosinophils # 0.1 (0-0.7) k/uL Basophils # 0.0 (0-0.2) k/uL PT 11.1 (10.0-12.5) sec INR 1.0 (<1.2) D-Dimer (<0.60) mg/L FEU Sodium 127 L (137-145) mmol/L Potassium 3.6 (3.5-5.1) mmol/L Chloride 90 L (98-107) mmol/L Carbon Dioxide 28 (22-30) mmol/L Anion Gap 9 mmol/L BUN 13 (7-17) mg/dL Creatinine 0.67 (0.52-1.04) mg/dL Est GFR (CKD-EPI)AfAm >90 (>60 ml/min/1.73 sqM) Est GFR (CKD-EPI)NonAf >90 (>60 ml/min/1.73 sqM) Glucose 112 H (74-99) mg/dL Calcium 9.3 (8.4-10.2) mg/dL Total Bilirubin 1.3 (0.2-1.3) mg/dL AST 29 (14-36) U/L ALT 35 H (4-34) U/L Alkaline Phosphatase 84 (38-126) U/L Troponin I (0.000-0.034) ng/mL Total Protein 7.0 (6.3-8.2) g/dL Albumin 4.5 (3.5-5.0) g/dL Influenza Type A (PCR) (Not Detectd) Influenza Type B (PCR) (Not Detectd) RSV (PCR) (Not Detectd) SARS-CoV-2 (PCR) (Not Detectd) 10/20/24 10/20/24 10/20/24 Range/Units 19:56 19:56 20:12 WBC (3.8-10.6) k/uL RBC (3.80-5.40) m/uL Hgb (11.4-16.0) gm/dL Hct (34.0-46.0) % MCV (80.0-100.0) fL MCH (25.0-35.0) pg MCHC (31.0-37.0) g/dL RDW (11.5-15.5) % Plt Count (150-450) k/uL MPV Neutrophils % % Lymphocytes % % Monocytes % % Eosinophils % % Basophils % % Neutrophils # (1.3-7.7) k/uL Lymphocytes # (1.0-4.8) k/uL Monocytes # (0-1.0) k/uL Eosinophils # (0-0.7) k/uL Basophils # (0-0.2) k/uL PT (10.0-12.5) sec INR (<1.2) D-Dimer 0.44 (<0.60) mg/L FEU Sodium (137-145) mmol/L Potassium (3.5-5.1) mmol/L Chloride (98-107) mmol/L Carbon Dioxide (22-30) mmol/L Anion Gap mmol/L BUN (7-17) mg/dL Creatinine (0.52-1.04) mg/dL Est GFR (CKD-EPI)AfAm (>60 ml/min/1.73 sqM) Est GFR (CKD-EPI)NonAf (>60 ml/min/1.73 sqM) Glucose (74-99) mg/dL Calcium (8.4-10.2) mg/dL Total Bilirubin (0.2-1.3) mg/dL AST (14-36) U/L ALT (4-34) U/L Alkaline Phosphatase (38-126) U/L Troponin I <0.012 (0.000-0.034) ng/mL Total Protein (6.3-8.2) g/dL Albumin (3.5-5.0) g/dL Influenza Type A (PCR) Not Detected (Not Detectd) Influenza Type B (PCR) Not Detected (Not Detectd) RSV (PCR) Not Detected (Not Detectd) SARS-CoV-2 (PCR) Not Detected (Not Detectd) Disposition <Thaddeus Lee - Last Filed: 10/20/24 20:01> Is patient prescribed a controlled substance at d/c from ED?: No Time of Disposition: 23:00 <Fermin Douglas - Last Filed: 10/26/24 00:32> Clinical Impression: COPD with acute exacerbation, Acute exacerbation of chronic obstructive pulmonary disease Disposition: HOME SELF-CARE Condition: Fair Instructions (If sedation given, give patient instructions): Acute Bronchitis (ED), Chronic Bronchitis (ED) Referrals: Fermin Hernandez MD [Primary Care Provider] - 1-2 days
[2024-10-20 20:08] LABS: Prothrombin Time 11.1 sec (10.0-12.5)
[2024-10-20 20:12] LABS: ALT 35 U/L (4-34); AST 29 U/L (14-36); African American GFR (CKD) >90 (>60 ml/min/1.73 sqM); Albumin 4.5 g/dL (3.5-5.0); Alkaline Phosphatase 84 U/L (38-126); Anion Gap 9 mmol/L; Blood Urea Nitrogen 13 mg/dL (7-17); Calcium 9.3 mg/dL (8.4-10.2); Carbon Dioxide 28 mmol/L (22-30); Chloride 90 mmol/L (98-107); Glucose 112 mg/dL (74-99); Non-African American GFR(CKD) >90 (>60 ml/min/1.73 sqM); Potassium 3.6 mmol/L (3.5-5.1); Sodium 127 mmol/L (137-145); Total Bilirubin 1.3 mg/dL (0.2-1.3)
[2024-10-20 20:21] LABS: Basophils % (A) 1 %; Eosinophils # (A) 0.1 k/uL (0-0.7); Eosinophils % (A) 1 %; HCT 46.5 % (34.0-46.0); HGB 15.2 gm/dL (11.4-16.0); Lymphocytes # (A) 2.2 k/uL (1.0-4.8); Lymphocytes % (A) 29 %; MCH 30.4 pg (25.0-35.0); MCHC 32.7 g/dL (31.0-37.0); Mean Platelet Volume 9.4; Monocytes # (A) 0.6 k/uL (0-1.0); Monocytes % (A) 8 %; Neutrophils # (A) 4.3 k/uL (1.3-7.7); Neutrophils % (A) 58 %; Platelet Count 173 k/uL (150-450); RDW 11.9 % (11.5-15.5); WBC 7.4 k/uL (3.8-10.6)
--- NOTE | 2024-10-20 20:23 | XR ---
EXAMINATION TYPE: XR chest 2V DATE OF EXAM: 10/20/2024 8:17 PM COMPARISON: CT CLINICAL INDICATION: Female, 64 years old with history of COPD; TECHNIQUE: XR chest 2V Frontal and lateral views of the chest. FINDINGS: Lungs/Pleura: There is no evidence of pleural effusion, focal consolidation, or pneumothorax. Pulmonary vascularity: Unremarkable. Heart/mediastinum: Cardiomediastinal silhouette is unremarkable. Musculoskeletal: No acute osseous pathology. Scoliosis changes of the spine. IMPRESSION: No acute cardiopulmonary disease/process. Scoliosis changes spine similar to prior CT 07/30/2019 [facility], , 10/20/2024 8:21 PM
[2024-10-20 21:13] LABS: Influenza A Not Detected (Not Detectd); Influenza B Not Detected (Not Detectd); RSV Not Detected (Not Detectd)
[2024-10-20] MEDS: DEXAMETHASONE SOD PHOSPHATE 10 MG/ML 1 ML VIAL IVP STA (22:59)
[2024-10-20] MEDS: IPRATROPIUM-ALBUTEROL 3 ML NEB INHALATION STA (23:05)
[2024-10-20 23:25] VITALS: PULSE 88
== END 2024-10-20 23:25 | disposition home or self-care (01) ==
LOC: EC 19:28
DX: J44.1 Chronic obstructive pulmonary disease with (acute) exacerbation (principal); F17.200 Nicotine dependence, unspecified, uncomplicated
CPT/HCPCS: 36415; 94640; 93005; 85379; 80053; 84484; 85025; 85610; 87636; 71046; 99285; 96374; J1100

== ENCOUNTER 2024-10-24 16:04 | Emergency (ER) | payer BC ==
[2024-10-24 16:11] VITALS: TEMP 97.9
--- NOTE | 2024-10-24 16:43 | ED ---
General Adult HPI - General Chief complaint: Shortness of Breath Stated complaint: SOB Time Seen by Provider: 10/24/24 16:25 Source: patient Mode of arrival: ambulatory Limitations: no limitations - History of Present Illness Initial comments: Dictation was produced using [employer] dictation software. please excuse any grammatical, word or spelling errors. Chief Complaint: 64-year-old female presents with shortness of breath History of Present Illness: Patient 64-year-old female presents emergency department shortness of breath. Patient was just here in the hospital recently. She was discharged at that time. She had a follow-up appoint with her single spindle screw machine operator today single spindle screw machine operator states that she felt better and was discharged from the clinic. Patient states that she still feels unwell and she decided come to the ER. Denies any cough. States that her dyspnea is exertional in nature. Denies any fever constitutional symptoms. No pain complaints The ROS documented in this emergency department record has been reviewed and confirmed by me. Those systems with pertinent positive or negative responses have been documented in the HPI. All other systems are other negative and/or noncontributory. - Related Data Home Medications Medication Instructions Recorded Confirmed Aspirin 81 mg PO HS 08/20/15 10/24/24 Atorvastatin [Lipitor] 10 mg PO HS 08/20/15 10/24/24 Ramipril 20 mg PO HS 08/20/15 10/24/24 Fluticasone/Umeclidin/Vilanter 1 puff INHALATION RT-HS 02/22/20 10/24/24 [Trelegy Ellipta 100-62.5-25] amLODIPine [Norvasc] 5 mg PO HS 02/22/20 10/24/24 hydroCHLOROthiazide [Hydrodiuril] 25 - 50 mg PO HS 07/13/20 10/24/24 predniSONE 20 mg PO DAILY 10/24/24 10/24/24 Allergies Allergy/AdvReac Type Severity Reaction Status Date / Time adhesive tape Allergy Rash/Hives Verified 10/24/24 18:27 cephalexin Allergy Rapid Verified 10/24/24 18:27 Heart Rate Sulfa (Sulfonamide Allergy Swelling Verified 10/24/24 18:27 Antibiotics) codeine AdvReac Nausea & Verified 10/24/24 18:27 Vomiting perfume AdvReac Wheezing Verified 10/24/24 18:27 Frozen burger Allergy Swelling Uncoded 10/24/24 16:11 Review of Systems ROS Statement: Those systems with pertinent positive or pertinent negative responses have been documented in the HPI. ROS Other: All systems not noted in ROS Statement are negative. Past Medical History Past Medical History: Asthma, Cancer, COPD, Hyperlipidemia, Hypertension, Osteoarthritis (OA) Additional Past Medical History / Comment(s): Bronchitis, cervical cancer with hysterectomy, kyphoscoliosis of the spine, arthritis bilateral hands and knees. History of Any Multi-Drug Resistant Organisms: None Reported Past Surgical History: Hysterectomy, Tonsillectomy Additional Past Surgical History / Comment(s): Hemangioma removed from side head, exploratory laparotomy with R salpingectomy, lymph nodes removed from groin with hysterectomy (cervical cancer). Past Anesthesia/Blood Transfusion Reactions: Postoperative Nausea & Vomiting (PONV) Additional Past Anesthesia/Blood Transfusion Reaction / Comment(s): I wake up "rowdy." Past Psychological History: No Psychological Hx Reported Smoking Status: Current every day smoker Past Alcohol Use History: None Reported Past Drug Use History: None Reported - Past Family History Mother Family Medical History: Vascular Disorder Additional Family Medical History / Comment(s): Mother of a cerebral an eurysm at the age of 29 yrs. Father Family Medical History: CVA/TIA Additional Family Medical History / Comment(s): Father of a CVA-pt unable to recall at what age. Daughter(s) Additional Family Medical History / Comment(s): Partially deaf, juvenile arthritis General Exam - General Exam Comments Initial Comments: PHYSICAL EXAM: General Impression: Alert and oriented x3, not in acute distress HEENT: Normocephalic atraumatic, extra-ocular movements intact, pupils equal and reactive to light bilaterally, mucous membranes moist. Cardiovascular: Heart regular rate and rhythm Chest: Able to complete full sentences, no retractions, no tachypnea, lungs clear to auscultation bilaterally Abdomen: abdomen soft, non-tender, non-distended, no organomegaly Musculoskeletal: Pulses present and equal in all extremities, no peripheral edema, severe scoliosis, Motor: no focal deficits noted Neurological: CN II-XII grossly intact, no focal motor or sensory deficits noted Skin: Intact with no visualized rashes Psych: Normal affect and mood Limitations: no limitations Course Vital Signs 03/07/25 03/07/25 03/07/25 16:09 16:46 18:16 Temperature 97.9 F Pulse Rate 114 H 112 H 87 Respiratory 22 20 18 Rate Blood Pressure 144/75 110/67 O2 Sat by Pulse 94 L 95 95 Oximetry EKG Findings - EKG Comments: EKG Findings:: My EKG interpretation: Ventricular rate 107, sinus tachycardia,. 131, QRS 75, QTc 361. No OR prolongation, no QTC prolongation, no ST or T-wave changes noted. Hyperacute T waves. Overall this EKG is nonspecific Medical Decision Making - Medical Decision Making Was pt. sent in by a medical professional or institution (, PA, FAMILY CONSULTANT, urgent care, hospital, or [facility]...) When possible be specific @ -No Did you speak to anyone other than the patient for history (EMS, parent, family, police, friend...)? What history was obtained from this source @ -No Did you review nursing and triage notes (agree or disagree)? Why? @ -I reviewed and agree with nursing and triage notes Were old charts reviewed (outside hosp., previous admission, EMS record, old EKG, old radiological studies, urgent care reports/EKG's, [facility] records)? Report findings @ -No old charts were reviewed Differential Diagnosis (chest pain, altered mental status, abdominal pain women, abdominal pain men, vaginal bleeding, musculoskeletal, weakness, fever, dyspnea, syncope, headache, dizziness, GI bleed, back pain, seizure, CVA, palpatations, mental health)? @ -Differential Dyspnea: Coronary syndrome, arrhythmia, tamponade, asthma, COPD, pulmonary embolism, pneumonia, pneumothorax, pulmonary effusion, anaphylaxis, diabetic ketoacidosis, flailed chest, pulmonary contusion, diaphragmatic rupture, anemia, neuromuscul ar, this is not meant to be an all-inclusive list. EKG interpreted by me (3pts min.). @ -See above X-rays interpreted by me (1pt min.). @ -None done CT interpreted by me (1pt min.). @ -CT angiography shows no acute processes U/S interpreted by me (1pt. min.). @ -None done What testing was considered but not performed or refused? (CT, X-rays, U/S, labs)? Why? @ -None What meds were considered but not given or refused? Why? @ -None Was smoking cessation discussed for >3mins.? @ -No Were there social determinants of health that impacted care today? How? (Homelessness, low income, unemployed, alcoholism, drug addiction, transportation, low edu. Level, literacy, decrease access to med. care, prison, rehab)? @ -No Was there de-escalation of care discussed even if they declined (Discuss DNR or withdrawal of care, Hospice)? DNR status @ -No What co-morbidities impacted this encounter? (DM, HTN, Smoking, COPD, CAD, Cancer, CVA, ARF, Chemo, Hep., AIDS, mental health diagnosis, sleep apnea, morbid obesity)? @ -Severe scoliosis Was patient admitted / discharged? Hospital course, mention meds given and route, prescriptions, significant lab abnormalities, going to OR and other pertinent info. @ -64-year-old well-appearing female in no acute distress with stable vital signs presents the emergency department for persistent dyspnea. The patient is well-appearing in no acute distress. She denies any high risk features. Mild leukocytosis of 14.7. Metabolic panel shows sodium 125 some hemolyzed potassium level 5.6. Mild dehydration with elevated BUN to creatinine ratio and slight hyponatremia. Patient requesting discharge. She is told that she would benefit from fluids. She states that she wants to go on there is try to add some salt to her food. Patient is well-appearing requesting immediate discharge. Patient told to follow-up closely with primary care doctor. Did you discuss the management of the patient with other professionals (professionals i.e. , PA, FAMILY CONSULTANT, lab, RT, psych nurse, social service director, director selection and administration, teacher, field crop technical officer, leather case finisher)? Give summary @ -No Was critical care preformed (if so, how long)? @ -No Undiagnosed new problem with uncertain prognosis? @ -No Drug Therapy requiring intensive monitoring for toxicity (Heparin, Nitro, Insulin, Cardizem)? @ -No Were any procedures done? @ -No Diagnosis/symptom? Acute, or Chronic, or Acute on Chronic? Uncomplicated (without systemic symptoms) or Complicated (systemic symptoms)? @ -Dyspnea, hyponatremia Side effects of treatment? @ -No Exacerbation, Progression, or Severe Exacerbation? @ -No Poses a threat to life or bodily function? How? (Chest pain, USA, NM, pneumonia, PE, COPD, DKA, ARF, appy, cholecystitis, CVA, Diverticulitis, Homicidal, Suicidal, threat to staff... and all critical care pts) @ -No - Lab Data Result diagrams: 10/24/24 16:55 10/24/24 16:55 Lab Results 10/24/24 10/24/24 10/24/24 Range/Units 16:55 16:55 16:55 WBC 14.7 H (3.8-10.6) k/uL RBC 5.02 (3.80-5.40) m/uL Hgb 15.9 (11.4-16.0) gm/dL Hct 47.1 H (34.0-46.0) % MCV 93.7 (80.0-100.0) fL MCH 31.6 (25.0-35.0) pg MCHC 33.8 (31.0-37.0) g/dL RDW 12.0 (11.5-15.5) % Plt Count 311 (150-450) k/uL MPV 8.2 Neutrophils % 80 % Lymphocytes % 13 % Monocytes % 5 % Eosinophils % 0 % Basophils % 0 % Neutrophils # 11.6 H (1.3-7.7) k/uL Lymphocytes # 1.9 (1.0-4.8) k/uL Monocytes # 0.8 (0-1.0) k/uL Eosinophils # 0.0 (0-0.7) k/uL Basophils # 0.0 (0-0.2) k/uL Sodium 125 L (137-145) mmol/L Potassium 5.6 H (3.5-5.1) mmol/L Chloride 92 L (98-107) mmol/L Carbon Dioxide 25 (22-30) mmol/L Anion Gap 8 mmol/L BUN 28 H (7-17) mg/dL Creatinine 0.72 (0.52-1.04) mg/dL Est GFR (CKD-EPI)AfAm >90 (>60 ml/min/1.73 sqM) Est GFR (CKD-EPI)NonAf 88 (>60 ml/min/1.73 sqM) Glucose 103 H (74-99) mg/dL Calcium 9.0 (8.4-10.2) mg/dL Troponin I <0.012 (0.000-0.034) ng/mL NT-Pro-B Natriuret Pep 221 pg/mL Influenza Type A (PCR) (Not Detectd) Influenza Type B (PCR) (Not Detectd) RSV (PCR) (Not Detectd) SARS-CoV-2 (PCR) (Not Detectd) 10/24/24 Range/Units 16:55 WBC (3.8-10.6) k/uL RBC (3.80-5.40) m/uL Hgb (11.4-16.0) gm/dL Hct (34.0-46.0) % MCV (80.0-100.0) fL MCH (25.0-35.0) pg MCHC (31.0-37.0) g/dL RDW (11.5-15.5) % Plt Count (150-450) k/uL MPV Neutrophils % % Lymphocytes % % Monocytes % % Eosinophils % % Basophils % % Neutrophils # (1.3-7.7) k/uL Lymphocytes # (1.0-4.8) k/uL Monocytes # (0-1.0) k/uL Eosinophils # (0-0.7) k/uL Basophils # (0-0.2) k/uL Sodium (137-145) mmol/L Potassium (3.5-5.1) mmol/L Chloride (98-107) mmol/L Carbon Dioxide (22-30) mmol/L Anion Gap mmol/L BUN (7-17) mg/dL Creatinine (0.52-1.04) mg/dL Est GFR (CKD-EPI)AfAm (>60 ml/min/1.73 sqM) Est GFR (CKD-EPI)NonAf (>60 ml/min/1.73 sqM) Glucose (74-99) mg/dL Calcium (8.4-10.2) mg/dL Troponin I (0.000-0.034) ng/mL NT-Pro-B Natriuret Pep pg/mL Influenza Type A (PCR) Not Detected (Not Detectd) Influenza Type B (PCR) Not Detected (Not Detectd) RSV (PCR) Not Detected (Not Detectd) SARS-CoV-2 (PCR) Not Detected (Not Detectd) Disposition Clinical Impression: Dyspnea Disposition: HOME SELF-CARE Condition: Good Instructions (If sedation given, give patient instructions): Hyponatremia (ED) Additional Instructions: Today your sodium was slightly low at 125. Please follow-up with your primary care doctor. Is patient prescribed a controlled substance at d/c from ED?: No Referrals: Fermin Hernandez MD [Primary Care Provider] - 1-2 days Time of Disposition: 19:08
[2024-10-24] MEDS: SODIUM CHLORIDE 0.9% 1,000 ML IV STA (17:02)
[2024-10-24 17:06] LABS: Basophils % (A) 0 %; Eosinophils % (A) 0 %; HCT 47.1 % (34.0-46.0); HGB 15.9 gm/dL (11.4-16.0); Lymphocytes # (A) 1.9 k/uL (1.0-4.8); Lymphocytes % (A) 13 %; MCH 31.6 pg (25.0-35.0); MCHC 33.8 g/dL (31.0-37.0); MCV 93.7 fL (80.0-100.0); Mean Platelet Volume 8.2; Monocytes # (A) 0.8 k/uL (0-1.0); Monocytes % (A) 5 %; Neutrophils # (A) 11.6 k/uL (1.3-7.7); Neutrophils % (A) 80 %; Platelet Count 311 k/uL (150-450); RBC 5.02 m/uL (3.80-5.40); WBC 14.7 k/uL (3.8-10.6)
[2024-10-24 17:15] LABS: African American GFR (CKD) >90 (>60 ml/min/1.73 sqM); Anion Gap 8 mmol/L; Blood Urea Nitrogen 28 mg/dL (7-17); Carbon Dioxide 25 mmol/L (22-30); Chloride 92 mmol/L (98-107); Glucose 103 mg/dL (74-99); Non-African American GFR(CKD) 88 (>60 ml/min/1.73 sqM); Sodium 125 mmol/L (137-145)
[2024-10-24 17:25] LABS: NT-Pro-B-Type Natriuretic Pept 221 pg/mL
[2024-10-24 17:41] LABS: Influenza A Not Detected (Not Detectd); Influenza B Not Detected (Not Detectd); RSV Not Detected (Not Detectd)
[2024-10-24 17:45] LABS: Potassium 5.6 mmol/L (3.5-5.1)
--- NOTE | 2024-10-24 18:48 | CT ---
EXAMINATION TYPE: CT angio chest DATE OF EXAM: 10/24/2024 6:36 PM COMPARISON: None. CLINICAL INDICATION: Female, 64 years old with history of protracted dyspnea, Protracted dyspnea., TECHNIQUE: Axial CT was performed with sagittal and coronal reformats. 3D reconstruction and/or MIP imaging was also performed on a separate workstation. IV CONTRAST: with IV Contrast, patient injected with 100 ml mL of Isovue 300. (None if empty) CT DLP: 305.4 mGycm, Automated exposure control for dose reduction was used. FINDINGS: PULMONARY ARTERIES: The pulmonary arteries and their major tributaries are patent. There is wall thi ckening involving a subsegmental branch right lower lobe suggesting chronic PE. This is seen best on coronal image 83 of 168 sequence 402. I do not see evidence for sizable filling defect to suggest acu te pulmonary embolic process. LUNGS: The lungs are clear and free of infiltrate. No evidence for atelectasis. No pulmonary nodule or mass is detected. No pleural effusion. MEDIASTINUM: Thoracic aorta is of normal caliber,however, evaluation is limited given timing of the contrast bolus. If there is concern for thoracic aortic pathology consider OLY. Correlate clinicall y . The heart is not enlarged. No evidence for mediastinal mass. No mediastinal lymph nodes greater than 1cm. HILAR STRUCTURES: No evidence for mass. No hilar lymph nodes greater than 1 cm. UPPER ABDOMEN: No significant abnormality is seen. IMPRESSION: 1. There is wall thickening involving a subsegmental branch right lower lobe suggesting chronic PE. This is seen best on coronal image 83 of 168 sequence 402. No definite acute PE seen at this time. [facility], , 10/24/2024 6:45 PM
[2024-10-24 19:25] VITALS: BP 127/69; PULSE 89; RESP 15
== END 2024-10-24 19:24 | disposition home or self-care (01) ==
LOC: EC 16:04
DX: R06.02 Shortness of breath (principal); E87.1 Hypo-osmolality and hyponatremia; M41.9 Scoliosis, unspecified; F17.200 Nicotine dependence, unspecified, uncomplicated
CPT/HCPCS: 36415; 93005; 83880; 80048; 84484; 85025; 87636; 71275; 99285; 96360; 96361; Q9967

== ENCOUNTER 2024-10-27 11:23 | Inpatient (IN) | payer BC, MEDICARE ==
--- NOTE | 2024-10-27 11:48 | ED ---
General Adult HPI - General Chief complaint: Shortness of Breath Stated complaint: ANGELA Time Seen by Provider: 10/27/24 11:34 Source: patient Mode of arrival: wheelchair Limitations: no limitations - History of Present Illness Initial comments: Dictation was produced using [employer] dictation software. please excuse any grammatical, word or spelling errors. Chief Complaint: 64-year-old female with history of chronic dyspnea presents to the emergency department with dyspnea History of Present Illness: Patient 64-year-old female well-known to emergency department for dyspnea. She has a history of severe scoliosis, some asthma, COPD presents to the ER for dyspnea x 1 day. She was seen in the emergency department few other times in the last week. Denies any cough. Patient states she is dyspneic. Denies any fever chills or night sweats. No pain complaints. 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 The ROS documented in this emergency department record has been reviewed and confirmed by me. Those systems with pertinent positive or negative responses have been documented in the HPI. All other systems are other negative and/or noncontributory. - Related Data Home Medications Medication Instructions Recorded Confirmed Aspirin 81 mg PO HS 08/20/15 10/24/24 Atorvastatin [Lipitor] 10 mg PO HS 08/20/15 10/24/24 Ramipril 20 mg PO HS 08/20/15 10/24/24 Fluticasone/Umeclidin/Vilanter 1 puff INHALATION RT-HS 02/22/20 10/24/24 [Trelegy Ellipta 100-62.5-25] amLODIPine [Norvasc] 5 mg PO HS 02/22/20 10/24/24 hydroCHLOROthiazide [Hydrodiuril] 25 - 50 mg PO HS 07/13/20 10/24/24 predniSONE 20 mg PO DAILY 10/24/24 10/24/24 Allergies Allergy/AdvReac Type Severity Reaction Status Date / Time adhesive tape Allergy Rash/Hives Verified 10/27/24 11:32 cephalexin Allergy Rapid Verified 10/27/24 11:32 Heart Rate Sulfa (Sulfonamide Allergy Swelling Verified 10/27/24 11:32 Antibiotics) codeine AdvReac Nausea & Verified 10/27/24 11:32 Vomiting perfume AdvReac Wheezing Verified 10/27/24 11:32 Frozen burger Allergy Swelling Uncoded 10/27/24 11:32 Review of Systems ROS Statement: Those systems with pertinent positive or pertinent negative responses have been documented in the HPI. ROS Other: All systems not noted in ROS Statement are negative. Past Medical History Past Medical History: Asthma, Cancer, COPD, Hyperlipidemia, Hypertension, Osteoarthritis (OA) Additional Past Medical History / Comment(s): Bronchitis, cervical cancer with hysterectomy, kyphoscoliosis of the spine, arthritis bilateral hands and knees. History of Any Multi-Drug Resistant Organisms: None Reported Past Surgical History: Hysterectomy, Tonsillectomy Additional Past Surgical History / Comment(s): Hemangioma removed from side head, exploratory laparotomy with R salpingectomy, lymph nodes removed from groin with hysterectomy (cervical cancer). Past Anesthesia/Blood Transfusion Reactions: Postoperative Nausea & Vomiting (PONV) Additional Past Anesthesia/Blood Transfusion Reaction / Comment(s): I wake up "rowdy." Past Psychological History: No Psychological Hx Reported Smoking Status: Current every day smoker Past Alcohol Use History: None Reported Past Drug Use History: None Reported - Past Family History Mother Family Medical History: Vascular Disorder Additional Family Medical History / Comment(s): Mother of a cerebral aneurysm at the age of 29 yrs. Father Family Medical History: CVA/TIA Additional Family Medical History / Comment(s): Father of a CVA-pt unable to recall at what age. Daughter(s) Additional Family Medical History / Comment(s): Partially deaf, juvenile arthritis General Exam - General Exam Comments Initial Comments: PHYSICAL EXAM: General Impression: Alert and oriented x3, dyspneic HEENT: Normocephalic atraumatic, extra-ocular movements intact, pupils equal and reactive to light bilaterally, mucous membranes moist. Cardiovascular: Heart regular rate and rhythm Chest: Dyspneic, tachypneic, severe scoliosis, very faint end expiratory wheezing however there does appear to be a good air exchange Abdomen: abdomen soft, non-tender, non-distended, no organomegaly Musculoskeletal: Pulses present and equal in all extremities, no peripheral edema Motor: no focal deficits noted Neurological: CN II-XII grossly intact, no focal motor or sensory deficits noted Skin: Intact with no visualized rashes Psych: Normal affect and mood Limitations: no limitations Course Vital Signs 10/27/24 10/27/24 10/27/24 11:28 11:49 11:50 Temperature 97.5 F L Pulse Rate 100 Respiratory 18 20 Rate Blood Pressure 155/90 O2 Sat by Pulse 92 L 88 L Oximetry 10/27/24 12:14 Temperature Pulse Rate 102 H Respiratory 20 Rate Blood Pressure 147/99 O2 Sat by Pulse 94 L Oximetry EKG Findings - EKG Comments: EKG Findings:: My EKG interpretation: Ventricular rate 97, sinus rhythm, NE 08/20/2017, QRS 83, QTc 383. No NE prolongation, no QTC prolongation, no ST or T- wave changes noted. EKG compared to October 24, 2024 showing no changes. Overall, this EKG is unremarkable Medical Decision Making - Medical Decision Making Was pt. sent in by a medical professional or institution (, PA, COMMERCIAL ANNOUNCER, urgent care, hospital, or halfway...) When possible be specific @ -No Did you speak to anyone other than the patient for history (EMS, parent, family, police, friend...)? What history was obtained from this source @ -No Did you review nursing and triage notes (agree or disagree)? Why? @ -I reviewed and agree with nursing and triage notes Were old charts reviewed (outside hosp., previous admission, EMS record, old EKG, old radiological studies, urgent care reports/EKG's, halfway records)? Report findings @ -No old charts were reviewed Differential Diagnosis (chest pain, altered mental status, abdominal pain women, abdominal pain men, vaginal bleeding, musculoskeletal, weakness, fever, dyspnea, syncope, headache, dizziness, GI bleed, back pain, seizure, CVA, palpatations, mental health)? @ -Differential Dyspnea: Coronary syndrome, arrhythmia, tamponade, asthma, COPD, pulmonary embolism, pneumonia, pneumothorax, pulmonary effusion, anaphylaxis, diabetic ketoacidosis, flailed chest, pulmonary contusion, diaphragmatic rupture, anemia, neuromuscular, this is not meant to be an all-inclusive list. EKG interpreted by me (3pts min.). @ -See above X-rays interpreted by me (1pt min.). @ -Chest x-ray shows no acute processes CT interpreted by me (1pt min.). @ -None done U/S interpreted by me (1pt. min.). @ -None done What testing was considered but not performed or refused? (CT, X-rays, U/S, labs)? Why? @ -None What meds were considered but not given or refused? Why? @ -None Was smoking cessation discussed for >3mins.? @ -No Were there social determinants of health that impacted care today? How? (Homelessness, low income, unemployed, alcoholism, drug addiction, transportation, low edu. Level, literacy, decrease access to med. care, assisted, rehab)? @ -No Was there de-escalation of care discussed even if they declined (Discuss DNR or withdrawal of care, Hospice)? DNR status @ -No What co-morbidities impacted this encounter? (DM, HTN, Smoking, COPD, CAD, Cancer, CVA, ARF, Chemo, Hep., AIDS, mental health diagnosis, sleep apnea, morbid obesity)? @ -Severe scoliosis, COPD Was patient admitted / discharged? Hospital course, mention meds given and route, prescriptions, significant lab abnormalities, going to OR and other pertinent info. @ -Patient 64-year-old female presents to the emergency department chief complaint of dyspnea. This is patients fourth visit this month. Patient slightly dyspneic at the bedside. Mildly hypoxic at the bedside 80% on room air. She does not wear home O2. Rest of vital signs within acceptable limits. Laboratory evaluation obtained. CBC, coag panel is unremarkable. Sodium is 123 and compared to recent historical values with slowly lowering sodium unclear etiology. Could be medication driven. Viral testing is unremarkable. Patient given IV fluids. Will be admitted for hypoxic respiratory failure and hyponatremia. Pulmonology and nephrology consulted. Patient given IV fluids Did you discuss the management of the patient with other professionals (professionals i.e. , PA, COMMERCIAL ANNOUNCER, lab, RT, psych nurse, social security assessor, warp splitter, teacher, chief resource officer, insurance case manager)? Give summary @ -Case discussed with hospitalist for admission Was critical care preformed (if so, how long)? @ -No Undiagnosed new problem with uncertain prognosis? @ -No Drug Therapy requiring intensive monitoring for toxicity (Heparin, Nitro, Insulin, Cardizem)? @ -No Were any procedures done? @ -No Diagnosis/symptom? Acute, or Chronic, or Acute on Chronic? Uncomplicated (without systemic symptoms) or Complicated (systemic symptoms)? @ -Hyponatremia, hypoxic respiratory failure Side effects of treatment? @ -No Exacerbation, Progression, or Severe Exacerbation? @ -No Poses a threat to life or bodily function? How? (Chest pain, [place], [place], pneumonia, PE, COPD, DKA, ARF, appy, cholecystitis, CVA, Diverticulitis, Homicidal, Suicidal, threat to staff... and all critical care pts) @ -yes - Lab Data Result diagrams: 10/27/24 12:13 10/27/24 12:13 Lab Results 10/27/24 10/27/24 10/27/24 Range/Units 12:13 12:13 12:13 WBC 10.6 (3.8-10.6) k/uL RBC 5.22 (3.80-5.40) m/uL Hgb 16.4 H (11.4-16.0) gm/dL Hct 48.0 H (34.0-46.0) % MCV 92.0 (80.0-100.0) fL MCH 31.4 (25.0-35.0) pg MCHC 34.2 (31.0-37.0) g/dL RDW 12.2 (11.5-15.5) % Plt Count 323 (150-450) k/uL MPV 7.9 Neutrophils % 69 % Lymphocytes % 24 % Monocytes % 5 % Eosinophils % 1 % Basophils % 0 % Neutrophils # 7.3 (1.3-7.7) k/uL Lymphocytes # 2.5 (1.0-4.8) k/uL Monocytes # 0.5 (0-1.0) k/uL Eosinophils # 0.1 (0-0.7) k/uL Basophils # 0.0 (0-0.2) k/uL PT 10.4 (10.0-12.5) sec INR 0.9 (<1.2) APTT 21.5 L (22.0-30.0) sec Sodium 123 L (137-145) mmol/L Potassium 4.4 (3.5-5.1) mmol/L Chloride 84 L (98-107) mmol/L Carbon Dioxide 27 (22-30) mmol/L Anion Gap 12 mmol/L BUN 17 (7-17) mg/dL Creatinine 0.57 (0.52-1.04) mg/dL Est GFR (CKD-EPI)AfAm >90 (>60 ml/min/1.73 sqM) Est GFR (CKD-EPI)NonAf >90 (>60 ml/min/1.73 sqM) Glucose 113 H (74-99) mg/dL Plasma Lactic Acid Yusuf (0.7-2.0) mmol/L Calcium 9.8 (8.4-10.2) mg/dL Magnesium 1.8 (1.6-2.3) mg/dL Troponin I (0.000-0.034) ng/mL NT-Pro-B Natriuret Pep 349 pg/mL Influenza Type A (PCR) (Not Detectd) Influenza Type B (PCR) (Not Detectd) RSV (PCR) (Not Detectd) SARS-CoV-2 (PCR) (Not Detectd) 10/27/24 10/27/24 10/27/24 Range/Units 12:13 12:13 12:15 WBC (3.8-10.6) k/uL RBC (3.80-5.40) m/uL Hgb (11.4-16.0) gm/dL Hct (34.0-46.0) % MCV (80.0-100.0) fL MCH (25.0-35.0) pg MCHC (31.0-37.0) g/dL RDW (11.5-15.5) % Plt Count (150-450) k/uL MPV Neutrophils % % Lymphocytes % % Monocytes % % Eosinophils % % Basophils % % Neutrophils # (1.3-7.7) k/uL Lymphocytes # (1.0-4.8) k/uL Monocytes # (0-1.0) k/uL Eosinophils # (0-0.7) k/uL Basophils # (0-0.2) k/uL PT (10.0-12.5) sec INR (<1.2) APTT (22.0-30.0) sec Sodium (137-145) mmol/L Potassium (3.5-5.1) mmol/L Chloride (98-107) mmol/L Carbon Dioxide (22-30) mmol/L Anion Gap mmol/L BUN (7-17) mg/dL Creatinine (0.52-1.04) mg/dL Est GFR (CKD-EPI)AfAm (>60 ml/min/1.73 sqM) Est GFR (CKD-EPI)NonAf (>60 ml/min/1.73 sqM) Glucose (74-99) mg/dL Plasma Lactic Acid Yusuf 1.5 (0.7-2.0) mmol/L Calcium (8.4-10.2) mg/dL Magnesium (1.6-2.3) mg/dL Troponin I <0.012 (0.000-0.034) ng/mL NT-Pro-B Natriuret Pep pg/mL Influenza Type A (PCR) Not Detected (Not Detectd) Influenza Type B (PCR) Not Detected (Not Detectd) RSV (PCR) Not Detected (Not Detectd) SARS-CoV-2 (PCR) Not Detected (Not Detectd) Disposition Clinical Impression: Hyponatremia, Hypoxia Disposition: ADMITTED IP TO THIS HOSP Condition: Fair Referrals: Fermin Hernandez MD [Primary Care Provider] - 1-2 days Decision Time: 13:24
[2024-10-27 12:19] LABS: Basophils % (A) 0 %; Eosinophils # (A) 0.1 k/uL (0-0.7); Eosinophils % (A) 1 %; HGB 16.4 gm/dL (11.4-16.0); Lymphocytes # (A) 2.5 k/uL (1.0-4.8); Lymphocytes % (A) 24 %; MCH 31.4 pg (25.0-35.0); MCHC 34.2 g/dL (31.0-37.0); Mean Platelet Volume 7.9; Monocytes # (A) 0.5 k/uL (0-1.0); Monocytes % (A) 5 %; Neutrophils # (A) 7.3 k/uL (1.3-7.7); Neutrophils % (A) 69 %; Platelet Count 323 k/uL (150-450); RBC 5.22 m/uL (3.80-5.40); RDW 12.2 % (11.5-15.5); WBC 10.6 k/uL (3.8-10.6)
[2024-10-27 12:39] LABS: INR 0.9 (<1.2); Prothrombin Time 10.4 sec (10.0-12.5)
[2024-10-27 12:40] LABS: Partial Thromboplastin Time 21.5 sec (22.0-30.0)
[2024-10-27 12:42] LABS: African American GFR (CKD) >90 (>60 ml/min/1.73 sqM); Anion Gap 12 mmol/L; Blood Urea Nitrogen 17 mg/dL (7-17); Calcium 9.8 mg/dL (8.4-10.2); Carbon Dioxide 27 mmol/L (22-30); Chloride 84 mmol/L (98-107); Glucose 113 mg/dL (74-99); Magnesium 1.8 mg/dL (1.6-2.3); Non-African American GFR(CKD) >90 (>60 ml/min/1.73 sqM); Potassium 4.4 mmol/L (3.5-5.1); Sodium 123 mmol/L (137-145)
[2024-10-27 12:49] LABS: NT-Pro-B-Type Natriuretic Pept 349 pg/mL
--- NOTE | 2024-10-27 12:52 | XR ---
EXAMINATION TYPE: XR chest 2V DATE OF EXAM: 10/27/2024 CLINICAL INDICATION: Female, 64 years old with history of dyspnea, hypoxia, TECHNIQUE: Frontal and lateral views of the chest are obtained. COMPARISON: CTA chest 3 days ago. FINDINGS: Underlying rotary scoliosis is redemonstrated. Background chronic emphysematous change aga in seen. There is no suspicious new focal air space opacity, pleural effusion, or pneumothorax seen. The cardiac silhouette size remains within normal limits. IMPRESSION: Chronic changes without new acute pulmonary process. [facility], , 10/27/2024 12:49 PM
[2024-10-27 12:58] LABS: Influenza A Not Detected (Not Detectd); Influenza B Not Detected (Not Detectd); RSV Not Detected (Not Detectd)
[2024-10-27] MEDS: SODIUM CHLORIDE 0.9% 1,000 ML IV STA ×2 (13:21→13:25)
[2024-10-27] MEDS ORDERED: NALOXONE 0.4 MG/ML 1 ML VIAL IV PRN (13:24)
[2024-10-27] MEDS ORDERED: IPRATROPIUM-ALBUTEROL 3 ML NEB INHALATION PRN ×2 (13:30)
[2024-10-27] MEDS: IPRATROPIUM-ALBUTEROL 3 ML NEB INHALATION SCH (15:45)
--- NOTE | 2024-10-27 16:04 | P.HPIM ---
History of Present Illness H&P Date: 10/27/24 Patient is a 64-year-old female with asthma, COPD (no home oxygen), hyperlipidemia, hypertension, osteoarthritis, current everyday smoker here for evaluation of shortness of breath. Patient has been to the ED for multiple visits this week for shortness of breath and was also found to have moderately low sodium on labs. She was on oral steroids but decided to discontinue due to the side effects. She has recently seen her cocktail server on 10/24 for follow-up after her first ED visit this week but felt unwell and sought treatment in the ED once again however she requested immediate discharge. Patient reported that the shortness of breath has been intermittent for 3 weeks that is worse with lying down or exertion. She has an associated productive nonbloody cough. She denied fever, chills, recent illness, extremity swelling, calf pain, chest pain, palpitations, recent surgery, recent changes in medication or recent prolonged travel. On admission: Vitals: 97.5 Fahrenheit, pulse rate 100, respiratory rate 18, blood pressure 155/90, 92% on room air Labs: Hemoglobin 16.4, PTT 21.5, sodium 123, chloride 84, bicarb 27, BUN 17, creatinine 0.27, glucose 113, troponin less than 0.0 12. Cepheid 4 Plex negative. Imaging: Chest x-ray on this admission showed noted scoliosis with no new suspi cious focal airspace opacities, effusion or pneumothorax. EKG showed sinus rhythm with a rate of 97 shortened VT interval 118 MS, normal axis, no ST-T changes, good R wave progression, QTc 383 MS. ED documentation reviewed. Given 1 L bolus of NS in the ED. Nephrology consulted Review of systems: Pertinent positives and negatives as discussed in HPI, a complete review of systems was performed and all other systems are negative. Social history: Tobacco: current daily smoker. 1/2 ppd 52 years Alcohol: Denies alcohol use Recreational drugs: Denies illicit or recreational drug use Travel: No recent prolonged travel Physical examination: Vital signs reviewed General: non toxic, no distress, appears at stated age, on nasal cannula Derm: no unusual rashes/lesions, warm Head: atraumatic, normocephalic, symmetric Eyes: EOMI, anicteric sclera, pupils equal round reactive to light ENT: Nose and ears atraumatic Neck: No cervical lymphadenopathy, trachea midline, supple Mouth: no lip lesion, mucus membranes moist Cardiovascular: S1S2 reg, no murmur Lungs: expiratory wheezing in all lung quiles, no rhonchi, no rales, no accessory muscle use Abdominal: soft, nondistended, nontender to palpation, no guarding Ext: muscle strength 5 out of 5 in all 4 extremities grossly, no gross muscle atrophy, no contractures, positive dorsalis pedis pulse bilateral, no edema Neuro: CN II-XI grossly intact, no gross focal neuro deficits Psych: Alert and oriented x 3, appropriate affect and mood Assessment/Plan: 64-year-old female with history of COPD (no home oxygen) and current everyday smoker here for evaluation of shortness of breath. Found to have hyponatremia on labs #. Acute hypoxic respiratory failure secondary to COPD exacerbation -Chest x-ray on this admission showed noted scoliosis with no new suspicious focal airspace opacities, effusion or pneumothorax. -DuoNeb inhaler QID and PRN -Prednsione 40mg PO daily -Would benefit from Zithromax 500 mg p.o. daily -Symbicort 160-4.5mcg twice daily -Supplemental oxygen as needed -Check Vitamin D, Magnesium #. Hypovolemic hyponatremia, likely due to diuretic use -Sodium 123 -Serum osmolarity, urine osmolarity and urine sodium ordered -0.9 normal saline 1 L bolus given in the ED -IV fluids 0.9 normal saline 100 cc/h for correction over 24 hours -Monitor BMP every 4 hours -Nephrology consulted by ED #. Polycythemia #. Nicotine dependence -Counseled on smoking cessation Chronic Conditions: #. Hyperlipidemia #. Hypertension #. Osteoarthritis -Discontinue thiazide diuretics -Continue home ramipril, norvasc po F: 0.9 normal saline IV 100 cc/h E: Monitor sodium N: Heart healthy diet A: Can self ambulate DVT ppx: Lovenox 40 mg subcu daily GI ppx: Protonix 40 mg p.o. daily Dispo: The patient is admitted with an anticipated less than 2 midnight stay for evaluation of COPD exacerbation and hyponatremia CODE STATUS: Full Discussed with: Patient and patient's daughter Anticipated discharge place: Home Nya Pak MD PGY-1 IM Dictation was produced using [employer] dictation software. please excuse any grammatical, word or spelling errors. I saw and evaluated the patient during the barba and critical portions of this encounter, and discussed the case in detail with the resident author of this note, I agree with the Assessment and Plan, and my changes, if any, are highlighted in blue. Past Medical History Past Medical History: Asthma, Cancer, COPD, Hyperlipidemia, Hypertension, Osteoarthritis (OA) Additional Past Medical History / Comment(s): Bronchitis, cervical cancer with hysterectomy, kyphoscoliosis of the spine, arthritis bilateral hands and knees. History of Any Multi-Drug Resistant Organisms: None Reported Past Surgical History: Hysterectomy, Tonsillectomy Additional Past Surgical History / Comment(s): Hemangioma removed from side head, exploratory laparotomy with R salpingectomy, lymph nodes removed from groin with hysterectomy (cervical cancer). Past Anesthesia/Blood Transfusion Reactions: Postoperative Nausea & Vomiting (PONV) Additional Past Anesthesia/Blood Transfusion Reaction / Comment(s): I wake up "rowdy." Past Psychological History: No Psychological Hx Reported Smoking Status: Current every day smoker Past Alcohol Use History: None Reported Past Drug Use History: None Reported - Past Family History Mother Family Medical History: Vascular Disorder Additional Family Medical History / Comment(s): Mother of a cerebral aneurysm at the age of 29 yrs. Father Family Medical History: CVA/TIA Additional Family Medical History / Comment(s): Father of a CVA-pt unable to recall at what age. Daughter(s) Additional Family Medical History / Comment(s): Partially deaf, juvenile arthritis Medications and Allergies Home Medications Medication Instructions Recorded Confirmed Type Aspirin 81 mg PO 08/20/15 10/27/24 History Atorvastatin [Lipitor] 10 mg PO 08/20/15 10/27/24 History Ramipril 20 mg PO 08/20/15 10/27/24 History Fluticasone/Umeclidin/Vilanter 1 puff INHALATION RT-HS 02/22/20 10/27/24 History [Trelegy Ellipta 100-62.5-25] amLODIPine [Norvasc] 5 mg PO HS 02/22/20 10/27/24 History hydroCHLOROthiazide [Hydrodiuril] 25 mg PO 07/13/20 10/27/24 History predniSONE 10 mg PO DAILY 10/24/24 10/27/24 History Allergies Allergy/AdvReac Type Severity Reaction Status Date / Time adhesive tape Allergy Rash/Hives Verified 10/27/24 13:29 cephalexin Allergy Rapid Verified 10/27/24 13:29 Heart Rate Sulfa (Sulfonamide Allergy Swelling Verified 10/27/24 13:29 Antibiotics) codeine AdvReac Nausea & Verified 10/27/24 13:29 Vomiting perfume AdvReac Wheezing Verified 10/27/24 13:29 Frozen burger Allergy Swelling Uncoded 10/27/24 11:32 Physical Exam Osteopathic Statement: *. No significant issues noted on an osteopathic structural exam other than those noted in the History and Physical/Consult. Vitals: Vital Signs Temp Pulse Resp BP Pulse Ox 10/27/24 12:14 102 H 20 147/99 94 L 10/27/24 11:50 88 L 10/27/24 11:49 20 10/27/24 11:28 97.5 F L 100 18 155/90 92 L Intake and Output 10/26/24 10/27/24 10/27/24 22:59 06:59 14:59 Other: Weight 64.864 kg Results CBC & Chem 7: 10/27/24 12:13 10/27/24 12:13 Labs: Abnormal Lab Results - Last 24 Hours (Table) 10/27/24 10/27/24 10/27/24 Range/Units 12:13 12:13 12:13 Hgb 16.4 H (11.4-16.0) gm/dL Hct 48.0 H (34.0-46.0) % APTT 21.5 L (22.0-30.0) sec Sodium 123 L (137-145) mmol/L Chloride 84 L (98-107) mmol/L Glucose 113 H (74-99) mg/dL
[2024-10-27] MEDS: AZITHROMYCIN 500 MG TAB PO SCH (16:14)
[2024-10-27] MEDS: predniSONE 20 MG TAB PO SCH (16:14)
[2024-10-27 17:11] LABS: African American GFR (CKD) >90 (>60 ml/min/1.73 sqM); Anion Gap 10 mmol/L; Blood Urea Nitrogen 17 mg/dL (7-17); Calcium 9.4 mg/dL (8.4-10.2); Carbon Dioxide 26 mmol/L (22-30); Chloride 91 mmol/L (98-107); Glucose 142 mg/dL (74-99); Non-African American GFR(CKD) >90 (>60 ml/min/1.73 sqM); Potassium 3.9 mmol/L (3.5-5.1); Sodium 127 mmol/L (137-145)
[2024-10-27] MEDS: methylPREDNISolone SOD SUCCI 125 MG/2 ML VIAL IV SCH (18:43)
[2024-10-27] MEDS ORDERED: TIOTROPIUM 2.5 MCG INHALER INHALATION SCH (20:00)
[2024-10-27] MEDS: SYMBICORT 160-4.5 MCG INHALER INHALATION SCH (20:24)
[2024-10-27] MEDS ORDERED: lisinopriL 20 MG TAB PO SCH (21:00)
[2024-10-27] MEDS: ASPIRIN 81 MG PO SCH (21:28)
[2024-10-27] MEDS: guaiFENesin 600 MG TABLET.ER PO SCH (21:28)
[2024-10-27] MEDS: lisinopriL 20 MG TAB PO SCH (21:29)
[2024-10-27] MEDS: amLODIPine 5 MG TAB PO SCH (21:29)
[2024-10-27] MEDS: ATORVASTATIN 10 MG TAB PO SCH (21:29)
--- NOTE | 2024-10-27 23:23 | P.CNPUL ---
History of Present Illness Consult date: 10/27/24 Reason for consult: COPD History of present illness: This is a 64-year-old female patient who has been having difficulties with shortness of breath history of exacerbation for the past 1 month. I saw the patient in my office earlier last week and the patient was having active bronchospasm wheezing and she was having also shortness of breath. The patient was given a Depo-Medrol Medrol shot 80 mg IM and the patient was started on low- dose prednisone 20 mg p.o. daily. She presented to my office on 10/24/2024 where she was given a Depo-Medrol shot for symptoms of COPD exacerbation which were essentially improving. She ended up in the emergency department on 10/25/2019 5 in the afternoon where she had blood work and the patient was noted to have a sodium level of 125. Rest of the electrolytes were essentially within normal limits. The white cell count of 14.7. The viral screen was negative. The patient was given a CTA of the chest that showed no evidence of any airspace disease. The lungs were essentially clear. The pulmonary arteries were patent and there was wall thickening involving the segmental branches to the right lowe r lobe. No obvious filling defects. The patient had no mediastinal lymphadenopathy. Based on that, the patient was discharged home to present back to the Emergency Department this afternoon with a similar symptoms. Repeat labs were done and a sodium level was down to 123. BUN was 17 with a creatinine of 0.5. Chloride was 84 with a potassium level of 4.4. The white cell count was at 10.6 with a hemoglobin of 16.4. A chest x-ray was done and showed again no evidence of any airspace disease and scoliosis of the thoracic spine was noted and this was obviously a chronic finding. Based on that, the patient was hospitalized for an acute CF exacerbation, failure of outpatient recovery in ad dition to management of hyponatremia. He was started on IV fluids and the patient is on normal saline at rate of 50 cc an hour. Repeat sodium level is up to 127 In regards to the patient's COPD, the patient has an FEV1 of 55% of predicted. The patient's previous spirometry showed partly obstructive/restrictive physiology as the patient has severe kyphoscoliosis of the thoracic spine. The patient has been maintained on Trelegy Ellipta 100 mcg 1 puff a day and albuterol nebulizer treatments up to 4 times a day. She is a chronic smoker. She has kyphoscoliosis deformity of the spine in addition to acid reflux, hyperlipidemia and hypertension. Review of Systems Constitutional: Reports fatigue, Reports weakness Eyes: denies as per HPI, denies blurred vision, denies bulging eye, denies decreased vision, denies diplopia, denies discharge, denies dry eye, denies irritation, denies itching, denies pain, denies photophobia, denies loss of peripheral vision, denies loss of vision, denies tunnel vision/blind spots Ears: deny: decreased hearing, ear discharge, earache, tinnitus Ears, nose, mouth and throat: Reports as per HPI Breasts: absent: as per HPI, change in shape, gynecomastia, masses, nipple discharge, pain, skin changes, swelling Cardiovascular: Reports as per HPI, Reports decreased exercise tolerance Respiratory: Reports cough with sputum, Reports dyspnea, Reports wheezing Gastrointestinal: Reports as per HPI Genitourinary: Reports as per HPI Menstruation: Reports as per HPI Musculoskeletal: Reports as per HPI Musculoskeletal: absent: ankle pain, ankle stiffness, ankle swelling, as per HPI, elbow pain, elbow stiffness, elbow swelling, foot pain, foot stiffness, foot swelling, hand pain, hand stiffness, hand swelling, hip pain, hip stiffness, hip swelling, knee pain, knee stiffness, knee swelling, shoulder pain, shoulder stiffness, shoulder swelling, wrist pain, wrist stiffness, wrist swelling Integumentary: Reports as per HPI Neurological: Reports as per HPI Psychiatric: Reports as per HPI Endocrine: Reports as per HPI Hematologic/Lymphatic: Reports as per HPI Allergic/Immunologic: Reports as per HPI Past Medical History Past Medical History: Cancer, COPD, Hyperlipidemia, Hypertension, Osteoarthritis (OA) Additional Past Medical History / Comment(s): Bronchitis, cervical cancer with hysterectomy, kyphoscoliosis of the spine, arthritis bilateral hands and knees. History of Any Multi-Drug Resistant Organisms: None Reported Past Surgical History: Hysterectomy, Tonsillectomy Additional Past Surgical History / Comment(s): Hemangioma removed from side head, exploratory laparotomy with R salpingectomy, lymph nodes removed from groin with hysterectomy (cervical cancer). Past Anesthesia/Blood Transfusion Reactions: Postoperative Nausea & Vomiting (PONV) Additional Past Anesthesia/Blood Transfusion Reaction / Comment(s): I wake up "rowdy." Past Psychological History: No Psychological Hx Reported Smoking Status: Current every day smoker Past Alcohol Use History: None Reported Past Drug Use History: None Reported - Past Family History Mother Family Medical History: Vascular Disorder Additional Family Medical History / Comment(s): Mother of a cerebral aneurysm at the age of 29 yrs. Father Family Medical History: CVA/TIA Additional Family Medical History / Comment(s): Father of a CVA-pt unable to recall at what age. Daughter(s) Additional Family Medical History / Comment(s): Partially deaf, juvenile arthritis Medications and Allergies Home Medications Medication Instructions Recorded Confirmed Type Aspirin 81 mg PO HS 08/20/15 10/27/24 History Atorvastatin [Lipitor] 10 mg PO HS 08/20/15 10/27/24 History Ramipril 20 mg PO HS 08/20/15 10/27/24 History Fluticasone/Umeclidin/Vilanter 1 puff INHALATION RT-HS 02/22/20 10/27/24 History [Trelegy Ellipta 100-62.5-25] amLODIPine [Norvasc] 5 mg PO HS 02/22/20 10/27/24 History hydroCHLOROthiazide [Hydrodiuril] 25 mg PO HS 07/13/20 10/27/24 History predniSONE 10 mg PO DAILY 10/24/24 10/27/24 History Allergies Allergy/AdvReac Type Severity Reaction Status Date / Time adhesive tape Allergy Rash/Hives Verified 10/27/24 13:29 cephalexin Allergy Rapid Verified 10/27/24 13:29 Heart Rate Sulfa (Sulfonamide Allergy Swelling Verified 10/27/24 13:29 Antibiotics) codeine AdvReac Nausea & Verified 10/27/24 13:29 Vomiting perfume AdvReac Wheezing Verified 10/27/24 13:29 Frozen burger Allergy Swelling Uncoded 10/27/24 11:32 Physical Exam Vitals: Vital Signs Temp Pulse Resp BP Pulse Ox 10/27/24 18:12 103 H 20 119/91 92 L 10/27/24 16:35 98 93 L 10/27/24 15:54 94 18 10/27/24 15:47 94 18 10/27/24 12:14 102 H 20 147/99 94 L 10/27/24 11:50 88 L 10/27/24 11:49 20 10/27/24 11:28 97.5 F L 100 18 155/90 92 L Intake and Output 10/27/24 10/27/24 10/27/24 06:59 14:59 22:59 Other: Weight 64.864 kg The patient appeared well nourished and normally developed. Vital signs as documented. Currently on 2 L of oxygen by nasal cannula Head exam is unremarkable. No scleral icterus or corneal arcus noted. Neck is without jugular venous distension, thyromegaly, or carotid bruits. Carot id upstrokes are brisk bilaterally. Lungs thoracic levoscoliosis and diminished breath sounds bilaterally and scattered expiratory wheezes throughout the lung quiles Cardiac exam reveals the PMI to be normally sized and situated. Rhythm is regular. First and second heart sounds normal. No murmurs, rubs or gallops. Abdominal exam reveals normal bowel sounds, no masses, no organomegaly and no aortic enlargement. Extremities are nonedematous and both femoral and pedal pulses are normal. Examination of the skin revealed no evidence of significant rashes, suspicious appearing nevi or other concerning lesions. Neurologically, the patient is awake and alert and the patient does not have any focal neurological deficit. Cranial nerves are essentially intact. Results - Laboratory Findings CBC and BMP: 10/27/24 12:13 10/27/24 16:22 PT/INR, D-dimer PT 10.4 sec (10.0-12.5) 10/27/24 12:13 INR 0.9 (<1.2) 10/27/24 12:13 Abnormal lab findings: Abnormal Labs 10/27/24 10/27/24 10/27/24 12:13 12:13 12:13 Hgb 16.4 H Hct 48.0 H APTT 21.5 L Sodium 123 L Chloride 84 L Glucose 113 H 10/27/24 16:22 Hgb Hct APTT Sodium 127 L Chloride 91 L Glucose 142 H Assessment and Plan Plan: Acute exacerbation of COPD, failed outpatient management with antibiotics and steroids. The patient has received Depo-Medrol shot 80 mg IM x 2 over the past 1 week and she was placed on [address] of the chest done on 10/25/2023 showed no acute abnormalities. Repeat chest x-ray on 10/27/2024 shows no evidence of any airspace disease or pulmonary filtrates. The viral screen remains negative. COPD with an FEV1 of 51% predicted at baseline, maintained on Trelegy Ellipta on outpatient basis Thoracic kyphoscoliosis Acute hypochloremic hyponatremia due to diminished oral intake, likely hypovolemic Remote history of cervical cancer with a previous hysterectomy Hypertension Hyperlipidemia Degenerative arthritis Chronic smoking Plan Titrate oxygen flow to maintain saturation above 90%. Currently on 2 L of O2 nasal cannula Continue DuoNeb nebulized treatments [id number] IV Solu-Medrol 60 mg every 6 hours Empiric antibiotic coverage with Zithromax Normal saline at rate of 50 cc an hour and monitor the sodium levels Reviewed the CAT scan of the chest Reviewed the chest x-ray Smoking cessation Resume home medications Will follow
[2024-10-27 23:33] LABS: African American GFR (CKD) >90 (>60 ml/min/1.73 sqM); Anion Gap 9 mmol/L; Blood Urea Nitrogen 23 mg/dL (7-17); Carbon Dioxide 22 mmol/L (22-30); Chloride 94 mmol/L (98-107); Glucose 252 mg/dL (74-99); Non-African American GFR(CKD) 85 (>60 ml/min/1.73 sqM); Potassium 3.8 mmol/L (3.5-5.1); Sodium 125 mmol/L (137-145)
[2024-10-28 00:49] LABS: African American GFR (CKD) >90 (>60 ml/min/1.73 sqM); Anion Gap 11 mmol/L; Blood Urea Nitrogen 23 mg/dL (7-17); Calcium 9.4 mg/dL (8.4-10.2); Carbon Dioxide 25 mmol/L (22-30); Chloride 92 mmol/L (98-107); Glucose 163 mg/dL (74-99); Non-African American GFR(CKD) 83 (>60 ml/min/1.73 sqM); Potassium 3.8 mmol/L (3.5-5.1); Sodium 128 mmol/L (137-145)
[2024-10-28] MEDS: IPRATROPIUM-ALBUTEROL 3 ML NEB INHALATION SCH (07:40)
[2024-10-28 08:01] LABS: Basophils % (A) 0 %; Eosinophils % (A) 0 %; HCT 45.9 % (34.0-46.0); HGB 14.8 gm/dL (11.4-16.0); Lymphocytes # (A) 0.7 k/uL (1.0-4.8); Lymphocytes % (A) 8 %; MCH 30.7 pg (25.0-35.0); MCHC 32.2 g/dL (31.0-37.0); MCV 95.1 fL (80.0-100.0); Mean Platelet Volume 7.8; Monocytes # (A) 0.2 k/uL (0-1.0); Monocytes % (A) 2 %; Neutrophils # (A) 7.9 k/uL (1.3-7.7); Neutrophils % (A) 89 %; Platelet Count 288 k/uL (150-450); RBC 4.83 m/uL (3.80-5.40); RDW 11.9 % (11.5-15.5)
[2024-10-28 08:28] LABS: African American GFR (CKD) >90 (>60 ml/min/1.73 sqM); Anion Gap 8 mmol/L; Blood Urea Nitrogen 19 mg/dL (7-17); Calcium 9.3 mg/dL (8.4-10.2); Carbon Dioxide 28 mmol/L (22-30); Chloride 94 mmol/L (98-107); Glucose 145 mg/dL (74-99); Magnesium 1.9 mg/dL (1.6-2.3); Non-African American GFR(CKD) >90 (>60 ml/min/1.73 sqM); Potassium 4.4 mmol/L (3.5-5.1); Sodium 130 mmol/L (137-145)
[2024-10-28] MEDS: ENOXAPARIN 40 MG/0.4 ML SYRINGE SQ SCH (09:05)
[2024-10-28] MEDS: PANTOPRAZOLE 40 MG TABLET PO SCH (09:05)
[2024-10-28 12:01] LABS: African American GFR (CKD) >90 (>60 ml/min/1.73 sqM); Anion Gap 9 mmol/L; Blood Urea Nitrogen 21 mg/dL (7-17); Calcium 9.2 mg/dL (8.4-10.2); Carbon Dioxide 24 mmol/L (22-30); Chloride 96 mmol/L (98-107); Glucose 191 mg/dL (74-99); Non-African American GFR(CKD) >90 (>60 ml/min/1.73 sqM); Potassium 3.7 mmol/L (3.5-5.1); Sodium 129 mmol/L (137-145)
--- NOTE | 2024-10-28 12:01 | P.NPCON ---
History of Present Illness - Reason for Consult hyponatremia - History of Present Illness Reason for consultation: Hyponatremia History of present illness: Patient is a 64-year-old female seen in new consultation for hyponatremia. Patient was seen and examined in the emergency room. Patient came to the hospital due to shortness of breath. She is currently on nasal cannula. Patient states she has been having shortness of breath progressively getting worse over the last 3 weeks. She does have history of COPD. She does take hydrochlorothiazide at home. Patient states her oral intake has been somewhat less than usual the last few days. She denies use of nonsteroidals. Denies history of diabetes. Denies history of coronary artery disease. She does admit to drinking about 4 to 516 ounces glasses of water daily. Denies alcohol use. She does have history of cervical cancer and has undergone hysterectomy in the past. She did receive IV fluids. Sodium level was 123 on admission yesterday at noon and was 130 this morning. Vital signs are stable. General: No acute distress. HEENT: Head exam is unremarkable. On nasal cannula. LUNGS: No audible rhonchi or wheezes. HEART: Rate and Rhythm are regular. ABDOMEN: Nontender. EXTREMITITES: No edema. Past Medical History Past Medical History: Cancer, COPD, Hyperlipidemia, Hypertension, Osteoarthritis (OA) Additional Past Medical History / Comment(s): Bronchitis, cervical cancer with hysterectomy, kyphoscoliosis of the spine, arthritis bilateral hands and knees. History of Any Multi-Drug Resistant Organisms: None Reported Past Surgical History: Hysterectomy, Tonsillectomy Additional Past Surgical History / Comment(s): Hemangioma removed from side head, exploratory laparotomy with R salpingectomy, lymph nodes removed from groin with hysterectomy (cervical cancer). Past Anesthesia/Blood Transfusion Reactions: Postoperative Nausea & Vomiting (PONV) Additional Past Anesthesia/Blood Transfusion Reaction / Comment(s): I wake up "rowdy." Past Psychological History: No Psychological Hx Reported Smoking Status: Current every day smoker Past Alcohol Use History: None Reported Past Drug Use History: None Reported - Past Family History Mother Family Medical History: Vascular Disorder Additional Family Medical History / Comment(s): Mother of a cerebral aneu rysm at the age of 29 yrs. Father Family Medical History: CVA/TIA Additional Family Medical History / Comment(s): Father of a CVA-pt unable to recall at what age. Daughter(s) Additional Family Medical History / Comment(s): Partially deaf, juvenile arthritis Medications and Allergies Home Medications Medication Instructions Recorded Confirmed Type Aspirin 81 mg PO HS 08/20/15 10/27/24 History Atorvastatin [Lipitor] 10 mg PO HS 08/20/15 10/27/24 History Ramipril 20 mg PO HS 08/20/15 10/27/24 History Fluticasone/Umeclidin/Vilanter 1 puff INHALATION RT-HS 02/22/20 10/27/24 History [Trelegy Ellipta 100-62.5-25] amLODIPine [Norvasc] 5 mg PO HS 02/22/20 10/27/24 History hydroCHLOROthiazide [Hydrodiuril] 25 mg PO HS 07/13/20 10/27/24 History predniSONE 10 mg PO DAILY 10/24/24 10/27/24 History Allergies Allergy/AdvReac Type Severity Reaction Status Date / Time adhesive tape Allergy Rash/Hives Verified 10/27/24 13:29 cephalexin Allergy Rapid Verified 10/27/24 13:29 Heart Rate Sulfa (Sulfonamide Allergy Swelling Verified 10/27/24 13:29 Antibiotics) codeine AdvReac Nausea & Verified 10/27/24 13:29 Vomiting perfume AdvReac Wheezing Verified 10/27/24 13:29 Frozen burger Allergy Swelling Uncoded 10/27/24 11:32 Physical Exam Vitals: Vital Signs Temp Pulse Pulse Resp BP BP Pulse Ox 10/28/24 11:53 88 10/28/24 11:40 78 96 10/28/24 09:09 71 16 103/51 98 10/28/24 07:50 80 10/28/24 07:40 78 94 L 10/28/24 05:51 86 16 109/56 97 10/28/24 00:20 81 18 113/62 94 L 10/27/24 20:37 84 10/27/24 20:26 81 10/27/24 20:00 98.2 F 96 20 118/79 92 L 10/27/24 18:12 103 H 20 119/91 92 L 10/27/24 16:35 98 93 L 10/27/24 15:54 94 18 10/27/24 15:47 94 18 10/27/24 12:14 102 H 20 147/99 94 L Results - Lab Results Most recent lab results Calcium 9.3 mg/dL (8.4-10.2) 10/28/24 07:49 Magnesium 1.9 mg/dL (1.6-2.3) 10/28/24 07:49 10/28/24 07:49 10/28/24 07:49 Assessment and Plan Plan: Assessment: 1. Hyponatremia with component of hypovolemia and further worsen with the use of thiazide diuretic. Sodium level 130 this morning. 2. Benign hypertension. Blood pressure on the lower end. 3. Acute hypoxic respiratory failure secondary to COPD exacerbation. Plan: Hep-Lock IV fluids. Encouraged oral intake. 1500 cc fluid restriction. Check TSH. Urine studies pending. Stop amlodipine. Hold lisinopril for systolic blood pressure less than 120. Thank you for the consultation. I will continue to follow the patient with you during her hospital stay.
--- NOTE | 2024-10-28 12:42 | P.PN ---
Subjective Progress Note Date: 10/28/24 Patient is a 64-year-old female with asthma, COPD (no home oxygen), hyperlipidemia, hypertension, osteoarthritis, current everyday smoker here for evaluation of shortness of breath. Patient has been to the ED for multiple visits this week for shortness of breath and was also found to have moderately low sodium on labs. She was on oral steroids but decided to discontinue due to the side effects. She has recently seen her functional mental disability teacher on 10/24 for follow-up after her first ED visit this week but felt unwell and sought treatment in the ED once again however she requested immediate discharge. On admission: Vitals: 97.5 Fahrenheit, pulse rate 100, respiratory rate 18, blood pressure 155/90, 92% on room air Labs: Hemoglobin 16.4, PTT 21.5, sodium 123, chloride 84, bicarb 27, BUN 17, creatinine 0.27, glucose 113, troponin less than 0.0 12. Cepheid 4 Plex negative. Imaging: Chest x-ray on this admission showed noted scoliosis with no new suspicious focal airspace opacities, effusion or pneumothorax. EKG showed sinus rhythm with a rate of 97 shortened TX interval 118 MS, normal axis, no ST-T ch anges, good R wave progression, QTc 383 MS. 10/28/2024 patient seen and examined at bedside. No acute events overnight. No new complaints. Required 4L NC O2 support. Labs today showed WBC 9, hemoglobin 14.8, platelet count 288,000, sodium 130, potassium 4.4, chloride 94, bicarb 28, BUN 19, creatinine 0.56, glucose 145, magnesium 1.9, calcium 9.3. Physical examination: Vital signs reviewed General: non toxic, no distress, appears at stated age, on nasal cannula Derm: no unusual rashes/lesions, warm Head: atraumatic, normocephalic, symmetric Eyes: EOMI, anicteric sclera, pupils equal round reactive to light ENT: Nose and ears atraumatic Neck: No cervical lymphadenopathy, trachea midline, supple Mouth: no lip lesion, mucus membranes moist Cardiovascular: S1S2 reg, no murmur Lungs: CTA in all lung quiles, no rhonchi, no rales, no accessory muscle use Abdominal: soft, nondistended, nontender to palpation, no guarding Ext: muscle strength 5 out of 5 in all 4 extremities grossly, no gross muscle atrophy, no contractures, positive dorsalis pedis pulse bilateral, no edema Neuro: CN II-XI grossly intact, no gross focal neuro deficits Psych: Alert and oriented x 3, appropriate affect and mood Assessment/Plan: 64-year-old female with history of COPD (no home oxygen) and current everyday smoker here for evaluation of shortness of breath. Found to have hyponatremia on labs #. Acute hypoxic respiratory failure secondary to COPD exacerbation -Chest x-ray on this admission showed noted scoliosis with no new suspicious focal airspace opacities, effusion or pneumothorax. -DuoNeb inhaler QID and PRN -Prednsione 40mg PO daily discontinued by pulmonology -Switched to IV Solumedrol 60mg IV by pulmonology -Would benefit from Zithromax 500 mg p.o. daily -Symbicort 160-4.5mcg twice daily -Supplemental oxygen as needed. Goal of 88-92% saturation -Check Vitamin D -Magnesium normal -Pulmonology consulted #. Hypovolemic hyponatremia, likely due to diuretic use -Sodium 123 -> 127 -> 125 -> 128 -> 130 -Serum osmolarity, urine osmolarity and urine sodium ordered -0.9 normal saline 1 L bolus given in the ED - discontinued IV fluids 0.9 normal saline -Monitor BMP every 4 hours -Nephrology consulted by ED #. Polycythemia #. Nicotine dependence -Counseled on smoking cessation Chronic Conditions: #. Hyperlipidemia #. Hypertension #. Osteoarthritis -Discontinue thiazide diuretics -Continue home ramipril, norvasc po F: oral intake E: Monitor sodium N: Heart healthy diet A: Can self ambulate DVT ppx: Lovenox 40 mg subcu daily GI ppx: Protonix 40 mg p.o. daily Nya Pka MD PGY-1/Manager Nursing Internal Medicine Dictation was produced using [employer] dictation software. please excuse any grammatical, word or spelling errors. I saw and evaluated the patient during the barba and critical portions of this encounter, and discussed the case in detail with the resident author of this note, I agree with the Assessment and Plan, and my changes, if any, are highlighted in blue. Objective - Vital Signs Vital signs: Vital Signs Temp 98.2 F 10/27/24 20:00 Pulse 71 10/28/24 09:09 Resp 16 10/28/24 09:09 BP 103/51 10/28/24 09:09 Pulse Ox 98 10/28/24 09:09 FiO2 Intake & Output 10/27/24 10/28/24 10/28/24 18:59 06:59 18:59 Weight 64.864 kg - Labs CBC & Chem 7: 10/28/24 07:49 10/28/24 11:15 Labs: Abnormal Lab Results - Last 24 Hours (Table) 10/27/24 10/27/24 10/27/24 Range/Units 12:13 12:13 12:13 Hgb 16.4 H (11.4-16.0) gm/dL Hct 48.0 H (34.0-46.0) % Neutrophils # (1.3-7.7) k/uL Lymphocytes # (1.0-4.8) k/uL APTT 21.5 L (22.0-30.0) sec Sodium 123 L (137-145) mmol/L Chloride 84 L (98-107) mmol/L BUN (7-17) mg/dL Glucose 113 H (74-99) mg/dL 10/27/24 10/27/24 10/28/24 Range/Units 16:22 22:00 00:15 Hgb (11.4-16.0) gm/dL Hct (34.0-46.0) % Neutrophils # (1.3-7.7) k/uL Lymphocytes # (1.0-4.8) k/uL APTT (22.0-30.0) sec Sodium 127 L 125 L 128 L (137-145) mmol/L Chloride 91 L 94 L 92 L (98-107) mmol/L BUN 23 H 23 H (7-17) mg/dL Glucose 142 H 252 H 163 H (74-99) mg/dL 10/28/24 10/28/24 Range/Units 07:49 07:49 Hgb (11.4-16.0) gm/dL Hct (34.0-46.0) % Neutrophils # 7.9 H (1.3-7.7) k/uL Lymphocytes # 0.7 L (1.0-4.8) k/uL APTT (22.0-30.0) sec Sodium 130 L (137-145) mmol/L Chloride 94 L (98-107) mmol/L BUN 19 H (7-17) mg/dL Glucose 145 H (74-99) mg/dL
[2024-10-28 16:26] LABS: African American GFR (CKD) >90 (>60 ml/min/1.73 sqM); Anion Gap 11 mmol/L; Blood Urea Nitrogen 26 mg/dL (7-17); Calcium 9.1 mg/dL (8.4-10.2); Carbon Dioxide 22 mmol/L (22-30); Chloride 97 mmol/L (98-107); Glucose 156 mg/dL (74-99); Non-African American GFR(CKD) >90 (>60 ml/min/1.73 sqM); Sodium 130 mmol/L (137-145)
[2024-10-28 16:28] LABS: Potassium 4.2 mmol/L (3.5-5.1)
[2024-10-28] MEDS: CHOLECALCIFEROL 25 MCG (1000 IU) TABLET PO SCH (16:36)
[2024-10-28] MEDS: SODIUM CHLORIDE 0.9% 1,000 ML IV SCH (16:37)
[2024-10-28] MEDS: SODIUM CHLORIDE 0.9% 500 ML 500 ML IV ONE (16:37)
--- NOTE | 2024-10-28 18:45 | P.PN ---
Subjective Progress Note Date: 10/28/24 This is a 64-year-old female patient who has been having difficulties with shortness of breath history of exacerbation for the past 1 month. I saw the patient in my office earlier last week and the patient was having active bronchospasm wheezing and she was having also shortness of breath. The patient was given a Depo-Medrol Medrol shot 80 mg IM and the patient was started on low- dose prednisone 20 mg p.o. daily. She presented to my office on 10/24/2024 where she was given a Depo-Medrol shot for symptoms of COPD exacerbation which were essentially improving. She ended up in the emergency department on 10/25/2019 5 in the afternoon where she had blood work and the patient was noted to have a sodium level of 125. Rest of the electrolytes were essentially within normal limits. The white cell count of 14.7. The viral screen was negative. The patient was given a CTA of the chest that showed no evidence of any airspace disease. The lungs were essentially clear. The pulmonary arteries were patent and there was wall thickening involving the segmental branches to the right lower lobe. No obvious filling defects. The patient had no mediastinal lymphadenopathy. Based on that, the patient was discharged home to present back to the Emergency Department this afternoon with a similar symptoms. Repeat labs were done and a sodium level was down to 123. BUN was 17 with a creatinine of 0.5. Chloride was 84 with a potassium level of 4.4. The white cell count was at 10.6 with a hemoglobin of 16.4. A chest x-ray was done and showed again no evidence of any airspace disease and scoliosis of the thoracic spine was noted and this was obviously a chronic finding. Based on that, the patient was hospitalized for an acute CF exacerbation, failure of outpatient recovery in addition to management of hyponatremia. He was started on IV fluids and the patient is on normal saline at rate of 50 cc an hour. Repeat sodium level is up to 127 In regards to the patient's COPD, the patient has an FEV1 of 55% of predicted. The patient's previous spirometry showed partly obstructive/restrictive physiology as the patient has severe kyphoscoliosis of the thoracic spine. The patient has been maintained on Trelegy Ellipta 100 mcg 1 puff a day and albuterol nebulizer treatments up to 4 times a day. She is a chronic smoker. She has kyphoscoliosis deformity of the spine in addition to acid reflux, hyperlipidemia and hypertension. On 10/28/2024, the patient is feeling better. Less bronchospastic and wheezy. Sodium levels at 130. Remains on bronchodilators. Remains on Symbicort. Rem ains on IV Solu-Medrol. Remains on normal citrate of 75 cc an hour. Potassium is at 4.2, BUN 26 with a creatinine of 0.5. The white cell count is at 9 with a hemoglobin 14.8. Objective - Vital Signs Vital signs: Vital Signs Temp 98.5 F 10/28/24 17:48 Pulse 91 10/28/24 17:48 Resp 18 10/28/24 17:48 BP 100/54 10/28/24 17:48 Pulse Ox 98 10/28/24 17:48 FiO2 Intake & Output 10/27/24 10/28/24 10/28/24 18:59 06:59 18:59 Weight 64.864 kg 64.864 kg - Labs CBC & Chem 7: 10/28/24 07:49 10/28/24 15:58 Labs: Abnormal Lab Results - Last 24 Hours (Table) 10/27/24 10/28/24 10/28/24 Range/Units 22:00 00:15 07:49 Neutrophils # 7.9 H (1.3-7.7) k/uL Lymphocytes # 0.7 L (1.0-4.8) k/uL Sodium 125 L 128 L (137-145) mmol/L Chloride 94 L 92 L (98-107) mmol/L BUN 23 H 23 H (7-17) mg/dL Glucose 252 H 163 H (74-99) mg/dL Vitamin D 25-Hydroxy (30.0-100.0) ng/mL 10/28/24 10/28/24 10/28/24 Range/Units 07:49 11:15 15:58 Neutrophils # (1.3-7.7) k/uL Lymphocytes # (1.0-4.8) k/uL Sodium 130 L 129 L 130 L (137-145) mmol/L Chloride 94 L 96 L 97 L (98-107) mmol/L BUN 19 H 21 H 26 H (7-17) mg/dL Glucose 145 H 191 H 156 H (74-99) mg/dL Vitamin D 25-Hydroxy 29.6 L (30.0-100.0) ng/mL Assessment and Plan Plan: Acute exacerbation of COPD, failed outpatient management with antibiotics and steroids. The patient has received Depo-Medrol shot 80 mg IM x 2 over the past 1 week and she was placed on [address] of the chest done on 10/25/2023 showed no acute abnormalities. Repeat chest x-ray on 10/27/2024 shows no evidence of any airspace disease or pulmonary filtrates. The viral screen remains negative. COPD with an FEV1 of 51% predicted at baseline, maintained on Trelegy Ellipta on outpatient basis Thoracic kyphoscoliosis Acute hypochloremic hyponatremia due to diminished oral intake, likely hypovolemic, improving on normal saline Remote history of cervical cancer with a previous hysterectomy Hypertension Hyperlipidemia Degenerative arthritis Chronic smoking Plan Clinically improving Sodium levels improving Titrate oxygen flow to maintain saturation above 90%. Currently on 2 L of O2 nasal cannula Continue DuoNeb nebulized treatments [id number] IV Solu-Medrol 60 mg every 6 hours to be continued for another 24 hours and the patient will be switched to a prednisone burst taper as of tomorrow Empiric antibiotic coverage with Zithromax Normal saline at rate of 75 cc an hour and sodium level is improving Reviewed the CAT scan of the chest Reviewed the chest x-ray Smoking cessation Resume home medications Will follow Time with Patient: Greater than 30
[2024-10-29 07:30] VITALS: BP 106/65; RESP 18; TEMP 98.2
[2024-10-29 08:51] LABS: BUN/Creat Ratio 30.33 Ratio (12.00-20.00); Blood Urea Nitrogen 18.2 mg/dL (9.0-27.0); Calcium 8.8 mg/dL (8.7-10.3); Carbon Dioxide 25.2 mmol/L (21.6-31.8); Chloride 100 mmol/L (96-109); Glucose 193 mg/dL (70-110); Potassium 4.3 mmol/L (3.5-5.5); Sodium 135 mmol/L (135-145)
[2024-10-29 10:13] VITALS: PULSE 80
--- NOTE | 2024-10-29 10:44 | P.PN ---
Subjective Patient is seen in follow-up for hyponatremia. Sodium level 135 today. GFR at baseline. Oral intake fair. No vomiting or diarrhea. Gets dyspneic with exertion. Vital signs are stable. General: No acute distress. HEENT: Head exam is unremarkable. On nasal cannula. LUNGS: No audible rhonchi or wheezes. HEART: Rate and Rhythm are regular. ABDOMEN: Nontender. EXTREMITITES: No edema. Objective - Vital Signs Vital signs: Vital Signs Temp 98.2 F 10/29/24 06:54 Pulse 80 10/29/24 10:13 Resp 18 10/29/24 06:54 BP 106/65 10/29/24 06:54 Pulse Ox 92 L 10/29/24 06:54 FiO2 Intake & Output 10/28/24 10/29/24 10/29/24 18:59 06:59 18:59 Weight 64.864 kg Other: # Voids 5 - Labs CBC & Chem 7: 10/28/24 07:49 10/29/24 02:57 Labs: Abnormal Lab Results - Last 24 Hours (Table) 10/28/24 10/28/24 10/28/24 Range/Units 07:49 11:15 15:58 Sodium 129 L 130 L (137-145) mmol/L Chloride 96 L 97 L (98-107) mmol/L BUN 21 H 26 H (7-17) mg/dL BUN/Creatinine Ratio (12.00-20.00) Ratio Glucose 191 H 156 H (74-99) mg/dL Vitamin D 25-Hydroxy 29.6 L (30.0-100.0) ng/mL TSH (0.350-5.500) UIU/ML Ur Random Sodium (40-220) mmol/L 10/28/24 10/29/24 Range/Units 16:48 02:57 Sodium (137-145) mmol/L Chloride (98-107) mmol/L BUN (7-17) mg/dL BUN/Creatinine Ratio 30.33 H (12.00-20.00) Ratio Glucose 193 H (74-99) mg/dL Vitamin D 25-Hydroxy (30.0-100.0) ng/mL TSH 0.231 L (0.350-5.500) UIU/ML Ur Random Sodium 26 L (40-220) mmol/L Assessment and Plan Plan: Assessment: 1. Hyponatremia with component of hypovolemia and further worsened with the use of thiazide diuretic. Sodium level 135 this morning. TSH low at 0.23 with normal free T4. Urine sodium 26 and urine osmolality 501. 2. Benign hypertension. Blood pressure on the lower end. 3. Acute hypoxic respiratory failure secondary to COPD exacerbation. Plan: Remains off IV fluids. Encouraged oral intake. 1500 cc fluid restriction. Amlodipine discontinued due to low blood pressures. Hold lisinopril for systolic blood pressure less than 120.
--- NOTE | 2024-10-29 17:57 | P.DS ---
Providers Date of admission: 10/27/24 13:27 Expected date of discharge: 10/29/24 Attending physician: Renetta Wesley MD Consults: 10/27/24 13:15 Consult Physician Routine Consulting Provider: Gray Farris Consult Reason/Comments: hyponatremia Do you want consulting provider notified?: Yes 10/28/24 10:25 Consult Physician Routine Consulting Provider: Evert Larsen Consult Reason/Comments: copd exacerbation Do you want consulting provider notified?: Yes Primary care physician: [facility] Hospital Course: Hospital Course: Patient is a 64-year-old female with asthma, COPD (no home oxygen), hyperlipidemia, hypertension, osteoarthritis, current everyday smoker here for evaluation of shortness of breath. On admission: Vitals: 97.5 Fahrenheit, pulse rate 100, respiratory rate 18, blood pressure 155/90, 92% on room air Labs: Hemoglobin 16.4, PTT 21.5, sodium 123, chloride 84, bicarb 27, BUN 17, creatinine 0.27, glucose 113, troponin less than 0.0 12. Cepheid 4 Plex negative. Imaging: Chest x-ray on this admission showed noted scoliosis with no new suspicious focal airspace opacities, effusion or pneumothorax. EKG showed sinus rhythm with a rate of 97 shortened NJ interval 118 MS, normal axis, no ST-T changes, good R wave progression, QTc 383 MS. Patient was admitted for evaluation of acute hypoxic respiratory failure secondary to COPD exacerbation and moderate hyponatremia likely due to diuretic use. Ordered steroids, DuoNebs, Symbicort, supplemental oxygen, vitamin D, serum osmolarity, urine osmolarity, urine sodium. Nephrology and pulmonology consulted. Patient symptoms improved throughout hospital stay. No new complications occurred throughout hospital stay. Patient is cleared for discharge today and was prescribed Zithromax for 1 more day, prednisone taper, and vitamin D. Hydrochlorothiazide, and Norvasc was discontinued. Ramipril dose adjusted to 10 mg. Patient advised to see PCP and pulmonology on outpatient basis. Patient will also need to go home on oxygen. Final Diagnosis: #. Acute hypoxic respiratory failure secondary to COPD exacerbation #. Hypovolemic hyponatremia, likely due to diuretic use #. Low vitamin D #. Polycythemia, resolved #. Nicotine dependence #. Hyperlipidemia #. Hypertension #. Osteoarthritis Physical examination: Vital signs reviewed General: non toxic, no distress Derm: no unusual rashes/lesions, warm Head: atraumatic, normocephalic, symmetric Eyes: EOMI, anicteric sclera, pupils equal round reactive to light ENT: Nose and ears atraumatic Neck: No cervical lymphadenopathy, trachea midline, supple Mouth: no lip lesion, mucus membranes moist Cardiovascular: S1S2 reg, no murmur Lungs: CTA bilateral, no rhonchi, no rales, no accessory muscle use Abdominal: soft, nondistended, nontender to palpation, no guarding Ext: muscle strength 5 out of 5 in all 4 extremities grossly, no gross muscle atrophy, no contractures, positive dorsalis pedis bilateral, no edema, uneven upper extremities due to scoliosis Neuro: CN II-XI grossly intact, no gross focal neuro deficits Psych: Alert, oriented, appropriate affect and mood A total of 36 minutes of time were spent preparing this complex discharge summary. Patient was discharged on 10/29/2024 at 955. I have seen and evaluated the patient today. Discussed with the resident and agree with the residents finding and plan as documented in the resident's note. Changes highlighted in blue font. Patient Condition at Discharge: Good Plan - Discharge Summary Discharge Rx Participant: No New Discharge Prescriptions: New Cholecalciferol [Vitamin D3 (25 Mcg = 1000 Iu)] 100 mcg PO DAILY tab Azithromycin [Zithromax] 500 mg PO DAILY #1 tab predniSONE See Taper PO DAILY 12 Days #30 tab ramipriL 10 mg PO DAILY #30 cap Continue Atorvastatin [Lipitor] 10 mg PO HS Aspirin 81 mg PO HS Fluticasone/Umeclidin/Vilanter [Trelegy Ellipta 100-62.5-25] 1 puff INHALATION RT-HS Discontinued Ramipril 20 mg PO HS amLODIPine [Norvasc] 5 mg PO HS hydroCHLOROthiazide [Hydrodiuril] 25 mg PO HS predniSONE 10 mg PO DAILY Discharge Medication List Aspirin 81 mg PO HS 08/20/15 [History] Atorvastatin [Lipitor] 10 mg PO HS 08/20/15 [History] Fluticasone/Umeclidin/Vilanter [Trelegy Ellipta 100-62.5-25] 1 puff INHALATION RT-HS 02/22/20 [History] Azithromycin [Zithromax] 500 mg PO DAILY #1 tab 10/29/24 [Rx] Cholecalciferol [Vitamin D3 (25 Mcg = 1000 Iu)] 100 mcg PO DAILY tab 10/29/24 [Rx] predniSONE See Taper PO DAILY 12 Days #30 tab 10/29/24 [Rx] ramipriL 10 mg PO DAILY #30 cap 10/29/24 [Rx] Follow up Appointment(s)/Referral(s): Fermin Hernandez MD [Primary Care Provider] - 11/06/24 11:00 am [facility] [NON-STAFF] - As Needed (oxygen) Evert Larsen MD [STAFF PHYSICIAN] - 02/05/25 9:00 am Patient Instructions/Handouts: Hyponatremia (DC), COPD (Chronic Obstructive Pulmonary Disease) (DC) Activity/Diet/Wound Care/Special Instructions: Please see PCP for follow up Discharge Disposition: HOME SELF-CARE
--- NOTE | 2024-10-29 20:03 | P.PN ---
Subjective Progress Note Date: 10/29/24 This is a 64-year-old female patient who has been having difficulties with shortness of breath history of exacerbation for the past 1 month. I saw the patient in my office earlier last week and the patient was having active bronchospasm wheezing and she was having also shortness of breath. The patient was given a Depo-Medrol Medrol shot 80 mg IM and the patient was started on low- dose prednisone 20 mg p.o. daily. She presented to my office on 10/24/2024 where she was given a Depo-Medrol shot for symptoms of COPD exacerbation which were essentially improving. She ended up in the emergency department on 10/25/2019 5 in the afternoon where she had blood work and the patient was noted to have a sodium level of 125. Rest of the electrolytes were essentially within normal limits. The white cell count of 14.7. The viral screen was negative. The patient was given a CTA of the chest that showed no evidence of any airspace disease. The lungs were essentially clear. The pulmonary arteries were patent and there was wall thickening involving the segmental branches to the right lower lobe. No obvious filling defects. The patient had no mediastinal lymphadenopathy. Based on that, the patient was discharged home to present back to the Emergency Department this afternoon with a similar symptoms. Repeat labs were done and a sodium level was down to 123. BUN was 17 with a creatinine of 0.5. Chloride was 84 with a potassium level of 4.4. The white cell count was at 10.6 with a hemoglobin of 16.4. A chest x-ray was done and showed again no evidence of any airspace disease and scoliosis of the thoracic spine was noted and this was obviously a chronic finding. Based on that, the patient was hospitalized for an acute CF exacerbation, failure of outpatient recovery in addition to management of hyponatremia. He was started on IV fluids and the patient is on normal saline at rate of 50 cc an hour. Repeat sodium level is up to 127 In regards to the patient's COPD, the patient has an FEV1 of 55% of predicted. The patient's previous spirometry showed partly obstructive/restrictive physiology as the patient has severe kyphoscoliosis of the thoracic spine. The patient has been maintained on Trelegy Ellipta 100 mcg 1 puff a day and albuterol nebulizer treatments up to 4 times a day. She is a chronic smoker. She has kyphoscoliosis deformity of the spine in addition to acid reflux, hyperlipidemia and hypertension. On 10/28/2024, the patient is feeling better. Less bronchospastic and wheezy. Sodium levels at 130. Remains on bronchodilators. Remains on Symbicort. Rem ains on IV Solu-Medrol. Remains on normal citrate of 75 cc an hour. Potassium is at 4.2, BUN 26 with a creatinine of 0.5. The white cell count is at 9 with a hemoglobin 14.8. On 10/29/2024, the patient is feeling well. No specific complaints. No significant cough sputum production chest tightness or wheezing. Sodium is at 135. Renal function is stable. The patient is to be discharged home today. She is on oxygen at 3 L with a pulse ox of 90%. Pulse ox on room air drops down to 85%. She will need home O2. She also has trilogy Ellipta on outpatient basis and she will complete the prednisone burst taper on outpatient basis. Sodium levels a is improved and the patient was taken off the hydrochlorothiazide. Objective - Vital Signs Vital signs: Vital Signs Temp 98.2 F 10/29/24 06:54 Pulse 80 10/29/24 10:13 Resp 18 10/29/24 06:54 BP 106/65 10/29/24 06:54 Pulse Ox 93 L 10/29/24 10:57 FiO2 Intake & Output 10/28/24 10/29/24 10/29/24 18:59 06:59 18:59 Weight 64.864 kg Other: # Voids 5 - Exam The patient appeared well nourished and normally developed. Vital signs as documented. Currently on 2 L of oxygen by nasal cannula Head exam is unremarkable. No scleral icterus or corneal arcus noted. Neck is without jugular venous distension, thyromegaly, or carotid bruits. Carotid upstrokes are brisk bilaterally. Lungs thoracic levoscoliosis and diminished breath sounds bilaterally and scattered expiratory wheezes throughout the lung quiles Cardiac exam reveals the PMI to be normally sized and situated. Rhythm is regular. First and second heart sounds normal. No murmurs, rubs or gallops. Abdominal exam reveals normal bowel sounds, no masses, no organomegaly and no aortic enlargement. Extremities are nonedematous and both femoral and pedal pulses are normal. Examination of the skin revealed no evidence of significant rashes, suspicious appearing nevi or other concerning lesions. Neurologically, the patient is awake and alert and the patient does not have any focal neurological deficit. Cranial nerves are essentially intact. - Labs CBC & Chem 7: 10/28/24 07:49 10/29/24 02:57 Labs: Abnormal Lab Results - Last 24 Hours (Table) 10/28/24 10/28/24 10/28/24 Range/Units 07:49 15:58 16:48 Sodium 130 L (137-145) mmol/L Chloride 97 L (98-107) mmol/L BUN 26 H (7-17) mg/dL BUN/Creatinine Ratio (12.00-20.00) Ratio Glucose 156 H (74-99) mg/dL Vitamin D 25-Hydroxy 29.6 L (30.0-100.0) ng/mL TSH (0.350-5.500) UIU/ML Ur Random Sodium 26 L (40-220) mmol/L 10/29/24 Range/Units 02:57 Sodium (137-145) mmol/L Chloride (98-107) mmol/L BUN (7-17) mg/dL BUN/Creatinine Ratio 30.33 H (12.00-20.00) Ratio Glucose 193 H (74-99) mg/dL Vitamin D 25-Hydroxy (30.0-100.0) ng/mL TSH 0.231 L (0.350-5.500) UIU/ML Ur Random Sodium (40-220) mmol/L Assessment and Plan Plan: Acute exacerbation of COPD, failed outpatient management with antibiotics and steroids. The patient has received Depo-Medrol shot 80 mg IM x 2 over the past 1 week and she was placed on [address] of the chest done on showed no acute abnormalities. Repeat chest x-ray on 10/27/2024 shows no evidence of any airspace disease or pulmonary filtrates. The viral screen remains negative. COPD with an FEV1 of 51% predicted at baseline, maintained on Trelegy Ellipta on outpatient basis Thoracic kyphoscoliosis Acute hypochloremic hyponatremia due to diminished oral intake, likely hypovolemic, improving on normal saline, sodium level is normalized Remote history of cervical cancer with a previous hysterectomy Hypertension Hyperlipidemia Degenerative arthritis Chronic smoking Plan Clinically improving Sodium levels normalized Patient was taken off the hydrochlorothiazide Titrate oxygen flow to maintain saturation above 90%. Currently on 2 L of O2 nasal cannula Continue DuoNeb nebulized treatments [id number] Prednisone burst taper at time of discharge Smoking cessation Resume home medications Home O2 Follow-up on outpatient basis
[2024-10-30] MEDS ORDERED: predniSONE 20 MG TAB PO SCH (09:00)
--- NOTE | 2024-10-30 09:23 | CDI ---
Documentation Clarification Form Date: 10/30/24 From: Carolee Foy Admit Date: 10/27/2024 01:27:00 PM Patient Name: Raffaele Puentes Visit Number: [id number] Discharge Date: 10/29/2024 01:57:00 PM ATTENTION: The Clinical Documentation Specialists (CDI) and [facility] Coding Staff appreciate your assistance in clarifying documentation. Please respond to the clarification below the line at the bottom and electronically sign. The CDI & [facility] Coding staff will review the response and follow-up if needed. Please note: Queries are made part of the Legal Health Record. If you have any questions, please contact the author of this message via ITS. Doctor/Provider: Manpreet Vásquez, The patients principal diagnosis the diagnosis that was chiefly responsible for the admission - has not been clearly identified and clarification is requested. The patient presented to ED with dyspnea/SOB, very faint end expiratory wheezing but good air exchange. No accessory muscle usage. History/Risk factors: COPD with an FEV1 of 51% [facility], asthma, hyponatremia, scoliosis, HTN, HLD, polycythemia, smoker, no home oxygen. Clinical Indicators: Dyspnea/SOB, cough, prefers sitting and no accessory muscle usage. Lab findings: Carbon dioxide 27/26, Sodium 123 CXR findings: Chronic changes without new acute pulmonary process. Vital Signs: O2 sat: 92, 88, 94, 93, 92, 92, 94 (10/27) 94 (10/28) 92 (10/29 Pulm Consults: Acute exacerbation of COPD, failed outpatient management with antibiotics and steroids. Treatment: Titrate oxygen flow to maintain saturation above 90%.Currently on 2 L of O2 nasal cannula, Continue DuoNeb nebulized treatments [id number], IV Solu- Medrol 60 mg every 6 hours, Empiric antibiotic coverage with Zithromax In your professional opinion, can you please clarify which diagnosis, after study, was the reason chiefly responsible for the admission? [ x] Acute exacerbation of COPD [ ] Acute respiratory failure with hypoxia [ ] Other, please specify [ ] Unable to determine MTDD
== END 2024-10-29 13:57 | disposition home or self-care (01) | DRG 190 ==
LOC: EC 11:23 → 3SCARD 13:27 → 5NMEDONC 10-28 12:20 → 4SSUR 10-28 17:09
PROVIDERS: ADMIT Internal Medicine; ATTEND Internal Medicine
DX: J44.1 Chronic obstructive pulmonary disease with (acute) exacerbation (principal); J96.01 Acute respiratory failure with hypoxia; E87.1 Hypo-osmolality and hyponatremia; I10 Essential (primary) hypertension; E78.5 Hyperlipidemia, unspecified; E86.1 Hypovolemia; D75.1 Secondary polycythemia; E87.8 Other disorders of electrolyte and fluid balance, not elsewhere classified; E55.9 Vitamin D deficiency, unspecified; T50.2X5A Adverse effect of carbonic-anhydrase inhibitors, benzothiadiazides and other diuretics, initial encounter; M41.9 Scoliosis, unspecified; F17.210 Nicotine dependence, cigarettes, uncomplicated; Z79.82 Long term (current) use of aspirin; Z79.51 Long term (current) use of inhaled steroids; Z79.899 Other long term (current) drug therapy; Z85.41 Personal history of malignant neoplasm of cervix uteri; Z88.1 Allergy status to other antibiotic agents; Z88.2 Allergy status to sulfonamides; Z88.5 Allergy status to narcotic agent
CPT/HCPCS: 36415; 71046; 80048; 82306; 83605; 83735; 83880; 83930; 83935; 84300; 84439; 84443; 84484; 85025; 85610; 85730; 87636; 93005; 94640; 94760; 96361; 96374; 96376; 99285